=== PATIENT | male | born 1945 | race Caucasian/White ===

== ENCOUNTER 2017-07-02 01:33 | Inpatient (IN) | payer MEDICARE ==
--- OUTSIDE RECORDS SUMMARY | 2017-07-02 01:37 | XMS | Clinical Summary ---
:1945 Author Organization [facility] Address [address] [place] [address] Phone Care Team Providers Name Role Phone , Primary Care Provider Unavailable Allergies Active Allergy Reactions Severity Noted Date Comments Sulfamethoxazole-Trimethopr Other (See Comments) 10/11/2013 Loss of appetite im Current Medications Prescription Sig. Disp. Refills Start Date End Date Status rosuvastatin (CRESTOR) Take 20 mg by mouth Active 20 MG tablet daily. HYDROcodone-acetaminop Take 1 tablet by mouth Active hen (NORCO 5-325) every 6 (six) hours as 5-325 mg per tablet needed. aspirin 325 MG tablet Take 325 mg by mouth Active daily. carvedilol (COREG) 25 Take 25 mg by mouth 2 Active MG tablet (two) times daily with breakfast and dinner. hydrALAZINE Take 25 mg by mouth 3 Active (APRESOLINE) 25 MG (three) times daily. tablet insulin detemir 100 Inject subcutaneously Active unit/mL (3 mL) InPn nightly. nitroglycerin Place 0.3 mg under the Active (NITROSTAT) 0.3 MG SL tongue every 5 (five) tablet minutes as needed. nitroglycerin Place 0.5 inches onto Active (NITROSTAT) 2 % the skin 3 (three) ointment times daily. pantoprazole Take 40 mg by mouth Active (PROTONIX) 40 MG daily. tablet Active Problems Problem Noted Date DM (diabetes mellitus) (HCC) 09/17/2013 HTN (hypertension) 09/17/2013 3-vessel CAD 09/17/2013 Carotid stenosis 09/17/2013 Arthritis 09/17/2013 Renal cell carcinoma (HCC) 09/17/2013 Pre-transplant evaluation for ESRD (end stage renal disease) 09/17/2013 Social History Tobacco Use Types Packs/Day Years Used Date Never Smoker Sex Assigned at Date Recorded Not on file Last Filed Vital Signs Vital Sign Reading Time Taken Blood Pressure 230/97 10/11/2013 2:27 PM [employer] Pulse 74 10/11/2013 2:27 PM [employer] Temperature 36.1 C (97 F) 10/11/2013 2:27 PM [employer] Respiratory Rate 18 10/11/2013 2:27 PM [employer] Oxygen Saturation - - Inhaled Oxygen Concentration - - Weight 95.3 kg (210 lb) 10/11/2013 2:27 PM [employer] Height 181.6 cm (5' 11.5") 10/11/2013 2:27 PM [employer] Body Mass Index 28.88 10/11/2013 2:27 PM [employer] Plan of Treatment Health Maintenance Due Date Last Done Comments INFLUENZA VACCINE 05/22/2017 Results Not on filefrom Last 3 Months
[2017-07-02] MEDS ORDERED: Furosemide 40 MG/4 ML VIAL ONE (01:53)
[2017-07-02] MEDS ORDERED: Albuterol Sulfate 2.5 mg/3 ml Neb ONE (01:57)
[2017-07-02 02:19] LABS: #Basophils 0.1 thou/uL (0.0-0.2); #Eosinphils 0.3 thou/uL (0.0-0.7); #Lymphocytes 3.1 thou/uL (1.20-3.40); #Monocytes 0.9 thou/uL (0.11-0.59); #Neutrophils 8.3 thou/uL (1.40-6.50); %Basophils 0.6 % (0.0-1.0); %Eosinophils 2.5 % (0.0-10.0); %Lymphocytes 24.6 % (21.0-51.0); %Monocytes 6.9 % (0.0-10.0); Hematocrit 42.2 % (42.0-52.0); Red Blood Cell (RBC) Count 4.53 mill/uL (4.70-6.10); White Blood Cell (WBC) Count 12.7 thou/uL (4.8-10.8)
[2017-07-02 02:25] LABS: PTT 28.7 SEC (22.9-36.1); Prothrombin Time 13.5 SEC (12.0-14.7)
[2017-07-02 02:30] LABS: ALT (SGPT) 28 U/L (8-55); AST (SGOT) 42 U/L (5-34); Alkaline Phosphatase 75 U/L (40-150); Anion Gap 16 mmol/L (10-20); BUN (Urea Nitrogen) 45 mg/dL (8.4-25.7); Bilirubin, Total 0.4 mg/dL (0.2-1.2); CK (CPK) 153 U/L (30-200); Calc. Creatinine Clearance 0 mL/min (70-130); Carbon Dioxide 18 mmol/L (23-31); Chloride 109 mmol/L (98-107); Estimated GFR-MDRD 16; Globulin 3.9 g/dL (2.4-3.5)
[2017-07-02 02:33] LABS: Troponin I 0.046 ng/mL (< 0.028)
[2017-07-02 02:42] LABS: Oxyhemoglobin 93.8 % (94.0-97.0); Sodium 142 mmol/L (135-148)
[2017-07-02 02:47] LABS: Modified Allen's Test POSITIVE; Vent NO
[2017-07-02 02:48] LABS: Mode BIPAP; PIP 12 cmH2O; Pressure Support 10 cmH2O
[2017-07-02] MEDS ORDERED: Nitroglycerin 0.4 MG TAB (25 Tab Bottle) PO PRN (03:18)
[2017-07-02] MEDS ORDERED: Dextrose 5% in Water 1,000 ML IV PRN (03:23)
[2017-07-02] MEDS ORDERED: Insulin Regular 300 UNITS/3 ML VIAL SC PRN (03:23)
[2017-07-02] MEDS ORDERED: Dextrose 50% Abboject 50 ML SYRINGE SLOW IVP PRN (03:23)
[2017-07-02] MEDS ORDERED: Ondansetron HCl/PF 4 MG/2 ML Vial IVP PRN (03:25)
[2017-07-02] MEDS ORDERED: Lacri-Lube Opth Oint 3.5 GM TUBE EA EYE PRN (03:25)
[2017-07-02] MEDS ORDERED: cloNIDine 0.1 MG TAB PO PRN (03:27)
[2017-07-02] MEDS ORDERED: Bisacodyl 10 MG SUPP PR PRN (03:27)
[2017-07-02] MEDS ORDERED: hydrALAZINE 20 MG/ML VIAL SLOW IVP PRN (03:27)
[2017-07-02] MEDS ORDERED: Calcium Carbonate 500 MG ChewTAB PO PRN (03:27)
[2017-07-02] MEDS ORDERED: Senokot 8.6 MG TAB PO PRN (03:27)
[2017-07-02] MEDS ORDERED: Furosemide 100 MG in Sodium Chloride 0.9% 90 ML IVPB SCH (04:00)
[2017-07-02 04:09] VITALS: BMI 25.4
--- NOTE | 2017-07-02 04:14 | HP ---
DATE OF ADMISSION: 07/02/2017 PRIMARY CARE PHYSICIAN: Adore Cabrera. CHIEF COMPLAINT: Shortness of breath. CODE STATUS: FULL CODE. SURROGATE DECISION-MAKER: Patient makes his own decision with a help of his family. HISTORY OF PRESENT ILLNESS: Patient is a 71-year-old male with chronic systolic heart failure, ejec tion fraction 20%-25% range, coronary artery disease, status post CABG, hypertension, diabetes melli tus type 2, and chronic kidney disease stage 5, presented to the emergency room with above complaint s. Patient normally follows Dr. Wong. Patient currently follows Dr. Wong. He was on hemodialysis in the past. The patient had sudden onset of chest discomfort along with shortness of breath that woke him up fro m sleep. His chest was tight. He felt nauseous and had one episode of vomiting earlier. No palpit ations or loss of consciousness reported. He also had some wheezing and had difficulty catching his breath for which he called EMS. He was placed on noninvasive positive pressure ventilation and was brought to the emergency room. He received 6 mg morphine, and Nitropaste. He refused aspirin by E MS. His initial blood pressure by EMS was 211/134. Not much information is available from the karina ent due to current clinical status. PAST MEDICAL HISTORY: 1. Chronic systolic heart failure, ejection fraction 20%-25% range. 2. CKD stage 5, followed by Dr. Wong. 3. Diabetes mellitus type 2. 4. Hypertension. 5. Coronary artery disease, status post coronary artery bypass grafting. 6. Ischemic cardiomyopathy. 7. Status post AICD. 8. Dyslipidemia. 9. History of hemodialysis in the past, patient is currently not on dialysis. 10. Bilateral carotid artery disease and positive family history. PAST SURGICAL HISTORY: 1. Dialysis access. 2. AICD placement. 3. Coronary artery bypass grafting. 4. Tonsillectomy. 5. Spinal surgery. 6. Status post left nephrectomy. ALLERGIES: Patient is allergic to KEFLEX, PROPOXYPHENE, DARVOCET, and BACTRIM. FAMILY HISTORY: Positive for heart disease. SOCIAL HISTORY: He is , currently lives in [place]. He is a former smoker. No alcohol or drug use. CURRENT MEDICATIONS: Patient does not remember any of his home medications. We will try to confirm with the family when they arrive. REVIEW OF SYSTEMS: Cannot be obtained from the patient due to current clinical status. PHYSICAL EXAMINATION: VITAL SIGNS: A 71-year-old male, in moderate respiratory distress, currently on noninvasive positiv e pressure ventilation. HEENT: Head atraumatic, normocephalic. Sclerae are anicteric. Moist mucous membranes. No oral le kirsten. NECK: Supple. JVD elevated. No carotid bruit. No neck stiffness. LUNGS: Showed bilateral crackles in the lower half of the lung along with wheezing and rhonchi. Nelly ngs were symmetrical. Trachea was midline. HEART: S1, S2 present. Regular rate and rhythm. AICD noted. ABDOMEN: Soft, nontender, bowel sounds present. EXTREMITIES: No edema or calf tenderness. NEUROLOGIC: Grossly nonfocal, moves all four extremities. PSYCHIATRY: Alert, awake, oriented x3. SKIN: Warm and dry. LYMPH NODES: No palpable lymph nodes in the neck. PERIPHERAL VASCULAR: Radial pulses palpable bilaterally. MUSCULOSKELETAL: No joint swelling or tenderness. SKIN: Warm and dry. LYMPH NODES: No palpable lymph nodes in the neck. LABORATORY FINDINGS: 1. BNP 1245. Troponins in the indeterminate range at 0.046. 2. Blood gases showed pH 7.26 with pCO2 of 44.2, pO2 of 81.2 on 07/26 BiPAP. 3. CBC showed WBC 12.7 with hemoglobin 14.5, platelet of 209. 4. EKG by my review showed paced rhythm. 5. Chest x-ray by my review showed flash pulmonary edema. IMPRESSION: 1. Acute hypoxic respiratory failure secondary to acute on chronic systolic heart failure. 2. Elevated troponins, probably secondary to congestive heart failure. 3. Coronary artery disease, status post coronary artery bypass grafting. 4. Status post automatic implantable cardioverter defibrillator. 5. Hypertension. 6. Diabetes mellitus type 2. 7. Hyperlipidemia. 8. Chronic kidney disease stage 5 with hemodialysis in the past. 9. History of severe junctional bradycardia associated with hyperkalemia in the past. 10. Former smoker. 11. Positive family history of heart disease. 12. Bilateral carotid artery disease. PLAN: The patient will be monitored in the intermediate care unit. We will continue noninvasive po sitive pressure ventilation. We will continue diuretics with careful monitoring of the renal functi on. Dr. Wong will be consulted. The patient will be kept on fluid restriction. We will resume home medications based on last discharge. We will confirm his other home medications. Insulin sliding scale will be started. A low-dose aspirin will be added. The patient states that aspirin was disco ntinued in the past. Plan of care was discussed with the patient. He stated understanding. The patient will require 3 t o 4 days for stabilization.
[2017-07-02] MEDS: Nitroglycerin 2% Ointment 1 INCH/1 GM Packet TOP SCH ×4 (04:30→21:08)
[2017-07-02 05:18] LABS: Troponin I 0.054 ng/mL (< 0.028)
[2017-07-02] MEDS: Insulin Regular 300 UNITS/3 ML VIAL SC PRN (06:13)
--- NOTE | 2017-07-02 07:39 | CON ---
DATE OF CONSULTATION: 07/02/2017 HISTORY OF PRESENT ILLNESS: Mr. Leos is a 71-year-old white male with chronic renal failure and ad mitted for shortness of breath secondary to congestive heart failure. He was started on a Lasix dri p. His breathing is a little improved. He is oxygenating at 95%. Please note he is noted on BiPAP . Please note this patient has chronic renal failure secondary to presumed diabetic nephropathy. A t one time, he was on dialysis and the renal function improved to where he could be off dialysis. We are being consulted for further management of his chronic renal failure. REVIEW OF SYSTEMS: No chest pain. Positive for shortness of breath, positive for chest pressure. No nausea, no vomiting, no diarrhea, no syncopal episode, no productive cough, no fever or chills. No sore throat. No gross hematuria. No dysuria, no urinary frequency, no abdominal pain, occasiona l joint pains, no new skin rash, no diplopia. MEDICATIONS: 07/02/2017 - Aspirin 81 mg tab daily, Tums 1000 mg q.4h. p.r.n., Coreg 50 mg p.o. b. i.d., Catapres 0.01 mg q.4h. p.r.n., furosemide - as Lasix drip, heparin 5000 units subcutaneous b.i .d., Lantus 20 units subcu daily, insulin detemir 15 units q.a.m., the Lantus is at q.a.m., Humulin R sliding scale, Nitro-Bid 2% ointment q.6h, Zofran p.r.n., Protonix 40 mg daily. PAST MEDICAL HISTORY: 1. Congestive heart failure - decreased ejection fraction. 2. Chronic renal failure from diabetic nephropathy. 3. Type 2 diabetes mellitus. 4. History of cardiomyopathy. 5. Coronary artery disease. 6. Dyslipidemia. 7. Hypertension. 8. History of noncompliance. PAST SURGICAL HISTORY: 1. Status post AV fistula placement. 2. Status post tonsillectomy. 3. Status post left nephrectomy. 4. Status post CABG. 5. Status post cardiac catheterization. 6. Status post AICD placement. 7. Status post back surgery. ALLERGIES: KEFLEX, PROPOXYPHENE, DARVOCET, BACTRIM. TRAUMA: None. IMMUNIZATIONS: Up to date. HOSPITALIZATIONS: Please see past medical history. 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 The patient's education is 8th grade. He use to live in [place]. Smoked for 20 years 1 pack a day. No alcohol, no drug abuse. Status post blood transfusion. FAMILY HISTORY: No family history of ESRD. PHYSICAL EXAMINATION: VITAL SIGNS: Blood pressure is 170/70, heart rate 82, respiratory rate 20, pulse ox 100%, temperatu re 97.4. GENERAL: Awake, supine, comfortable on BiPAP. SKIN: Adequate turgor. HEENT: He has pinkish conjunctivae, anicteric sclerae. NECK: No neck mass, no carotid bruits, no JVD. CHEST: No deformities. LUNGS: Clear. Decreased breath sounds. HEART: Normal sinus rhythm. No murmur, no gallops or rubs. ABDOMEN: Globular, soft, nontender, no masses. EXTREMITIES: No edema. NEUROLOGIC: Awake, oriented to 3 spheres. Moving all extremities. No tremors, no asterixis, no at axia. LABORATORY: 07/02/2017 - White count 12.7, hemoglobin 14.5, sodium 138, potassium 5.1, chloride 10 9, carbon dioxide 18, BUN 45, creatinine 3.78, GFR 16 mL per minute, AST 42, ALT 28. Troponin I 0.0 54. Albumin is 4.1. Further review of his serum creatinine shows the following; 09/28/2016 BUN 37, creatinine 3.63, GFR 17 mL per minute. ASSESSMENT AND PLAN: 1. Chronic renal failure from diabetic nephropathy, relatively stable renal function. Creatinine i s near baseline. He continues to be at stage IV chronic renal failure. I do not feel there is any indication for any emergent hemodialysis. Please note his potassium is within normal. He seems to be diuresing. He is currently on a Lasix drip. Please note he has a right upper extremity AV fistu la and this is functional. 2. Congestive heart failure. Continue supportive care on Lasix drip. 3. Troponin I is noted to be borderline. Continue to diurese. No indication for any dialytic inte rvention, recheck base met in the a.m.
[2017-07-02 09:21] LABS: Anion Gap 15 mmol/L (10-20); BUN (Urea Nitrogen) 48 mg/dL (8.4-25.7); Calc. Creatinine Clearance 23 mL/min (70-130); Calcium 8.2 mg/dL (7.8-10.44); Carbon Dioxide 15 mmol/L (23-31); Chloride 111 mmol/L (98-107); Estimated GFR-MDRD 16; Magnesium 2.1 mg/dL (1.6-2.6)
[2017-07-02 09:27] LABS: Troponin I 0.073 ng/mL (< 0.028)
--- NOTE | 2017-07-02 09:36 | RAD ---
SINGLE VIEW OF THE CHEST: COMPARISON: 09/23/16. HISTORY: Respiratory failure. FINDINGS: A single view of the chest shows an enlarged but stable cardiomediastinal silhouette. The patient i s status post sternotomy. The pacemaker is unchanged in position. Increased interstitial lung delphine ings are present. There appear to be superimposed airspace opacities projecting over both lower lob es. IMPRESSION: Bilateral lower lobe infiltrates. POS: H
[2017-07-02] MEDS: Heparin 5,000 UNITS/ML VIAL SC SCH ×2 (09:42→21:08)
[2017-07-02] MEDS: Insulin Detemir 100 UNITS/ML 15 UNITS in Pre-Filled Syringe 1 EACH SC SCH (09:43)
[2017-07-02] MEDS: Docusate 100 MG CAP PO SCH ×2 (09:43→21:08)
[2017-07-02] MEDS: Carvedilol 25 MG TAB PO SCH ×2 (09:43→15:12)
[2017-07-02] MEDS ORDERED: Furosemide 40 MG/4 ML VIAL SLOW IVP SCH (15:15)
--- NOTE | 2017-07-02 15:37 | CON ---
DATE OF CONSULTATION: 07/02/2017 SERVICE: Pulmonary Medicine. REASON FOR CONSULTATION: Respiratory failure. HISTORY OF PRESENT ILLNESS: The patient is a 71-year-old white male with past medical history signi ficant for 18 admissions to the hospital for similar event. He would go to his bed in his usual sta te of health, then wake up in the middle of the night feeling like he was choking and gasping. He c annot catch his breath and he calls emergency services. By the time they get here, he decompensates and he was found to be acutely hypoxemic. He was brought to the emergency department and placed on noninvasive ventilation with resolution of some of the symptoms over the next couple of hours. Occ asionally, it is more mild. He wakes up most nights of the week, feeling like he is holding his seth ath or coughing and/or choking, but is able to go right back to bed. This has been going on for the better part of 3 or 4 years. These episodes seem to be getting increasingly worse. He denies any current fevers, nausea, vomiting, diarrhea, or chest discomfort. He had no palpitations around this time. He has had an AICD placement as well as other interventions directed at heart in order to pr event these things from occurring, but they are persisting. PAST MEDICAL HISTORY: 1. Chronic systolic heart failure with 20% ejection fraction. 2. Chronic kidney disease, stage 5. 3. Type 2 diabetes mellitus. 4. Hypertension. 5. Dyslipidemia. 6. Coronary artery disease. 7. Bilateral carotid artery disease. PAST SURGICAL HISTORY: 1. Dialysis access. 2. AICD placement. 3. Coronary artery bypass graft. 4. Tonsillectomy. 5. Spinal surgery. 6. Left nephrectomy. ALLERGIES: KEFLEX, PROPOXYPHENE, DARVOCET, BACTRIM. FAMILY HISTORY: Positive for heart disease. SOCIAL HISTORY: Negative for alcohol, tobacco, or illicit drug use. He is a former smoker, but kelli t remotely. He denies any alcohol or illicit drug use. He has no exposure to chemicals, dust, asbe stosis, or tuberculosis. MEDICATIONS: List of his inpatient medications were reviewed. No updates were made at this time. REVIEW OF SYSTEMS: General, head, ears, eyes, nose, throat, cardiovascular, respiratory, GI, , mu sculoskeletal, neurologic, and skin is negative except as mentioned in the HPI. PHYSICAL EXAMINATION: VITAL SIGNS: Afebrile, pulse 71, blood pressure 132/79, respirations 20, saturation 94% on 2 liters nasal cannula. GENERAL: Patient is awake, alert, in no apparent distress. LUNGS: Excellent air entry. There is slightly prolonged expiratory phase with a little bit of whee zing. Crackles predominate. No rhonchi. HEART: Normal rate, regular. ABDOMEN: Soft, nontender, nondistended. Bowel sounds positive. MUSCULOSKELETAL: No cyanosis or clubbing. It is not much in the way of pitting in the bilateral lo wer extremities. GENITOURINARY: No Pablo catheter. NEUROLOGIC: Grossly nonfocal. LABORATORY DATA: WBC 12.7, hemoglobin 14.5, platelets 209,000. INR 1.0. PH 7.29, pCO2 of 44, pO2 of 81. Creatinine 3.69 and roughly stable. Potassium 5.2 and also stable. Basic metabolic profil e is otherwise unremarkable. Magnesium 2.1. Cardiac enzymes were gently trending upward to 0.073. Liver function studies are normal. BNP is elevated 1245. IMAGING STUDIES: Chest x-ray demonstrates bibasilar infiltrates. Echocardiogram demonstrates an ej ection fraction of 45%-50% with mild concentric left ventricular hypertrophy and mild mitral regurgi tation. There is left atrial enlargement. Previous echocardiograms have demonstrated moderate and even severe mitral regurgitation. ASSESSMENT: 1. Acute hypoxic respiratory failure. 2. Flash pulmonary edema. 3. Obstructive sleep apnea, very strongly suspected. PLAN: At this point, we will continue the BiPAP to be used on a p.r.n. basis. In the outpatient se tting, it is mandatory of this patient undergo a sleep evaluation to determine whether or not he cou ld benefit from noninvasive therapy. All of these episodes are happening when the patient's blood p ressure is elevated. My suspicion is that, he has a functional mitral regurgitation that is worse w ith an increasing blood pressure. These episodes are likely happening in the middle of night becaus e of increasing stress associated with sleep apnea. He has multiple features consistent with sleep apnea and we could potentially minimize some of his admissions, if this were to be present. Pulmona ry Critical Care will continue to follow, particularly while the patient remains in this part of the hospital.
[2017-07-03] MEDS: Acetaminophen 325 MG TAB PO PRN (00:46)
[2017-07-03 04:52] LABS: #Eosinphils 0.3 thou/uL (0.0-0.7); #Lymphocytes 1.9 thou/uL (1.20-3.40); #Monocytes 0.6 thou/uL (0.11-0.59); #Neutrophils 3.5 thou/uL (1.40-6.50); %Basophils 0.5 % (0.0-1.0); %Eosinophils 4.2 % (0.0-10.0); %Lymphocytes 30.2 % (21.0-51.0); %Monocytes 9.1 % (0.0-10.0); Hematocrit 33.9 % (42.0-52.0); Mean Platelet Volume 7.8 fL (7.4-10.4); Red Blood Cell (RBC) Count 3.66 mill/uL (4.70-6.10); White Blood Cell (WBC) Count 6.2 thou/uL (4.8-10.8)
[2017-07-03 05:07] LABS: Anion Gap 16 mmol/L (10-20); BUN (Urea Nitrogen) 53 mg/dL (8.4-25.7); Calc. Creatinine Clearance 21 mL/min (70-130); Calcium 8.2 mg/dL (7.8-10.44); Carbon Dioxide 19 mmol/L (23-31); Chloride 107 mmol/L (98-107); Estimated GFR-MDRD 15; Magnesium 1.8 mg/dL (1.6-2.6)
[2017-07-03] MEDS ORDERED: Furosemide 40 MG/4 ML VIAL SLOW IVP SCH (06:00)
[2017-07-03] MEDS: Nitroglycerin 2% Ointment 1 INCH/1 GM Packet TOP SCH (06:02)
[2017-07-03] MEDS: Docusate 100 MG CAP PO SCH ×2 (08:57→20:56)
[2017-07-03] MEDS: Carvedilol 25 MG TAB PO SCH ×2 (08:57→17:24)
[2017-07-03] MEDS: Heparin 5,000 UNITS/ML VIAL SC SCH ×2 (08:58→20:42)
[2017-07-03] MEDS: Aspirin 81 mg Enteric Coated Tablet PO SCH (08:58)
[2017-07-03] MEDS ORDERED: INSULIN GLARGINE HUM REC ANLOG 25 UNIT SQ SCH (09:00)
[2017-07-03] MEDS ORDERED: Non-Formulary Item 1 EACH (Insulin Glargine,Hum.Rec.Anlog 50 UNIT) SQ SCH (09:00)
[2017-07-03] MEDS: Insulin Detemir 100 UNITS/ML 25 UNITS in Pre-Filled Syringe 1 EACH SC SCH (09:53)
[2017-07-03] MEDS: Insulin Detemir 100 UNITS/ML 15 UNITS in Pre-Filled Syringe 1 EACH SC SCH (09:54)
--- NOTE | 2017-07-03 10:40 | PRG ---
DATE OF SERVICE: 07/03/2017 SERVICE: Renal Medicine. SUBJECTIVE: Mr. Leos is a 71-year-old white male, who was initially admitted for shortness of chelsy th. He was being treated for CHF. Currently, Lasix will be on hold due to a slightly higher creati nine today. The possibility that he may have obstructive sleep apnea is a consideration. We will t herefore plan sleep study as an outpatient. His breathing is actually much improved. Earlier this morning, he developed signs and symptoms that were suggestive of hypoglycemia. However, blood sugar was checked and it was fine. The feeling of diaphoresis is now resolved. OBJECTIVE: VITAL SIGNS: Blood pressure is 161/68, heart rate 63, respiratory rate 16, temperature 97.7, pulse ox 94%. GENERAL EXAM: Noted to be awake, alert, supine, comfortable, not in distress. SKIN: Adequate turgor. HEENT: He has pinkish conjunctivae, anicteric sclerae. NECK: No neck mass, no carotid bruits, no JVD. CHEST: No deformities. LUNGS: Clear breath sounds. No wheezing, no crackles. HEART: Normal sinus rhythm. No murmur, no gallops, no rubs. ABDOMEN: Globular, soft, nontender, no masses. EXTREMITIES: Lower extremities, no edema. Right upper extremity, positive for edema. MEDICATIONS: Medications of 07/03/2017 were reviewed. LABORATORY DATA: Laboratories show, 07/03/2017, white count 6.2, hemoglobin 11.3, sodium 138, potas sium 4.4, chloride 107, carbon dioxide 19, BUN 53, creatinine 3.98, glucose 166, calcium 8.2, magnes ium 1.8. ASSESSMENT AND PLAN: 1. Acute kidney injury/chronic renal failure, slightly higher creatinine at 3.98. Yesterday, this was 3.69. We will hold the Lasix temporarily. His shortness of breath is much improved. 2. Shortness of breath, clinically improved. Discontinue IV Lasix for the moment. 3. Patient will have eventual sleep study done as an outpatient. There is no indication for any di alytic intervention with this patient. His chronic renal failure is noted with a GFR of 15 mL per m inute.
--- NOTE | 2017-07-03 13:02 | PRG ---
DATE OF SERVICE: 07/02/2017 SERVICE: Pulmonary Medicine. INTERVAL HISTORY: The patient is doing great from a respiratory standpoint. He is on room air. He is breathing comfortably and has no specific complaints this morning. He had a hard time sleeping once again last night, but this is status quo for him. Otherwise, there has been no interval change to his condition. PHYSICAL EXAMINATION: VITAL SIGNS: Afebrile, pulse 62, blood pressure 125/56, respirations 16 and saturation 94% on 2 lit ers nasal cannula. GENERAL: The patient is awake and alert, in no apparent distress. LUNGS: Decreased air entry. There is no prolonged expiratory phase. Dependent crackles are vastly improved. No wheezing or rhonchi are present. HEART: Normal rate, regular. ABDOMEN: Soft, nontender and nondistended. Bowel sounds positive. MUSCULOSKELETAL: No cyanosis or clubbing. No pitting in the bilateral lower extremities. NEUROLOGIC: Grossly nonfocal. LABORATORY DATA: WBC 6.2, hemoglobin 11.3 and platelets 127,000. INR 1.0. Creatinine 3.98 and gen tly up trending. BUN 53. Basic metabolic profile is otherwise unremarkable. Magnesium 1.8. ASSESSMENT: 1. Acute hypoxic respiratory failure. 2. Flash pulmonary edema secondary to likely function, mitral regurgitation in the setting of eleva renard blood pressures. 3. Hypertensive emergency. 4. Acute on chronic systolic heart failure with a 20% ejection fraction. 5. Chronic kidney disease, stage 4. 6. Obstructive sleep apnea, very strongly suspected. PLAN: The patient can be transitioned to the telemetry unit. Pulmonary Critical Care. We will con tinue to follow up for the time being. In the outpatient setting, I would like to set him up with a n outpatient polysomnogram. I will come back to visit me in clinic within a week or two to order th e study.
--- NOTE | 2017-07-03 14:22 | PRG ---
DATE OF SERVICE: 07/03/2017 SUBJECTIVE: The patient is seen and examined at the bedside. He complains of not feeling well and being upset, because he went to the bathroom this morning and found lots of black hair on the floor, which was suggesting that the bathroom was not cleaned properly, and he had some complaints about f ood he received. OBJECTIVE: VITAL SIGNS: Blood pressure is 161/68, pulse is 63, temperature is 97.7, O2 saturation , and p ulse oximetry is 94% on 2 liters by nasal cannula. HEENT: His head is atraumatic and normocephalic. Eyes are PERRLA. Conjunctivae pinkish. Oral muc adarsh is slightly dry. NECK: Supple, no lymphadenopathy, JVD, 1+ similar bilaterally. LUNGS: Breath sounds diminished at both bases. There are few crackles bilaterally at both bases. No wheezing, no rales. CARDIOVASCULAR: S1, S2, somewhat distant. No S3, no S4. ABDOMEN: Soft, nontender. Bowel sounds are present, no organomegaly. EXTREMITIES: No clubbing, cyanosis or edema. He has a big scar on his right arm where the fistula is and his hand is somewhat reddish and swollen. NEUROLOGIC: He is alert and oriented x4. There is not any motor deficits. Cranial nerves are inta ct. LABORATORY DATA: Showed a white count of 6.2, hemoglobin 11.3, hematocrit 33.9, platelet count is 1 27. Sodium of 138, potassium 4.4, chloride 107, CO2 of 19, BUN 53, creatinine 3.98, glucose 166 and glycemia is ranging from 158-227. He had two troponin levels yesterday. The first one was 0.054, the second one was 0.073. IMPRESSION: 1. Recurrent flash pulmonary edema and acute hypoxemic respiratory failure. The patient was diures ed. He is doing significantly better. He was seen by director loss prevention, Dr. Damian who suggests that this could be related to his sleep apnea. He had multiple admissions to both hospitals in [facility] for the same reason, but he never had sleep apnea studies done, so at this point, he does not need any BiPAP anymore. He is maintaining oxygenation good on 2 liters by nasal cannula . I am going to hold his Lasix until he is seen by Dr. Wong today, because his creatinine went up si gnificantly by 0.3 in less than 24 hours. 2. Cardiomyopathy with chronic systolic heart failure, ejection fraction of 20%-25%. Patient is on carvedilol. 3. Coronary artery disease, status post coronary artery bypass grafting. 4. Presence of AICD. 5. Hypertension. 6. Diabetes mellitus type 2. 7. Hyperlipidemia. 8. Chronic kidney disease stage 5, with worsening creatinine after diuresis. 9. Bilateral carotid artery disease. PLAN: Plan is to hold his Lasix now until he is going to be seen by Dr. Wong, his bladder cleaner. Als o, we will ask Dr. Dupont to come and see him. He will need probably some adjustment to his medic ations. He seems to be doing better and his appetite is better, so I am going to put him on 50 unit s of Lantus in every morning. First dose he will have this morning, but I am going to give him half a dose of 25 units just to see how he responds to that. Now, he will continue his aspirin 81 mg on ce a day and carvedilol 50 mg twice a day and he will continue his deep venous thrombosis prophylaxi s with heparin subcutaneously twice a day and PUD prophylaxis with 40 mg of Protonix p.o.
[2017-07-03] MEDS: Insulin Regular 300 UNITS/3 ML VIAL SC PRN ×2 (17:56→22:45)
--- NOTE | 2017-07-03 22:54 | CON ---
DATE OF ADMISSION: 07/02/2017 DATE OF CONSULTATION: 07/03/2017 INDICATION FOR PROCEDURE: A 71-year-old patient with a history of coronary artery disease, diastoli c systolic dysfunction, history of AICD implant with acute pulmonary edema. HISTORY OF PRESENT ILLNESS: This is a very pleasant 71-year-old gentleman who has been followed by Dr. Dupont in the past. He has a long history of cardiac problems. He has undergone bypass surge ry in 2014 with a VÁSQUEZ to the left anterior descending artery, saphenous vein graft to diagonal bran ch into the posterior descending artery. He at that time was found also to have severe decrease in left ventricular systolic function. This did improve somewhat, but then again decreased. He subseq uently underwent an AICD implant. He has had multiple hospital admissions for acute pulmonary edema . At this time, he was admitted after he became more short of breath. He had been working in his [place]. 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 He denied any chest pain or shortness breath. Prior to that, he went to bed and noticed he became more and more short of breath and coughing. He then sta rted having frothy reduction in the cough, but not blood tinged but frothy. [facility] and before he got there, he was unable to breathe and required a CPAP mask, I believe, o n the ambulance in order to help him breathe. At this time, he has been diuresed significantly and he has been seen by the city dispatcher and he is feeling much better. His troponin I increased from 0 .046, elevated to 0.073, most likely due to demand ischemia associated with acute pulmonary edema. His BNP was 1245. He denies any chest pain. He does have occasional chest tightness, but at this t anyi, he is feeling quite stable and has had no further complaints. He has been given some nitroglyc desmond at times since being in the hospital. His last ejection fraction that I can determine was abou t 20%. He has also had a stress test in 06/2015, which showed inferior posterior scar with ejection fraction around 30% at that time, but no evidence of ischemia. I believe this is his last stress t est that this gentleman has had. PAST MEDICAL HISTORY: Significant for coronary artery disease, bypass surgery as noted above. He h as history of diabetes, hypertension, dyslipidemia. He also had renal insufficiency. He has had re nal cell carcinoma. He has had a left nephrectomy. He has had knee arthritis. He has had history of hypertension and he has degenerative joint disease. He has had back surgeries. ALLERGIES: He is allergic to PRAVASTATIN which causes myalgias. MEDICATIONS: At home prior to admission included Phenergan as needed, Coreg 50 mg b.i.d. He also t akes insulin on a regular schedule, also as needed takes p.r.n. Humalog, Lasix is 40 mg b.i.d., alpr azolam 0.5 mg 1-2 tablets at bedtime p.r.n. as needed and other Mucinex and tramadol also p.r.n. as needed. At this time, he was given nitroglycerin, he is on insulin, aspirin 81 mg a day, p.r.n. med ications, Coreg XL 50 mg b.i.d., Colace is 100 mg b.i.d., he was given IV Lasix. He has been seen b y Dr. Wong, this has now been decreased. He has put out quite a bit of urine and despite having gin re decrease in his renal function. He also was given subcu heparin and also p.r.n. hydralazine for hypertension. REVIEW OF SYSTEMS: He denied any new HEENT complaints. He has undergone lens implants recently. Osito fuentes had no pulmonary complaints except what was noted in the history of present illness with the sudde n onset of shortness of breath and coughing. GI: No nausea, vomiting or diarrhea. He has had no G U complaints. He only has one kidney due to a previous left nephrectomy for renal cell carcinoma. He had been on dialysis in the past, but no longer is on dialysis. His renal function has remained relatively stable and his creatinine today was 3.98. He had no musculoskeletal complaints and some peripheral neuropathy and some mild swelling of the left lower extremity after sustained saphenous v ein graft retrieval. Neurologically, he denied any seizures or syncope. PHYSICAL EXAMINATION: GENERAL: Reveals an elderly gentleman, alert and oriented. VITAL SIGNS: Blood pressure is 125/56, heart rate 62 and regular, respiratory rate 16-20. He is af ebrile. HEENT: Shows head to be normocephalic and atraumatic. Carotid pulses are present with bilateral ca rotid bruits. CHEST: Clear to auscultation. I did not hear any rales, rhonchi or wheezing at this time. CARDIOVASCULAR: Exam reveals a regular rate and rhythm. He has a well-healed surgical incision on the left infraclavicular area after an AICD implant. He also has well-healed midline surgical incis ion after his bypass surgery. He has a regular rate and rhythm. I did not hear any heaves, thrills , bruits, rubs or murmurs. ABDOMEN: Soft and nontender with positive bowel sounds. EXTREMITIES: Showed no clubbing or cyanosis at this time. He had bilateral femoral bruits. I pedro ot palpate the left popliteal pulse. He has a mildly decreased right popliteal pulse. I cannot pal wyatt pedal pulses on either side. NEUROLOGIC: He appears to be intact. I cannot elicit any gross focal motor deficits. He is able t o ambulate. SKIN: Warm and dry. LABORATORY DATA: Shows a potassium of 4.4, creatinine is 3.98 with a BUN of 53, hemoglobin is 11.3, blood sugars anywhere between 158 to 288. His BNP was 1245 and troponin I is noted. He originally had a troponin I of 0.046, has increased up to 0.073, most likely associated with his demand ischem ia from the pulmonary edema. IMPRESSION: 1. Acute onset of pulmonary edema which may be due to underlying ischemia. He did not believe that he had increased his fluid or diet in any way and whether or not he developed acute hypertension, d eveloped acute pulmonary edema is unclear, I do not know if he has any renal artery stenosis. This may also be a possibility. He has been followed by the city dispatcher. 2. History of coronary artery disease, which actually appears to be stable unless he may have ische isidoro. His last stress test did not show ischemia, but this was approximately 2 years ago. He may ne ed to be considered for repeat stress testing. 3. History of cardiomyopathy with severe decrease in left ventricular systolic function. Last echo cardiogram showed an ejection fraction around 20% and he had an automated implantable cardioverter-d efibrillator implant. He may need to undergo repeat echocardiogram for evaluation of his ejection f raction. An automated implantable cardioverter-defibrillator implant is remaining stable at this ti sc. Last time he has had it interrogated, but apparently the function has been normal. 4. History of diabetes. This is under poor control, the patient's noncompliant with diet. 5. Hypertension. This is under good control. 6. Dyslipidemia. He will continue his present medications. At this time, he is much better after being given diuresis yesterday. He diuresed, as far as today is concerned, 2675 mL. He actually re quired some replacement of the fluid as it appears that he may becoming dehydrated and his creatinin e and the renal function has actually gone down originally from 3.78 to 3.69 and then today he had i ncreased back up to 3.98 indicative somewhat of over diuresis. He has been followed by a nephrologi st. At this time, we will continue to monitor him closely. His EKG showed a normal sinus rhythm wi th atrial sensing and ventricular pacing and no acute changes otherwise. Further care of the patien t will be by Dr. Dupont when he sees the patient tomorrow. ADDENDUM: Last echocardiogram that I could determine was that his ejection fraction is around 20%. He did hav e a more recent echocardiogram performed in September of this year, which showed an ejection fraction of approximately 48% by the public address technician study, but however by evaluation from the interpreting physi fernando, ejection fraction is estimated at 40% to 45% with mild concentric left ventricular hypertrophy as well as mild mitral valve regurgitation, left atrial enlargement, and grade I diastolic dysfunct ion as well as aortic valve sclerosis and mild tricuspid valve regurgitation.
[2017-07-04 04:35] LABS: #Eosinphils 0.2 thou/uL (0.0-0.7); #Lymphocytes 1.7 thou/uL (1.20-3.40); #Monocytes 0.5 thou/uL (0.11-0.59); #Neutrophils 3.6 thou/uL (1.40-6.50); %Basophils 0.5 % (0.0-1.0); %Eosinophils 3.3 % (0.0-10.0); %Lymphocytes 27.7 % (21.0-51.0); %Monocytes 8.5 % (0.0-10.0); Hematocrit 35.3 % (42.0-52.0); Mean Platelet Volume 8.5 fL (7.4-10.4); Red Blood Cell (RBC) Count 3.84 mill/uL (4.70-6.10)
[2017-07-04 05:01] LABS: Anion Gap 15 mmol/L (10-20); BUN (Urea Nitrogen) 56 mg/dL (8.4-25.7); Calc. Creatinine Clearance 20 mL/min (70-130); Calcium 8.5 mg/dL (7.8-10.44); Carbon Dioxide 22 mmol/L (23-31); Chloride 105 mmol/L (98-107); Estimated GFR-MDRD 14
[2017-07-04] MEDS: Aspirin 81 mg Enteric Coated Tablet PO SCH (08:40)
[2017-07-04] MEDS: Carvedilol 25 MG TAB PO SCH ×2 (08:41→17:33)
[2017-07-04] MEDS: Docusate 100 MG CAP PO SCH ×2 (08:42→21:37)
[2017-07-04] MEDS: Insulin Detemir 100 UNITS/ML 25 UNITS in Pre-Filled Syringe 1 EACH SC SCH (08:49)
[2017-07-04] MEDS: Heparin 5,000 UNITS/ML VIAL SC SCH ×2 (08:50→21:28)
--- NOTE | 2017-07-04 08:55 | PRG ---
DATE OF SERVICE: 07/04/2017 This morning he is awake, alert, responsive. No shortness of breath. He presented with acute respi ratory failure secondary to cardiomyopathy. In ICU they put him on noninvasive ventilation, he felt much improved. He sees Adore Cabrera. PHYSICAL EXAMINATION: VITAL SIGNS: Blood pressure is 170/73, sats 94% on room air, temperature 97, pulse 69. CHEST: No wheezing or crackles. CARDIAC: Normal S1-S2. ABDOMEN: Soft. No masses. LABORATORY: White count 6000, H\T\H 12 and 37. Platelet count normal. Creatinine was 4.4. IMPRESSION: 1. Congestive heart failure. 2. Renal failure. 3. Chronic obstructive pulmonary disease. PLAN: At this stage, await cardiac input, neb treatments and supportive care. I will follow.
--- NOTE | 2017-07-04 09:26 | PRG ---
DATE OF SERVICE: 07/04/2017 RENAL MEDICINE SUBJECTIVE: Mr. Leos is a 71-year-old white male with chronic renal failure, being followed up at the [facility] for his acute kidney injury on top of his chronic renal failure. His creatinine h as slowly been worsening in the last few days. This is a reflection of the previous diuretic regime n. He is off diuretics. This morning, he voices no new complaints except he wants his diet changed . He denies any chest pain or shortness of breath. PHYSICAL EXAMINATION: VITAL SIGNS: Blood pressure 170/73, heart rate 69, respiratory rate 20, temperature 97.1, and pulse ox 94%. GENERAL: Noted to be awake, alert, comfortable, not in distress. SKIN: Adequate turgor. HEENT: He has pinkish conjunctivae, anicteric sclerae. NECK: No neck mass, no carotid bruits, no JVD. CHEST: No deformities. LUNGS: Decreased breath sounds. HEART: Normal sinus rhythm. No murmur, no gallops, no rubs. ABDOMEN: Globular, soft, nontender, no masses. EXTREMITIES: No edema, no deformities. MEDICATIONS: Medications of 07/04/2017 was reviewed. LABORATORY DATA: Laboratories of 07/04/2017; white count 6, hemoglobin 12.2. Sodium 138, potassium 4.3, chloride 105, carbon dioxide 22, BUN 56, creatinine 4.14, glucose 166, calcium 8.5. ASSESSMENT AND PLAN: 1. Chronic renal failure/acute kidney injury - slightly higher creatinine at 4.1. This may be a re flection of the previous diuretic regimen. Continue to observe. No indication for any dialytic int ervention. Agreed to hold off diuretics. Hold off any ARLEN inhibitors or ARB with this patient. Fr om a renal point of view, this patient can be discharged. He will [facility]. 2. Shortness of breath, multifactorial, off diuretics, breathing is much improved. Patient will be started for possible obstructive sleep apnea as outpatient.
--- NOTE | 2017-07-04 15:45 | PDOC.PN ---
- Subjective Encounter Start Date: 07/04/17 Encounter Start Time: 15:00 Patient seen and examined. No new complaints. No overnight events. No CP/SOB. - Objective Resuscitation Status: Resuscitation Status FULL:Full Resuscitation MAR Reviewed: Yes Vital Signs & Weight: Vital Signs (12 hours) Temp Pulse Pulse Pulse Resp BP BP 07/04/17 11:25 97.9 F 67 20 07/04/17 09:29 66 69 171/67 H 173/66 H 07/04/17 08:00 97.1 F L 69 20 07/04/17 07:12 97.1 F L 69 20 07/04/17 05:12 BP BP Pulse Ox Pulse Ox Pulse Ox 07/04/17 11:25 138/66 95 07/04/17 09:29 92 L 95 07/04/17 08:00 95 07/04/17 07:12 170/73 H 94 L 07/04/17 05:12 94 L Weight Admit Weight 193 lb 1.6 oz Weight 187 lb 6.4 oz I&O: 07/03/17 07/04/17 07/05/17 06:59 06:59 06:59 Intake Total 300 1310 440 Output Total 2975 750 Balance -2675 560 440 Result Diagrams: 07/04/17 03:49 07/04/17 03:49 Additional Labs: Accuchecks 07/04/17 07/04/17 07/03/17 11:01 06:52 21:59 POC Glucose 213 H 146 H 174 H 07/03/17 16:15 POC Glucose 191 H EKG Reviewed by me: Yes (Tele paced) Phys Exam - Physical Examination Constitutional: NAD Respiratory: no wheezing, no rhonchi Cardiovascular: RRR, no rub Gastrointestinal: soft, non-tender, positive bowel sounds Musculoskeletal: no edema Neurological: non-focal, moves all 4 limbs Dx/Plan - Plan DVT proph w/heparin, DVT proph w/SCDs IMPRESSION: 1. Acute hypoxic respiratory failure secondary to acute on chronic systolic heart failure. 2. Elevated troponins, probably secondary to congestive heart failure vs ? demand ischemia. 3. Coronary artery disease, status post coronary artery bypass grafting. 4. Status post automatic implantable cardioverter defibrillator. 5. Hypertension. 6. Diabetes mellitus type 2. on sliding scale with levemir. 7. Hyperlipidemia. 8. Chronic kidney disease stage 5 with hemodialysis in the past. 9. History of severe junctional bradycardia associated with hyperkalemia in the past. 10. Former smoker. 11. Positive family history of heart disease. 12. Bilateral carotid artery disease. PLAN: * Diuretics on hold * Cardiology/Nephrology following * Echo/Stress test per Cardiology * Cont to monitor * AM labs * Cont current meds as below Review of Systems - Review of Systems Respiratory: negative: Cough, Dry, Shortness of Breath, Hemoptysis, SOB with Excertion, Pleuritic Pain, Sputum, Wheezing Cardiovascular: negative: Chest Pain, Palpitations, Orthopnea, Paroxysmal Noc. Dyspnea, Edema, Light Headedness, Other - Medications/Allergies Allergies/Adverse Reactions: Allergies Allergy/AdvReac Type Severity Reaction Status Date / Time cephalexin monohydrate Allergy Verified 11/16/15 05:02 [From Keflex] propoxyphene napsylate Allergy Verified 11/16/15 05:02 [From Darvocet-N 100] sulfamethoxazole Allergy Verified 11/16/15 05:02 [From Bactrim] trimethoprim [From Bactrim] Allergy Verified 11/16/15 05:02 Medications: Current Medications Acetaminophen (Tylenol) 650 mg PO Q4H PRN PRN Reason: Headache/Fever or Pain Last Admin: 07/03/17 00:46 Dose: 650 mg Albuterol/Ipratropium (Duoneb) 3 ml NEB [id number] [facility] Aspirin (Ecotrin) 81 mg PO DAILY [facility] Last Admin: 07/04/17 08:40 Dose: 81 mg Bisacodyl (Dulcolax) 10 mg [place] Q24H PRN PRN Reason: Constipation Calcium Carbonate (Tums) 1,000 mg PO Q4H PRN PRN Reason: Heartburn or Indigestion Carvedilol (Coreg) 50 mg PO BID-[facility] Last Admin: 07/04/17 08:41 Dose: 50 mg Clonidine (Catapres) 0.1 mg PO Q4H PRN PRN Reason: Systolic BP > 180 Dextrose/Water (Dextrose 50%) 25 gm SLOW IVP PRN PRN PRN Reason: Hypoglycemia Docusate Sodium (Colace) 100 mg PO BID [facility] Last Admin: 07/04/17 08:42 Dose: 100 mg Glucagon (Glucagon) 1 mg IM PRN PRN PRN Reason: Hypoglycemia Heparin Sodium (Porcine) (Heparin) 5,000 units SC BID [facility] Last Admin: 07/04/17 08:50 Dose: 5,000 units Hydralazine HCl (Apresoline) 10 mg SLOW IVP Q4H PRN PRN Reason: SBP Greater Than 180 Hydralazine HCl (Apresoline) 25 mg PO BID [facility] Dextrose/Water (D5w) 1,000 mls @ 0 mls/hr IV .Q0M PRN; As Directed PRN Reason: Hypoglycemia Insulin Detemir 25 units/ (Miscellaneous Medication) 0.25 mls @ 0 mls/hr SC QAM [facility] Last Admin: 07/04/17 08:49 Dose: 0.25 mls Insulin Human Regular (Humulin R) 0 units SC .MILD SLIDING SCALE PRN PRN Reason: Mild Correctional Scale Last Admin: 07/03/17 22:45 Dose: 2 unit Insulin Human Regular (Humulin R) 0 units SC .BEDTIME SLIDING SC PRN PRN Reason: Bedtime Correctional Scale Nitroglycerin (Nitrostat) 0.4 mg PO Q5MIN PRN PRN Reason: Chest Pain Ondansetron HCl (Zofran) 4 mg IVP Q6H PRN PRN Reason: Nausea/Vomiting Pantoprazole Sodium (Protonix) 40 mg PO DAILY [facility] Last Admin: 07/04/17 08:42 Dose: 40 mg Senna (Senokot) 2 tab PO HSPRN PRN PRN Reason: Constipation Sodium Chloride (Flush - Normal Saline) 10 ml IVF PRN PRN PRN Reason: Saline Flush
[2017-07-04] MEDS: Insulin Regular 300 UNITS/3 ML VIAL SC PRN (17:34)
[2017-07-04] MEDS ORDERED: Polyethylene Glycol 3350 17 GM Packet PO PRN (19:24)
[2017-07-04] MEDS: hydrALAZINE 25 MG TAB PO SCH (21:26)
[2017-07-05] MEDS: Docusate 100 MG CAP PO SCH (08:05)
[2017-07-05 08:31] LABS: #Eosinphils 0.2 thou/uL (0.0-0.7); #Lymphocytes 1.4 thou/uL (1.20-3.40); #Monocytes 0.5 thou/uL (0.11-0.59); %Basophils 0.3 % (0.0-1.0); %Eosinophils 3.6 % (0.0-10.0); %Lymphocytes 23.1 % (21.0-51.0); %Monocytes 8.5 % (0.0-10.0); Mean Platelet Volume 8.4 fL (7.4-10.4); Red Blood Cell (RBC) Count 3.92 mill/uL (4.70-6.10); White Blood Cell (WBC) Count 6.2 thou/uL (4.8-10.8)
[2017-07-05] MEDS ORDERED: Loperamide HCl 2 MG CAP PO PRN (08:31)
[2017-07-05 08:52] LABS: Anion Gap 16 mmol/L (10-20); BUN (Urea Nitrogen) 58 mg/dL (8.4-25.7); BUN/Creatinine Ratio 14.46; Calc. Creatinine Clearance 20 mL/min (70-130); Calcium 8.7 mg/dL (7.8-10.44); Carbon Dioxide 20 mmol/L (23-31); Chloride 106 mmol/L (98-107); Cholesterol 226 mg/dl (< 200 Desired); Estimated GFR-MDRD 15; LDL Cholesterol, Calculated 142 mg/dL; Phosphorus 3.8 mg/dL (2.3-4.7)
--- NOTE | 2017-07-05 09:53 | PRG ---
DATE OF SERVICE: 07/05/2017 SERVICE: Renal Medicine. SUBJECTIVE: Mr. Leos is a 71-year-old white man seen for his acute kidney injury on top of his chr onic renal failure. Diuretic has been placed on hold. Most recent creatinine was noted at 4.01. T his is slightly improved creatinine when compared to yesterday it was 4.14. His GFR is now at 15 mL per minute. He is to undergo a cardiac stress test?. He is declining at the present time. Patien t denies any chest pain or worsening shortness of breath. OBJECTIVE: VITAL SIGNS: Blood pressure is 172/81, heart rate 63, respiratory rate 18, temperature 97.9, pulse oximetry 95%. GENERAL: Noted to be awake, sitting comfortable, not in overt distress. SKIN: Adequate turgor. HEENT: Pinkish conjunctivae, anicteric sclerae. NECK: No neck mass, no carotid bruits, no JVD. CHEST: No deformities. Lungs, clear breath sounds. No wheezing, no crackles. HEART: Normal sinus rhythm. No murmur, no gallops, or rubs. ABDOMEN: Globular, soft, nontender. No masses. EXTREMITIES: No edema, no deformities. MEDICATIONS: On 07/05/2017 reviewed. LABORATORY DATA: On 07/05/2017, white count 6.2, hemoglobin 12.6. Sodium 137, potassium 5.4, chlor laura 106, carbon dioxide 20, BUN 58, creatinine 4.01, GFR of 15 mL per minute, phosphorus 3.8, calciu m is 8.7. Cholesterol 226. ASSESSMENT AND PLAN: 1. Acute kidney injury/chronic renal failure, stabilizing renal function, off diuretics. Agree wit h current management. There is no indication for any dialytic intervention. Please note, he has ri ght arteriovenous fistula - it is functional. 2. Shortness of breath. I think clinically much improved, off diuretics. The patient is being rul ed out for any underlying cardiac ischemia. Please note, he had cardiac echo done on 07/04/2017 and showed an EF of 25%-30%. 3. Mild hyperkalemia. Continue dietary advice. Patient is noncompliant with his diet. Patient wa s counseled. 4. Diarrhea p.r.n. Lomotil - supportive care. We will check base met, CBC in a.m.
--- NOTE | 2017-07-05 10:09 | PRG ---
DATE OF SERVICE: 07/05/2017 This morning he is better though he says he is weak. He has had profuse diarrhea last night and thi s morning. PHYSICAL EXAMINATION: VITAL SIGNS: Blood pressure 173/81, sats 98% on room air, temperature 97, respirations 18. CHEST: Chest reveals decreased breath sounds without any wheezing. CARDIAC: Normal S1, S2. ABDOMEN: Soft, no masses. Glucose 171. IMPRESSION: 1. Diarrhea, though the nurse this morning has not seen any. 2. Congestive heart failure. Ejection fraction is 25%. PLAN: I ordered a C. diff assay. I gave him Imodium. Supportive care. Pulmonary-lópez, continue diuretics. I will follow.
[2017-07-05] MEDS: Insulin Detemir 100 UNITS/ML 25 UNITS in Pre-Filled Syringe 1 EACH SC SCH (13:02)
[2017-07-05] MEDS: Heparin 5,000 UNITS/ML VIAL SC SCH (13:40)
[2017-07-05] MEDS: Carvedilol 25 MG TAB PO SCH ×2 (14:39→15:57)
[2017-07-05] MEDS: hydrALAZINE 25 MG TAB PO SCH ×2 (14:41→20:31)
[2017-07-05] MEDS: Aspirin 81 mg Enteric Coated Tablet PO SCH (14:41)
[2017-07-05] MEDS ORDERED: Melatonin 3 MG TAB PO PRN (15:21)
--- NOTE | 2017-07-05 15:26 | PDOC.PN ---
- Subjective Encounter Start Date: 07/05/17 Encounter Start Time: 15:21 Patient seen and examined. No new complaints. No overnight events. Diarrhea on and off - Objective Resuscitation Status: Resuscitation Status FULL:Full Resuscitation MAR Reviewed: Yes Vital Signs & Weight: Vital Signs (12 hours) Temp Pulse Resp BP BP Pulse Ox 07/05/17 14:50 97.6 F 76 18 189/68 H 98 07/05/17 14:41 63 07/05/17 08:00 97.9 F 63 18 172/81 H 95 07/05/17 04:02 97 Weight Admit Weight 193 lb 1.6 oz Weight 188 lb I&O: 07/04/17 07/05/17 07/06/17 06:59 06:59 06:59 Intake Total 1310 1080 Output Total 750 1140 Balance 560 -60 Result Diagrams: 07/05/17 08:12 07/05/17 08:12 Additional Labs: Accuchecks 07/05/17 07/05/17 07/04/17 14:36 05:30 20:42 POC Glucose 297 H 171 H 172 H 07/04/17 16:49 POC Glucose 211 H EKG Reviewed by me: Yes (Tele paced) Phys Exam - Physical Examination Constitutional: NAD Respiratory: no wheezing, no rhonchi Cardiovascular: RRR, no rub Gastrointestinal: soft, non-tender, positive bowel sounds Musculoskeletal: no edema Neurological: moves all 4 limbs Dx/Plan - Plan cont current plan of care, DVT proph w/SCDs IMPRESSION: 1. Acute hypoxic respiratory failure secondary to acute on chronic systolic heart failure. improving. Diuretics on hold. Cardiology following. 2. Elevated troponins, probably secondary to congestive heart failure vs ? demand ischemia. 3. Coronary artery disease, status post coronary artery bypass grafting. 4. Status post automatic implantable cardioverter defibrillator. 5. Hypertension. 6. Diabetes mellitus type 2. on sliding scale with levemir. 7. Hyperlipidemia. 8. Chronic kidney disease stage 5 with hemodialysis in the past. 9. History of severe junctional bradycardia associated with hyperkalemia in the past. 10. Former smoker. 11. Positive family history of heart disease. 12. Bilateral carotid artery disease. 13. Hyperkalemia - Nephrology following PLAN: * DC Heparin due to hyperkalemia * Low potassium diet * Cardiology/Nephrology following * Stress test result pending * Cont to monitor * AM labs * Stool for C diff * Cont current meds as below Review of Systems - Review of Systems Respiratory: negative: Cough, Dry, Shortness of Breath, Hemoptysis, SOB with Excertion, Pleuritic Pain, Sputum, Wheezing Cardiovascular: negative: Chest Pain, Palpitations, Orthopnea, Paroxysmal Noc. Dyspnea, Edema, Light Headedness, Other Gastrointestinal: Diarrhea. negative: Nausea, Vomiting, Abdominal Pain, Constipation, Melena, Hematochezia, Other - Medications/Allergies Allergies/Adverse Reactions: Allergies Allergy/AdvReac Type Severity Reaction Status Date / Time cephalexin monohydrate Allergy Verified 11/16/15 05:02 [From Keflex] propoxyphene napsylate Allergy Verified 11/16/15 05:02 [From Darvocet-N 100] sulfamethoxazole Allergy Verified 11/16/15 05:02 [From Bactrim] trimethoprim [From Bactrim] Allergy Verified 11/16/15 05:02 Medications: Current Medications Acetaminophen (Tylenol) 650 mg PO Q4H PRN PRN Reason: Headache/Fever or Pain Last Admin: 07/03/17 00:46 Dose: 650 mg Albuterol/Ipratropium (Duoneb) 3 ml NEB [id number] [facility] Last Admin: 07/05/17 14:44 Dose: Not Given Aspirin (Ecotrin) 81 mg PO DAILY [facility] Last Admin: 07/05/17 14:41 Dose: 81 mg Bisacodyl (Dulcolax) 10 mg [place] Q24H PRN PRN Reason: Constipation Calcium Carbonate (Tums) 1,000 mg PO Q4H PRN PRN Reason: Heartburn or Indigestion Carvedilol (Coreg) 50 mg PO BID-[facility] Last Admin: 07/05/17 14:39 Dose: Not Given Clonidine (Catapres) 0.1 mg PO Q4H PRN PRN Reason: Systolic BP > 180 Dextrose/Water (Dextrose 50%) 25 gm SLOW IVP PRN PRN PRN Reason: Hypoglycemia Glucagon (Glucagon) 1 mg IM PRN PRN PRN Reason: Hypoglycemia Hydralazine HCl (Apresoline) 10 mg SLOW IVP Q4H PRN PRN Reason: SBP Greater Than 180 Hydralazine HCl (Apresoline) 25 mg PO BID [facility] Last Admin: 07/05/17 14:41 Dose: 25 mg Dextrose/Water (D5w) 1,000 mls @ 0 mls/hr IV .Q0M PRN; As Directed PRN Reason: Hypoglycemia Insulin Detemir 25 units/ (Miscellaneous Medication) 0.25 mls @ 0 mls/hr SC QAM [facility] Last Admin: 07/05/17 13:02 Dose: Not Given Insulin Human Regular (Humulin R) 0 units SC .MILD SLIDING SCALE PRN PRN Reason: Mild Correctional Scale Last Admin: 07/04/17 17:34 Dose: 3 unit Insulin Human Regular (Humulin R) 0 units SC .BEDTIME SLIDING SC PRN PRN Reason: Bedtime Correctional Scale Loperamide HCl (Imodium) 2 mg PO PRN PRN PRN Reason: Diarrhea/Loose Stools Last Admin: 07/05/17 08:55 Dose: 2 mg Melatonin (Melatonin) 3 mg PO HS PRN PRN Reason: Insomnia Nitroglycerin (Nitrostat) 0.4 mg PO Q5MIN PRN PRN Reason: Chest Pain Ondansetron HCl (Zofran) 4 mg IVP Q6H PRN PRN Reason: Nausea/Vomiting Pantoprazole Sodium (Protonix) 40 mg PO DAILY [facility] Last Admin: 07/05/17 14:41 Dose: 40 mg Polyethylene Glycol (Miralax) 17 gm PO DAILYPRN PRN PRN Reason: Constipation Senna (Senokot) 2 tab PO HSPRN PRN PRN Reason: Constipation Sodium Chloride (Flush - Normal Saline) 10 ml IVF PRN PRN PRN Reason: Saline Flush
[2017-07-05] MEDS: Insulin Regular 300 UNITS/3 ML VIAL SC PRN (15:58)
[2017-07-05] MEDS ORDERED: Regadenoson 0.4 MG/5 ML SYRINGE ONE (15:59)
--- NOTE | 2017-07-05 16:32 | NM ---
CARDIAC SPECT: CLINICAL HISTORY: 71-year-old female with chest pain and coronary artery disease, status post CABG, CHF, end-stage julio césar al disease, hypertension, diabetes, and dyslipidemia. TECHNIQUE: A myocardial perfusion scan was performed using the single isotope one day protocol with technetium- 99m sestamibi. 9 mCi were injected intravenously for the rest exam followed by 27 mCi for the stress exam. Pharmacologic stress with Lexiscan was monitored and interpreted by Dr. Hastings. FINDINGS: No fixed or reversible defects are seen. Left ventricular cavity appears dilated. LVEF: 31%. WALL MOTION EXAM: Global hypokinesis. IMPRESSION: No evidence of reversible ischemia. POS: ALIYAH
[2017-07-05] MEDS ORDERED: Insulin Detemir 100 UNITS/ML 10 UNITS in Pre-Filled Syringe 1 EACH SC SCH (18:45)
[2017-07-05] MEDS: Acetaminophen 325 MG TAB PO PRN (21:04)
[2017-07-06 05:20] LABS: #Eosinphils 0.3 thou/uL (0.0-0.7); #Lymphocytes 1.4 thou/uL (1.20-3.40); #Monocytes 0.5 thou/uL (0.11-0.59); #Neutrophils 3.4 thou/uL (1.40-6.50); %Basophils 0.5 % (0.0-1.0); %Eosinophils 4.9 % (0.0-10.0); %Lymphocytes 24.8 % (21.0-51.0); %Monocytes 9.4 % (0.0-10.0); Hematocrit 34.9 % (42.0-52.0); Mean Platelet Volume 8.2 fL (7.4-10.4); Red Blood Cell (RBC) Count 3.79 mill/uL (4.70-6.10); White Blood Cell (WBC) Count 5.6 thou/uL (4.8-10.8)
[2017-07-06 05:23] LABS: Hemoglobin A1c 7.4 % (4.0-6.0)
[2017-07-06] MEDS: Insulin Regular 300 UNITS/3 ML VIAL SC PRN (05:30)
[2017-07-06 05:37] LABS: Anion Gap 12 mmol/L (10-20); BUN (Urea Nitrogen) 59 mg/dL (8.4-25.7); Calc. Creatinine Clearance 21 mL/min (70-130); Calcium 8.6 mg/dL (7.8-10.44); Carbon Dioxide 22 mmol/L (23-31); Chloride 107 mmol/L (98-107); Estimated GFR-MDRD 15
[2017-07-06 07:39] VITALS: BP 183/85; TEMP 98.3
[2017-07-06] MEDS: Carvedilol 25 MG TAB PO SCH (08:43)
[2017-07-06] MEDS: Insulin Detemir 100 UNITS/ML 25 UNITS in Pre-Filled Syringe 1 EACH SC SCH (08:43)
[2017-07-06] MEDS: Aspirin 81 mg Enteric Coated Tablet PO SCH (08:43)
[2017-07-06] MEDS: hydrALAZINE 25 MG TAB PO SCH (08:43)
--- NOTE | 2017-07-06 10:21 | PRG ---
DATE OF SERVICE: 07/06/2017 SERVICE: Renal medicine. SUBJECTIVE: Mr. Leos is a 71-year-old white male seen for his acute kidney injury on top of his chr onic renal failure. Diuretics have been discontinued due to the fact that the renal function was wor sening. Creatinine/renal function is now stabilizing. He denies any chest pain or shortness of chelsy th. OBJECTIVE: VITAL SIGNS: Blood pressure 183/85, heart rate 65, respiratory rate 18, temperature 98.3, pulse ox 9 6%. GENERAL: Noted to be awake, comfortable, not in distress. SKIN: Adequate turgor. HEENT: Pinkish conjunctivae, anicteric sclerae. NECK: No neck mass, no carotid bruits, no JVD. CHEST: No deformities. LUNGS: Clear breath sounds. No wheezing. HEART: Normal sinus rhythm. No murmur, no gallops, no rubs. ABDOMEN: Globular, soft, nontender, no masses. EXTREMITIES: No edema, no deformities. MEDICATIONS: Of 07/06/2017 reviewed. LABORATORY DATA: Of 07/06/2017 was reviewed. Please note, creatinine now is 3.99. ASSESSMENT AND PLAN: 1. Acute kidney injury/chronic renal failure, stabilizing renal function. I did discuss the case wi th the Hospitalist. We will continue the Lasix on a p.r.n. basis. There is no indication for any di alytic intervention. Agree with discharge. 2. Congestive heart failure, clinically much improved. The patient will call my office for a follow up visit.
--- NOTE | 2017-07-06 10:33 | PRG ---
DATE OF SERVICE: 07/06/2017 He is being discharged home today. He denies difficulty breathing. He is walking without being delphine edly short of breath. PHYSICAL EXAMINATION: VITAL SIGNS: Stable. His sats are adequate at 97%. CHEST: Chest revealed decreased breath sounds, no wheezing. CARDIAC: Normal S1-S2. No gallops. IMPRESSION: 1. Congestive heart failure. 2. Chronic obstructive pulmonary disease, stable. PLAN: Discharge home. He can be seen in the office in 2 weeks.
--- NOTE | 2017-07-06 15:44 | DIS ---
DATE OF DISCHARGE: 07/06/2017 DISCHARGE DISPOSITION: Home. FOLLOWUP: 1. Follow up with primary care physician Dr. Adore Cabrera in 1 week. 2. Follow up with outpatient cardiac rehab and [facility]. 3. Followup with Dr. Graeme Dupont next week. 4. Follow up with Dr. Wong in 1-2 weeks. 5. Follow up with Dr. Schneider in 2-3 weeks. ALLERGIES: Patient is allergic to KEFLEX, PROPOXYPHENE, and BACTRIM. INPATIENT CONSULTANTS: 1. Pulmonary, Dr. Schneider. 2. Nephrology, Dr. Wong. 3. Cardiology, Dr. Graeme Dupont. The patient was seen and examined on the day of discharge, denies any new complaint. Shortness of br eath has improved. BRIEF HOSPITAL COURSE: The patient is a 71-year-old male with chronic systolic heart failure, ejecti on fraction 20% to 25% range, coronary artery disease, status post CABG, hypertension, diabetes keagani presley type 2, and chronic kidney disease stage 5, who presented to the hospital with sudden onset of sh ortness of breath. Please refer to the history and physical dated 07/08/2017 for further details. The patient was admitted to the hospital with a right diagnosis of acute hypoxic respiratory failure secondary to acute on chronic systolic heart failure exacerbation/pulmonary edema. He showed good re sponse with Lasix drip that was later discontinued. He was seen by multiple consultants including Pu lmonary, Dr. Schneider; Nephrology, Dr. Wong; and Cardiology, Dr. Dupont. His medications have been opti mized per Cardiology. An echocardiogram was done this admission that showed ejection fraction 25% to 30% with diastolic dysfunction. It also showed moderate mitral regurgitation, mild tricuspid regurg itation. Cardiolite stress test was done yesterday that was negative for reversible ischemia. Eject ion fraction was 31%. He has been cleared by consultants for discharge. FINAL DIAGNOSES: 1. Acute hypoxic respiratory failure secondary to pulmonary edema/acute on chronic systolic heart fa ilure exacerbation. 2. Elevated troponins in the indeterminate range, probably secondary to congestive heart failure. 3. Coronary artery disease, status post coronary artery bypass graft. 4. Diabetes mellitus type 2. 5. History of automatic implantable cardioverter-defibrillator placement. 6. Hyperlipidemia. 7. History of chronic kidney disease stage 5. The patient was on hemodialysis in the past. 8. History of severe junctional bradycardia associated with hyperkalemia in the past. 9. Former smoker. 10. Positive family history of heart disease. 11. Bilateral carotid artery disease. 12. Hyperkalemia with maximum potassium of 5.4 this admission. His potassium on the day of discharg e was 5.0. The patient is not on ARLEN inhibitor or ARB secondary to renal dysfunction. He was extensively counse led to be compliant with all his medications. DISCHARGE MEDICATIONS: 1. Xanax as needed. 2. Aspirin 81 mg daily. 3. Benzocaine oral liquid as needed. 4. Coreg 50 mg b.i.d. 5. Lasix 40 mg twice daily as needed. 6. Humalog sliding scale as needed. 7. Hydralazine 50 mg b.i.d. 8. Lantus insulin as directed. 9. Sublingual nitroglycerin as needed. 10. Phenergan as needed. 11. Crestor 40 mg daily. Plan of care was discussed with the patient and he stated understanding.
--- NOTE | 2017-07-12 09:00 | STRESS ---
Acquisition Time: 2017-07-05 12:43:06 Total Exercise Time: 00:01:00 Test Indications: CHEST PAIN Medications: Protocol: LEXISCAN Max HR: 082 BPM 55% of Pred: 149 BPM Max BP: 178/088 mmHG Max Work Load: 1.0 METS RESTING ECG: V-PACED AT 61 BPM WITH INTRINSIC COMPLETE LEFT BUNDLE BRANCH BLOCK SYMPTOMS: NONE NORMAL BP RESPONSE ECTOPY: NONE ECG STRESS: NO SIGNIFICANT CHANGES INTERPRETATION: NEGATIVE ECG/AWAIT NUCLEAR IMAGES FOR DEFINITIVE DIAGNOSIS Confirmed by YURY MAKI ([id number]) on 07/12/2017 8:59:57 AM Referred By: MD Clint WELSH Confirmed By:YURY MAKI
== END 2017-07-06 11:15 | disposition home or self-care (01) | DRG 291 ==
LOC: ERS 01:33 → IMCU/EMU 02:45 → 2SE 07-05 16:55
PROVIDERS: ADMIT Internal Medicine; ATTEND Internal Medicine
DX: I13.2 Hypertensive heart and chronic kidney disease with heart failure and with stage 5 chronic kidney disease, or end stage renal disease (principal); I50.23 Acute on chronic systolic (congestive) heart failure; J96.01 Acute respiratory failure with hypoxia; N17.9 Acute kidney failure, unspecified; N18.5 Chronic kidney disease, stage 5; I08.1 Rheumatic disorders of both mitral and tricuspid valves; E11.21 Type 2 diabetes mellitus with diabetic nephropathy; I16.1 Hypertensive emergency; E11.22 Type 2 diabetes mellitus with diabetic chronic kidney disease; Z87.891 Personal history of nicotine dependence; I25.10 Atherosclerotic heart disease of native coronary artery without angina pectoris; Z95.1 Presence of aortocoronary bypass graft; Z95.810 Presence of automatic (implantable) cardiac defibrillator; Z90.5 Acquired absence of kidney; E78.5 Hyperlipidemia, unspecified; Z85.528 Personal history of other malignant neoplasm of kidney; I77.89 Other specified disorders of arteries and arterioles; J44.9 Chronic obstructive pulmonary disease, unspecified; R19.7 Diarrhea, unspecified; E87.5 Hyperkalemia; I25.5 Ischemic cardiomyopathy
CPT/HCPCS: 36415; 36416; 71010; 78452; 80048; 80053; 80061; 80069; 82553; 82805; 83036; 83735; 83880; 84484; 85025; 85610; 85730; 93005; 93017; 93306; 93798; 94640; 94660; 94760; 96374; A9500; J1815; J1940; J2785; J7050; J7611; J7620

== ENCOUNTER 2017-09-07 10:46 | Inpatient (IN) | payer MEDICARE ==
[2017-09-07 11:32] LABS: #Eosinphils 0.3 thou/uL (0.0-0.7); #Lymphocytes 0.9 thou/uL (1.20-3.40); #Monocytes 0.6 thou/uL (0.11-0.59); #Neutrophils 7.9 thou/uL (1.40-6.50); %Basophils 0.2 % (0.0-1.0); %Eosinophils 2.9 % (0.0-10.0); %Lymphocytes 9.1 % (21.0-51.0); %Monocytes 6.5 % (0.0-10.0); %Neutrophils 81.3 % (42.0-75.0); Hemoglobin 11.9 g/dL (14.0-18.0); Mean Corpuscular HGB CONC 33.1 g/dL (32.0-36.0); Mean Corpuscular Hemoglobin 30.8 pg (27.0-31.0); Mean Corpuscular Volume 93.1 fl (80.0-94.0); Mean Platelet Volume 8.1 fL (7.4-10.4); Platelet Count 141 thou/uL (130-400); RBC Distribution Width 11.8 % (11.5-14.5); Red Blood Cell (RBC) Count 3.86 mill/uL (4.70-6.10); White Blood Cell (WBC) Count 9.8 thou/uL (4.8-10.8)
[2017-09-07 11:55] LABS: ALT (SGPT) 33 U/L (8-55); AST (SGOT) 22 U/L (5-34); Alkaline Phosphatase 65 U/L (40-150); Anion Gap 14 mmol/L (10-20); BUN (Urea Nitrogen) 61 mg/dL (8.4-25.7); Bilirubin, Total 0.6 mg/dL (0.2-1.2); CKMB 3.2 ng/mL (0-6.6); Calc. Creatinine Clearance 0 mL/min (70-130); Calcium 8.6 mg/dL (7.8-10.44); Carbon Dioxide 19 mmol/L (23-31); Chloride 110 mmol/L (98-107); Estimated GFR-MDRD 17; Globulin 3.4 g/dL (2.4-3.5); Glucose 244 mg/dL (83-110); Protein, Total 7.4 g/dL (5.8-8.1); Sodium 137 mmol/L (136-145); Troponin I 0.054 ng/mL (< 0.028)
[2017-09-07] MEDS ORDERED: Insulin Regular 300 UNITS/3 ML VIAL ONE (12:11)
[2017-09-07] MEDS ORDERED: Calcium Chloride 1 GM/10 ML Abboject SYRINGE ONE (12:11)
[2017-09-07] MEDS ORDERED: Dextrose 50% Abboject 50 ML SYRINGE ONE (12:11)
[2017-09-07] MEDS ORDERED: Albuterol Sulfate 2.5 mg/3 ml Neb ONE (12:32)
[2017-09-07] MEDS ORDERED: Albuterol Sulfate 2.5 mg/0.5 ml Neb ONE (12:32)
--- NOTE | 2017-09-07 12:54 | RAD ---
SINGLE VIEW OF THE CHEST: Comparison: 07-02-17 History: Shortness of breath. FINDINGS: Single view of the chest shows an enlarged but stable cardiomediastinal silhouette. The patient is st atus post sternotomy. The pacemaker is unchanged in position. There are bilateral perihilar opacities which could represent pulmonary edema or perihilar infiltrates. IMPRESSION: Perihilar infiltrates versus pulmonary edema. POS: REYMUNDO
[2017-09-07 14:47] LABS: Troponin I 0.044 ng/mL (< 0.028)
[2017-09-07] MEDS ORDERED: Dextrose 50% Abboject 50 ML SYRINGE SLOW IVP PRN (15:05)
[2017-09-07] MEDS ORDERED: hydrALAZINE 20 MG/ML VIAL SLOW IVP PRN (15:05)
[2017-09-07] MEDS ORDERED: traMADol HCl 50 MG TAB PO PRN (15:05)
[2017-09-07] MEDS ORDERED: Loratadine 10 MG TAB PO PRN (15:05)
[2017-09-07] MEDS ORDERED: Furosemide 100 MG in Sodium Chloride 0.9% 100 ML IVPB SCH (15:05)
[2017-09-07] MEDS ORDERED: Nitroglycerin 0.4 MG TAB (25 Tab Bottle) SL PRN (15:05)
[2017-09-07] MEDS ORDERED: Acetaminophen 325 MG TAB PO PRN (15:05)
[2017-09-07] MEDS ORDERED: Senokot 8.6 MG TAB PO PRN (15:05)
[2017-09-07] MEDS ORDERED: Diabetic Tussin 200 MG/10 ML UDCUP PO PRN (15:05)
[2017-09-07] MEDS ORDERED: Mag-Al 1200 mg/1200 mg/30 ML UDCUP PO PRN (15:05)
[2017-09-07] MEDS ORDERED: Dextrose 5% in Water 1,000 ML IV PRN (15:05)
[2017-09-07] MEDS ORDERED: Bisacodyl 5 MG TAB PO PRN (15:05)
[2017-09-07] MEDS ORDERED: Ondansetron HCl/PF 4 MG/2 ML Vial IVP PRN (15:05)
[2017-09-07] MEDS ORDERED: Benzonatate 100 MG CAP PO PRN (15:05)
[2017-09-07] MEDS ORDERED: Oseltamivir 6 MG/ML ORAL SUSP PO SCH ×2 (15:45→16:30)
[2017-09-07 15:57] VITALS: BMI 28.2
--- NOTE | 2017-09-07 16:11 | HP ---
DATE OF ADMISSION: 09/07/2017 PRIMARY CARE PHYSICIAN: Adore Cabrera PA-C. CHIEF COMPLAINT: Flu-like symptoms, generalized malaise, shortness of breath, fever, chills, and cou gh. HISTORY OF PRESENT ILLNESS: Mr. Leos is a very pleasant 72-year-old male with known history of randolph nary artery disease, status post CABG; chronic systolic heart failure with EF in the 20%-25%; diabete s; hypertension; chronic kidney disease, stage 5; who presented to the emergency room with the above- mentioned complaints. History is mainly obtained by the patient himself. Electronic medical records have been reviewed and the case has been discussed in detail with the ER physician. The patient use d to be on hemodialysis in the past and follows up with document control coordinator, Dr. Wong. He was last admitted to our facility in 06/2017 for acute respiratory failure secondary to acute systolic congestive heart failure. Today, Mr. Leos presented to the emergency room, because he has not been feeling well. He reports t hat 2 weeks ago he has some flu-like symptoms with generalized achiness, chest pain, abdominal upset, and significant cough. He presented to his primary care physician and was prescribed a Z-Dipesh and fe lt marginally better, but then started to feel really bad again. Now, he is having fever and chills with persistent cough, chest pain, abdominal discomfort, and worsening shortness of breath. Upon presentation to the emergency room, he was hemodynamically stable with a blood pressure of 152/7 8, oxygen saturation 94% on room air. A chest x-ray was done, which was concerning for bilateral pne umonia along with some pulmonary edema. He has received 1 dose of IV Lasix and IV antibiotic in the emergency room and is now being admitted for community-acquired pneumonia. Mr. Leos reports compliance with his medication. He reports having adequate urination. He reports urinary frequency especially during the night. He does report poor appetite and poor liquid intake. He denies any diarrhea or vomiting. He denies any chest pain. He does have about 2 pounds of weigh t gain in the last 2 weeks. He denies any dysuria, frequency, or urgency. He denies any hematuria, hematochezia, or melena. PAST MEDICAL HISTORY: 1. Chronic kidney disease, stage 5. 2. Chronic congestive systolic heart failure with EF of 20%-25% range. 3. Diabetes mellitus, type 2. 4. Hypertension. 5. Coronary artery disease, status post coronary artery bypass graft. 6. Ischemic cardiomyopathy, status post AICD placement. 7. Dyslipidemia. 8. History of hemodialysis in the past, currently not on dialysis. 9. Bilateral carotid artery disease. PAST SURGICAL HISTORY: 1. Dialysis access. 2. AICD. 3. CABG. 4. Tonsillectomy 5. Spinal surgery. 6. Status post left nephrectomy. ALLERGIES: Include KEFLEX, PROPOXYPHENE, DARVOCET, BACTRIM. FAMILY HISTORY: Significant for heart disease. SOCIAL HISTORY: He is and lives with his family in [place]. He is a former smoker. No his tory of drug or alcohol abuse. CODE STATUS: FULL CODE, discussed with the patient. CURRENT MEDICATIONS: As listed in the ER records include Lasix 40 mg b.i.d., Humalog insulin sliding scale t.i.d., promethazine every 4 hours as needed, aspirin 81 mg daily, carvedilol dose unknown, al prazolam dose unknown, atorvastatin dose unknown. REVIEW OF SYSTEMS: The following complete review of systems was negative, unless otherwise mentioned in the HPI or below: Constitutional: Weight loss or gain, ability to conduct usual activities. Sk in: Rash, itching. Eyes: Double vision, pain. ENT/Mouth: Nose bleeding, neck stiffness, pain, te nderness. Cardiovascular: Palpitations, dyspnea on exertion, orthopnea. Respiratory: Shortness of breath, wheezing, cough, hemoptysis, fever or night sweats. Gastrointestinal: Poor appetite, abdom inal pain, heartburn, nausea, vomiting, constipation, or diarrhea. Genitourinary: Urgency, frequenc y, dysuria, nocturia. Musculoskeletal: Pain, swelling. Neurologic/Psychiatric: Anxiety, depressio n. Allergy/Immunologic: Skin rash, bleeding tendency. It is negative except for those mentioned in the history and physical. LABORATORY EXAMINATION: His CBC today shows WBCs at 9.8, 81% neutrophils, hemoglobin 11.9, platelet count 141. Serum chemistries show potassium of 6, chloride 110, bicarbonate 19, BUN 61, creatinine 3 .64 with estimated GFR of 17. Blood sugar 244. BNP is 1196. Troponin initially 0.054 with repeat t roponin of 0.044. Chest x-ray, by my review, shows perihilar infiltrates versus pulmonary edema. A 12-lead EKG, by my review, shows a paced rhythm at 69 beats per minute without any ectopies. No hussein ges to the ST segments or T waves. PHYSICAL EXAMINATION: VITAL SIGNS: Upon presentation, blood pressure 152/78, pulse of 71, respirations 22, temperature 97. 7, saturating 94% on room air. GENERAL EXAMINATION: The patient appears uncomfortable and ill, but in no acute distress. He is cherri ke, alert, oriented x3. HEENT EXAMINATION: Mucous membrane appear somewhat dry. No oropharyngeal exudate or erythema. Head is normocephalic, atraumatic. Pupils are equal and reactive to light and accommodation. Extraocula r movements intact. NECK: Supple without any lymphadenopathy, JVD, or bruit. CHEST: Evaluation shows some rhonchi and diffuse wheezes, but clear on both sides with equal air ent ry. Rate and rhythm is regular without any murmur, rubs, or gallops. ABDOMEN: Soft, nontender, nondistended with positive bowel sounds. EXTREMITIES: Free of any cyanosis, clubbing, or edema. NEUROLOGICAL EXAMINATION: Nonfocal. SKIN: Free of any rashes or bruises. Feels warm and dry to touch. PSYCHIATRIC: Normal affect. IMPRESSION AND PLAN: 1. Community-acquired pneumonia. He most likely had influenza 2 weeks ago, which was untreated and developed into bronchopneumonia. At this time, given the persistence of flu-like symptoms, we will t reat him with Tamiflu empirically along with IV antibiotic. He has received 1 dose in the emergency room. We will also obtain a blood culture given his prolonged symptoms. He will be admitted to tele metry unit to rule out sepsis. 2. Elevated BNP. The patient is likely in mild acute systolic congestive heart failure. Given the chronic kidney disease, he will be gently diuresed with Lasix drip with close monitoring of his renal functions. We will obtain a BMP every 12 hours. 3. Acute on chronic systolic congestive heart failure. As above, we will do a slow diuresis. He wo uld be on a fluid restricted diet. If his symptoms do not improve or if he seems to be in gross flui d overload, we will consult Cardiology. At this time, we will consult [facility] Failure Clinic and yon nue his home medications including aspirin and beta blockers once confirmed. 4. Acute on chronic kidney disease with hyperkalemia. We will consult Nephrology to follow along. The patient has received hyperkalemia treatment in the emergency room. We will repeat the blood work in few hours to monitor the symptoms. He does have history of severe junctional bradycardia due to hyperkalemia in the past. 5. Elevated troponin. This seems to be chronically elevated. We will continue to monitor his sympt oms and resume his cardio-prudent medications. 6. Diabetes mellitus, type 2. We will start his home medications and put him on insulin sliding sca le with frequent Accu-Cheks while he is here. 7. Hyperkalemia, see above. 8. History of ischemic cardiomyopathy, status post automatic implantable cardioverter defibrillator placement. 9. Hypertension. Resume home medications and monitor closely. 10. History of bilateral carotid artery disease. 11. Deep venous thrombosis and gastrointestinal prophylaxis. 12. Code status: FULL CODE. DISPOSITION: Mr. Leos is currently being admitted to hospital for pneumonia and rule out sepsis wit h mild acute CHF exacerbation and acute on chronic kidney insufficiency with hyperkalemia. ESTIMATED LENGTH OF STAY: At least 2-3 midnights. Further management will depend upon his clinical course.
[2017-09-07 17:46] LABS: Troponin I 0.046 ng/mL (< 0.028)
--- NOTE | 2017-09-07 20:13 | CON ---
DATE OF CONSULTATION: 09/07/2017 HISTORY OF PRESENT ILLNESS: Mr. Leos is a 72-year-old white male who presented with flu-like sympto ms. He also complained of some shortness of breath. Initial x-ray showed increased lung markings an d for that reason, the patient has been started on furosemide - as a drip. We are being consulted fo r his chronic renal failure and mild hyperkalemia. REVIEW OF SYSTEMS: Positive for body aches. Positive for mild shortness of breath. Positive for pr oductive cough. No nausea. No vomiting. No syncopal episode. Denies any fever. Appetite decrease d. Energy level is decreased. No hematochezia. No melena. No hematemesis. No dysuria. No urinar y frequency. Occasional abdominal pain. No headache. No diplopia. No sore throat. MEDICATIONS: The patient is currently on Tylenol 650 q.4 p.r.n., Ecotrin 81 mg tab daily, Tessalon 1 00 mg p.o. q.4, Dulcolax 10 mg p.o. p.r.n., Catapres 0.1 mg q.4 p.r.n., Pepcid 20 mg b.i.d., furosemi de drip 5 mg per hour, Glucagon 1 mg p.r.n., heparin 5000 units subcutaneous b.i.d., Levaquin 500 mg IV q.2 days, Tamiflu 30 mg p.o. daily. PAST MEDICAL HISTORY: Chronic renal failure secondary to diabetic nephropathy, type 2 diabetes gus sherwood, status post CHF, decreased EF, history of cardiomyopathy, coronary artery disease, dyslipidemia, history of noncompliance, history of hypertension. PAST SURGICAL HISTORY: 1. Status post back surgery. 2. Status post cardiac catheterization. 3. Status post CABG. 4. Status post left nephrectomy. 5. Status post AICD placement. 6. Status post AV fistula placement. 7. Status post tonsillectomy. 8. Status post cuffed hemodialysis catheter placement. ALLERGIES: KEFLEX, PROPOXYPHENE, DARVOCET, BACTRIM. TRAUMA: None. IMMUNIZATIONS: Up to date. HOSPITALIZATIONS: Please see past medical history. SOCIAL HISTORY: The patient is and lives in [place], has one child. 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 Education: Eighth grade. No alcohol use, no IV drug ab use. Status post blood transfusion. FAMILY HISTORY: No family history of ESRD. PHYSICAL EXAMINATION: VITAL SIGNS: Blood pressure is 171/78, heart rate 72, respiratory rate 18, temperature 98, pulse ox 94%. GENERAL: Noted to be of awake, supine, comfortable, not in distress. SKIN: Adequate turgor. HEENT: Pinkish conjunctivae, anicteric sclerae. NECK: No neck mass, no carotid bruits, no JVD. CHEST: No deformities. LUNGS: Decreased breath sounds. HEART: Normal sinus rhythm. No murmur, no gallops, no rubs. ABDOMEN: Globular, soft, nontender, no masses. EXTREMITIES: No edema, no deformities. NEUROLOGIC: Awake, oriented to 3 spheres. Moving all extremities. No tremors, no asterixis, no kiran wendie. LABORATORY DATA: Of 09/07/2017, sodium 137, chloride 110, carbon dioxide 19, potassium 6, BUN 61, cr eatinine 3.64, GFR 17 mL per minute, calcium 8.6, AST 22, ALT 33. Further review of his serum creati nine shows the following on 07/06/2017, creatinine 3.99. Chest x-ray, increased lung markings. Hemoglobin is 11.9. ASSESSMENT AND PLAN: 1. Shortness of breath/possible congestive heart failure. Currently on a Lasix drip. Continue curr ent management. Adjust Lasix drip as needed depending what the renal function will be within the nex t 24-48 hours. 2. Chronic renal failure secondary to diabetic nephropathy, near baseline GFR. Continue supportive care. There is no indication for any dialytic intervention with this patient. 3. Type 2 diabetes mellitus. Continue current insulin regimen as needed. I agree with current management. We will continue to follow.
[2017-09-07] MEDS: cloNIDine 0.1 MG TAB PO PRN (20:48)
[2017-09-07] MEDS: Heparin 5,000 UNITS/ML VIAL SC SCH (20:48)
[2017-09-07] MEDS: Famotidine 20 MG TAB PO SCH (20:48)
[2017-09-07] MEDS: Rosuvastatin 20 MG TAB PO SCH (20:48)
[2017-09-07 22:15] LABS: Anion Gap 13 mmol/L (10-20); BUN (Urea Nitrogen) 55 mg/dL (8.4-25.7); Calc. Creatinine Clearance 25 mL/min (70-130); Calcium 9.7 mg/dL (7.8-10.44); Carbon Dioxide 21 mmol/L (23-31); Chloride 110 mmol/L (98-107); Estimated GFR-MDRD 16; Glucose 166 mg/dL (83-110); Sodium 139 mmol/L (136-145)
[2017-09-08] MEDS: Furosemide 100 MG in Sodium Chloride 0.9% 100 ML IVPB SCH ×2 (03:11→23:53)
[2017-09-08] MEDS: cloNIDine 0.1 MG TAB PO PRN (03:35)
[2017-09-08 05:10] LABS: #Eosinphils 0.1 thou/uL (0.0-0.7); #Monocytes 0.9 thou/uL (0.11-0.59); #Neutrophils 5.6 thou/uL (1.40-6.50); %Basophils 0.1 % (0.0-1.0); %Eosinophils 1.8 % (0.0-10.0); %Monocytes 11.7 % (0.0-10.0); %Neutrophils 73.5 % (42.0-75.0); Hemoglobin 9.8 g/dL (14.0-18.0); Mean Corpuscular HGB CONC 33.2 g/dL (32.0-36.0); Mean Corpuscular Hemoglobin 30.9 pg (27.0-31.0); Mean Corpuscular Volume 93.2 fl (80.0-94.0); Mean Platelet Volume 8.2 fL (7.4-10.4); Platelet Count 128 thou/uL (130-400); RBC Distribution Width 11.8 % (11.5-14.5); Red Blood Cell (RBC) Count 3.16 mill/uL (4.70-6.10); White Blood Cell (WBC) Count 7.7 thou/uL (4.8-10.8)
[2017-09-08 05:26] LABS: Anion Gap 15 mmol/L (10-20); BUN (Urea Nitrogen) 53 mg/dL (8.4-25.7); Calc. Creatinine Clearance 26 mL/min (70-130); Calcium 8.4 mg/dL (7.8-10.44); Carbon Dioxide 17 mmol/L (23-31); Chloride 110 mmol/L (98-107); Estimated GFR-MDRD 17; Glucose 217 mg/dL (83-110); Potassium 4.5 mmol/L (3.5-5.1); Sodium 137 mmol/L (136-145)
[2017-09-08] MEDS ORDERED: Sodium Chloride 0.9% 10 ML ONE (08:12)
[2017-09-08] MEDS: Aspirin 81 mg Enteric Coated Tablet PO SCH (08:31)
[2017-09-08] MEDS: Famotidine 20 MG TAB PO SCH ×2 (08:31→20:55)
[2017-09-08] MEDS: Heparin 5,000 UNITS/ML VIAL SC SCH ×2 (08:31→20:56)
[2017-09-08] MEDS: hydrALAZINE 25 MG TAB PO SCH ×3 (08:37→20:56)
--- NOTE | 2017-09-08 08:52 | PRG ---
DATE OF SERVICE: 09/08/2017 SUBJECTIVE: A 72-year-old white male with chronic renal failure, admitted for upper respiratory trac t symptoms as well as mild CHF. He has been started on Lasix drip. He is tolerating the diuretics. Renal function remains stable. No other complaints except for some congestion. He is also requesti ng for some DuoNeb treatment. OBJECTIVE: VITAL SIGNS: Blood pressure is 188/85, heart rate 80, respiratory rate 18, temperature 99.8, pulse o x 93%. GENERAL: Awake, alert, supine, comfortable, not in overt distress. SKIN: Adequate turgor. HEENT: He has pinkish conjunctivae, anicteric sclerae. NECK: No neck mass, no carotid bruits. No JVD. CHEST: No deformities. LUNGS: Decreased breath sounds. HEART: Normal sinus rhythm. No murmur, no gallops or rubs. ABDOMEN: Globular, soft, nontender. EXTREMITIES: Trace edema. LABORATORIES: Labs of 09/08/2017, white count 7.7, hemoglobin 9.8, hematocrit 29.5, platelet count 1 28,000. Sodium 137, potassium 4.5, chloride 110, carbon dioxide 17, BUN 53, creatinine 3.58, glucose 217, calcium 8.4. ASSESSMENT AND PLAN: 1. Congestive heart failure, currently on Lasix DRIP. Continue current management. Tolerating said treatment. 2. Chronic renal failure from diabetic nephropathy, stable renal function. GFR 17 mL per minute. T here is no indication for any dialytic intervention. 3. Chronic obstructive pulmonary disease. DuoNeb q.6 hours and p.r.n. Overall, I agree with current management. We will recheck basic metabolic panel and CBC in a.m.
[2017-09-08] MEDS ORDERED: Insulin Regular 300 UNITS/3 ML VIAL SC PRN (11:11)
[2017-09-08] MEDS ORDERED: Carvedilol 25 MG TAB PO SCH (11:15)
[2017-09-08] MEDS: Insulin Regular 300 UNITS/3 ML VIAL SC PRN ×2 (11:58→17:08)
[2017-09-08] MEDS: Carvedilol 25 MG TAB PO SCH (16:03)
--- NOTE | 2017-09-08 19:11 | PDOC.PN ---
- Subjective Encounter Start Date: 09/08/17 Encounter Start Time: 18:00 Patient seen and examined. URI symptoms. SOB on exertion. Dry cough +. No overnight events - Objective MAR Reviewed: Yes Vital Signs & Weight: Vital Signs (12 hours) Temp Pulse Pulse Pulse Resp BP BP 09/08/17 17:15 09/08/17 16:03 69 195/86 H 09/08/17 15:59 97.9 F 69 20 09/08/17 15:01 09/08/17 14:57 71 20 09/08/17 11:54 98.5 F 72 19 09/08/17 09:15 79 93 192/75 H 09/08/17 08:37 77 09/08/17 08:22 99.7 F H 69 21 H BP BP BP Pulse Ox Pulse Ox 09/08/17 17:15 157/65 H 09/08/17 16:03 09/08/17 15:59 195/86 H 95 09/08/17 15:01 97 09/08/17 14:57 97 09/08/17 11:54 167/72 H 94 L 09/08/17 09:15 195/86 H 96 09/08/17 08:37 92 L 09/08/17 08:22 174/81 H 92 L Weight Weight 214 lb 0.996 oz I&O: 09/07/17 09/08/17 09/09/17 06:59 06:59 06:59 Intake Total 480 Output Total 600 Balance -120 Result Diagrams: 09/09/17 04:48 09/09/17 04:48 Additional Labs: Accuchecks 09/08/17 09/08/17 09/08/17 16:09 11:08 07:10 POC Glucose 194 H 204 H 194 H 09/07/17 09/07/17 21:00 17:14 POC Glucose 169 H 127 H EKG Reviewed by me: Yes (Tele paced) Phys Exam - Physical Examination Constitutional: NAD (feels gen weak) Respiratory: no wheezing Scat rales/rhonchi at bases Cardiovascular: RRR, no rub no heaves/pulsations Gastrointestinal: soft, non-tender, no distention, positive bowel sounds Musculoskeletal: edema present Neurological: non-focal, moves all 4 limbs Psychiatric: normal affect, A&O x 3 Dx/Plan - Plan DVT proph w/SCDs IMPRESSION: 1. Acute on chronic systolic heart failure prob caused by Viral syndrome 2. Elevated troponins, probably secondary to congestive heart failure vs ? demand ischemia. 3. Coronary artery disease, status post coronary artery bypass grafting. 4. Status post automatic implantable cardioverter defibrillator. 5. Hypertension. 6. Diabetes mellitus type 2. on sliding scale 7. Hyperlipidemia. 8. Chronic kidney disease stage 5 with hemodialysis in the past. 9. History of severe junctional bradycardia associated with hyperkalemia in the past. 10. Former smoker. 11. Positive family history of heart disease. 12. Bilateral carotid artery disease. PLAN: * Cont Lasix drip * AM labs * Nephrology following * Resp viral panel * Cont Tamiflu for ?influenza * Cont to monitor * AM labs * Cont current meds as below Microbiology 09/07/17 11:55 Nasal swab Influenza Types A,B Direct EIA - Negative 09/07/17 15:58 Venous blood - Left Arm Blood Culture - Preliminary Specimen has been received and culture in progress. No Growth to date. 09/07/17 15:57 Venous blood - Left Hand Blood Culture - Preliminary Specimen has been received and culture in progress. No Growth to date. Laboratory Tests 09/07/17 17:13 Troponin I 0.046 H Review of Systems - Review of Systems Cardiovascular: edema. negative: chest pain, palpitations, orthopnea, paroxysmal nocturnal dyspnea, light headedness, other Gastrointestinal: negative: Nausea, Vomiting, Abdominal Pain, Diarrhea, Constipation, Melena, Hematochezia - Medications/Allergies Allergies/Adverse Reactions: Allergies Allergy/AdvReac Type Severity Reaction Status Date / Time cephalexin monohydrate Allergy Verified 09/07/17 16:11 [From Keflex] propoxyphene napsylate Allergy Verified 09/07/17 16:11 [From Darvocet-N 100] sulfamethoxazole Allergy Verified 09/07/17 16:11 [From Bactrim] trimethoprim [From Bactrim] Allergy Verified 09/07/17 16:11 Medications: Current Medications Acetaminophen (Tylenol) 650 mg PO Q4H PRN PRN Reason: Headache/Fever or Pain Al Hydroxide/Mg Hydroxide (Maalox) 30 ml PO Q6H PRN PRN Reason: Heartburn or Indigestion Albuterol/Ipratropium (Duoneb) 3 ml NEB [id number] [facility] Last Admin: 09/08/17 14:57 Dose: 3 ml Aspirin (Ecotrin) 81 mg PO DAILY [facility] Last Admin: 09/08/17 08:31 Dose: 81 mg Benzonatate (Tessalon) 100 mg PO Q4H PRN PRN Reason: Cough Bisacodyl (Dulcolax) 10 mg PO DAILYPRN PRN PRN Reason: Constipation Carvedilol (Coreg) 50 mg PO BID-WM [facility] Last Admin: 09/08/17 16:03 Dose: 50 mg Clonidine (Catapres) 0.1 mg PO Q4H PRN PRN Reason: Systolic BP > 160 Last Admin: 09/08/17 03:35 Dose: 0.1 mg Dextrose/Water (Dextrose 50%) 25 gm SLOW IVP PRN PRN PRN Reason: Hypoglycemia Famotidine (Pepcid) 20 mg PO BID [facility] Last Admin: 09/08/17 08:31 Dose: 20 mg Glucagon (Glucagon) 1 mg IM PRN PRN PRN Reason: Hypoglycemia Guaifenesin (Robitussin Sf) 200 mg PO Q4H PRN PRN Reason: Cough Heparin Sodium (Porcine) (Heparin) 5,000 units SC BID [facility] Last Admin: 09/08/17 08:31 Dose: 5,000 units Hydralazine HCl (Apresoline) 10 mg SLOW IVP Q4H PRN PRN Reason: Systolic BP > 180 Hydralazine HCl (Apresoline) 50 mg PO TID [facility] Last Admin: 09/08/17 16:03 Dose: 50 mg Dextrose/Water (D5w) 1,000 mls @ 0 mls/hr IV .Q0M PRN; As Directed PRN Reason: Hypoglycemia Furosemide 100 mg/ Sodium (Chloride) 110 mls @ 5.5 mls/hr IVPB INF [facility] PRN Reason: 5 MG/HR Last Admin: 09/08/17 03:11 Dose: 110 mls Levofloxacin 500 mg/ Device 100 mls @ 100 mls/hr IVPB Q2D@1300 [facility] Insulin Human Regular (Humulin R) 0 units SC .MILD SLIDING SCALE PRN PRN Reason: Mild Correctional Scale Last Admin: 09/08/17 17:08 Dose: 2 unit Insulin Human Regular (Humulin R) 0 units SC .BEDTIME SLIDING SC PRN PRN Reason: Bedtime Correctional Scale Loratadine (Claritin) 10 mg PO DAILYPRN PRN PRN Reason: Sinus Symptoms Nitroglycerin (Nitrostat) 0.4 mg SL Q5MIN PRN PRN Reason: Chest Pain Ondansetron HCl (Zofran) 4 mg IVP Q6H PRN PRN Reason: Nausea/Vomiting Last Admin: 09/07/17 20:52 Dose: 4 mg Oseltamivir Phosphate (Tamiflu) 30 mg PO HS [facility] Rosuvastatin Calcium (Crestor) 40 mg PO HS [facility] Last Admin: 09/07/17 20:48 Dose: 40 mg Senna (Senokot) 2 tab PO HSPRN PRN PRN Reason: Constipation Tramadol HCl (Ultram) 50 mg PO Q4H PRN PRN Reason: Moderate Pain (4-6)
[2017-09-08] MEDS: Rosuvastatin 20 MG TAB PO SCH (20:56)
[2017-09-08] MEDS ORDERED: Oseltamivir 6 MG/ML ORAL SUSP PO SCH (21:00)
[2017-09-09] MEDS: cloNIDine 0.1 MG TAB PO PRN ×3 (05:24→16:47)
[2017-09-09 05:49] LABS: Anion Gap 15 mmol/L (10-20); BUN (Urea Nitrogen) 64 mg/dL (8.4-25.7); Calc. Creatinine Clearance 20 mL/min (70-130); Calcium 8.8 mg/dL (7.8-10.44); Carbon Dioxide 19 mmol/L (23-31); Chloride 107 mmol/L (98-107); Estimated GFR-MDRD 14; Glucose 228 mg/dL (83-110); Magnesium 1.7 mg/dL (1.6-2.6); Potassium 4.3 mmol/L (3.5-5.1); Sodium 137 mmol/L (136-145)
[2017-09-09 06:06] LABS: Band 1 % (5-11); Eosinophils 4 % (0-10); Hemoglobin 10.2 g/dL (14.0-18.0); Lymphocytes 21 % (21-51); MDiff Complete? YES; Mean Corpuscular HGB CONC 33.6 g/dL (32.0-36.0); Mean Corpuscular Hemoglobin 30.9 pg (27.0-31.0); Mean Corpuscular Volume 91.9 fl (80.0-94.0); Mean Platelet Volume 8.4 fL (7.4-10.4); Monocytes 15 % (0-10); Neutrophil 59 % (42-75); Platelet Count 122 thou/uL (130-400); RBC Distribution Width 11.7 % (11.5-14.5); White Blood Cell (WBC) Count 5.1 thou/uL (4.8-10.8)
[2017-09-09] MEDS ORDERED: Albumin 25% 25 GM/100 ML BOT IVPB ONE (06:58)
[2017-09-09] MEDS ORDERED: Albumin 25% 25 GM/100 ML BOT IVPB SCH (07:00)
--- NOTE | 2017-09-09 07:50 | PRG ---
DATE OF SERVICE: 09/09/2017 SUBJECTIVE: Mr. Leos is a 72-year-old white male admitted for shortness of breath. He was also sta rted on diuretics. Creatinine was noted to be higher this morning and for that reason his furosemide drip has been discontinued. I have will also start him on DuoNeb. He tells me his breathing is muc h better. He has no other complaints. PHYSICAL EXAMINATION: VITAL SIGNS: Blood pressure 166/72 to as high as 175/74, heart rate 72, respiratory rate 18, tempera ture 97.8, pulse ox 96%. GENERAL: Noted to be awake, alert, comfortable, not in distress. SKIN: Adequate turgor. HEENT: He has pinkish conjunctivae, anicteric sclerae. NECK: No neck mass, no carotid bruits, no JVD. CHEST: No deformities. LUNGS: Decreased breath sounds. Occasional wheezing. HEART: Normal sinus rhythm. No murmur, no gallops, no rubs. ABDOMEN: Globular, soft, nontender, no masses. EXTREMITIES: No edema. MEDICATIONS: 09/09/2017 - Reviewed. LABORATORY: 09/09/2017 - White count 5.1, hemoglobin 10.2. Sodium 137, potassium 4.3, chloride 107, carbon dioxide 19, BUN 64, creatinine 4.17, GFR 14 mL per minute. Calcium 8.8, magnesium 1.7. ASSESSMENT AND PLAN: 1. Shortness of breath, multifactorial. Currently on DuoNeb and IV Lasix. However, due to the wors ening renal dysfunction will discontinue his Lasix. 2. Acute kidney injury on top of his chronic renal failure - superimposed prerenal azotemia with the higher creatinine this morning. We will discontinue Lasix, salt poor albumin 25 grams IV q.8h. will be started. There is no indication for any dialytic intervention with this patient. Please note this patient has been started on DuoNeb for possible COPD. We will recheck basic metabolic panel and CBC in a.m.
--- NOTE | 2017-09-09 09:01 | RAD ---
RADIOGRAPH OF CHEST 2 VIEWS: Date: 09/09/17 COMPARISON: 09/17/15. INDICATION: Shortness of breath. Clinical concern for pneumonia. FINDINGS: There is no lobar consolidation or effusion. No pneumothorax. Left side AICD and post sternotomy hussein ge again seen. There are extrinsic artifacts limiting detail. IMPRESSION: No focal consolidation. POS: [facility]
[2017-09-09] MEDS: hydrALAZINE 25 MG TAB PO SCH ×3 (09:09→20:57)
[2017-09-09] MEDS: Famotidine 20 MG TAB PO SCH ×2 (09:09→20:55)
[2017-09-09] MEDS: Heparin 5,000 UNITS/ML VIAL SC SCH ×2 (09:09→20:57)
[2017-09-09] MEDS: Aspirin 81 mg Enteric Coated Tablet PO SCH (09:09)
[2017-09-09] MEDS: Carvedilol 25 MG TAB PO SCH ×2 (09:09→16:41)
[2017-09-09] MEDS: Insulin Regular 300 UNITS/3 ML VIAL SC PRN ×2 (11:30→18:15)
[2017-09-09] MEDS: Albumin 25% 25 GM/100 ML BOT IVPB SCH ×2 (14:58→21:01)
[2017-09-09] MEDS: Fluticasone Propionate Nasal Spray 16 gm Bottle NASAL SCH (20:55)
[2017-09-09] MEDS: guaiFENesin ER 600 MG TAB PO SCH (20:56)
[2017-09-09] MEDS: Rosuvastatin 20 MG TAB PO SCH (20:57)
--- NOTE | 2017-09-09 21:27 | PDOC.PN ---
- Subjective Encounter Start Date: 09/09/17 Encounter Start Time: 12:00 Patient seen and examined. Overall feels better. SOB on exertion. Cough - dry + . No overnight events - Objective MAR Reviewed: Yes Vital Signs & Weight: Vital Signs (12 hours) Temp Pulse Pulse Pulse Resp BP BP 09/09/17 19:30 97.9 F 63 18 09/09/17 19:08 62 20 09/09/17 16:40 97.5 F L 66 18 09/09/17 13:55 76 24 H 09/09/17 11:34 97.5 F L 64 18 09/09/17 09:35 67 70 176/72 H 191/75 H BP Pulse Ox Pulse Ox Pulse Ox 09/09/17 19:30 152/67 H 94 L 09/09/17 19:08 94 L 09/09/17 16:40 178/77 H 94 L 09/09/17 13:55 09/09/17 11:34 173/73 H 95 09/09/17 09:35 93 L 95 Weight Weight 193 lb 11.2 oz I&O: 09/08/17 09/09/17 09/10/17 06:59 06:59 06:59 Intake Total 480 1086 840 Output Total 600 3400 901 Balance -120 -2314 -61 Result Diagrams: 09/09/17 04:48 09/09/17 04:48 Additional Labs: Accuchecks 09/09/17 09/09/17 09/09/17 20:43 17:02 11:18 POC Glucose 224 H 197 H 320 H 09/09/17 06:13 POC Glucose 195 H Radiology Reviewed by me: Yes (CXR - no infiltrate) EKG Reviewed by me: Yes (Tele paced) Phys Exam - Physical Examination Constitutional: NAD Respiratory: no wheezing Scat rhonchi Cardiovascular: RRR, no rub Gastrointestinal: soft, non-tender, positive bowel sounds Musculoskeletal: no edema Neurological: moves all 4 limbs Dx/Plan - Plan out of bed/ambulate, DVT proph w/heparin, DVT proph w/SCDs IMPRESSION: 1. Acute on chronic systolic heart failure prob caused by Viral syndrome ( Rhinovirus) 2. Elevated troponins, probably secondary to congestive heart failure vs ? demand ischemia. 3. Coronary artery disease, status post coronary artery bypass grafting. 4. Status post automatic implantable cardioverter defibrillator. 5. Hypertension. 6. Diabetes mellitus type 2. on sliding scale 7. Hyperlipidemia. 8. EFRAÍN on Chronic kidney disease stage 5 (with hemodialysis in the past) 9. History of severe junctional bradycardia associated with hyperkalemia in the past. 10. Former smoker. 11. Positive family history of heart disease. 12. Bilateral carotid artery disease. PLAN: * Lasix drip dced due to EFRAÍN * AM labs * Nephrology following * DC Tamiflu * Cont to monitor * AM labs * Cont current meds as below including Coreg. No ACEI/ARB/Aldactone due to renal failure * Add Levemir 10 units BID * DC Levaquin - No Pneumonia on CXR Microbiology 09/07/17 15:58 Venous blood - Left Arm Blood Culture - Preliminary NO GROWTH AT 48 HOURS 09/07/17 15:57 Venous blood - Left Hand Blood Culture - Preliminary NO GROWTH AT 48 HOURS Review of Systems - Review of Systems Cardiovascular: negative: chest pain, palpitations, orthopnea, paroxysmal nocturnal dyspnea, edema, light headedness Gastrointestinal: negative: Nausea, Vomiting, Abdominal Pain, Diarrhea, Constipation, Melena, Hematochezia - Medications/Allergies Allergies/Adverse Reactions: Allergies Allergy/AdvReac Type Severity Reaction Status Date / Time cephalexin monohydrate Allergy Verified 09/07/17 16:11 [From Keflex] levofloxacin [From Levaquin] Allergy Verified 09/09/17 13:56 propoxyphene napsylate Allergy Verified 09/07/17 16:11 [From Darvocet-N 100] sulfamethoxazole Allergy Verified 09/07/17 16:11 [From Bactrim] trimethoprim [From Bactrim] Allergy Verified 09/07/17 16:11 Medications: Current Medications Acetaminophen (Tylenol) 650 mg PO Q4H PRN PRN Reason: Headache/Fever or Pain Al Hydroxide/Mg Hydroxide (Maalox) 30 ml PO Q6H PRN PRN Reason: Heartburn or Indigestion Albumin Human (Albumin 25%) 25 gm IVPB Q8HR [facility] Stop: 09/11/17 22:01 Last Admin: 09/09/17 21:01 Dose: 25 gm Albuterol/Ipratropium (Duoneb) 3 ml NEB [id number] [facility] Last Admin: 09/09/17 19:08 Dose: 3 ml Aspirin (Ecotrin) 81 mg PO DAILY [facility] Last Admin: 09/09/17 09:09 Dose: 81 mg Benzonatate (Tessalon) 100 mg PO Q4H PRN PRN Reason: Cough Bisacodyl (Dulcolax) 10 mg PO DAILYPRN PRN PRN Reason: Constipation Carvedilol (Coreg) 50 mg PO BID-[facility] Last Admin: 09/09/17 16:41 Dose: 50 mg Clonidine (Catapres) 0.1 mg PO Q4H PRN PRN Reason: Systolic BP > 160 Last Admin: 09/09/17 16:47 Dose: 0.1 mg Dextrose/Water (Dextrose 50%) 25 gm SLOW IVP PRN PRN PRN Reason: Hypoglycemia Famotidine (Pepcid) 20 mg PO BID [facility] Last Admin: 09/09/17 20:55 Dose: 20 mg Fluticasone Propionate (Flonase Nasal [place]) 0 gm NASAL HS [facility] Last Admin: 09/09/17 20:55 Dose: 2 sprays Glucagon (Glucagon) 1 mg IM PRN PRN PRN Reason: Hypoglycemia Guaifenesin (Robitussin Sf) 200 mg PO Q4H PRN PRN Reason: Cough Guaifenesin (Mucinex) 600 mg PO Q12HR [facility] Last Admin: 09/09/17 20:56 Dose: 600 mg Heparin Sodium (Porcine) (Heparin) 5,000 units SC BID [facility] Last Admin: 09/09/17 20:57 Dose: 5,000 units Hydralazine HCl (Apresoline) 10 mg SLOW IVP Q4H PRN PRN Reason: Systolic BP > 180 Hydralazine HCl (Apresoline) 50 mg PO TID [facility] Last Admin: 09/09/17 20:57 Dose: 50 mg Dextrose/Water (D5w) 1,000 mls @ 0 mls/hr IV .Q0M PRN; As Directed PRN Reason: Hypoglycemia Insulin Detemir 10 units/ (Miscellaneous Medication) 0.1 mls @ 0 mls/hr SC ONE [facility] Insulin Human Regular (Humulin R) 0 units SC .MILD SLIDING SCALE PRN PRN Reason: Mild Correctional Scale Last Admin: 09/09/17 18:15 Dose: 2 unit Insulin Human Regular (Humulin R) 0 units SC .BEDTIME SLIDING SC PRN PRN Reason: Bedtime Correctional Scale Loratadine (Claritin) 10 mg PO DAILYPRN PRN PRN Reason: Sinus Symptoms Nitroglycerin (Nitrostat) 0.4 mg SL Q5MIN PRN PRN Reason: Chest Pain Ondansetron HCl (Zofran) 4 mg IVP Q6H PRN PRN Reason: Nausea/Vomiting Last Admin: 09/07/17 20:52 Dose: 4 mg Rosuvastatin Calcium (Crestor) 40 mg PO HS [facility] Last Admin: 09/09/17 20:57 Dose: 40 mg Senna (Senokot) 2 tab PO HSPRN PRN PRN Reason: Constipation Tramadol HCl (Ultram) 50 mg PO Q4H PRN PRN Reason: Moderate Pain (4-6)
[2017-09-09] MEDS ORDERED: Insulin Detemir 100 UNITS/ML 10 UNITS in Pre-Filled Syringe 1 EACH SC SCH (21:30)
[2017-09-10] MEDS: Albumin 25% 25 GM/100 ML BOT IVPB SCH ×3 (05:05→22:08)
[2017-09-10 05:59] LABS: #Eosinphils 0.3 thou/uL (0.0-0.7); #Lymphocytes 1.3 thou/uL (1.20-3.40); #Monocytes 0.6 thou/uL (0.11-0.59); #Neutrophils 3.3 thou/uL (1.40-6.50); %Basophils 0.3 % (0.0-1.0); %Eosinophils 5.8 % (0.0-10.0); %Lymphocytes 24.1 % (21.0-51.0); %Monocytes 10.1 % (0.0-10.0); %Neutrophils 59.6 % (42.0-75.0); Hemoglobin 9.7 g/dL (14.0-18.0); Mean Corpuscular HGB CONC 33.7 g/dL (32.0-36.0); Mean Corpuscular Hemoglobin 30.8 pg (27.0-31.0); Mean Corpuscular Volume 91.4 fl (80.0-94.0); Mean Platelet Volume 8.2 fL (7.4-10.4); Platelet Count 115 thou/uL (130-400); RBC Distribution Width 11.6 % (11.5-14.5); Red Blood Cell (RBC) Count 3.15 mill/uL (4.70-6.10); White Blood Cell (WBC) Count 5.6 thou/uL (4.8-10.8)
[2017-09-10 06:14] LABS: Anion Gap 15 mmol/L (10-20); BUN (Urea Nitrogen) 65 mg/dL (8.4-25.7); Calc. Creatinine Clearance 21 mL/min (70-130); Calcium 8.9 mg/dL (7.8-10.44); Carbon Dioxide 19 mmol/L (23-31); Chloride 107 mmol/L (98-107); Estimated GFR-MDRD 14; Glucose 139 mg/dL (83-110); Potassium 4.3 mmol/L (3.5-5.1); Sodium 137 mmol/L (136-145)
--- NOTE | 2017-09-10 08:20 | PRG ---
DATE OF SERVICE: 09/10/2017 RENAL MEDICINE SUBJECTIVE: Mr. Leos is a 72-year-old white male who was initially admitted for upper respiratory t ract signs and symptoms. We were consulted for his chronic renal failure. Initially, he was diurese d due to possible CHF. Due to the higher creatinine, his diuretics have been discontinued. I have s tarted on salt poor albumin. No new complaints today. He denies any chest pain or any worsening wicho rtness of breath. PHYSICAL EXAMINATION: VITAL SIGNS: Blood pressure is 148/67, heart rate 76, respiratory rate 18, temperature 97.7, pulse o x 95%. GENERAL: Noted to be awake, alert, supine, comfortable, not in distress. SKIN: Adequate turgor. HEENT: He has slightly pale conjunctivae, anicteric sclerae. NECK: No neck mass, no carotid bruits, no JVD. CHEST: No deformities. LUNGS: Decreased breath sounds. Occasional wheezing. HEART: Normal sinus rhythm. No murmur, no gallops, no rubs. ABDOMEN: Globular, soft, nontender, no masses. EXTREMITIES: Trace edema, no deformities. MEDICATIONS: Medications of 09/10/2017 was reviewed. LABORATORY DATA: Laboratories of 09/10/2017; white count 5.6, hemoglobin 9.7, sodium 137, potassium 4.3, chloride 107, carbon dioxide 19, BUN 65, creatinine 4.1, GFR 14 mL per minute, glucose 139, and calcium 8.9. ASSESSMENT AND PLAN: 1. Acute kidney injury/chronic renal failure, stabilizing renal function. Creatinine 4.1 is relativ zahra unchanged. Stage 5 chronic renal failure. No indication for any dialytic intervention. Continu e salt poor albumin. Continue to hold diuretics. 2. Shortness of breath, clinically improving. Combination of chronic obstructive pulmonary disease/ congestive heart failure. 3. Anemia. We will start Epogen 7500 units subcu once a week. Start ferrous sulfate 325 mg tab onc e a day.
[2017-09-10] MEDS ORDERED: Epoetin (ESRD) 20,000 UNITS/ML SC SCH (09:00)
[2017-09-10] MEDS: Aspirin 81 mg Enteric Coated Tablet PO SCH (09:05)
[2017-09-10] MEDS: Carvedilol 25 MG TAB PO SCH ×2 (09:05→16:27)
[2017-09-10] MEDS: Ferrous Sulfate 325 MG TAB PO SCH (09:05)
[2017-09-10] MEDS: Heparin 5,000 UNITS/ML VIAL SC SCH ×2 (09:06→22:08)
[2017-09-10] MEDS: guaiFENesin ER 600 MG TAB PO SCH ×2 (09:06→20:22)
[2017-09-10] MEDS: hydrALAZINE 25 MG TAB PO SCH ×3 (09:06→20:21)
[2017-09-10] MEDS: Famotidine 20 MG TAB PO SCH ×2 (09:06→20:22)
[2017-09-10] MEDS: Insulin Detemir 100 UNITS/ML 10 UNITS in Pre-Filled Syringe 1 EACH SC SCH ×2 (09:07→20:24)
--- NOTE | 2017-09-10 11:26 | PDOC.PN ---
- Subjective Encounter Start Date: 09/10/17 Encounter Start Time: 10:00 Subjective: still has some dry coughing spells, no chest pain or palp - Objective MAR Reviewed: Yes Vital Signs & Weight: Vital Signs (12 hours) Temp Pulse Resp BP Pulse Ox 09/10/17 09:05 97.7 F 71 18 98 09/10/17 09:03 97.7 F 71 18 184/74 H 98 09/10/17 07:05 63 20 97 09/10/17 03:33 97.7 F 76 18 148/67 H 95 09/10/17 00:59 16 Weight Weight 196 lb 3.2 oz I&O: 09/09/17 09/10/17 09/11/17 06:59 06:59 06:59 Intake Total 1086 1320 Output Total 3400 1751 Balance -9682 -711 Result Diagrams: 09/10/17 05:35 09/10/17 05:35 Additional Labs: Accuchecks 09/10/17 09/09/17 09/09/17 05:51 20:43 17:02 POC Glucose 150 H 224 H 197 H 09/09/17 11:18 POC Glucose 320 H Phys Exam - Physical Examination HEENT: PERRLA, sclera anicteric Neck: no JVD, supple Respiratory: no wheezing rhonchi+ Cardiovascular: RRR, no significant murmur Gastrointestinal: soft, non-tender, positive bowel sounds Musculoskeletal: no edema, pulses present Neurological: non-focal, moves all 4 limbs Psychiatric: A&O x 3 Dx/Plan (1) EFRAÍN (acute kidney injury) Code(s): N17.9 - ACUTE KIDNEY FAILURE, UNSPECIFIED Status: Acute (2) CKD (chronic kidney disease) stage 5, GFR less than 15 ml/min Code(s): N18.5 - CHRONIC KIDNEY DISEASE, STAGE 5 Status: Chronic (3) Metabolic acidosis Code(s): E87.2 - ACIDOSIS Status: Acute Comment: sec to ckd (4) Dyslipidemia Code(s): E78.5 - HYPERLIPIDEMIA, UNSPECIFIED Status: Chronic (5) Acute on chronic systolic congestive heart failure Code(s): I50.23 - ACUTE ON CHRONIC SYSTOLIC (CONGESTIVE) HEART FAILURE Status : Chronic (6) CAD (coronary artery disease) Code(s): I25.10 - ATHSCL HEART DISEASE OF [place] CORONARY ARTERY W/O ANG PCTRS Status: Chronic Qualifiers: Coronary Disease-Associated Artery/Lesion type: bypass graft Elim [place] vs. transplanted heart: [place] heart Associated angina: without angina Qualified Code(s): I25.810 - Atherosclerosis of coronary artery bypass graft(s) without angina pectoris (7) DM2 (diabetes mellitus, type 2) Status: Chronic Qualifiers: Diabetes mellitus complication status: with kidney complications Diabetes mellitus complication detail: with chronic kidney disease Diabetes mellitus detention insulin use: with emt intermediate use Chronic kidney disease stage: stage 5, not on chronic dialysis Qualified Code(s): E11.22 - Type 2 diabetes mellitus with diabetic chronic kidney disease; N18.5 - Chronic kidney disease, stage 5; N18.5 - Chronic kidney disease, stage 5; N18.5 - Chronic kidney disease , stage 5; N18.5 - Chronic kidney disease, stage 5; Z79.4 - [facility]CI (current) use of insulin; Z79.4 - [facility]CI (current) use of insulin; Z79.4 - [facility]CI ( current) use of insulin; Z79.4 - emt intermediate (current) use of insulin (8) Hypertension Code(s): I10 - ESSENTIAL (PRIMARY) HYPERTENSION Status: Chronic Qualifiers: Hypertension type: essential hypertension Qualified Code(s): I10 - Essential (primary) hypertension - Plan has recieved alb infusions for efraín/ckd -: he might not tolerated oral iron, got nauseated this am with epigastric scooter -: to ambulate as tolerated -: tx to medical floor -: is off lasix, on high dose coreg and hydralazine * . Review of Systems - Medications/Allergies Allergies/Adverse Reactions: Allergies Allergy/AdvReac Type Severity Reaction Status Date / Time cephalexin monohydrate Allergy Verified 09/07/17 16:11 [From Keflex] levofloxacin [From Levaquin] Allergy Verified 09/09/17 13:56 propoxyphene napsylate Allergy Verified 09/07/17 16:11 [From Darvocet-N 100] sulfamethoxazole Allergy Verified 09/07/17 16:11 [From Bactrim] trimethoprim [From Bactrim] Allergy Verified 09/07/17 16:11 Medications: Current Medications Acetaminophen (Tylenol) 650 mg PO Q4H PRN PRN Reason: Headache/Fever or Pain Al Hydroxide/Mg Hydroxide (Maalox) 30 ml PO Q6H PRN PRN Reason: Heartburn or Indigestion Albumin Human (Albumin 25%) 25 gm IVPB Q8HR [facility] Stop: 09/11/17 22:01 Last Admin: 09/10/17 05:05 Dose: 25 gm Albuterol/Ipratropium (Duoneb) 3 ml NEB [id number] [facility] Last Admin: 09/10/17 07:05 Dose: 3 ml Aspirin (Ecotrin) 81 mg PO DAILY [facility] Last Admin: 09/10/17 09:05 Dose: 81 mg Benzonatate (Tessalon) 100 mg PO Q4H PRN PRN Reason: Cough Bisacodyl (Dulcolax) 10 mg PO DAILYPRN PRN PRN Reason: Constipation [facility] Admin: 09/10/17 09:05 Dose: 50 mg Clonidine (Catapres) 0.1 mg PO Q4H PRN PRN Reason: Systolic BP > 160 Last Admin: 09/09/17 16:47 Dose: 0.1 mg Dextrose/Water (Dextrose 50%) 25 gm SLOW IVP PRN PRN PRN Reason: Hypoglycemia Epoetin Guilherme (Procrit) 7,500 units SC Q7D@0900 [facility] Last Admin: 09/10/17 09:06 Dose: 7,500 units Famotidine (Pepcid) 20 mg PO BID [facility] Last Admin: 09/10/17 09:06 Dose: 20 mg Ferrous Sulfate (Feosol) 325 mg PO QAM-[facility] Last Admin: 09/10/17 09:05 Dose: 325 mg Fluticasone Propionate (Flonase Nasal [place]) 0 gm NASAL HS [facility] Last Admin: 09/09/17 20:55 Dose: 2 sprays Glucagon (Glucagon) 1 mg IM PRN PRN PRN Reason: Hypoglycemia Guaifenesin (Robitussin Sf) 200 mg PO Q4H PRN PRN Reason: Cough Guaifenesin (Mucinex) 600 mg PO Q12HR [facility] Last Admin: 09/10/17 09:06 Dose: 600 mg Heparin Sodium (Porcine) (Heparin) 5,000 units SC BID [facility] Last Admin: 09/10/17 09:06 Dose: 5,000 units Hydralazine HCl (Apresoline) 10 mg SLOW IVP Q4H PRN PRN Reason: Systolic BP > 180 Hydralazine HCl (Apresoline) 50 mg PO TID [facility] Last Admin: 09/10/17 09:06 Dose: 50 mg Dextrose/Water (D5w) 1,000 mls @ 0 mls/hr IV .Q0M PRN; As Directed PRN Reason: Hypoglycemia Insulin Detemir 10 units/ (Miscellaneous Medication) 0.1 mls @ 0 mls/hr SC BID [facility] Last Admin: 09/10/17 09:07 Dose: 0.1 mls Insulin Human Regular (Humulin R) 0 units SC .MILD SLIDING SCALE PRN PRN Reason: Mild Correctional Scale Last Admin: 09/09/17 18:15 Dose: 2 unit Insulin Human Regular (Humulin R) 0 units SC .BEDTIME SLIDING SC PRN PRN Reason: Bedtime Correctional Scale Last Admin: 09/09/17 22:12 Dose: 2 unit/kg Loratadine (Claritin) 10 mg PO DAILYPRN PRN PRN Reason: Sinus Symptoms Nitroglycerin (Nitrostat) 0.4 mg SL Q5MIN PRN PRN Reason: Chest Pain Ondansetron HCl (Zofran) 4 mg IVP Q6H PRN PRN Reason: Nausea/Vomiting Last Admin: 09/07/17 20:52 Dose: 4 mg Rosuvastatin Calcium (Crestor) 40 mg PO HS [facility] Last Admin: 09/09/17 20:57 Dose: 40 mg Senna (Senokot) 2 tab PO HSPRN PRN PRN Reason: Constipation Tramadol HCl (Ultram) 50 mg PO Q4H PRN PRN Reason: Moderate Pain (4-6)
[2017-09-10] MEDS: Insulin Regular 300 UNITS/3 ML VIAL SC PRN ×2 (12:16→18:08)
[2017-09-10] MEDS: cloNIDine 0.1 MG TAB PO PRN (12:16)
[2017-09-10] MEDS: Fluticasone Propionate Nasal Spray 16 gm Bottle NASAL SCH (20:23)
[2017-09-10] MEDS: Rosuvastatin 20 MG TAB PO SCH (22:08)
[2017-09-11 04:29] LABS: #Eosinphils 0.3 thou/uL (0.0-0.7); #Lymphocytes 1.1 thou/uL (1.20-3.40); #Monocytes 0.5 thou/uL (0.11-0.59); #Neutrophils 3.5 thou/uL (1.40-6.50); %Basophils 0.3 % (0.0-1.0); %Eosinophils 5.9 % (0.0-10.0); %Lymphocytes 21.1 % (21.0-51.0); %Neutrophils 63.6 % (42.0-75.0); Hemoglobin 9.5 g/dL (14.0-18.0); Mean Corpuscular HGB CONC 34.3 g/dL (32.0-36.0); Mean Corpuscular Hemoglobin 31.3 pg (27.0-31.0); Mean Corpuscular Volume 91.5 fl (80.0-94.0); Mean Platelet Volume 8.3 fL (7.4-10.4); Platelet Count 116 thou/uL (130-400); RBC Distribution Width 11.6 % (11.5-14.5); Red Blood Cell (RBC) Count 3.01 mill/uL (4.70-6.10); White Blood Cell (WBC) Count 5.4 thou/uL (4.8-10.8)
[2017-09-11 04:37] LABS: Anion Gap 14 mmol/L (10-20); BUN (Urea Nitrogen) 68 mg/dL (8.4-25.7); Calc. Creatinine Clearance 20 mL/min (70-130); Calcium 9.1 mg/dL (7.8-10.44); Carbon Dioxide 22 mmol/L (23-31); Chloride 107 mmol/L (98-107); Estimated GFR-MDRD 14; Glucose 183 mg/dL (83-110); Sodium 138 mmol/L (136-145)
[2017-09-11] MEDS: Albumin 25% 25 GM/100 ML BOT IVPB SCH ×2 (05:32→14:18)
[2017-09-11] MEDS: Carvedilol 25 MG TAB PO SCH ×2 (08:04→17:08)
[2017-09-11] MEDS: hydrALAZINE 25 MG TAB PO SCH ×3 (08:05→19:53)
[2017-09-11] MEDS: Famotidine 20 MG TAB PO SCH ×2 (08:05→19:53)
[2017-09-11] MEDS: Ferrous Sulfate 325 MG TAB PO SCH (08:05)
[2017-09-11] MEDS: guaiFENesin ER 600 MG TAB PO SCH ×2 (08:06→19:53)
[2017-09-11] MEDS: Aspirin 81 mg Enteric Coated Tablet PO SCH (08:06)
[2017-09-11] MEDS: Heparin 5,000 UNITS/ML VIAL SC SCH ×2 (08:07→19:54)
[2017-09-11] MEDS: Insulin Detemir 100 UNITS/ML 10 UNITS in Pre-Filled Syringe 1 EACH SC SCH ×2 (08:08→19:55)
--- NOTE | 2017-09-11 12:21 | PDOC.PN ---
- Subjective Encounter Start Date: 09/11/17 Encounter Start Time: 11:00 Subjective: no sob, feels better -: cough is better, is amb in room - Objective MAR Reviewed: Yes Vital Signs & Weight: Vital Signs (12 hours) Temp Pulse Resp BP BP Pulse Ox 09/11/17 11:10 97.6 F 68 22 H 168/73 H 97 09/11/17 08:05 71 181/77 H 09/11/17 08:00 97.8 F 71 20 96 09/11/17 07:56 98.5 F 71 22 H 181/77 H 96 09/11/17 06:34 68 16 98 09/11/17 04:00 98.1 F 67 18 170/71 H 98 09/11/17 01:35 65 19 95 09/11/17 00:30 97.9 F 69 18 167/77 H 96 Weight Weight 196 lb 3.2 oz I&O: 09/10/17 09/11/17 09/12/17 06:59 06:59 06:59 Intake Total 1320 1940 Output Total 1751 Balance -431 1940 Result Diagrams: 09/11/17 03:44 09/11/17 03:44 Additional Labs: Accuchecks 09/11/17 09/11/17 09/10/17 11:13 04:10 20:15 POC Glucose 172 H 190 H 208 H 09/10/17 16:18 POC Glucose 164 H Phys Exam - Physical Examination HEENT: PERRLA, moist MMs Neck: no JVD, supple Respiratory: no wheezing, no rales Cardiovascular: RRR, no significant murmur Gastrointestinal: soft, non-tender, positive bowel sounds Musculoskeletal: no edema, pulses present Neurological: non-focal, moves all 4 limbs Psychiatric: A&O x 3 Dx/Plan (1) EFRAÍN (acute kidney injury) Code(s): N17.9 - ACUTE KIDNEY FAILURE, UNSPECIFIED Status: Acute (2) CKD (chronic kidney disease) stage 5, GFR less than 15 ml/min Code(s): N18.5 - CHRONIC KIDNEY DISEASE, STAGE 5 Status: Chronic (3) Metabolic acidosis Code(s): E87.2 - ACIDOSIS Status: Acute Comment: sec to ckd (4) Dyslipidemia Code(s): E78.5 - HYPERLIPIDEMIA, UNSPECIFIED Status: Chronic (5) Acute on chronic systolic congestive heart failure Code(s): I50.23 - ACUTE ON CHRONIC SYSTOLIC (CONGESTIVE) HEART FAILURE Status : Chronic (6) CAD (coronary artery disease) Code(s): I25.10 - ATHSCL HEART DISEASE OF [place] CORONARY ARTERY W/O ANG PCTRS Status: Chronic Qualifiers: Coronary Disease-Associated Artery/Lesion type: bypass graft [place] vs. 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: with assisted use Chronic kidney disease stage: stage 5, not on chronic dialysis Qualified Code(s): E11.22 - Type 2 diabetes mellitus with diabetic chronic kidney disease; N18.5 - Chronic kidney disease, stage 5; N18.5 - Chronic kidney disease, stage 5; N18.5 - Chronic kidney disease , stage 5; N18.5 - Chronic kidney disease, stage 5; Z79.4 - ad terminal makeup operator (current) use of insulin; Z79.4 - senior living (current) use of insulin; Z79.4 - senior living ( current) use of insulin; Z79.4 - senior living (current) use of insulin (8) Hypertension Code(s): I10 - ESSENTIAL (PRIMARY) HYPERTENSION Status: Chronic Qualifiers: Hypertension type: essential hypertension Qualified Code(s): I10 - Essential (primary) hypertension - Plan renal function holding up, creatinine around 4.1 -: off diuretics and say/arbs -: recieved alb infusions till yesterday -: dc plan in am with -: will need labs drawn weekly to see for renal function * . Review of Systems - Medications/Allergies Allergies/Adverse Reactions: Allergies Allergy/AdvReac Type Severity Reaction Status Date / Time cephalexin monohydrate Allergy Verified 09/07/17 16:11 [From Keflex] levofloxacin [From Levaquin] Allergy Verified 09/09/17 13:56 propoxyphene napsylate Allergy Verified 09/07/17 16:11 [From Darvocet-N 100] sulfamethoxazole Allergy Verified 09/07/17 16:11 [From Bactrim] trimethoprim [From Bactrim] Allergy Verified 09/07/17 16:11 Medications: Current Medications Acetaminophen (Tylenol) 650 mg PO Q4H PRN PRN Reason: Headache/Fever or Pain Al Hydroxide/Mg Hydroxide (Maalox) 30 ml PO Q6H PRN PRN Reason: Heartburn or Indigestion Albumin Human (Albumin 25%) 25 gm IVPB Q8HR [facility] Stop: 09/11/17 22:01 Last Admin: 09/11/17 05:32 Dose: 25 gm Albuterol/Ipratropium (Duoneb) 3 ml NEB [id number] [facility] Last Admin: 09/11/17 06:34 Dose: 3 ml Aspirin (Ecotrin) 81 mg PO DAILY [facility] Last Admin: 09/11/17 08:06 Dose: 81 mg Benzonatate (Tessalon) 100 mg PO Q4H PRN PRN Reason: Cough Bisacodyl (Dulcolax) 10 mg PO DAILYPRN PRN PRN Reason: Constipation Carvedilol (Coreg) 50 mg PO BID-[facility] Last Admin: 09/11/17 08:04 Dose: 50 mg Clonidine (Catapres) 0.1 mg PO Q4H PRN PRN Reason: Systolic BP > 160 Last Admin: 09/10/17 12:16 Dose: 0.1 mg Dextrose/Water (Dextrose 50%) 25 gm SLOW IVP PRN PRN PRN Reason: Hypoglycemia Epoetin Guilherme (Procrit) 7,500 units SC Q7D@0900 [facility] Last Admin: 09/10/17 09:06 Dose: 7,500 units Famotidine (Pepcid) 20 mg PO BID [facility] Last Admin: 09/11/17 08:05 Dose: 20 mg Ferrous Sulfate (Feosol) 325 mg PO QAM-[facility] Last Admin: 09/11/17 08:05 Dose: 325 mg Fluticasone Propionate (Flonase Nasal [place]) 0 gm NASAL HS [facility] Last Admin: 09/10/17 20:23 Dose: 1 sprays Glucagon (Glucagon) 1 mg IM PRN PRN PRN Reason: Hypoglycemia Guaifenesin (Robitussin Sf) 200 mg PO Q4H PRN PRN Reason: Cough Guaifenesin (Mucinex) 600 mg PO Q12HR [facility] Last Admin: 09/11/17 08:06 Dose: 600 mg Heparin Sodium (Porcine) (Heparin) 5,000 units SC BID [facility] Last Admin: 09/11/17 08:07 Dose: Not Given Hydralazine HCl (Apresoline) 10 mg SLOW IVP Q4H PRN PRN Reason: Systolic BP > 180 Hydralazine HCl (Apresoline) 50 mg PO TID [facility] Last Admin: 09/11/17 08:05 Dose: 50 mg Dextrose/Water (D5w) 1,000 mls @ 0 mls/hr IV .Q0M PRN; As Directed PRN Reason: Hypoglycemia Insulin Detemir 10 units/ (Miscellaneous Medication) 0.1 mls @ 0 mls/hr SC BID [facility] Last Admin: 09/11/17 08:08 Dose: 0.1 mls Insulin Human Regular (Humulin R) 0 units SC .MILD SLIDING SCALE PRN PRN Reason: Mild Correctional Scale Last Admin: 09/10/17 18:08 Dose: 2 unit Insulin Human Regular (Humulin R) 0 units SC .BEDTIME SLIDING SC PRN PRN Reason: Bedtime Correctional Scale Last Admin: 09/09/17 22:12 Dose: 2 unit/kg Loratadine (Claritin) 10 mg PO DAILYPRN PRN PRN Reason: Sinus Symptoms Nitroglycerin (Nitrostat) 0.4 mg SL Q5MIN PRN PRN Reason: Chest Pain Ondansetron HCl (Zofran) 4 mg IVP Q6H PRN PRN Reason: Nausea/Vomiting Last Admin: 09/07/17 20:52 Dose: 4 mg Rosuvastatin Calcium (Crestor) [address] [facility] Last Admin: 09/10/17 22:08 Dose: Not Given Senna (Senokot) 2 tab PO HSPRN PRN PRN Reason: Constipation Tramadol HCl (Ultram) 50 mg PO Q4H PRN PRN Reason: Moderate Pain (4-6)
[2017-09-11] MEDS: Insulin Regular 300 UNITS/3 ML VIAL SC PRN (17:10)
[2017-09-11] MEDS: Rosuvastatin 20 MG TAB PO SCH (19:52)
[2017-09-11] MEDS: Fluticasone Propionate Nasal Spray 16 gm Bottle NASAL SCH (19:53)
--- NOTE | 2017-09-11 19:55 | PRG ---
DATE OF SERVICE: 09/11/2017 SERVICE: Renal Medicine. HISTORY OF PRESENT ILLNESS: Mr. 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 He current ly was admitted for shortness of breath and there is improvement with his breathing. He is on DuoNeb and he is status post diuretic therapy. Creatinine has been holding steady at 4.1 for the last gin ral days. This may be his new baseline. He has no other complaints today. He is feeling better. OBJECTIVE: VITAL SIGNS: Blood pressure 168/73 to as high as 185/75, heart rate 71, respiratory rate 22, tempera ture 97.5. GENERAL: Awake, alert, comfortable, not in distress. SKIN: Adequate turgor. HEENT: He has pinkish conjunctivae, anicteric sclerae. NECK: No neck mass, no carotid bruits, no JVD. CHEST: No deformities. LUNGS: Decreased breath sounds. HEART: Normal sinus rhythm. No murmur, no gallops, no rubs. ABDOMEN: Globular, soft, nontender, no masses. EXTREMITIES: No edema, no deformities. MEDICATIONS: Medications of 09/11/2017, reviewed. LABORATORY DATA: Laboratories of 09/11/2017, white count 5.4, hemoglobin 9.5. Sodium 138, potassium 5, chloride 107, carbon dioxide 22, BUN 68, creatinine 4.1, GFR 14 mL per minute, glucose 183, calci um 9.1. ASSESSMENT AND PLAN: 1. Hypertension. Adjust blood pressure medications. Hydralazine has been increased to 50 mg tab t. i.d. 2. Chronic renal failure/acute kidney injury. Creatinine noted at 4.1, which has been stable for th e last several days. He is off diuretics and ARLEN inhibitors. This may be his new baseline and/or th e possibility of he simply still has superimposed prerenal azotemia. Please note he is status post a lbumin infusion. No indication for any dialytic intervention. I would continue current management. Overall, I agree with current management. Possibility of discharge tomorrow. If the patient dischar ged, we will follow him up at the [facility]. He was given instructions for a followup.
[2017-09-12] MEDS ORDERED: Insulin Regular 300 UNITS/3 ML VIAL ONE (04:50)
[2017-09-12] MEDS: Insulin Regular 300 UNITS/3 ML VIAL SC PRN ×2 (04:52→12:51)
[2017-09-12 07:24] VITALS: BP 175/77; TEMP 98.2
[2017-09-12] MEDS: Ferrous Sulfate 325 MG TAB PO SCH (09:05)
[2017-09-12] MEDS: Aspirin 81 mg Enteric Coated Tablet PO SCH (09:06)
[2017-09-12] MEDS: Insulin Detemir 100 UNITS/ML 10 UNITS in Pre-Filled Syringe 1 EACH SC SCH (09:06)
[2017-09-12] MEDS: hydrALAZINE 25 MG TAB PO SCH (09:06)
[2017-09-12] MEDS: Carvedilol 25 MG TAB PO SCH (09:06)
[2017-09-12] MEDS: guaiFENesin ER 600 MG TAB PO SCH (09:06)
[2017-09-12] MEDS: Famotidine 20 MG TAB PO SCH (09:06)
[2017-09-12] MEDS: Heparin 5,000 UNITS/ML VIAL SC SCH (09:07)
--- NOTE | 2017-09-12 12:00 | PDOC.PN ---
- Subjective Encounter Start Date: 09/12/17 Encounter Start Time: 07:30 Subjective: feels better, no sob - Objective MAR Reviewed: Yes Vital Signs & Weight: Vital Signs (12 hours) Temp Pulse Resp BP BP Pulse Ox 09/12/17 09:06 64 175/77 H 09/12/17 08:00 98.2 F 64 16 09/12/17 07:20 98.2 F 64 16 175/77 H 98 09/12/17 06:13 75 16 97 09/12/17 04:00 98.1 F 68 16 178/86 H 09/12/17 01:50 68 16 98 Weight Weight 196 lb 3.2 oz I&O: 09/11/17 09/12/17 09/13/17 06:59 06:59 06:59 Intake Total 1940 1640 Balance 1940 1640 Result Diagrams: 09/11/17 03:44 09/11/17 03:44 Additional Labs: Accuchecks 09/12/17 09/11/17 09/11/17 04:47 19:37 16:05 POC Glucose 180 H 214 H 216 H Phys Exam - Physical Examination HEENT: PERRLA, moist MMs Neck: no JVD, supple Respiratory: no wheezing, no rales Cardiovascular: RRR, no significant murmur Gastrointestinal: soft, non-tender, positive bowel sounds Musculoskeletal: no edema, pulses present Neurological: non-focal, moves all 4 limbs Psychiatric: A&O x 3 Dx/Plan (1) EFRAÍN (acute kidney injury) Code(s): N17.9 - ACUTE KIDNEY FAILURE, UNSPECIFIED Status: Acute Comment: stable (2) CKD (chronic kidney disease) stage 5, GFR less than 15 ml/min Code(s): N18.5 - CHRONIC KIDNEY DISEASE, STAGE 5 Status: Chronic (3) Metabolic acidosis Code(s): E87.2 - ACIDOSIS Status: Resolved Comment: sec to ckd (4) Dyslipidemia Code(s): E78.5 - HYPERLIPIDEMIA, UNSPECIFIED Status: Chronic (5) Acute on chronic systolic congestive heart failure Code(s): I50.23 - ACUTE ON CHRONIC SYSTOLIC (CONGESTIVE) HEART FAILURE Status : Chronic (6) CAD (coronary artery disease) Code(s): I25.10 - ATHSCL HEART DISEASE OF [place] CORONARY ARTERY W/O ANG PCTRS Status: Chronic Qualifiers: Coronary Disease-Associated Artery/Lesion type: bypass graft [place] vs. 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: with long-term use Chronic kidney disease stage: stage 5, not on chronic dialysis Qualified Code(s): E11.22 - Type 2 diabetes mellitus with diabetic chronic kidney disease; N18.5 - Chronic kidney disease, stage 5; N18.5 - Chronic kidney disease, stage 5; N18.5 - Chronic kidney disease , stage 5; N18.5 - Chronic kidney disease, stage 5; Z79.4 - terminal operator (current) use of insulin; Z79.4 - terminal operator (current) use of insulin; Z79.4 - terminal operator ( current) use of insulin; Z79.4 - terminal operator (current) use of insulin (8) Hypertension Code(s): I10 - ESSENTIAL (PRIMARY) HYPERTENSION Status: Chronic Qualifiers: Hypertension type: essential hypertension Qualified Code(s): I10 - Essential (primary) hypertension - Plan hemostable -: dc pt home -: weekly labs with on discharge -: creatinine has remained stable * .
--- NOTE | 2017-09-12 20:15 | DIS ---
DATE OF ADMISSION: 09/07/2017 DATE OF DISCHARGE: 09/12/2017 DISCHARGE DISPOSITION: To home. PRIMARY DISCHARGE DIAGNOSES: 1. Acute congestive heart failure exacerbation with systolic dysfunction, resolved. 2. Acute kidney injury due to diuresis, stable. 3. History of chronic kidney disease stage 5. 4. Metabolic acidosis secondary to chronic kidney disease. 5. Dyslipidemia. 6. Coronary artery disease. 7. Diabetes mellitus type 2. 8. Hypertension. PROCEDURES DONE DURING HOSPITALIZATION: Initial chest x-ray done on the day of admission showed pulmonary vascular congestion. Blood cultures x2 no growth. Respiratory virus panel was positive for rhinovirus. Discharge H&H 9 and 27, platelet count 116. Discharge BUN and creatinine is 68 and 4.1. Discharge serum bicarbonate is 22. Had a BNP of 1196 on the day of admission. DISCHARGE MEDICATIONS: Aspirin 81 mg p.o. daily, Coreg 50 mg p.o. twice daily, hydralazine 50 mg p.o. 3 times daily, ferrous sulfate 325 mg p.o. daily, Lantus 20 units subcu q.a.m., Crestor 40 mg p.o. at bedtime, Xanax p.r.n. for anxiety. ALLERGIES: KEFLEX, LEVAQUIN, SULFA. There is also allergic to PROPOXYPHENE. INPATIENT CONSULTS: Dr. Wong for Nephrology. BRIEF COURSE DURING HOSPITALIZATION: The patient initially got admitted on the with complaints of flu-like symptoms including generalized body aches, shortness of breath, fever, chills, and cough. The patient also has ejection fraction of 20% to 25% based on prior echo. His initial clinical findings were suggestive of congestive heart failure exacerbation with systolic dysfunction and his virus PCR panel came back positive for rhinovirus. The patient was gently diuresed during his stay, which led to acute kidney injury with his history of chronic kidney disease stage 5. All his diuretics were withheld along with ARLEN inhibitors and ARB due to chronic kidney disease stage 5. He was closely monitored for the last 3 days with stable creatinine. DISCHARGE PLAN: The patient to follow up with Dr. Wong as advised and weekly metabolic panels to be done for the next 2-3 weeks. He also need to follow up with his primary care physician in one week. Prior to discharge, the patient is ambulating well and eating well. He has a nebulizer at home. He is also planning to go to [place] next month and has been advised to keep in close touch with his primary care physician if he were to decompensate to get records for the physicians at [place] to manage him. He is otherwise hemodynamically stable and has been cleared by Dr. Wong for discharge today. Please see a face to face documentation on [facility] for the day of discharge. DIANA
== END 2017-09-12 15:20 | disposition home health service (06) | DRG 291 ==
LOC: ERS 10:46 → 2NO 12:58 → T4-A 09-10 15:39
PROVIDERS: ADMIT Family Medicine; ATTEND Family Medicine
DX: I13.2 Hypertensive heart and chronic kidney disease with heart failure and with stage 5 chronic kidney disease, or end stage renal disease (principal); I50.23 Acute on chronic systolic (congestive) heart failure; N17.9 Acute kidney failure, unspecified; J18.9 Pneumonia, unspecified organism; E87.2 Acidosis; E11.21 Type 2 diabetes mellitus with diabetic nephropathy; N18.5 Chronic kidney disease, stage 5; E87.5 Hyperkalemia; E11.22 Type 2 diabetes mellitus with diabetic chronic kidney disease; I25.10 Atherosclerotic heart disease of native coronary artery without angina pectoris; Z95.1 Presence of aortocoronary bypass graft; I25.5 Ischemic cardiomyopathy; Z95.810 Presence of automatic (implantable) cardiac defibrillator; E78.5 Hyperlipidemia, unspecified; Z88.1 Allergy status to other antibiotic agents; Z88.5 Allergy status to narcotic agent; Z79.82 Long term (current) use of aspirin; Z79.4 Long term (current) use of insulin; D63.1 Anemia in chronic kidney disease; J44.9 Chronic obstructive pulmonary disease, unspecified; B97.89 Other viral agents as the cause of diseases classified elsewhere; Z87.891 Personal history of nicotine dependence
CPT/HCPCS: 36415; 36416; 71045; 71046; 80048; 80053; 82553; 83735; 83880; 84484; 85025; 87040; 87633; 87798; 93005; 93798; 94640; 96365; 96366; 96375; A4216; G8978-GP-CJ; G8979-GP-CJ; G8980-GP-CJ; G8987-GO-CJ; G8988-GO-CH; J1644; J1815; J1940; J1956; J2405; J7050; J7611; J7620; P9047; Q4081

== ENCOUNTER 2017-09-18 10:25 | Inpatient (IN) | payer MEDICARE ==
[2017-09-18] MEDS ORDERED: Ondansetron ODT 4 MG TAB ONE (11:04)
[2017-09-18 11:16] LABS: #Basophils 0.1 thou/uL (0.0-0.2); #Eosinphils 0.6 thou/uL (0.0-0.7); #Lymphocytes 1.4 thou/uL (1.20-3.40); #Monocytes 0.8 thou/uL (0.11-0.59); #Neutrophils 8.3 thou/uL (1.40-6.50); %Basophils 0.5 % (0.0-1.0); %Eosinophils 5.4 % (0.0-10.0); %Lymphocytes 12.6 % (21.0-51.0); %Monocytes 6.9 % (0.0-10.0); %Neutrophils 74.6 % (42.0-75.0); Mean Corpuscular HGB CONC 33.1 g/dL (32.0-36.0); Mean Corpuscular Hemoglobin 30.8 pg (27.0-31.0); Mean Platelet Volume 8.1 fL (7.4-10.4); Platelet Count 175 thou/uL (130-400); RBC Distribution Width 12.3 % (11.5-14.5); Red Blood Cell (RBC) Count 3.91 mill/uL (4.70-6.10); White Blood Cell (WBC) Count 11.1 thou/uL (4.8-10.8)
[2017-09-18] MEDS ORDERED: Ondansetron HCl/PF 4 MG/2 ML Vial ONE (11:39)
[2017-09-18 11:44] LABS: ALT (SGPT) 20 U/L (8-55); AST (SGOT) 20 U/L (5-34); Albumin 4.8 g/dL (3.4-4.8); Alkaline Phosphatase 65 U/L (40-150); Anion Gap 15 mmol/L (10-20); BUN (Urea Nitrogen) 55 mg/dL (8.4-25.7); Bilirubin, Total 0.6 mg/dL (0.2-1.2); CK (CPK) 80 U/L (30-200); Calc. Creatinine Clearance 0 mL/min (70-130); Calcium 9.3 mg/dL (7.8-10.44); Carbon Dioxide 17 mmol/L (23-31); Chloride 111 mmol/L (98-107); Estimated GFR-MDRD 16; Globulin 3.1 g/dL (2.4-3.5); Glucose 266 mg/dL (83-110); Lipase 96 U/L (8-78); Potassium 6.5 mmol/L (3.5-5.1); Protein, Total 7.9 g/dL (5.8-8.1); Sodium 136 mmol/L (136-145)
[2017-09-18 11:47] LABS: CKMB 2.5 ng/mL (0-6.6); Troponin I 0.046 ng/mL (< 0.028)
--- NOTE | 2017-09-18 12:12 | RAD ---
CHEST 1 VIEW: Date: 09/18/17 HISTORY: Chest pain. COMPARISON: Chest 2 views dated 09/09/17. FINDINGS: Moderate interstitial and alveolar edema. Cardiomegaly. No pneumothorax. IMPRESSION: Cardiomegaly and worsening edema. POS: [facility]
[2017-09-18] MEDS ORDERED: Nitroglycerin 0.4 MG TAB (25 Tab Bottle) ONE (12:52)
[2017-09-18] MEDS ORDERED: Furosemide 40 MG/4 ML VIAL ONE (12:52)
[2017-09-18] MEDS ORDERED: Dextrose 50% Abboject 50 ML SYRINGE ONE (12:52)
[2017-09-18] MEDS ORDERED: Insulin Regular 300 UNITS/3 ML VIAL ONE (12:52)
[2017-09-18] MEDS ORDERED: Calcium Gluconate 4.6 MEQ in Sodium Chloride 0.9% 100 ML IVPB SCH (13:15)
[2017-09-18 14:53] LABS: Troponin I 0.045 ng/mL (< 0.028)
[2017-09-18] MEDS ORDERED: Acetaminophen 325 MG TAB PO PRN ×2 (18:22→18:32)
[2017-09-18] MEDS ORDERED: Guaifenesin DM 100-10/5 ML UDCUP PO PRN (18:22)
[2017-09-18 18:31] LABS: Troponin I 0.046 ng/mL (< 0.028)
[2017-09-18] MEDS ORDERED: Ondansetron HCl/PF 4 MG/2 ML Vial IVP PRN (18:32)
[2017-09-18] MEDS ORDERED: Ondansetron ODT 4 MG TAB SL PRN (18:32)
[2017-09-18] MEDS ORDERED: Dextrose 5% in Water 1,000 ML IV PRN (18:35)
[2017-09-18] MEDS ORDERED: Dextrose 50% Abboject 50 ML SYRINGE SLOW IVP PRN (18:35)
[2017-09-18 19:36] LABS: Anion Gap 19 mmol/L (10-20); BUN (Urea Nitrogen) 56 mg/dL (8.4-25.7); Calc. Creatinine Clearance 0 mL/min (70-130); Calcium 9.3 mg/dL (7.8-10.44); Carbon Dioxide 15 mmol/L (23-31); Chloride 111 mmol/L (98-107); Estimated GFR-MDRD 15; Glucose 165 mg/dL (83-110); Potassium 5.6 mmol/L (3.5-5.1); Sodium 139 mmol/L (136-145)
--- NOTE | 2017-09-18 20:32 | HP ---
DATE OF ADMISSION: 09/18/2017 CHIEF COMPLAINT: Increased dyspnea on exertion and dry cough. HISTORY OF PRESENT ILLNESS: Patient is a 72-year-old gentleman who was recently discharged from our facility 5 days ago. He was admitted with upper respiratory tract infection. He presents complainin g of increased shortness of breath over the last 5 days, increased lethargy, decreased appetite and p .o. intake. He reports that he has been suffering with a dry cough over the last 5 days and that he feels that he is unable to catch his breath. He denies chest pain or diaphoresis, nausea, vomiting, diarrhea, or constipation. He does report that he has had some subjective fevers and chills at home and that he never quite got over his respiratory tract infection from last week. REVIEW OF SYSTEMS: The following complete review of systems was negative, unless otherwise mentioned in the HPI or below: Constitutional: Weight loss or gain, sense of well-being, ability to conduct usual activities, exercise tolerance. Skin/Breast: Rash, itching, changes in hair growth or loss, n ail changes, breast lumps, tenderness, swelling, nipple discharge. Eyes: Vision, double vision, tea ring, blind spots, pain. ENT/Mouth: Headaches (location, time of onset, duration, precipitating fac tors), vertigo, lightheadedness, injury. Vision, double vision, tearing, blind spots, pain, nose ble eding, colds, obstruction, discharge, dental difficulties, gingival bleeding, dentures, neck stiffnes s, pain, tenderness, masses in thyroid or other areas. Cardiovascular: Precordial pain, substernal distress, palpitations, syncope, dyspnea on exertion, orthopnea, nocturnal paroxysmal dyspnea, edema, cyanosis, hypertension, heart murmurs, varicosities, phlebitis, claudication. Respiratory: Pain, s hortness of breath, wheezing, stridor, cough, hemoptysis, fever or night sweats. Gastrointestinal: Poor appetite, dysphagia, indigestion, abdominal pain, heartburn, eructation, nausea, vomiting, hemat emesis, jaundice, constipation, or diarrhea, abnormal stools (jaylen-colored, tarry, bloody, greasy, fo ul smelling), flatulence, hemorrhoids, recent changes in bowel habits. Genitourinary: Urgency, freq uency, dysuria, nocturia, hematuria, polyuria, oliguria, unusual (or change in) color of urine, stone s, hesitancy, change in size of stream, dribbling, acute retention or incontinence, libido, potency. Musculoskeletal: Pain, swelling, redness or heat of muscles or joints, limitation, of motion, muscu lar weakness, atrophy, cramps. Neurologic/Psychiatric: Convulsions, paralyses, tremor, incoordinati on, paresthesias, difficulties with memory of speech, sensory or motor disturbances, or muscular coor dination (ataxia, tremor), emotional problems, anxiety, depression, previous psychiatric care, unusua l perceptions, hallucinations. Allergy/Immunologic: Skin rash, anemia, bleeding tendency, polydipsi a, polyuria, intolerance to heat or cold. PAST MEDICAL HISTORY: Coronary artery disease, chronic kidney disease stage 5, dyslipidemia, hyperte nsion, diabetes type 2, renal cell cancer. PAST SURGICAL HISTORY: Positive for a left-sided nephrectomy, CABG, pacemaker, defibrillator placeme nt and dialysis shunt in the right arm. PSYCHIATRIC HISTORY: Negative. SOCIAL HISTORY: He is a former tobacco user. He quit smoking 10 years ago. Denies alcohol, denies illicit drugs. FAMILY HISTORY: Reviewed and noncontributory. HOME MEDICATIONS: Include carvedilol 25 mg 2 tablets b.i.d., Crestor 40 mg 1 every day, iron sulfate 325 mg once a day, hydralazine 50 mg t.i.d., alprazolam 0.5 mg at bedtime, aspirin 81 mg every day, Promethazine 25 mg q.4 h., DuoNebs nebulized every 4 hours as needed. DRUG ALLERGIES: Patient claims to have drug allergies to BACTRIM-DS, CEPHALEXIN, DARVOCET, LEVOFLOXA JESSICA and BACTRIM. PHYSICAL EXAMINATION: VITAL SIGNS: Blood pressure of 167/81, pulse 68, respirations 20, temperature is 97.9, pain 4 out of 10, saturating 99% on 2 liters. GENERAL: He is in no acute distress. HEAD: Normocephalic, atraumatic. EYES: PERRL. Extraocular muscles intact. EYES, NOSE, THROAT: Pharynx appears normal. Mouth is pink, moist. NECK: Trachea midline. No meningeal signs. Supple, full range of motion. RESPIRATORY: No rhonchi, no rales, no wheezes. CARDIOVASCULAR: Regular rate and rhythm, no murmurs, regurg or gallops. ABDOMEN: Obese but nontender, nondistended, positive bowel sounds. EXTREMITIES: No clubbing, cyanosis. There is trace edema bilaterally. SKIN: Normal turgor. Skin is warm and dry, normal in color. PSYCHIATRIC: Normal affect. NEUROLOGIC: Cranial nerves II-XII grossly intact, full range of motion of all extremities. LABORATORY DATA AND IMAGES: CK-MB of 2.5, troponin 0.046, BNP of 1022.3, lipase 96. CK of 80. Com plete comprehensive metabolic panel shows sodium of 136, potassium 6.5, chloride 111, CO2 of 17, BUN 55, creatinine 3.72, glucose 266, calcium 9.3, AST 20, ALT 20, alkaline phosphatase 65, albumin 4.8. CBC shows a white count of 11.1, hemoglobin 12.0, hematocrit 36.4, neutrophils of 8.3. Chest x-ray shows cardiomegaly as well as worsening pulmonary edema. EKG shows a paced rhythm with 66 beats per minute. ASSESSMENT AND PLAN: 1. Acute on chronic congestive heart failure exacerbation. 2. Acute on chronic kidney injury. 3. Hyperkalemia. 4. Hypertension. 5. Upper respiratory tract infection. 6. Diabetes type 2. PLAN: The patient will be admitted to telemetry unit on inpatient basis. The patient will be seen a nd assessed by the Nephrology Service. The patient will be diuresed per recommendations from the [facility] hrology Service. The patient will be treated with calcium as well as Kayexalate and insulin to lower his potassium level. The patient will be placed on sliding scale insulin regimen. We will also mon itor and treat his hypertension accordingly in conjunction with the assistance from the Nephrology Se makenzie. Due to the patient's underlying renal insufficiency, we will provide DVT prophylaxis with SCD devices.
[2017-09-18] MEDS ORDERED: hydrALAZINE 20 MG/ML VIAL SLOW IVP PRN (20:46)
[2017-09-18] MEDS ORDERED: Furosemide 100 MG/10 ML VIAL SLOW IVP SCH (21:00)
[2017-09-18] MEDS: Carvedilol 25 MG TAB PO SCH (22:06)
[2017-09-18] MEDS: hydrALAZINE 25 MG TAB PO SCH (22:07)
[2017-09-19 00:39] VITALS: BMI 24.3
[2017-09-19 04:52] LABS: #Basophils 0.1 thou/uL (0.0-0.2); #Eosinphils 0.1 thou/uL (0.0-0.7); #Lymphocytes 1.6 thou/uL (1.20-3.40); #Monocytes 0.4 thou/uL (0.11-0.59); #Neutrophils 2.6 thou/uL (1.40-6.50); %Basophils 1.4 % (0.0-1.0); %Eosinophils 2.2 % (0.0-10.0); %Lymphocytes 32.8 % (21.0-51.0); %Monocytes 8.7 % (0.0-10.0); %Neutrophils 54.9 % (42.0-75.0); Hemoglobin 12.4 g/dL (14.0-18.0); Mean Corpuscular HGB CONC 32.1 g/dL (32.0-36.0); Mean Corpuscular Hemoglobin 29.4 pg (27.0-31.0); Mean Corpuscular Volume 91.4 fl (80.0-94.0); Platelet Count 181 thou/uL (130-400); RBC Distribution Width 11.4 % (11.5-14.5); Red Blood Cell (RBC) Count 4.23 mill/uL (4.70-6.10); White Blood Cell (WBC) Count 4.8 thou/uL (4.8-10.8)
[2017-09-19 05:13] LABS: Anion Gap 11 mmol/L (10-20); BUN (Urea Nitrogen) 4 mg/dL (8.4-25.7); Calc. Creatinine Clearance 118 mL/min (70-130); Calcium 9.5 mg/dL (7.8-10.44); Carbon Dioxide 25 mmol/L (23-31); Chloride 109 mmol/L (98-107); Estimated GFR-MDRD Greater than 90; Glucose 141 mg/dL (83-110); Potassium 3.5 mmol/L (3.5-5.1); Sodium 141 mmol/L (136-145)
[2017-09-19] MEDS: Furosemide 40 MG/4 ML VIAL SLOW IVP SCH ×2 (06:26→14:09)
[2017-09-19] MEDS: hydrALAZINE 25 MG TAB PO SCH ×3 (08:39→21:00)
[2017-09-19] MEDS: Carvedilol 25 MG TAB PO SCH ×2 (08:40→21:01)
[2017-09-19] MEDS ORDERED: cloNIDine 0.1 MG TAB PO PRN (08:52)
[2017-09-19] MEDS ORDERED: Non-Formulary Item 1 EACH (Insulin Glargine,Hum.Rec.Anlog 20 UNIT) SQ SCH (09:00)
--- NOTE | 2017-09-19 09:10 | CON ---
DATE OF CONSULTATION: 09/19/2017 SERVICE: Renal Medicine. HISTORY OF PRESENT ILLNESS: Mr. Leos is a 72-year-old white male who was admitted for shortness of breath. 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 He sudd enly became short of breath. When he was in the ER, he was found to be in CHF. He was initially giv en IV Lasix at 80 mg IV. We are now being consulted for his chronic renal failure. Of interest, thi s patient was recently admitted for congestive heart failure. However, he was not placed on diuretic s due to the worsening kidney function. His creatinine on admission was noted to be at baseline at a bout 3.9. We are being consulted for further management of his renal dysfunction. REVIEW OF SYSTEMS: Positive for shortness of breath - this morning, much better. Positive for dry c ough. No nausea, no vomiting, no diarrhea, no constipation. Appetite and energy level is fair. No headache, no productive cough, no fever or chills. No gross hematuria, no dysuria, no urinary freque ncy, no hematochezia, no melena, no hematemesis, no sore throat, no diplopia. No abdominal pain. No new skin rash. Occasional joint pains. MEDICATIONS: Currently on Coreg 50 mg p.o. b.i.d., furosemide 40 mg IV q.12 hours, hydralazine 20 m g IV q.6 hours p.r.n., Humulin R sliding scale, hydralazine 50 mg p.o. t.i.d. PAST MEDICAL HISTORY: 1. Congestive heart failure. 2. Chronic renal failure secondary to a presumed diabetic nephropathy. 3. Type 2 diabetes mellitus. 4. Cardiomyopathy. 5. Coronary artery disease. 6. History of noncompliance. 7. History of hypertension. PAST SURGICAL HISTORY: Includes the followin. Status post cuffed hemodialysis catheter placement. 2. Status post AV fistula placement. 3. Status post tonsillectomy. 4. Status post back surgery. 5. Status post cardiac catheterization. 6. Status post CABG. 7. Status post left nephrectomy. 8. Status post AICD placement. ALLERGIES: KEFLEX, PROPOXYPHENE, DARVOCET, BACTRIM. TRAUMA: None. IMMUNIZATIONS: Up to date. HOSPITALIZATIONS: Please see past medical history. SOCIAL HISTORY: The patient lives in [place]. One child. 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 Education, 8th grade. No alcohol use, no smoking, no IV drug abuse. S tatus post blood transfusion. FAMILY HISTORY: No family history of ESRD. PHYSICAL EXAMINATION: VITAL SIGNS: Blood pressure is ranging from 148/62-190/90 with a heart rate of 74, temperature 96.6, pulse ox is 97%. GENERAL: Awake, alert, comfortable, not in overt distress. SKIN: Adequate turgor. HEENT: He has pinkish conjunctivae, anicteric sclerae. NECK: No neck mass, no carotid bruits, no JVD. CHEST: No deformities. LUNGS: Decreased breath sounds, no wheezing, no crackles. HEART: Normal sinus rhythm. No murmur, no gallops, no rubs. ABDOMEN: Globular, soft, nontender. No masses. EXTREMITIES: No edema, no deformities. LABORATORY DATA: Of 09/19/2017, white count 4.8, hemoglobin 12.4, sodium 141, chloride 109, carbon d ioxide 25, potassium is 3.5, BUN 4, creatinine 0.69, calcium 9.5. Blood sugar 220. X-RAY FINDINGS: Chest x-ray shows congestive heart failure. ASSESSMENT: 1. Shortness of breath secondary to congestive heart failure. I agree with current diuretic regimen . We may need to adjust that in the next few days. Please note, his breathing is much improved. 2. Chronic renal failure - secondary to presumed diabetic nephropathy. No indication for any dialyt ic intervention. I suspect that the current creatinine is erroneous, changes measured at 0.69. We w ill do another base met and CBC in a.m. No indication for any dialytic intervention.
[2017-09-19] MEDS: Insulin Detemir 100 UNITS/ML 20 UNITS in Pre-Filled Syringe 1 EACH SC SCH (10:46)
--- NOTE | 2017-09-19 11:19 | PQF ---
CLINICAL DOCUMENTATION IMPROVEMENT CLARIFICATION FORM: ICD-10 Updated PLEASE DO AN ADDENDUM TO THE PROGRESS NOTE WITH ANY DOCUMENTATION UPDATES OR ADDITIONS AND CARRY THROUGH TO DC SUMMARY. THANK YOU. DATE: 09/19/17 ATTN: DR. ARRIOLA Please exercise your independent, professional judgment in responding to the clarification form. Clinical indicators are provided on the bottom of this form for your review Please check appropriate box(s): HEART FAILURE: A.TYPE: [X ] Systolic / HFrEF [ ] Diastolic / HFpEF [ ] Combined Systolic / Diastolic B.ACUITY [ ] Acute[ X ] Acute on Chronic [ ] Chronic C.WITH (if appropriate) [ X ] Hypertensive Heart Disease[ ] Hypertensive Heart and Kidney Disease [ ] Other diagnosis [ ] Unable to determine In addition, please specify: Present on Admission (POA): [ X ] Yes [ ] No [ ] Unable to determine For continuity of documentation, please document condition throughout progress notes and discharge summary. Thank You. CLINICAL INDICATORS - SIGNS / SYMPTOMS / LABS H&P 09/18: "ACUTE ON CHRONIC CONGESTIVE HEART FAILURE EXACERBATION" RISKS: H/O HTN H/O CHF H/O CKD TREATMENT: TELEMETRY MONITORING COREG (1/-PRESENT) IV LASIX (ER-PRESENT) (This form is maintained as a part of the permanent medical record) 2014 [employer]. All Rights Reserved SUSAN [email or web address] Office: [phone] DIANA
--- NOTE | 2017-09-19 14:30 | PDOC.PN ---
- Subjective Encounter Start Date: 09/19/17 Encounter Start Time: 14:28 Subjective: feels well. no new complaints.breathing easier - Objective MAR Reviewed: Yes Vital Signs & Weight: Vital Signs (12 hours) Temp Pulse Resp BP BP 09/19/17 11:10 97.9 F 67 18 172/75 H 09/19/17 08:39 74 190/90 H 09/19/17 07:32 96.6 F L 74 16 190/90 H Weight Weight 189 lb Result Diagrams: 09/19/17 04:01 09/19/17 04:01 Additional Labs: Accuchecks 09/19/17 09/19/17 09/18/17 11:39 06:28 20:49 POC Glucose 248 H 220 H 238 H 09/18/17 09/18/17 15:49 14:31 POC Glucose 116 H 142 H Radiology Reviewed by me: Yes Phys Exam - Physical Examination Constitutional: NAD HEENT: PERRLA, moist MMs, sclera anicteric, oral pharynx no lesions Neck: no nodes, no JVD, supple, full ROM Respiratory: no wheezing, no rales, no rhonchi, clear to auscultation bilateral Cardiovascular: RRR, no significant murmur, no rub, gallop Gastrointestinal: soft, non-tender, no distention, positive bowel sounds Musculoskeletal: no edema, pulses present Neurological: non-focal, normal sensation, moves all 4 limbs Psychiatric: normal affect, A&O x 3 Skin: no rash Dx/Plan (1) Acute on chronic systolic congestive heart failure Code(s): I50.23 - ACUTE ON CHRONIC SYSTOLIC (CONGESTIVE) HEART FAILURE Status : Chronic (2) EFRAÍN (acute kidney injury) Code(s): N17.9 - ACUTE KIDNEY FAILURE, UNSPECIFIED Status: Acute Comment: improved (3) Hyperglycemia due to type 2 diabetes mellitus Code(s): E11.65 - TYPE 2 DIABETES MELLITUS WITH HYPERGLYCEMIA Status: Acute Qualifiers: (4) Hyperkalemia Code(s): E87.5 - HYPERKALEMIA Status: Resolved (5) CAD (coronary artery disease) Code(s): I25.10 - ATHSCL HEART DISEASE OF [place] CORONARY ARTERY W/O ANG PCTRS Status: Chronic Qualifiers: (6) CKD (chronic kidney disease) stage 4, GFR 15-29 ml/min Code(s): N18.4 - CHRONIC KIDNEY DISEASE, STAGE 4 (SEVERE) Status: Chronic (7) DM2 (diabetes mellitus, type 2) Status: Chronic Qualifiers: (8) Dyslipidemia Code(s): E78.5 - HYPERLIPIDEMIA, UNSPECIFIED Status: Chronic (9) Hypertension Code(s): I10 - ESSENTIAL (PRIMARY) HYPERTENSION Status: Chronic Qualifiers: (10) S/P CABG x 3 Code(s): Z95.1 - PRESENCE OF AORTOCORONARY BYPASS GRAFT Status: Chronic - Plan PT/OT, incentive spirometry, out of bed/ambulate, DVT proph w/SCDs cont gentle diuresis. renal Fx & hyperkalemia improved. -: nephrology following. hemodynamically stable. -: cont home meds. -: Bp high.monitor. if not controlled,will add nitrates. -: prn benadryl as pt c/o rash on arms * . Review of Systems - Review of Systems Constitutional: negative: fever, chills, sweats, weakness, malaise, other ENT: negative: Ear Pain, Ear Discharge, Nose Pain, Nose Discharge, Nose Congestion, Mouth Pain, Mouth Swelling, Throat Pain, Throat Swelling, Other Respiratory: SOB with Excertion. negative: Cough, Dry, Shortness of Breath, Hemoptysis, Pleuritic Pain, Sputum, Wheezing Cardiovascular: negative: chest pain, palpitations, orthopnea, paroxysmal nocturnal dyspnea, edema, light headedness, other Gastrointestinal: negative: Nausea, Vomiting, Abdominal Pain, Diarrhea, Constipation, Melena, Hematochezia, Other Genitourinary: negative: Dysuria, Frequency, Incontinence, Hematuria, Retention , Other Musculoskeletal: negative: Neck Pain, Shoulder Pain, Arm Pain, Back Pain, Hand Pain, Leg Pain, Foot Pain, Other Neurological: negative: Weakness, Numbness, Incoordination, Change in Speech, Confusion, Seizures, Other - Medications/Allergies Allergies/Adverse Reactions: Allergies Allergy/AdvReac Type Severity Reaction Status Date / Time cephalexin monohydrate Allergy Verified 09/07/17 16:11 [From Keflex] levofloxacin [From Levaquin] Allergy Verified 09/09/17 13:56 propoxyphene napsylate Allergy Verified 09/07/17 16:11 [From Darvocet-N 100] Sulfa (Sulfonamide Allergy Verified 09/19/17 07:01 Antibiotics) sulfamethoxazole Allergy Verified 09/07/17 16:11 [From Bactrim] trimethoprim [From Bactrim] Allergy Verified 09/07/17 16:11 Medications: Current Medications Acetaminophen (Tylenol) 650 mg PO Q4H PRN PRN Reason: Headache/Fever or Pain Carvedilol (Coreg) 50 mg PO BID [facility] Last Admin: 09/19/17 08:40 Dose: 50 mg Clonidine (Catapres) 0.1 mg PO Q4H PRN PRN Reason: SBP>160 Dextrose/Water (Dextrose 50%) 25 gm SLOW IVP PRN PRN PRN Reason: Hypoglycemia Ferrous Sulfate (Feosol) 325 mg PO QA-[facility] Furosemide (Lasix) 40 mg SLOW IVP 0600,1400 [facility] Last Admin: 09/19/17 14:09 Dose: 40 mg Glucagon (Glucagon) 1 mg IM PRN PRN PRN Reason: Hypoglycemia Guaifenesin/Dextromethorphan (Robitussin Dm) 15 ml PO Q4H PRN PRN Reason: Cough Hydralazine HCl (Apresoline) 50 mg PO TID [facility] Last Admin: 09/19/17 08:39 Dose: 50 mg Hydralazine HCl (Apresoline) 20 mg SLOW IVP Q6H PRN PRN Reason: SBP GREATER THAN 160 Dextrose/Water (D5w) 1,000 mls @ 0 mls/hr IV .Q0M PRN; As Directed PRN Reason: Hypoglycemia Insulin Detemir 20 units/ (Miscellaneous Medication) 0.2 mls @ 0 mls/hr [facility] Last Admin: 09/19/17 10:46 Dose: 0.2 mls Insulin Human Regular (Humulin R) 0 units SC .MILD SLIDING SCALE PRN PRN Reason: Mild Correctional Scale Rosuvastatin Calcium (Crestor) 40 mg PO HS [facility] Sodium Chloride (Flush - Normal Saline) 10 ml IVF Q12HR [facility] Last Admin: 09/19/17 08:39 Dose: 10 ml Sodium Chloride (Flush - Normal Saline) 10 ml IVF PRN PRN PRN Reason: Saline Flush
[2017-09-19] MEDS: Insulin Regular 300 UNITS/3 ML VIAL SC PRN (18:09)
[2017-09-19] MEDS ORDERED: Non-Formulary Item 1 EACH (Rosuvastatin Calcium [Crestor] 40 MG) PO SCH (21:00)
[2017-09-19] MEDS: Rosuvastatin 20 MG TAB PO SCH (21:01)
[2017-09-20 05:33] LABS: #Eosinphils 0.4 thou/uL (0.0-0.7); #Lymphocytes 1.3 thou/uL (1.20-3.40); #Monocytes 0.8 thou/uL (0.11-0.59); #Neutrophils 4.3 thou/uL (1.40-6.50); %Basophils 0.5 % (0.0-1.0); %Eosinophils 5.7 % (0.0-10.0); %Lymphocytes 19.7 % (21.0-51.0); %Monocytes 11.8 % (0.0-10.0); %Neutrophils 62.4 % (42.0-75.0); Hemoglobin 11.1 g/dL (14.0-18.0); Mean Corpuscular HGB CONC 34.6 g/dL (32.0-36.0); Mean Corpuscular Hemoglobin 31.9 pg (27.0-31.0); Mean Corpuscular Volume 92.2 fl (80.0-94.0); Mean Platelet Volume 8.3 fL (7.4-10.4); Platelet Count 138 thou/uL (130-400); RBC Distribution Width 12.1 % (11.5-14.5); White Blood Cell (WBC) Count 6.8 thou/uL (4.8-10.8)
[2017-09-20] MEDS: Furosemide 40 MG/4 ML VIAL SLOW IVP SCH (06:20)
[2017-09-20 06:21] LABS: Anion Gap 17 mmol/L (10-20); BUN (Urea Nitrogen) 70 mg/dL (8.4-25.7); Calc. Creatinine Clearance 19 mL/min (70-130); Calcium 8.9 mg/dL (7.8-10.44); Carbon Dioxide 20 mmol/L (23-31); Chloride 105 mmol/L (98-107); Estimated GFR-MDRD 14; Glucose 202 mg/dL (83-110); Potassium 4.7 mmol/L (3.5-5.1); Sodium 137 mmol/L (136-145)
[2017-09-20] MEDS: hydrALAZINE 25 MG TAB PO SCH ×3 (08:49→17:04)
[2017-09-20] MEDS: Ferrous Sulfate 325 MG TAB PO SCH (08:49)
--- NOTE | 2017-09-20 08:49 | PRG ---
DATE OF SERVICE: 09/20/2017 SERVICE: Renal Medicine. SUBJECTIVE: Mr. Leos is a 72-year-old white male with chronic renal failure, admitted for CHF. He has been diuresed. We are currently monitoring his renal function. His most recent creatinine was n oted at 4.31, which is slightly higher from his baseline of 3.75. We decided to adjust his Lasix luz nwards. His shortness of breath is much improved. He does feel tired occasionally. OBJECTIVE: VITAL SIGNS: Blood pressure is 146/74, heart rate 76, respiratory rate is 15, temperature 99.4, puls e ox 95%. GENERAL: He is noted to be awake, alert, comfortable, not in distress. SKIN: Adequate turgor. HEENT: Pinkish conjunctivae, anicteric sclerae. NECK: No neck mass, no carotid bruits, no JVD. CHEST: No deformities. LUNGS: Clear breath sounds. No wheezing, no crackles. HEART: Normal sinus rhythm. No murmur, no gallops or rubs. ABDOMEN: Globular, soft, nontender. No masses. EXTREMITIES: Trace edema, no deformities. MEDICATIONS: Of 09/20/2107 was reviewed. LABORATORY DATA: Of 09/20/2017, white count 6.8, hemoglobin 11.1. Sodium 137, potassium 4.7, chlori de 105, carbon dioxide 20, BUN 70, creatinine 4.31, glucose 202, calcium 8.9. ASSESSMENT AND PLAN: 1. Congestive heart failure, clinically much improved. We will change IV Lasix to Lasix 40 mg tab o nce a day. Slightly higher creatinine with the previous diuretic regimen. 2. Acute kidney injury/chronic renal failure with creatinine noted at 4.3. This is slightly higher. This is a reflection of the current diuretic regimen. My plan is to decrease Lasix to once a day a t 40 mg tab daily. There is no indication for any dialytic intervention with this patient. Continue supportive care. We will recheck basic metabolic panel and CBC in a.m.
[2017-09-20] MEDS: Carvedilol 25 MG TAB PO SCH ×2 (08:50→17:04)
[2017-09-20] MEDS: Insulin Detemir 100 UNITS/ML 20 UNITS in Pre-Filled Syringe 1 EACH SC SCH (09:59)
[2017-09-20] MEDS ORDERED: Carvedilol 25 MG TAB PO SCH (10:34)
[2017-09-20] MEDS ORDERED: Ondansetron HCl/PF 4 MG/2 ML Vial IVP PRN (10:34)
--- NOTE | 2017-09-20 16:51 | PDOC.PN ---
- Subjective Encounter Start Date: 09/20/17 Encounter Start Time: 16:49 Subjective: c/o nausea,abdominal muscle soreness,malaise -: no diarrhea or vomiting - Objective MAR Reviewed: Yes Vital Signs & Weight: Vital Signs (12 hours) Temp Pulse Resp BP BP Pulse Ox 09/20/17 13:08 77 150/70 H 09/20/17 12:58 98.0 F 70 19 150/70 H 96 09/20/17 09:55 148/60 H 09/20/17 08:49 77 200/104 H 09/20/17 08:45 98.2 F 69 17 200/104 H 97 Weight Weight 186 lb 6.4 oz I&O: 09/19/17 09/20/17 09/21/17 06:59 06:59 06:59 Intake Total 922 Output Total 3150 Balance -2228 Result Diagrams: 09/20/17 04:13 09/20/17 04:13 Additional Labs: Accuchecks 09/20/17 09/20/17 09/19/17 11:12 06:18 19:59 POC Glucose 262 H 169 H 221 H 09/19/17 17:04 POC Glucose 205 H Laboratory Tests 09/18/17 09/18/17 09/19/17 11:06 17:57 04:01 Potassium 6.5 H 5.6 H 3.5 BUN 55 H 56 H 4 L Creatinine 3.72 H 3.90 H 0.69 09/20/17 04:13 Potassium BUN 70 H Creatinine 4.31 H Phys Exam - Physical Examination uncomfortable HEENT: PERRLA, moist MMs, sclera anicteric, oral pharynx no lesions Neck: no nodes, no JVD, supple, full ROM Respiratory: no wheezing, no rales, no rhonchi, clear to auscultation bilateral Cardiovascular: RRR, no significant murmur Gastrointestinal: soft, non-tender, no distention, positive bowel sounds Musculoskeletal: no edema, pulses present Neurological: non-focal, normal sensation, moves all 4 limbs Psychiatric: normal affect, A&O x 3 Skin: no rash Dx/Plan (1) Acute on chronic systolic congestive heart failure Code(s): I50.23 - ACUTE ON CHRONIC SYSTOLIC (CONGESTIVE) HEART FAILURE Status : Chronic (2) EFRAÍN (acute kidney injury) Code(s): N17.9 - ACUTE KIDNEY FAILURE, UNSPECIFIED Status: Acute Comment: improved (3) Hyperglycemia due to type 2 diabetes mellitus Code(s): E11.65 - TYPE 2 DIABETES MELLITUS WITH HYPERGLYCEMIA Status: Acute Qualifiers: (4) Hyperkalemia Code(s): E87.5 - HYPERKALEMIA Status: Resolved (5) CAD (coronary artery disease) Code(s): I25.10 - ATHSCL HEART DISEASE OF [place] CORONARY ARTERY W/O ANG PCTRS Status: Chronic Qualifiers: (6) CKD (chronic kidney disease) stage 4, GFR 15-29 ml/min Code(s): N18.4 - CHRONIC KIDNEY DISEASE, STAGE 4 (SEVERE) Status: Chronic (7) DM2 (diabetes mellitus, type 2) Status: Chronic Qualifiers: (8) Dyslipidemia Code(s): E78.5 - HYPERLIPIDEMIA, UNSPECIFIED Status: Chronic (9) Hypertension Code(s): I10 - ESSENTIAL (PRIMARY) HYPERTENSION Status: Chronic Qualifiers: (10) S/P CABG x 3 Code(s): Z95.1 - PRESENCE OF AORTOCORONARY BYPASS GRAFT Status: Chronic - Plan out of bed/ambulate, DVT proph w/SCDs BP very high.pt requessting med at 6 am instead of 9.will change & monitor -: burt x stable but slightly worse.lasix held. -: CHF seems to be improving. -: AM labs. Pt not feeling well enough to be DCed -: HF clinic on DC. Nephrology following as well * . Review of Systems - Review of Systems Constitutional: weakness, malaise ENT: negative: Ear Pain, Ear Discharge, Nose Pain, Nose Discharge, Nose Congestion, Mouth Pain, Mouth Swelling, Throat Pain, Throat Swelling, Other Respiratory: SOB with Excertion. negative: Cough, Dry, Shortness of Breath, Hemoptysis, Pleuritic Pain, Sputum, Wheezing Cardiovascular: negative: chest pain, palpitations, orthopnea, paroxysmal nocturnal dyspnea, edema, light headedness, other Gastrointestinal: Nausea. negative: Vomiting, Abdominal Pain, Diarrhea, Constipation, Melena, Hematochezia, Other Genitourinary: negative: Dysuria, Frequency, Incontinence, Hematuria, Retention , Other Musculoskeletal: negative: Neck Pain, Shoulder Pain, Arm Pain, Back Pain, Hand Pain, Leg Pain, Foot Pain, Other Neurological: negative: Weakness, Numbness, Incoordination, Change in Speech, Confusion, Seizures, Other - Medications/Allergies Allergies/Adverse Reactions: Allergies Allergy/AdvReac Type Severity Reaction Status Date / Time cephalexin monohydrate Allergy Verified 09/07/17 16:11 [From Keflex] levofloxacin [From Levaquin] Allergy Verified 09/09/17 13:56 propoxyphene napsylate Allergy Verified 09/07/17 16:11 [From Darvocet-N 100] Sulfa (Sulfonamide Allergy Verified 09/19/17 07:01 Antibiotics) sulfamethoxazole Allergy Verified 09/07/17 16:11 [From Bactrim] trimethoprim [From Bactrim] Allergy Verified 09/07/17 16:11 Medications: Current Medications Acetaminophen (Tylenol) 650 mg PO Q4H PRN PRN Reason: Headache/Fever or Pain Carvedilol (Coreg) 50 mg PO 0600,1700 [facility] Clonidine (Catapres) 0.1 mg PO Q4H PRN PRN Reason: SBP>160 Dextrose/Water (Dextrose 50%) 25 gm SLOW IVP PRN PRN PRN Reason: Hypoglycemia Ferrous Sulfate (Feosol) 325 mg PO QAM-[facility] Last Admin: 09/20/17 08:49 Dose: 325 mg Furosemide (Lasix) 40 mg PO DAILY-[facility] Glucagon (Glucagon) 1 mg IM PRN PRN PRN Reason: Hypoglycemia Guaifenesin/Dextromethorphan (Robitussin Dm) 15 ml PO Q4H PRN PRN Reason: Cough Hydralazine HCl (Apresoline) 20 mg SLOW IVP Q6H PRN PRN Reason: SBP GREATER THAN 160 Hydralazine HCl (Apresoline) 50 mg PO 0600,1200,1800 [facility] Last Admin: 09/20/17 13:08 Dose: 50 mg Dextrose/Water (D5w) 1,000 mls @ 0 mls/hr IV .Q0M PRN; As Directed PRN Reason: Hypoglycemia Insulin Detemir 20 units/ (Miscellaneous Medication) 0.2 mls @ 0 mls/hr [facility] Last Admin: 09/20/17 09:59 Dose: 0.2 mls Insulin Human Regular (Humulin R) 0 units SC .MILD SLIDING SCALE PRN PRN Reason: Mild Correctional Scale Last Admin: 09/19/17 18:09 Dose: 3 unit Isosorbide Mononitrate (Imdur Er) 30 mg PO DAILY [facility] Last Admin: 09/20/17 08:52 Dose: Not Given Ondansetron HCl (Zofran) 4 mg IVP Q6H PRN PRN Reason: Nausea/Vomiting Rosuvastatin Calcium (Crestor) 40 mg PO HS [facility] Last Admin: 09/19/17 21:01 Dose: 40 mg Sodium Chloride (Flush - Normal Saline) 10 ml IVF Q12HR [facility] Last Admin: 09/20/17 10:02 Dose: 10 ml Sodium Chloride (Flush - Normal Saline) 10 ml IVF PRN PRN PRN Reason: Saline Flush Last Admin: 09/20/17 06:21 Dose: 10 ml
[2017-09-20] MEDS: Insulin Regular 300 UNITS/3 ML VIAL SC PRN (17:05)
[2017-09-20] MEDS: Rosuvastatin 20 MG TAB PO SCH (21:26)
[2017-09-21 05:11] LABS: Anion Gap 17 mmol/L (10-20); BUN (Urea Nitrogen) 77 mg/dL (8.4-25.7); Calc. Creatinine Clearance 17 mL/min (70-130); Calcium 9.3 mg/dL (7.8-10.44); Carbon Dioxide 19 mmol/L (23-31); Chloride 105 mmol/L (98-107); Estimated GFR-MDRD 13; Glucose 150 mg/dL (83-110); Potassium 4.6 mmol/L (3.5-5.1); Sodium 136 mmol/L (136-145)
[2017-09-21 05:23] LABS: Band 5 % (5-11); Hemoglobin 11.2 g/dL (14.0-18.0); Lymphocytes 10 % (21-51); MDiff Complete? YES; Mean Corpuscular HGB CONC 34.4 g/dL (32.0-36.0); Mean Corpuscular Hemoglobin 31.5 pg (27.0-31.0); Mean Corpuscular Volume 91.6 fl (80.0-94.0); Mean Platelet Volume 8.1 fL (7.4-10.4); Monocytes 9 % (0-10); Neutrophil 74 % (42-75); PLT Morphology Comment Appears Adequate; Platelet Count 147 thou/uL (130-400); RBC Distribution Width 11.9 % (11.5-14.5); RBC Morphology Normal; Red Blood Cell (RBC) Count 3.55 mill/uL (4.70-6.10); White Blood Cell (WBC) Count 7.1 thou/uL (4.8-10.8)
[2017-09-21] MEDS: hydrALAZINE 25 MG TAB PO SCH ×3 (05:31→17:43)
[2017-09-21] MEDS: Carvedilol 25 MG TAB PO SCH ×2 (05:32→16:23)
--- NOTE | 2017-09-21 08:49 | PRG ---
DATE OF SERVICE: 09/21/2017 SUBJECTIVE: Mr. Leos is a 72-year-old white male with known history of chronic renal failure and ad mitted for shortness of breath. He was found to be in pulmonary edema. He has been started on IV La six. He has been diuresed and his shortness of breath is much improved. However, the renal function slowly been noted to worsen over the last several days. His most recent creatinine is now 4.57. Hi s diuretics has already been adjusted. He voices no new complaints today. He does state shortness o f breath is improved. PHYSICAL EXAMINATION: VITAL SIGNS: Blood pressure 138/68, heart rate 66, respiratory rate 18, temperature 98, and pulse ox 94%. GENERAL: Noted to be awake, alert, comfortable, not in overt distress. SKIN: Adequate turgor. HEENT: He has pinkish conjunctivae, anicteric sclerae. NECK: No neck mass, no carotid bruits, no JVD. CHEST: No deformities. LUNGS: Clear breath sounds. No wheezing. HEART: Normal sinus rhythm. No murmur, no gallops, no rubs. ABDOMEN: Globular, soft, nontender, no masses. EXTREMITIES: Trace edema. MEDICATIONS: 09/21/2017 - reviewed. LABORATORY DATA: 09/21/2017 - Sodium 136, potassium 4.6, chloride 105, carbon dioxide 19, BUN 77, cr eatinine 4.57, glucose 150, calcium 9.3, white count 7.1, hemoglobin 11.2. ASSESSMENT AND PLAN: 1. Acute kidney injury on top of his chronic renal failure, creatinine is slightly higher 4.57. It is possible he may be plateauing with renal dysfunction. He is currently on a decreased dose of Lasi x at 40 mg tab once a day. No changes to be made, no indication for any dialytic intervention. I ag ree with current management. 2. Shortness of breath - Currently on p.o. Lasix 40 mg tab once a day. I will currently leave the s naga dose of his diuretics. Please note the shortness of breath is much improved after aggressive diu resis this patient in the last few days. We will be rechecking a basic met in a.m.
[2017-09-21] MEDS: Furosemide 40 MG TAB PO SCH (09:03)
[2017-09-21] MEDS: Insulin Detemir 100 UNITS/ML 20 UNITS in Pre-Filled Syringe 1 EACH SC SCH (09:04)
[2017-09-21] MEDS: Ferrous Sulfate 325 MG TAB PO SCH (09:04)
--- NOTE | 2017-09-21 11:16 | PDOC.PN ---
- Subjective Encounter Start Date: 09/21/17 Encounter Start Time: 10:00 Subjective: sob is getting better, no chest pain or palp - Objective MAR Reviewed: Yes Vital Signs & Weight: Vital Signs (12 hours) Temp Pulse Resp BP Pulse Ox 09/21/17 08:30 98.0 F 70 16 158/73 H 96 09/21/17 03:37 98.0 F 66 18 138/68 94 L Weight Weight 182 lb 11.2 oz I&O: 09/20/17 09/21/17 09/22/17 06:59 06:59 06:59 Intake Total 922 240 Output Total 3150 450 Balance -2228 -210 Result Diagrams: 09/21/17 04:13 09/21/17 04:13 Additional Labs: Accuchecks 09/21/17 09/20/17 09/20/17 05:57 20:21 17:00 POC Glucose 144 H 187 H 231 H 09/20/17 09/20/17 11:12 10:00 POC Glucose 262 H 262 H Phys Exam - Physical Examination HEENT: PERRLA, moist MMs Neck: no JVD, supple Respiratory: no wheezing, no rales Cardiovascular: RRR, no significant murmur Gastrointestinal: soft, non-tender, positive bowel sounds Musculoskeletal: no edema, pulses present Neurological: non-focal, moves all 4 limbs Psychiatric: A&O x 3 Dx/Plan (1) EFRAÍN (acute kidney injury) Code(s): N17.9 - ACUTE KIDNEY FAILURE, UNSPECIFIED Status: Acute Comment: improved (2) Acute on chronic systolic congestive heart failure Code(s): I50.23 - ACUTE ON CHRONIC SYSTOLIC (CONGESTIVE) HEART FAILURE Status : Chronic Comment: ef of 25% (3) CAD (coronary artery disease) Code(s): I25.10 - ATHSCL HEART DISEASE OF [place] CORONARY ARTERY W/O ANG PCTRS Status: Chronic Qualifiers: Coronary Disease-Associated Artery/Lesion type: bypass graft [place] vs. transplanted heart: [place] heart Associated angina: without angina Qualified Code(s): I25.810 - Atherosclerosis of coronary artery bypass graft(s) without angina pectoris (4) CKD (chronic kidney disease) stage 5, GFR less than 15 ml/min Code(s): N18.5 - CHRONIC KIDNEY DISEASE, STAGE 5 Status: Chronic (5) DM2 (diabetes mellitus, type 2) Status: Chronic Qualifiers: Diabetes mellitus complication status: with kidney complications Diabetes mellitus complication detail: with chronic kidney disease Diabetes mellitus intermodal customer service insulin use: with intermodal customer service use Chronic kidney disease stage: stage 5, not on chronic dialysis Qualified Code(s): E11.22 - Type 2 diabetes mellitus with diabetic chronic kidney disease; N18.5 - Chronic kidney disease, stage 5; N18.5 - Chronic kidney disease, stage 5; N18.5 - Chronic kidney disease , stage 5; N18.5 - Chronic kidney disease, stage 5; Z79.4 - [facility] (current) use of insulin; Z79.4 - intermodal customer service (current) use of insulin; Z79.4 - intermodal customer service ( current) use of insulin; Z79.4 - [facility] (current) use of insulin (6) Dyslipidemia Code(s): E78.5 - HYPERLIPIDEMIA, UNSPECIFIED Status: Chronic (7) Hypertension Code(s): I10 - ESSENTIAL (PRIMARY) HYPERTENSION Status: Chronic Qualifiers: Hypertension type: essential hypertension - Plan is off iv diuretics and is on oral lasix -: on coreg 50mg bid, hydralazine 50mg tid -: bun/cr is 77/4.5 -: is very close to esrd, will need dialysis prep per 's advice -: to amb in hallway as tolerated * . Review of Systems - Medications/Allergies Allergies/Adverse Reactions: Allergies Allergy/AdvReac Type Severity Reaction Status Date / Time cephalexin monohydrate Allergy Verified 09/07/17 16:11 [From Keflex] levofloxacin [From Levaquin] Allergy Verified 09/09/17 13:56 propoxyphene napsylate Allergy Verified 09/07/17 16:11 [From Darvocet-N 100] Sulfa (Sulfonamide Allergy Verified 09/19/17 07:01 Antibiotics) sulfamethoxazole Allergy Verified 09/07/17 16:11 [From Bactrim] trimethoprim [From Bactrim] Allergy Verified 09/07/17 16:11 Medications: Current Medications Acetaminophen (Tylenol) 650 mg PO Q4H PRN PRN Reason: Headache/Fever or Pain Carvedilol (Coreg) 50 mg PO 0600,1700 [facility] Last Admin: 09/21/17 05:32 Dose: 50 mg Clonidine (Catapres) 0.1 mg PO Q4H PRN PRN Reason: SBP>160 Dextrose/Water (Dextrose 50%) 25 gm SLOW IVP PRN PRN PRN Reason: Hypoglycemia Ferrous Sulfate (Feosol) 325 mg PO QAM-WM REPLACED BY [facility] Last Admin: 09/21/17 09:04 Dose: 325 mg Furosemide (Lasix) 40 mg PO DAILY-AC REPLACED BY [facility] Last Admin: 09/21/17 09:03 Dose: 40 mg Glucagon (Glucagon) 1 mg IM PRN PRN PRN Reason: Hypoglycemia Guaifenesin/Dextromethorphan (Robitussin Dm) 15 ml PO Q4H PRN PRN Reason: Cough Hydralazine HCl (Apresoline) 20 mg SLOW IVP Q6H PRN PRN Reason: SBP GREATER THAN 160 Hydralazine HCl (Apresoline) 50 mg PO 0600,1200,1800 REPLACED BY [facility] Last Admin: 09/21/17 05:31 Dose: 50 mg Dextrose/Water (D5w) 1,000 mls @ 0 mls/hr IV .Q0M PRN; As Directed PRN Reason: Hypoglycemia Insulin Detemir 20 units/ (Miscellaneous Medication) 0.2 mls @ 0 mls/hr SC [facility] Last Admin: 09/21/17 09:04 Dose: 0.2 mls Insulin Human Regular (Humulin R) 0 units SC .MILD SLIDING SCALE PRN PRN Reason: Mild Correctional Scale Last Admin: 09/20/17 17:05 Dose: 3 unit Isosorbide Mononitrate (Imdur Er) 30 mg PO DAILY REPLACED BY [facility] Last Admin: 09/21/17 09:03 Dose: Not Given Ondansetron HCl (Zofran) 4 mg IVP Q6H PRN PRN Reason: Nausea/Vomiting Rosuvastatin Calcium (Crestor) 40 mg PO HS REPLACED BY [facility] Last Admin: 09/20/17 21:26 Dose: 40 mg Sodium Chloride (Flush - Normal Saline) 10 ml IVF Q12HR REPLACED BY [facility] Last Admin: 09/21/17 09:05 Dose: 10 ml Sodium Chloride (Flush - Normal Saline) 10 ml IVF PRN PRN PRN Reason: Saline Flush Last Admin: 09/20/17 06:21 Dose: 10 ml
[2017-09-21] MEDS: Insulin Regular 300 UNITS/3 ML VIAL SC PRN ×2 (11:48→16:23)
[2017-09-21] MEDS: Rosuvastatin 20 MG TAB PO SCH (20:25)
[2017-09-22 05:36] LABS: Anion Gap 18 mmol/L (10-20); BUN (Urea Nitrogen) 91 mg/dL (8.4-25.7); Calc. Creatinine Clearance 16 mL/min (70-130); Carbon Dioxide 19 mmol/L (23-31); Chloride 104 mmol/L (98-107); Estimated GFR-MDRD 12; Glucose 133 mg/dL (83-110); Potassium 4.7 mmol/L (3.5-5.1); Sodium 136 mmol/L (136-145)
[2017-09-22] MEDS: Carvedilol 25 MG TAB PO SCH ×2 (05:53→17:12)
[2017-09-22] MEDS: hydrALAZINE 25 MG TAB PO SCH ×3 (05:53→17:12)
--- NOTE | 2017-09-22 08:43 | PRG ---
DATE OF SERVICE: 09/22/2017 SERVICE: Renal Medicine. SUBJECTIVE: Mr. Leos is a 72-year-old white male with a history of chronic renal failure and admitt ed for congestive heart failure. He was diuresed. Over the last few days, creatinine was noted to b e slightly worsening. Adjustment of the diuretics has been made. He is now currently on 40 mg tab o nce a day. His shortness of breath is much improved. He denies any chest pain or shortness of breat h. PHYSICAL EXAMINATION: VITAL SIGNS: Blood pressure is 167/74, heart rate 60, respiratory rate is 14, pulse ox 94%, temperat ure 97.1. GENERAL: Awake, supine, comfortable, not in distress. SKIN: Adequate turgor. HEENT: He has pinkish conjunctivae, anicteric sclerae. NECK: No neck mass, no carotid bruits, no JVD. CHEST: No deformities. LUNGS: Decreased breath sounds. HEART: Normal sinus rhythm. No murmur, no gallops, no rubs. ABDOMEN: Globular, soft, nontender, no masses. EXTREMITIES: No edema, no deformities. MEDICATIONS: Of 09/22/2017 was reviewed. LABORATORY DATA: Of 09/22/2017 showed sodium of 136, potassium 4.7, chloride 104, carbon dioxide 19, BUN 91, creatinine 4.78, glucose 133. ASSESSMENT AND PLAN: 1. Acute kidney injury on top of his chronic renal failure - creatinine still continues to worsen. He is now at a creatinine of 4.78 and yesterday this was 4.57. Please note, his Lasix was decreased to 40 mg tab once a day yesterday. He is currently with a GFR 12 mL per minute. I do not see any in dication for any emergent dialytic intervention with this patient. I do still anticipate some stabil ization of the renal function. For the moment, continue with the current diuretic regimen. 2. Shortness of breath secondary to congestive heart failure - continue low dose of Lasix. No ramirez es will be made with the diuretic regimen for the moment. I will be rechecking a basic met again nadia sarwat.
--- NOTE | 2017-09-22 08:52 | PDOC.PN ---
- Subjective Encounter Start Date: 09/22/17 Encounter Start Time: 08:50 Subjective: nsg notes rev, zackary ovn, feels breathing is overall improved -: states with imdur he gets visual floaters and light sensitivity so he has -: not been taking it - Objective Vital Signs & Weight: Vital Signs (12 hours) Temp Pulse Resp BP Pulse Ox 09/22/17 05:50 167/74 H 09/22/17 04:00 97.1 F L 60 14 125/61 94 L Weight Weight 183 lb 8 oz I&O: 09/21/17 09/22/17 09/23/17 06:59 06:59 06:59 Intake Total 240 1080 Output Total 450 1250 Balance -210 -170 Result Diagrams: 09/23/17 03:59 09/23/17 03:59 Additional Labs: Accuchecks 09/22/17 09/21/17 09/21/17 05:00 20:36 16:14 POC Glucose 201 H 263 H 197 H 09/21/17 10:52 POC Glucose 248 H Phys Exam - Physical Examination Constitutional: NAD lying in hopsital bed, conversant HEENT: PERRLA, moist MMs Respiratory: no wheezing, no rales, no rhonchi, clear to auscultation bilateral limited anterior examination Cardiovascular: RRR, no significant murmur, no rub, gallop Gastrointestinal: soft, non-tender, no distention, positive bowel sounds Musculoskeletal: no edema, pulses present Neurological: moves all 4 limbs Psychiatric: normal affect, A&O x 3 Dx/Plan (1) Chest pain Code(s): R07.9 - CHEST PAIN, UNSPECIFIED Status: Acute (2) Acute on chronic kidney disease, stage 4 Code(s): N28.9 - DISORDER OF KIDNEY AND URETER, UNSPECIFIED; N18.4 - CHRONIC KIDNEY DISEASE, STAGE 4 (SEVERE) Status: Chronic (3) Acute on chronic systolic congestive heart failure Code(s): I50.23 - ACUTE ON CHRONIC SYSTOLIC (CONGESTIVE) HEART FAILURE Status : Chronic Comment: ef of 25% (4) DM2 (diabetes mellitus, type 2) Status: Chronic Qualifiers: Diabetes mellitus complication status: with kidney complications Diabetes mellitus complication detail: with chronic kidney disease Diabetes mellitus intermediate designer insulin use: with intermediate designer use Chronic kidney disease stage: stage 5, not on chronic dialysis Qualified Code(s): E11.22 - Type 2 diabetes mellitus with diabetic chronic kidney disease; N18.5 - Chronic kidney disease, stage 5; N18.5 - Chronic kidney disease, stage 5; N18.5 - Chronic kidney disease , stage 5; N18.5 - Chronic kidney disease, stage 5; 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; Z79.4 - jail (current) use of insulin; Z79.4 - laborer marine terminal ( current) use of insulin; Z79.4 - jail (current) use of insulin (5) Dyslipidemia Code(s): E78.5 - HYPERLIPIDEMIA, UNSPECIFIED Status: Chronic (6) Hypertension Code(s): I10 - ESSENTIAL (PRIMARY) HYPERTENSION Status: Chronic Qualifiers: Hypertension type: essential hypertension Qualified Code(s): I10 - Essential (primary) hypertension - Plan * Pulmonary edema 2/2 acute on chronic CHF * symptomatically improved * continue with cautious diuresis, check BMP in AM * pt currently 5.5lbs down from adm * ambulate * pt intolerant of isosorbide mononitrate, will d/c and monitor EFRAÍN on CKD likely diabetic nephropathy * apprec nephrology c/s * cont to monitor, concerning for elev of BUN and Cr since adm but lasix was also recently de-escalated * currently on an all oral regimen of lasix * close I/O HTN stable, monitor HLD stable hx CABG stable diet: cardiac, diabetic, renal activity: oob as mikey dvt ppx: heparin Review of Systems - Medications/Allergies Allergies/Adverse Reactions: Allergies Allergy/AdvReac Type Severity Reaction Status Date / Time cephalexin monohydrate Allergy Verified 09/07/17 16:11 [From Keflex] levofloxacin [From Levaquin] Allergy Verified 09/09/17 13:56 propoxyphene napsylate Allergy Verified 09/07/17 16:11 [From Darvocet-N 100] Sulfa (Sulfonamide Allergy Verified 09/19/17 07:01 Antibiotics) sulfamethoxazole Allergy Verified 09/07/17 16:11 [From Bactrim] trimethoprim [From Bactrim] Allergy Verified 09/07/17 16:11 Medications: Current Medications Acetaminophen (Tylenol) 650 mg PO Q4H PRN PRN Reason: Headache/Fever or Pain Last Admin: 09/21/17 17:49 Dose: 650 mg Carvedilol (Coreg) 50 mg PO 0600,1700 [facility] Last Admin: 09/22/17 05:53 Dose: 50 mg Clonidine (Catapres) 0.1 mg PO Q4H PRN PRN Reason: SBP>160 Dextrose/Water (Dextrose 50%) 25 gm SLOW IVP PRN PRN PRN Reason: Hypoglycemia Ferrous Sulfate (Feosol) 325 mg PO QA-WM [facility] Last Admin: 09/21/17 09:04 Dose: 325 mg Furosemide (Lasix) 40 mg PO DAILY-AC [facility] Last Admin: 09/21/17 09:03 Dose: 40 mg Glucagon (Glucagon) 1 mg IM PRN PRN PRN Reason: Hypoglycemia Guaifenesin/Dextromethorphan (Robitussin Dm) 15 ml PO Q4H PRN PRN Reason: Cough Hydralazine HCl (Apresoline) 20 mg SLOW IVP Q6H PRN PRN Reason: SBP GREATER THAN 160 Hydralazine HCl (Apresoline) 50 mg PO 0600,1200,1800 [facility] Last Admin: 09/22/17 05:53 Dose: 50 mg Dextrose/Water (D5w) 1,000 mls @ 0 mls/hr IV .Q0M PRN; As Directed PRN Reason: Hypoglycemia Insulin Detemir 20 units/ (Miscellaneous Medication) 0.2 mls @ 0 mls/hr [facility] Last Admin: 09/21/17 09:04 Dose: 0.2 mls Insulin Human Regular (Humulin R) 0 units SC .MILD SLIDING SCALE PRN PRN Reason: Mild Correctional Scale Last Admin: 09/21/17 16:23 Dose: 2 unit Isosorbide Mononitrate (Imdur Er) 30 mg PO DAILY [facility] Last Admin: 09/22/17 08:48 Dose: Not Given Ondansetron HCl (Zofran) 4 mg IVP Q6H PRN PRN Reason: Nausea/Vomiting Rosuvastatin Calcium (Crestor) 40 mg PO HS [facility] Last Admin: 09/21/17 20:25 Dose: 40 mg Sodium Chloride (Flush - Normal Saline) 10 ml IVF Q12HR [facility] Last Admin: 09/21/17 20:25 Dose: 10 ml Sodium Chloride (Flush - Normal Saline) 10 ml IVF PRN PRN PRN Reason: Saline Flush Last Admin: 09/20/17 06:21 Dose: 10 ml
[2017-09-22] MEDS: Insulin Detemir 100 UNITS/ML 20 UNITS in Pre-Filled Syringe 1 EACH SC SCH (08:55)
[2017-09-22] MEDS: Furosemide 40 MG TAB PO SCH (08:55)
[2017-09-22] MEDS: Ferrous Sulfate 325 MG TAB PO SCH (08:55)
[2017-09-22] MEDS: Heparin 5,000 UNITS/ML VIAL SC SCH ×2 (09:42→20:32)
[2017-09-22] MEDS: Insulin Regular 300 UNITS/3 ML VIAL SC PRN ×2 (12:06→17:12)
[2017-09-22] MEDS: Rosuvastatin 20 MG TAB PO SCH (20:32)
[2017-09-23 05:13] LABS: #Eosinphils 0.7 thou/uL (0.0-0.7); #Lymphocytes 1.8 thou/uL (1.20-3.40); #Monocytes 0.8 thou/uL (0.11-0.59); #Neutrophils 4.8 thou/uL (1.40-6.50); %Basophils 0.3 % (0.0-1.0); %Eosinophils 8.1 % (0.0-10.0); %Lymphocytes 21.7 % (21.0-51.0); %Monocytes 9.7 % (0.0-10.0); %Neutrophils 60.2 % (42.0-75.0); Hemoglobin 11.1 g/dL (14.0-18.0); Mean Corpuscular HGB CONC 33.8 g/dL (32.0-36.0); Mean Corpuscular Hemoglobin 30.9 pg (27.0-31.0); Mean Corpuscular Volume 91.5 fl (80.0-94.0); Mean Platelet Volume 8.5 fL (7.4-10.4); Platelet Count 145 thou/uL (130-400); Red Blood Cell (RBC) Count 3.58 mill/uL (4.70-6.10); White Blood Cell (WBC) Count 8.1 thou/uL (4.8-10.8)
[2017-09-23 05:32] LABS: Anion Gap 19 mmol/L (10-20); BUN (Urea Nitrogen) 96 mg/dL (8.4-25.7); Calc. Creatinine Clearance 17 mL/min (70-130); Calcium 9.1 mg/dL (7.8-10.44); Carbon Dioxide 16 mmol/L (23-31); Chloride 104 mmol/L (98-107); Estimated GFR-MDRD 13; Glucose 153 mg/dL (83-110); Potassium 4.9 mmol/L (3.5-5.1); Sodium 134 mmol/L (136-145)
[2017-09-23] MEDS: Carvedilol 25 MG TAB PO SCH ×2 (05:32→18:30)
[2017-09-23] MEDS: hydrALAZINE 25 MG TAB PO SCH ×3 (05:32→18:30)
[2017-09-23] MEDS: Furosemide 40 MG TAB PO SCH (08:50)
[2017-09-23] MEDS: Ferrous Sulfate 325 MG TAB PO SCH (08:50)
[2017-09-23] MEDS: Heparin 5,000 UNITS/ML VIAL SC SCH ×2 (08:50→22:09)
[2017-09-23] MEDS: Insulin Detemir 100 UNITS/ML 20 UNITS in Pre-Filled Syringe 1 EACH SC SCH (08:58)
--- NOTE | 2017-09-23 10:11 | PRG ---
DATE OF SERVICE: 09/23/2017 SUBJECTIVE: Mr. Leos is a 72-year-old white male seen by the Renal Service for his acute kidney inj ury on top of his chronic renal failure. Please note this patient came in with CHF. The high creati nine previously was due to the diuretic regimen. Diuretics have been adjusted. The patient is compl aining of some nausea and vomiting last night. He is complaining of some mild epigastric pain. Jolly amirah, he voices no complaints of chest pain or shortness of breath. PHYSICAL EXAMINATION: VITAL SIGNS: Blood pressure 145/62, heart rate 67, respiratory rate 16, temperature 97.3. GENERAL: Awake, alert, comfortable, not in distress. SKIN: Adequate turgor. HEENT: Slightly pale conjunctivae, anicteric sclerae. NECK: No neck mass or carotid bruits. No JVD. CHEST: No deformities. LUNGS: Clear breath sounds. No wheezing, no crackles. HEART: Normal sinus rhythm. No murmur, no gallops or rubs. ABDOMEN: Globular, soft, nontender, no masses. EXTREMITIES: No edema or deformities. MEDICATIONS: 09/23/2017 - Reviewed. LABORATORY: 09/23/2017 - White count 8.1, hemoglobin 11.1. Sodium 134, potassium 4.9, chloride 104, carbon dioxide 16, BUN 96, creatinine 4.56, glucose 150, calcium 9.1. ASSESSMENT AND PLAN: 1. Acute kidney injury/chronic renal failure - superimposed prerenal azotemia. There is some stabil ization of the renal function. Creatinine is now 4.56. He is now on a decreased dose of Lasix. We will continue current management. No indication for any dialytic intervention. 2. Congestive heart failure - clinically much improved. Continue current supportive care. No hussein ges with his medications. Tolerating Lasix. We will recheck basic metabolic panel in a.m. if still here, if not consider discharge. I will follo w up this patient at the [facility].
[2017-09-23] MEDS: Insulin Regular 300 UNITS/3 ML VIAL SC PRN ×2 (13:19→18:30)
--- NOTE | 2017-09-23 15:07 | PDOC.PN ---
- Subjective Encounter Start Date: 09/23/17 Encounter Start Time: 15:05 Subjective: nsg notes rev, zackary ovn, no new c/o other than wanting to have more food -: feels that he is weak from lack of oral intake and he doesn't like crackers - Objective Vital Signs & Weight: Vital Signs (12 hours) Temp Pulse Resp BP BP Pulse Ox 09/23/17 13:20 71 150/61 H 09/23/17 07:28 97.3 F L 71 16 145/62 H 09/23/17 04:00 97.5 F L 68 16 165/80 H 99 Weight Weight 179 lb I&O: 09/22/17 09/23/17 09/24/17 06:59 06:59 06:59 Intake Total 1080 960 Output Total 1250 1450 Balance -170 -490 Result Diagrams: 09/23/17 03:59 09/23/17 03:59 Additional Labs: Accuchecks 09/23/17 09/23/17 09/22/17 11:01 06:36 20:27 POC Glucose 226 H 317 H 239 H 09/22/17 09/22/17 16:52 11:01 POC Glucose 231 H 305 H Phys Exam - Physical Examination Constitutional: NAD HEENT: PERRLA, moist MMs Respiratory: no wheezing, no rales, no rhonchi, clear to auscultation bilateral limited anterior exam Cardiovascular: RRR, no significant murmur, no rub Gastrointestinal: soft, non-tender, no distention, positive bowel sounds obese Musculoskeletal: no edema, pulses present Psychiatric: normal affect, A&O x 3 Dx/Plan (1) Chest pain Code(s): R07.9 - CHEST PAIN, UNSPECIFIED Status: Acute (2) Acute on chronic kidney disease, stage 4 Code(s): N28.9 - DISORDER OF KIDNEY AND URETER, UNSPECIFIED; N18.4 - CHRONIC KIDNEY DISEASE, STAGE 4 (SEVERE) Status: Chronic (3) Acute on chronic systolic congestive heart failure Code(s): I50.23 - ACUTE ON CHRONIC SYSTOLIC (CONGESTIVE) HEART FAILURE Status : Chronic Comment: ef of 25% (4) DM2 (diabetes mellitus, type 2) Status: Chronic Qualifiers: Diabetes mellitus complication status: with kidney complications Diabetes mellitus complication detail: with chronic kidney disease Diabetes mellitus custodial insulin use: with custodial use Chronic kidney disease stage: stage 5, not on chronic dialysis Qualified Code(s): E11.22 - Type 2 diabetes mellitus with diabetic chronic kidney disease; N18.5 - Chronic kidney disease, stage 5; N18.5 - Chronic kidney disease, stage 5; N18.5 - Chronic kidney disease , stage 5; N18.5 - Chronic kidney disease, stage 5; 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; Z79.4 - [facility] (current) use of insulin; Z79.4 - [facility] ( current) use of insulin; Z79.4 - [facility] (current) use of insulin (5) Dyslipidemia Code(s): E78.5 - HYPERLIPIDEMIA, UNSPECIFIED Status: Chronic (6) Hypertension Code(s): I10 - ESSENTIAL (PRIMARY) HYPERTENSION Status: Chronic Qualifiers: Hypertension type: essential hypertension Qualified Code(s): I10 - Essential (primary) hypertension - Plan cont current plan of care, out of bed/ambulate * Pulmonary edema 2/2 acute on chronic CHF * symptomatically improved, on RA * continue with cautious diuresis, check BMP in AM, lasix has been de-escalated * pt currently 5.5lbs down from adm * ambulate EFRAÍN on CKD likely diabetic nephropathy * apprec nephrology c/s * cont to monitor, concerning for elev of BUN and Cr since adm but lasix was also recently de-escalated * currently on an all oral regimen of lasix * close I/O HTN stable, monitor HLD stable hx CABG stable diet: cardiac, diabetic, renal activity: oob as mikey dvt ppx: heparin Review of Systems - Review of Systems Eyes: Vision Change - Medications/Allergies Allergies/Adverse Reactions: Allergies Allergy/AdvReac Type Severity Reaction Status Date / Time cephalexin monohydrate Allergy Verified 09/07/17 16:11 [From Keflex] levofloxacin [From Levaquin] Allergy Verified 09/09/17 13:56 propoxyphene napsylate Allergy Verified 09/07/17 16:11 [From Darvocet-N 100] Sulfa (Sulfonamide Allergy Verified 09/19/17 07:01 Antibiotics) sulfamethoxazole Allergy Verified 09/07/17 16:11 [From Bactrim] trimethoprim [From Bactrim] Allergy Verified 09/07/17 16:11 Medications: Current Medications Acetaminophen (Tylenol) 650 mg PO Q4H PRN PRN Reason: Headache/Fever or Pain Last Admin: 09/21/17 17:49 Dose: 650 mg Carvedilol (Coreg) 50 mg PO 0600,1700 [facility] Last Admin: 09/23/17 05:32 Dose: 50 mg Clonidine (Catapres) 0.1 mg PO Q4H PRN PRN Reason: SBP>160 Dextrose/Water (Dextrose 50%) 25 gm SLOW IVP PRN PRN PRN Reason: Hypoglycemia Ferrous Sulfate (Feosol) 325 mg PO QAM-WM [facility] Last Admin: 09/23/17 08:50 Dose: 325 mg Furosemide (Lasix) 40 mg PO DAILY-AC [facility] Last Admin: 09/23/17 08:50 Dose: 40 mg Glucagon (Glucagon) 1 mg IM PRN PRN PRN Reason: Hypoglycemia Guaifenesin/Dextromethorphan (Robitussin Dm) 15 ml PO Q4H PRN PRN Reason: Cough Heparin Sodium (Porcine) (Heparin) 5,000 units SC BID [facility] Last Admin: 09/23/17 08:50 Dose: Not Given Hydralazine HCl (Apresoline) 20 mg SLOW IVP Q6H PRN PRN Reason: SBP GREATER THAN 160 Hydralazine HCl (Apresoline) 50 mg PO 0600,1200,1800 [facility] Last Admin: 09/23/17 13:20 Dose: 50 mg Dextrose/Water (D5w) 1,000 mls @ 0 mls/hr IV .Q0M PRN; As Directed PRN Reason: Hypoglycemia Insulin Detemir 20 units/ (Miscellaneous Medication) 0.2 mls @ 0 mls/hr [facility] Last Admin: 09/23/17 08:58 Dose: Not Given Insulin Human Regular (Humulin R) 0 units SC .MILD SLIDING SCALE PRN PRN Reason: Mild Correctional Scale Last Admin: 09/23/17 13:19 Dose: 3 unit Ondansetron HCl (Zofran) 4 mg IVP Q6H PRN PRN Reason: Nausea/Vomiting Rosuvastatin Calcium (Crestor) 40 mg PO HS [facility] Last Admin: 09/22/17 20:32 Dose: 40 mg Sodium Chloride (Flush - Normal Saline) 10 ml IVF Q12HR [facility] Last Admin: 09/23/17 08:50 Dose: 10 ml Sodium Chloride (Flush - Normal Saline) 10 ml IVF PRN PRN PRN Reason: Saline Flush Last Admin: 09/20/17 06:21 Dose: 10 ml
[2017-09-23] MEDS: Rosuvastatin 20 MG TAB PO SCH (22:09)
[2017-09-24] MEDS: Carvedilol 25 MG TAB PO SCH ×2 (05:58→17:56)
[2017-09-24] MEDS: hydrALAZINE 25 MG TAB PO SCH ×3 (05:58→17:57)
[2017-09-24 06:01] LABS: Anion Gap 19 mmol/L (10-20); BUN (Urea Nitrogen) 102 mg/dL (8.4-25.7); Calc. Creatinine Clearance 17 mL/min (70-130); Calcium 8.7 mg/dL (7.8-10.44); Carbon Dioxide 19 mmol/L (23-31); Chloride 102 mmol/L (98-107); Estimated GFR-MDRD 13; Glucose 261 mg/dL (83-110); Potassium 4.5 mmol/L (3.5-5.1); Sodium 135 mmol/L (136-145)
[2017-09-24] MEDS: Heparin 5,000 UNITS/ML VIAL SC SCH ×2 (09:37→20:03)
[2017-09-24] MEDS: Insulin Detemir 100 UNITS/ML 20 UNITS in Pre-Filled Syringe 1 EACH SC SCH (09:42)
[2017-09-24] MEDS: Insulin Regular 300 UNITS/3 ML VIAL SC PRN ×2 (09:42→12:21)
[2017-09-24] MEDS: Furosemide 40 MG TAB PO SCH (09:44)
[2017-09-24] MEDS: Ferrous Sulfate 325 MG TAB PO SCH (09:44)
--- NOTE | 2017-09-24 11:51 | PRG ---
DATE OF SERVICE: 09/24/2017 RENAL MEDICINE SUBJECTIVE: Mr. Leos is a 72-year-old white male who was admitted for CHF. He has been diuresed in the past. We have adjusted his diuretics due to the worsening renal dysfunction. Creatinine is rel atively stable. No new complaints today except for nausea and vomiting. Please note his shortness o f breath is much improved. PHYSICAL EXAMINATION: VITAL SIGNS: Blood pressure is 150/60, heart rate 76, respiratory rate 16, temperature 97.9. GENERAL: Noted to be awake, supine, comfortable, not in distress. SKIN: Adequate turgor. HEENT: He has pinkish conjunctivae, anicteric sclerae. NECK: No neck mass, no carotid bruits, no JVD. CHEST: No deformities. LUNGS: Decreased breath sounds. HEART: Normal sinus rhythm. No murmurs, no gallops, no rubs. ABDOMEN: Globular, soft, nontender. EXTREMITIES: No edema, no deformities. MEDICATIONS: Medications of 09/24/2017 was reviewed. LABORATORY DATA: Laboratories of 09/24/2017; sodium 135, potassium 4.5, chloride 102, carbon dioxide 19, BUN 102, creatinine 4.63, glucose 261, and calcium is 8.7. ASSESSMENT AND PLAN: 1. Congestive heart failure - clinically much improved. Due to the much improved congestive heart f ailure, I will probably skip the dose of the Lasix for one day to see if I could sum equilibration of the renal dysfunction. 2. Chronic renal failure/acute kidney injury. BUN noted at 102 with creatinine 4.63. We will hold off Lasix temporarily. 3. Nausea and vomiting - this could be from underlying diabetic gastroparesis. Supportive care. Re check basic met and CBC in a.m.
--- NOTE | 2017-09-24 12:21 | EKG ---
Test Reason : SOB/CP Blood Pressure : / mmHG Vent. Rate : 066 BPM Atrial Rate : 066 BPM P-R Int : 188 ms QRS Dur : 150 ms QT Int : 490 ms P-R-T Axes : 071 015 099 degrees QTc Int : 513 ms Atrial-sensed ventricular-paced rhythm Abnormal ECG Confirmed by EVERETT Posey, THIERRY ([id number]), film editor MARIAH EL ([id number]) on 09/24/2017 12:21:10 PM Referred By: EVERETT Confirmed By:THIERRY FLOYD M.D.
[2017-09-24] MEDS: Rosuvastatin 20 MG TAB PO SCH (21:43)
--- NOTE | 2017-09-24 22:59 | PDOC.PN ---
- Subjective Encounter Start Date: 09/24/17 Encounter Start Time: 17:00 Subjective: nsg notes rev, zackary ovn no new c/o other than food -: wants to know if he can take toujeo again - Objective Vital Signs & Weight: Vital Signs (12 hours) Temp Pulse Resp BP BP BP Pulse Ox 09/24/17 21:35 98.3 F 67 18 162/78 H 96 09/24/17 17:57 69 162/80 H 09/24/17 15:55 96 09/24/17 15:52 98.4 F 69 18 162/80 H 09/24/17 12:13 76 170/70 H 09/24/17 12:12 99.0 F 71 18 170/70 H Weight Weight 179 lb 9.6 oz I&O: 09/23/17 09/24/17 09/25/17 06:59 06:59 06:59 Intake Total 960 700 698 Output Total 1450 1900 850 Balance -426 -1200 -152 Result Diagrams: 09/23/17 03:59 09/24/17 03:57 Additional Labs: Accuchecks 09/24/17 09/24/17 09/24/17 20:29 16:44 11:26 POC Glucose 228 H 136 H 329 H 09/24/17 05:36 POC Glucose 255 H Phys Exam - Physical Examination Constitutional: NAD HEENT: PERRLA, moist MMs Neck: no JVD Respiratory: no wheezing, no rales, no rhonchi, clear to auscultation bilateral Cardiovascular: RRR, no significant murmur, no rub Gastrointestinal: soft, non-tender, no distention, positive bowel sounds Musculoskeletal: pulses present Dx/Plan (1) Chest pain Code(s): R07.9 - CHEST PAIN, UNSPECIFIED Status: Acute (2) Acute on chronic kidney disease, stage 4 Code(s): N28.9 - DISORDER OF KIDNEY AND URETER, UNSPECIFIED; N18.4 - CHRONIC KIDNEY DISEASE, STAGE 4 (SEVERE) Status: Chronic (3) Acute on chronic systolic congestive heart failure Code(s): I50.23 - ACUTE ON CHRONIC SYSTOLIC (CONGESTIVE) HEART FAILURE Status : Chronic Comment: ef of 25% (4) DM2 (diabetes mellitus, type 2) Status: Chronic Qualifiers: Diabetes mellitus complication status: with kidney complications Diabetes mellitus complication detail: with chronic kidney disease Diabetes mellitus intermodal dispatcher insulin use: with intermodal dispatcher use Chronic kidney disease stage: stage 5, not on chronic dialysis Qualified Code(s): E11.22 - Type 2 diabetes mellitus with diabetic chronic kidney disease; N18.5 - Chronic kidney disease, stage 5; N18.5 - Chronic kidney disease, stage 5; N18.5 - Chronic kidney disease , stage 5; N18.5 - Chronic kidney disease, stage 5; Z79.4 - rn long term care (current) use of insulin; Z79.4 - rn long term care (current) use of insulin; Z79.4 - rn long term care ( current) use of insulin; Z79.4 - rn long term care (current) use of insulin (5) Dyslipidemia Code(s): E78.5 - HYPERLIPIDEMIA, UNSPECIFIED Status: Chronic (6) Hypertension Code(s): I10 - ESSENTIAL (PRIMARY) HYPERTENSION Status: Chronic Qualifiers: Hypertension type: essential hypertension Qualified Code(s): I10 - Essential (primary) hypertension - Plan * cont current plan of care, out of bed/ambulate * Pulmonary edema 2/2 acute on chronic CHF * symptomatically improved, on RA * continue with cautious diuresis, check BMP in AM, lasix has been discont * pt currently 5.5lbs down from adm * ambulate EFRAÍN on CKD likely diabetic nephropathy * apprec nephrology c/s * d/c lasix today and monitor * close I/O IDDM * has been refusing our inpatient insulin ssi * will resume home toujeo at 50% of home dose (25U insulin glargine QAM) and monitor HTN stable, monitor HLD stable hx CABG stable diet: cardiac, diabetic, renal activity: oob as mikey dvt ppx: heparin Review of Systems - Medications/Allergies Allergies/Adverse Reactions: Allergies Allergy/AdvReac Type Severity Reaction Status Date / Time cephalexin monohydrate Allergy Verified 09/07/17 16:11 [From Keflex] levofloxacin [From Levaquin] Allergy Verified 09/09/17 13:56 propoxyphene napsylate Allergy Verified 09/07/17 16:11 [From Darvocet-N 100] Sulfa (Sulfonamide Allergy Verified 09/19/17 07:01 Antibiotics) sulfamethoxazole Allergy Verified 09/07/17 16:11 [From Bactrim] trimethoprim [From Bactrim] Allergy Verified 09/07/17 16:11 Medications: Current Medications Acetaminophen (Tylenol) 650 mg PO Q4H PRN PRN Reason: Headache/Fever or Pain Last Admin: 09/21/17 17:49 Dose: 650 mg Carvedilol (Coreg) 50 mg PO 0600,1700 [facility] Last Admin: 09/24/17 17:56 Dose: 50 mg Clonidine (Catapres) 0.1 mg PO Q4H PRN PRN Reason: SBP>160 Dextrose/Water (Dextrose 50%) 25 gm SLOW IVP PRN PRN PRN Reason: Hypoglycemia Ferrous Sulfate (Feosol) 325 mg PO QAM-[facility] Last Admin: 09/24/17 09:44 Dose: 325 mg Glucagon (Glucagon) 1 mg IM PRN PRN PRN Reason: Hypoglycemia Guaifenesin/Dextromethorphan (Robitussin Dm) 15 ml PO Q4H PRN PRN Reason: Cough Heparin Sodium (Porcine) (Heparin) 5,000 units SC BID [facility] Last Admin: 09/24/17 20:03 Dose: Not Given Hydralazine HCl (Apresoline) 20 mg SLOW IVP Q6H PRN PRN Reason: SBP GREATER THAN 160 Hydralazine HCl (Apresoline) 50 mg PO 0600,1200,1800 [facility] Last Admin: 09/24/17 17:57 Dose: 50 mg Dextrose/Water (D5w) 1,000 mls @ 0 mls/hr IV .Q0M PRN; As Directed PRN Reason: Hypoglycemia Insulin Human Regular (Humulin R) 0 units SC .MILD SLIDING SCALE PRN PRN Reason: Mild Correctional Scale Last Admin: 09/24/17 12:21 Dose: 5 unit Ondansetron HCl (Zofran) 4 mg IVP Q6H PRN PRN Reason: Nausea/Vomiting Toujeo Insulin Patient's Home Medication 0 each SC QAM [facility] Rosuvastatin Calcium (Crestor) 40 mg PO HS [facility] Last Admin: 09/24/17 21:43 Dose: 40 mg Sodium Chloride (Flush - Normal Saline) 10 ml IVF Q12HR [facility] Last Admin: 09/24/17 20:04 Dose: Not Given Sodium Chloride (Flush - Normal Saline) 10 ml IVF PRN PRN PRN Reason: Saline Flush Last Admin: 09/20/17 06:21 Dose: 10 ml
[2017-09-25 05:33] LABS: Anion Gap 16 mmol/L (10-20); BUN (Urea Nitrogen) 105 mg/dL (8.4-25.7); Calc. Creatinine Clearance 17 mL/min (70-130); Calcium 8.9 mg/dL (7.8-10.44); Carbon Dioxide 19 mmol/L (23-31); Chloride 104 mmol/L (98-107); Estimated GFR-MDRD 13; Glucose 206 mg/dL (83-110); Potassium 4.4 mmol/L (3.5-5.1); Sodium 135 mmol/L (136-145)
[2017-09-25] MEDS: Carvedilol 25 MG TAB PO SCH ×2 (05:35→17:35)
[2017-09-25] MEDS: hydrALAZINE 25 MG TAB PO SCH ×3 (05:36→17:35)
[2017-09-25] MEDS: Heparin 5,000 UNITS/ML VIAL SC SCH ×2 (08:51→22:01)
[2017-09-25] MEDS: Ferrous Sulfate 325 MG TAB PO SCH (08:51)
[2017-09-25] MEDS: TOUJEO INSULIN SC SCH (08:52)
[2017-09-25] MEDS: Insulin Regular 300 UNITS/3 ML VIAL SC PRN ×3 (12:06→22:26)
--- NOTE | 2017-09-25 12:13 | PRG ---
DATE OF SERVICE: 09/25/2017 RENAL MEDICINE SUBJECTIVE: Mr. Leos is a 72-year-old white male who was seen by renal Service for his acute kidney injury on top of his chronic renal failure. He was initially admitted for CHF. He was diuresed and improved his CHF. Renal function has been fluctuating up and down. Yesterday, I decided to put a h old on his furosemide due to an improvement in worsening renal dysfunction. His creatinine this morn ing is slightly improved. No other complaints. No chest pain or shortness of breath. VITAL SIGNS: Blood pressure is 168/72, heart rate 68, respiratory rate 19, temperature 97.8, and pul se ox 98%. GENERAL: Awake, alert, comfortable, not in overt distress. SKIN: Adequate turgor. HEENT: He has pinkish conjunctivae, anicteric sclerae. NECK: No neck mass, no carotid bruits, no JVD. CHEST: No deformities. LUNGS: Clear breath sounds. No wheezing, no crackles. HEART: Normal sinus rhythm. No murmur, no gallops or rubs. ABDOMEN: Globular, soft, nontender, no masses. EXTREMITIES: Trace edema. MEDICATIONS: Of 09/25/2017 reviewed. LABORATORY DATA: Of 09/23/2017, white count 8.1, hemoglobin 11.1. On 09/25/2017, sodium 135, potass ium 4.4, chloride 104, carbon dioxide 19, BUN 105, creatinine 4.48, GFR 13 mL per minute, calcium 8.9 . ASSESSMENT AND PLAN: 1. Acute kidney injury on top of chronic renal failure - improved creatinine. Continue to hold off any diuretics for the moment until there is further equilibration with the patient's renal dysfunctio n. He can be resumed on his furosemide at 40 mg tab once a day upon discharge. We will then follow up this patient at the [facility]. Again, there is no indication for any dialytic intervention. 2. Congestive heart failure, clinically much improved, furosemide on hold temporarily. Overall, agree with current management.
--- NOTE | 2017-09-25 16:34 | PDOC.PN ---
- Subjective Encounter Start Date: 09/25/17 Encounter Start Time: 16:33 Subjective: nsg notes rev, zackary ovn, no new c/o - Objective Vital Signs & Weight: Vital Signs (12 hours) Temp Pulse Resp BP BP Pulse Ox 09/25/17 12:03 68 173/79 H 09/25/17 12:00 98.1 F 66 18 173/79 H 97 09/25/17 08:00 97.8 F 68 19 168/72 H 98 09/25/17 05:36 65 142/70 H Weight Weight 180 lb 1.6 oz I&O: 09/24/17 09/25/17 09/26/17 06:59 06:59 06:59 Intake Total 700 698 144 Output Total 1900 850 Balance -1200 -152 144 Result Diagrams: 09/26/17 03:58 09/26/17 03:58 Additional Labs: Accuchecks 09/25/17 09/25/17 09/24/17 10:50 05:36 20:29 POC Glucose 314 H 219 H 228 H 09/24/17 16:44 POC Glucose 136 H Phys Exam - Physical Examination Constitutional: NAD HEENT: PERRLA, moist MMs, sclera anicteric Neck: no nodes Respiratory: no wheezing, no rales, no rhonchi, clear to auscultation bilateral Cardiovascular: RRR, no significant murmur, no rub Gastrointestinal: soft, positive bowel sounds Musculoskeletal: no edema, pulses present Neurological: moves all 4 limbs Psychiatric: normal affect, A&O x 3 Dx/Plan (1) Chest pain Code(s): R07.9 - CHEST PAIN, UNSPECIFIED Status: Acute (2) Acute on chronic kidney disease, stage 4 Code(s): N28.9 - DISORDER OF KIDNEY AND URETER, UNSPECIFIED; N18.4 - CHRONIC KIDNEY DISEASE, STAGE 4 (SEVERE) Status: Chronic (3) Acute on chronic systolic congestive heart failure Code(s): I50.23 - ACUTE ON CHRONIC SYSTOLIC (CONGESTIVE) HEART FAILURE Status : Chronic Comment: ef of 25% (4) DM2 (diabetes mellitus, type 2) Status: Chronic Qualifiers: Diabetes mellitus complication status: with kidney complications Diabetes mellitus complication detail: with chronic kidney disease Diabetes mellitus care home insulin use: with care home use Chronic kidney disease stage: stage 5, not on chronic dialysis Qualified Code(s): E11.22 - Type 2 diabetes mellitus with diabetic chronic kidney disease; N18.5 - Chronic kidney disease, stage 5; N18.5 - Chronic kidney disease, stage 5; N18.5 - Chronic kidney disease , stage 5; N18.5 - Chronic kidney disease, stage 5; 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; 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; Z79.4 - moth exterminator ( current) use of insulin; Z79.4 - senior care (current) use of insulin (5) Dyslipidemia Code(s): E78.5 - HYPERLIPIDEMIA, UNSPECIFIED Status: Chronic (6) Hypertension Code(s): I10 - ESSENTIAL (PRIMARY) HYPERTENSION Status: Chronic Qualifiers: Hypertension type: essential hypertension Qualified Code(s): I10 - Essential (primary) hypertension - Plan * Pulmonary edema 2/2 acute on chronic CHF, improved * symptomatically improved, on RA * lasix has been discont * pt currently 5.5lbs down from adm * ambulate EFRAÍN on CKD likely diabetic nephropathy * apprec nephrology c/s * monitoring for EFRAÍN recovery while off lasix * close I/O IDDM * will resume home toujeo at 50% of home dose (25U insulin glargine QAM) and monitor HTN stable, monitor HLD stable hx CABG stable diet: cardiac, diabetic, renal activity: oob as mikey dvt ppx: heparin Review of Systems - Medications/Allergies Allergies/Adverse Reactions: Allergies Allergy/AdvReac Type Severity Reaction Status Date / Time cephalexin monohydrate Allergy Verified 09/07/17 16:11 [From Keflex] levofloxacin [From Levaquin] Allergy Verified 09/09/17 13:56 propoxyphene napsylate Allergy Verified 09/07/17 16:11 [From Darvocet-N 100] Sulfa (Sulfonamide Allergy Verified 09/19/17 07:01 Antibiotics) sulfamethoxazole Allergy Verified 09/07/17 16:11 [From Bactrim] trimethoprim [From Bactrim] Allergy Verified 09/07/17 16:11 Medications: Current Medications Acetaminophen (Tylenol) 650 mg PO Q4H PRN PRN Reason: Headache/Fever or Pain Last Admin: 09/21/17 17:49 Dose: 650 mg Carvedilol (Coreg) 50 mg PO 0600,1700 [facility] Last Admin: 09/25/17 05:35 Dose: 50 mg Clonidine (Catapres) 0.1 mg PO Q4H PRN PRN Reason: SBP>160 Dextrose/Water (Dextrose 50%) 25 gm SLOW IVP PRN PRN PRN Reason: Hypoglycemia Ferrous Sulfate (Feosol) 325 mg PO QAM-[facility] Last Admin: 09/25/17 08:51 Dose: 325 mg Glucagon (Glucagon) 1 mg IM PRN PRN PRN Reason: Hypoglycemia Guaifenesin/Dextromethorphan (Robitussin Dm) 15 ml PO Q4H PRN PRN Reason: Cough Heparin Sodium (Porcine) (Heparin) 5,[address] [facility] Last Admin: 09/25/17 08:51 Dose: Not Given Hydralazine HCl (Apresoline) 20 mg SLOW IVP Q6H PRN PRN Reason: SBP GREATER THAN 160 Hydralazine HCl (Apresoline) 50 mg PO 0600,1200,1800 [facility] Last Admin: 09/25/17 12:03 Dose: 50 mg Dextrose/Water (D5w) 1,000 mls @ 0 mls/hr IV .Q0M PRN; As Directed PRN Reason: Hypoglycemia Insulin Human Regular (Humulin R) 0 units SC .MILD SLIDING SCALE PRN PRN Reason: Mild Correctional Scale Last Admin: 09/25/17 12:06 Dose: 5 unit Ondansetron HCl (Zofran) 4 mg IVP Q6H PRN PRN Reason: Nausea/Vomiting Toujeo Insulin Patient's Home Medication [address] [facility] Last Admin: 09/25/17 08:52 Dose: 1 each Rosuvastatin Calcium (Crestor) [address] [facility] Last Admin: 09/24/17 21:43 Dose: 40 mg Sodium Chloride (Flush - Normal Saline) [address] [facility] Last Admin: 09/25/17 08:51 Dose: Not Given Sodium Chloride (Flush - Normal Saline) 10 ml IVF PRN PRN PRN Reason: Saline Flush Last Admin: 09/20/17 06:21 Dose: 10 ml
[2017-09-25] MEDS: Rosuvastatin 20 MG TAB PO SCH (22:12)
[2017-09-26 05:13] LABS: #Eosinphils 0.4 thou/uL (0.0-0.7); #Lymphocytes 1.9 thou/uL (1.20-3.40); #Monocytes 0.6 thou/uL (0.11-0.59); #Neutrophils 3.8 thou/uL (1.40-6.50); %Basophils 0.5 % (0.0-1.0); %Eosinophils 6.5 % (0.0-10.0); %Monocytes 9.2 % (0.0-10.0); %Neutrophils 55.8 % (42.0-75.0); Mean Corpuscular HGB CONC 34.6 g/dL (32.0-36.0); Mean Corpuscular Hemoglobin 31.4 pg (27.0-31.0); Mean Corpuscular Volume 90.7 fl (80.0-94.0); Mean Platelet Volume 8.9 fL (7.4-10.4); Platelet Count 127 thou/uL (130-400); RBC Distribution Width 11.8 % (11.5-14.5); White Blood Cell (WBC) Count 6.8 thou/uL (4.8-10.8)
[2017-09-26 05:39] LABS: Anion Gap 16 mmol/L (10-20); BUN (Urea Nitrogen) 97 mg/dL (8.4-25.7); Calc. Creatinine Clearance 17 mL/min (70-130); Calcium 8.8 mg/dL (7.8-10.44); Carbon Dioxide 20 mmol/L (23-31); Chloride 103 mmol/L (98-107); Estimated GFR-MDRD 13; Glucose 199 mg/dL (83-110); Potassium 4.4 mmol/L (3.5-5.1); Sodium 135 mmol/L (136-145)
[2017-09-26] MEDS: Carvedilol 25 MG TAB PO SCH ×2 (06:25→18:35)
[2017-09-26] MEDS: hydrALAZINE 25 MG TAB PO SCH ×3 (06:25→18:35)
[2017-09-26] MEDS: Ferrous Sulfate 325 MG TAB PO SCH (09:04)
[2017-09-26] MEDS: Heparin 5,000 UNITS/ML VIAL SC SCH ×2 (09:05→22:26)
[2017-09-26] MEDS: TOUJEO INSULIN SC SCH (09:06)
--- NOTE | 2017-09-26 09:30 | PRG ---
DATE OF SERVICE: 09/26/2017 SUBJECTIVE: Mr. Leos is a 72-year-old white male, who was admitted for CHF. He was diuresed. His creatinine worsened during the initial period. Diuretics has been adjusted. Currently it is on hold . Creatinine has been holding steady at value of 4.4. Patient voices no new complaints. He denies any chest pain or any worsening shortness of breath. OBJECTIVE: VITAL SIGNS: Blood pressure is 144/72, heart rate 72, respiratory rate 17, temperature 97.8, and pul se ox 95%. GENERAL: Noted to be awake, supine, comfortable, not in distress. SKIN: Adequate turgor. HEENT: He has pinkish conjunctivae, anicteric sclerae. NECK: No neck mass, no carotid bruits, no JVD. CHEST: No deformities. LUNGS: Clear breath sounds. No wheezing, no crackles. HEART: Normal sinus rhythm. No murmurs, no gallops, no rubs. ABDOMEN: Globular, soft, nontender, no masses. EXTREMITIES: No edema, no deformities. MEDICATIONS: 09/26/2017 was reviewed. LABORATORY DATA: 09/26/2017 - White count 6.8, hemoglobin 10. Sodium 135, potassium 4.4, chloride 1 03, carbon dioxide 20, BUN 97, creatinine 4.44, glucose 199, calcium 8.8. ASSESSMENT AND PLAN: 1. Chronic renal failure/acute kidney injury, stabilizing creatinine. Creatinine is now 4.44, yeste rday this was 4.48. He is currently on hold from his diuretics. No indication for any dialytic inte rvention. I agree with current management. 2. Congestive heart failure, clinically asymptomatic. Diuretics on hold due to worsening renal dysf unction. Overall, agree with current management. From a renal point of view, he could be discharged. We will recheck basic metabolic panel and CBC in a.m.
[2017-09-26] MEDS: Insulin Regular 300 UNITS/3 ML VIAL SC PRN ×2 (13:26→18:35)
[2017-09-26] MEDS: Rosuvastatin 20 MG TAB PO SCH (22:36)
--- NOTE | 2017-09-26 23:17 | PDOC.PN ---
- Subjective Encounter Start Date: 09/26/17 Encounter Start Time: 15:00 Subjective: nsg notes rev, zackary ovn, no new c/o, wants a doctors note for dates of -: hospitalization that he can mail out because he missed a flight while -: inpt - Objective Vital Signs & Weight: Vital Signs (12 hours) Temp Pulse Resp BP BP Pulse Ox 09/26/17 18:35 68 09/26/17 16:00 97.7 F 68 17 168/70 H 97 09/26/17 13:23 63 164/78 H 09/26/17 12:00 97.2 F L 62 18 162/76 H 96 Weight Weight 181 lb I&O: 09/25/17 09/26/17 09/27/17 06:59 06:59 06:59 Intake Total 698 1584 1080 Output Total 850 1200 1400 Balance -152 384 -320 Result Diagrams: 09/26/17 03:58 09/26/17 03:58 Additional Labs: Accuchecks 09/26/17 09/26/17 09/26/17 16:32 12:13 05:43 POC Glucose 334 H 333 H 238 H Phys Exam - Physical Examination Constitutional: NAD HEENT: PERRLA, moist MMs Neck: no JVD Respiratory: no wheezing, no rales, no rhonchi, clear to auscultation bilateral Cardiovascular: RRR, no significant murmur, no rub Gastrointestinal: soft, no distention, positive bowel sounds Neurological: moves all 4 limbs Psychiatric: normal affect, A&O x 3 Dx/Plan (1) Chest pain Code(s): R07.9 - CHEST PAIN, UNSPECIFIED Status: Acute (2) Acute on chronic kidney disease, stage 4 Code(s): N28.9 - DISORDER OF KIDNEY AND URETER, UNSPECIFIED; N18.4 - CHRONIC KIDNEY DISEASE, STAGE 4 (SEVERE) Status: Chronic (3) Acute on chronic systolic congestive heart failure Code(s): I50.23 - ACUTE ON CHRONIC SYSTOLIC (CONGESTIVE) HEART FAILURE Status : Chronic Comment: ef of 25% (4) DM2 (diabetes mellitus, type 2) Status: Chronic Qualifiers: Diabetes mellitus complication status: with kidney complications Diabetes mellitus complication detail: with chronic kidney disease Diabetes mellitus residential insulin use: with residential use Chronic kidney disease stage: stage 5, not on chronic dialysis Qualified Code(s): E11.22 - Type 2 diabetes mellitus with diabetic chronic kidney disease; N18.5 - Chronic kidney disease, stage 5; N18.5 - Chronic kidney disease, stage 5; N18.5 - Chronic kidney disease , stage 5; N18.5 - Chronic kidney disease, stage 5; Z79.4 - custodial (current) use of insulin; Z79.4 - ad terminal makeup operator (current) use of insulin; Z79.4 - ad terminal makeup operator ( current) use of insulin; Z79.4 - custodial (current) use of insulin (5) Dyslipidemia Code(s): E78.5 - HYPERLIPIDEMIA, UNSPECIFIED Status: Chronic (6) Hypertension Code(s): I10 - ESSENTIAL (PRIMARY) HYPERTENSION Status: Chronic Qualifiers: Hypertension type: essential hypertension Qualified Code(s): I10 - Essential (primary) hypertension - Plan * Pulmonary edema 2/2 acute on chronic CHF, improved * symptomatically improved, on RA * lasix has been discont * pt currently 5.5lbs down from adm * ambulate EFRAÍN on CKD likely diabetic nephropathy * apprec nephrology c/s * monitoring for EFRAÍN recovery while off lasix * close I/O IDDM * will resume home toujeo at 50% of home dose (25U insulin glargine QAM) and monitor HTN stable, monitor HLD stable hx CABG stable diet: cardiac, diabetic, renal 1500cc fluid restriction activity: oob as mikey dvt ppx: heparin Disposition planning: Suspect plateauing of renal function serologies. If continued stability, t/c d/c to home. Review of Systems - Medications/Allergies Allergies/Adverse Reactions: Allergies Allergy/AdvReac Type Severity Reaction Status Date / Time cephalexin monohydrate Allergy Verified 09/07/17 16:11 [From Keflex] levofloxacin [From Levaquin] Allergy Verified 09/09/17 13:56 propoxyphene napsylate Allergy Verified 09/07/17 16:11 [From Darvocet-N 100] Sulfa (Sulfonamide Allergy Verified 09/19/17 07:01 Antibiotics) sulfamethoxazole Allergy Verified 09/07/17 16:11 [From Bactrim] trimethoprim [From Bactrim] Allergy Verified 09/07/17 16:11 Medications: Current Medications Acetaminophen (Tylenol) 650 mg PO Q4H PRN PRN Reason: Headache/Fever or Pain Last Admin: 09/21/17 17:49 Dose: 650 mg Carvedilol (Coreg) 50 mg PO 0600,1700 [facility] Last Admin: 09/26/17 18:35 Dose: 50 mg Clonidine (Catapres) 0.1 mg PO Q4H PRN PRN Reason: SBP>160 Dextrose/Water (Dextrose 50%) 25 gm SLOW IVP PRN PRN PRN Reason: Hypoglycemia Ferrous Sulfate (Feosol) 325 mg PO QAM-WM [facility] Last Admin: 09/26/17 09:04 Dose: 325 mg Glucagon (Glucagon) 1 mg IM PRN PRN PRN Reason: Hypoglycemia Guaifenesin/Dextromethorphan (Robitussin Dm) 15 ml PO Q4H PRN PRN Reason: Cough Heparin Sodium (Porcine) (Heparin) 5,000 units SC BID [facility] Last Admin: 09/26/17 22:26 Dose: Not Given Hydralazine HCl (Apresoline) 20 mg SLOW IVP Q6H PRN PRN Reason: SBP GREATER THAN 160 Hydralazine HCl (Apresoline) 50 mg PO 0600,1200,1800 [facility] Last Admin: 09/26/17 18:35 Dose: 50 mg Dextrose/Water (D5w) 1,000 mls @ 0 mls/hr IV .Q0M PRN; As Directed PRN Reason: Hypoglycemia Insulin Human Regular (Humulin R) 0 units SC .MILD SLIDING SCALE PRN PRN Reason: Mild Correctional Scale Last Admin: 09/26/17 18:35 Dose: 5 unit Ondansetron HCl (Zofran) 4 mg IVP Q6H PRN PRN Reason: Nausea/Vomiting Toujeo Insulin Patient's Home Medication 0 each SC QAM [facility] Last Admin: 09/26/17 09:06 Dose: 1 each Rosuvastatin Calcium (Crestor) 40 mg PO HS [facility] Last Admin: 09/26/17 22:36 Dose: 40 mg Sodium Chloride (Flush - Normal Saline) 10 ml IVF Q12HR [facility] Last Admin: 09/26/17 22:26 Dose: Not Given Sodium Chloride (Flush - Normal Saline) 10 ml IVF PRN PRN PRN Reason: Saline Flush Last Admin: 09/20/17 06:21 Dose: 10 ml
[2017-09-27 05:27] LABS: #Eosinphils 0.5 thou/uL (0.0-0.7); #Lymphocytes 2.1 thou/uL (1.20-3.40); #Monocytes 0.7 thou/uL (0.11-0.59); #Neutrophils 3.8 thou/uL (1.40-6.50); %Basophils 0.5 % (0.0-1.0); %Eosinophils 6.7 % (0.0-10.0); %Lymphocytes 29.1 % (21.0-51.0); %Monocytes 9.9 % (0.0-10.0); %Neutrophils 53.8 % (42.0-75.0); Mean Corpuscular HGB CONC 33.8 g/dL (32.0-36.0); Mean Corpuscular Hemoglobin 30.7 pg (27.0-31.0); Mean Platelet Volume 8.8 fL (7.4-10.4); Platelet Count 132 thou/uL (130-400); RBC Distribution Width 11.6 % (11.5-14.5); Red Blood Cell (RBC) Count 3.25 mill/uL (4.70-6.10); White Blood Cell (WBC) Count 7.1 thou/uL (4.8-10.8)
[2017-09-27 05:48] LABS: Anion Gap 15 mmol/L (10-20); BUN (Urea Nitrogen) 96 mg/dL (8.4-25.7); Calc. Creatinine Clearance 18 mL/min (70-130); Calcium 8.9 mg/dL (7.8-10.44); Carbon Dioxide 21 mmol/L (23-31); Chloride 105 mmol/L (98-107); Estimated GFR-MDRD 14; Glucose 169 mg/dL (83-110); Potassium 4.6 mmol/L (3.5-5.1); Sodium 136 mmol/L (136-145)
[2017-09-27] MEDS: hydrALAZINE 25 MG TAB PO SCH ×2 (05:48→12:30)
[2017-09-27] MEDS: Carvedilol 25 MG TAB PO SCH (05:49)
--- NOTE | 2017-09-27 08:31 | PRG ---
DATE OF SERVICE: 09/27/2017 SERVICE: Renal Medicine. SUBJECTIVE: Mr. eLos is a 72-year-old white male who was admitted for congestive heart failure. He was diuresed. However, during the hospitalization, renal function worsened. Adjustments in diureti cs have been made. His diuretics currently on hold. He has no new complaints today. He is breathin g better. His appetite is excellent. PHYSICAL EXAMINATION: VITAL SIGNS: Blood pressure 164/72, heart rate 66, respiratory rate 18, temperature 96.2, pulse ox 9 7%. GENERAL: Awake, alert, comfortable, not in distress. SKIN: Adequate turgor. HEENT: He has pinkish conjunctivae, anicteric sclerae. NECK: No neck mass, no carotid bruits, no JVD. CHEST: No deformities. LUNGS: Clear breath sounds. No wheezing or crackles. HEART: Normal sinus rhythm. No murmur, no gallops or rubs. ABDOMEN: Globular, soft, nontender, no masses. EXTREMITIES: No edema, no deformities. MEDICATIONS: Of 09/27/2017 was reviewed. LABORATORY DATA: Of 09/27/2017, white count 7.1, hemoglobin 10, hematocrit 29.6. Sodium 136, potass ium 4.6, chloride 105, carbon dioxide 21, BUN 96, creatinine 4.22, glucose 169, calcium 8.9, hemoglob in 10, hematocrit 29.6. ASSESSMENT AND PLAN: 1. Acute kidney injury on top of his chronic renal failure, stabilizing renal function. Slightly im proved creatinine at 4.22. Please note, yesterday this was 4.44. Continue to hold off diuretics. T here is no indication for any dialytic intervention. His GFR is noted at 14 mL per minute. Consider dialysis once the GFR is less than 10 mL per minute. 2. Congestive heart failure, clinically much improved, off diuretics. We will resume diuretics. on ce he goes home. For the moment, agree with current management. We will recheck basic metabolic panel and CBC in a.m.
[2017-09-27] MEDS: Ferrous Sulfate 325 MG TAB PO SCH (09:31)
[2017-09-27] MEDS: TOUJEO INSULIN SC SCH (09:32)
[2017-09-27] MEDS: Heparin 5,000 UNITS/ML VIAL SC SCH (09:32)
--- NOTE | 2017-09-27 11:46 | PDOC.EVN ---
Event Note - Event Note Event Note: [id number] dc summary dictated
[2017-09-27 12:18] VITALS: BP 170/80; TEMP 97.8
--- NOTE | 2017-09-27 12:24 | DIS ---
DATE OF ADMISSION: 09/18/2017 DATE OF DISCHARGE: 09/27/2017 DISCHARGE DIAGNOSES: 1. Acute kidney injury with chronic kidney disease stage 4. 2. Congestive heart failure. 3. Acute on chronic systolic congestive heart failure. 4. Pulmonary edema. 5. Hypertension. 6. Anemia of chronic disease. 7. Diabetes mellitus type 2. 8. Hyperlipidemia. CONDITION: Stable. DISPOSITION: Home. DISCHARGE INSTRUCTIONS: 1. Follow with PCP in 2-3 days. 2. Follow up with Dr. Wong in 2-3 days. DISCHARGE MEDICATIONS: See med rec form. CONSULTANTS DURING HOSPITAL STAY: Nephrology, Dr. Wong. HOSPITAL COURSE: The patient is a 72-year-old male admitted secondary to fluid overload. 1. Acute on chronic systolic congestive heart failure. The patient was treated with IV diuretics. Patient's heart rate status improved. Patient is on room air at the time of discharge. 3. Acute kidney injury/chronic kidney disease stage 4. The patient's creatinine was monitored, init ially elevated due to diuretics. Creatinine improved during the hospital stay. Diuretics were held. Patient's creatinine started improving. The patient was seen by Nephrology also during his hospita l stay. At the time of discharge I discussed the case with Dr. Wong. He recommended to check a repe at CBC and BMP. Recommended to follow with him as an outpatient. The patient was recommended to dis charge on Lasix 20 mg daily. So at the time of discharge, the patient is on p.o. Lasix, and advised to follow up with Dr. Wong. 3. Hypertension. Blood pressure was monitored closely and was stable and advised to continue home m [facility]. 4. Diabetes mellitus type 2. Blood sugars monitored and was stable and advised to continue home. 5. Hyperlipidemia. Patient was advised to continue statin. PHYSICAL EXAMINATION: On the day of discharge: VITAL SIGNS: Blood pressure is 146/65, temperature 96.2, pulse ox 97% on room air, respiratory rate 18. GENERAL: The patient appears comfortable. HEENT: Pupils equal, round, and reactive. ENT patent. Nose normal. CARDIOVASCULAR: S1, S2 present, regular rhythm. No murmurs, rubs or gallops. RESPIRATORY: No wheezing, no rhonchi. GASTROINTESTINAL: Abdomen is soft, nontender, no guarding, no organomegaly. MUSCULOSKELETAL: No edema. NEURO: Cranial nerves system; awake. PSYCHIATRIC: Mood appropriate at this time. The patient is stable at the time of discharge. Discharge time 40 minutes. Discussed with the patient, RN and heel caser prior to discharge.
[2017-09-27] MEDS: Insulin Regular 300 UNITS/3 ML VIAL SC PRN (12:31)
== END 2017-09-27 14:41 | disposition home or self-care (01) | DRG 291 ==
LOC: ERS 10:25 → ERHOLD 12:54 → 2NO 18:28
PROVIDERS: ADMIT Internal Medicine Addiction Medicine; ATTEND Internal Medicine Addiction Medicine
DX: I13.0 Hypertensive heart and chronic kidney disease with heart failure and stage 1 through stage 4 chronic kidney disease, or unspecified chronic kidney disease (principal); I50.23 Acute on chronic systolic (congestive) heart failure; E87.5 Hyperkalemia; E11.21 Type 2 diabetes mellitus with diabetic nephropathy; N18.4 Chronic kidney disease, stage 4 (severe); N17.9 Acute kidney failure, unspecified; E11.22 Type 2 diabetes mellitus with diabetic chronic kidney disease; Z99.2 Dependence on renal dialysis; Z87.891 Personal history of nicotine dependence; E78.5 Hyperlipidemia, unspecified; Z85.528 Personal history of other malignant neoplasm of kidney; J06.9 Acute upper respiratory infection, unspecified; R11.2 Nausea with vomiting, unspecified; D63.1 Anemia in chronic kidney disease; Z95.810 Presence of automatic (implantable) cardiac defibrillator; Z79.4 Long term (current) use of insulin; Z95.1 Presence of aortocoronary bypass graft
CPT/HCPCS: 36415; 36416; 71045; 80048; 80053; 82550; 82553; 83690; 83880; 84484; 85025; 93005; 93798; 96365; 96375; A4216; J1644; J1815; J1940; J2405; J7050; Q0162

== ENCOUNTER 2018-06-16 10:51 | Observation (INO) | payer MEDICARE ==
[2018-06-15 10:59] VITALS: BMI 25.6
[2018-06-16] MEDS ORDERED: CEFAZOLIN/Water 2 GM/20 ML SYRINGE ONE (11:41)
[2018-06-16] MEDS ORDERED: Lidocaine 1% (PF) 30 ML VIAL ONE (11:41)
[2018-06-16 11:45] LABS: #Eosinphils 0.2 thou/uL (0.0-0.7); #Lymphocytes 1.4 thou/uL (1.20-3.40); #Monocytes 0.5 thou/uL (0.11-0.59); #Neutrophils 5.1 thou/uL (1.40-6.50); %Basophils 0.2 % (0.0-1.0); %Eosinophils 2.7 % (0.0-10.0); %Lymphocytes 18.7 % (21.0-51.0); %Neutrophils 71.4 % (42.0-75.0); Hemoglobin 11.5 g/dL (14.0-18.0); Mean Corpuscular Volume 91.2 fL (78.0-98.0); Mean Platelet Volume 8.4 fL (7.4-10.4); Platelet Count 153 thou/uL (130-400); RBC Distribution Width 11.7 % (11.5-14.5); Red Blood Cell (RBC) Count 3.71 mill/uL (4.70-6.10); White Blood Cell (WBC) Count 7.2 thou/uL (4.8-10.8)
[2018-06-16 11:51] LABS: INR-International Normal Ratio 1.1; PTT 23.2 SEC (22.9-36.1)
[2018-06-16 11:58] LABS: Anion Gap 15 mmol/L (10-20); BUN (Urea Nitrogen) 53 mg/dL (8.4-25.7); Calc. Creatinine Clearance 21 mL/min (70-130); Calcium 8.7 mg/dL (7.8-10.44); Carbon Dioxide 18 mmol/L (23-31); Chloride 109 mmol/L (98-107); Estimated GFR-MDRD 15; Glucose 232 mg/dL (83-110); Potassium 6.2 mmol/L (3.5-5.1); Sodium 136 mmol/L (136-145)
[2018-06-16] MEDS ORDERED: hydrALAZINE 20 MG/ML VIAL SLOW IVP SCH (13:00)
[2018-06-16 13:07] LABS: Potassium 6.6 mmol/L (3.5-5.1)
[2018-06-16] MEDS ORDERED: cloNIDine 0.1 MG TAB ONE (13:23)
[2018-06-16] MEDS ORDERED: Insulin Regular 300 UNITS/3 ML VIAL SC SCH (13:30)
[2018-06-16] MEDS ORDERED: cloNIDine 0.1 MG TAB PO SCH (13:30)
[2018-06-16] MEDS ORDERED: Labetalol HCl 100 MG/20 ML VIAL SLOW IVP PRN (13:35)
[2018-06-16] MEDS ORDERED: Dextrose 50% Abboject 50 ML SYRINGE SLOW IVP SCH (13:45)
[2018-06-16] MEDS ORDERED: Labetalol HCl 100 MG/20 ML VIAL ONE (14:36)
[2018-06-16] MEDS ORDERED: Dextrose 50% Abboject 50 ML SYRINGE SLOW IVP PRN (15:13)
[2018-06-16] MEDS ORDERED: Insulin Regular 300 UNITS/3 ML VIAL SC PRN (15:13)
[2018-06-16] MEDS ORDERED: Dextrose 5% in Water 1,000 ML IV PRN (15:13)
[2018-06-16] MEDS ORDERED: Ondansetron ODT 4 MG TAB PO PRN (15:14)
[2018-06-16] MEDS ORDERED: Senokot S 8.6-50 MG TAB PO PRN (15:14)
[2018-06-16] MEDS ORDERED: Calcium Carbonate 500 MG ChewTAB PO PRN (15:14)
[2018-06-16] MEDS ORDERED: Ondansetron PF 4 MG/2 ML Vial IVP PRN (15:14)
[2018-06-16] MEDS ORDERED: ALPRAZolam 0.5 MG TAB PO PRN (15:17)
[2018-06-16] MEDS ORDERED: Nitroglycerin 0.4 MG TAB (25 Tab Bottle) PO PRN (15:18)
[2018-06-16] MEDS ORDERED: HYDROcodone/Acetaminophen 5/325 mg Tablet PO PRN (17:00)
--- NOTE | 2018-06-16 17:15 | HP ---
DATE OF ADMISSION: 06/16/2018 PRIMARY CARE PHYSICIAN: Dr. Adore Cabrera. CHIEF COMPLAINT: Abnormal labs. HISTORY OF PRESENT ILLNESS: The patient is a 72-year-old male with congestive heart failure, status post AICD, was scheduled to undergo AICD upgrade today. His routine labs in the preoperative was consistent with potassium of 6.6. For this reason, the procedure was canceled. He denies any chest pain, shortness of breath, palpitations, lightheadedness, dizziness, or syncope. He is currently not on ARLEN inhibitor or potassium supplementation. He states that over the last 2 days, he has been not watching his diet closely. He, however, is compliant with fluid restriction. PAST MEDICAL HISTORY: 1. Chronic systolic heart failure, ejection fraction 20% -25% range. 2. Chronic kidney disease stage 5, followed by Dr. Wong. 3. Diabetes mellitus type 2. 4. Hypertension. 5. Coronary artery disease, status post coronary artery bypass grafting. 6. Ischemic cardiomyopathy. 7. Dyslipidemia. 8. History of hemodialysis in the past. 9. Bilateral carotid artery disease. 10. Family history of heart disease. PAST SURGICAL HISTORY: 1. AICD placement. 2. Dialysis access. 3. CABG. 4. Tonsillectomy. 5. Spinal surgery. 6. Left nephrectomy. ALLERGIES: Patient is allergic to multiple medications including KEFLEX, LEVAQUIN, SULFA AND BACTRIM. FAMILY HISTORY: Positive for heart disease. SOCIAL HISTORY: The patient is a former smoker. Denies current use of alcohol or drug use. He currently lives at home in [place]. He makes his own decisions with the help of his family. He is FULL CODE. CURRENT HOME MEDICATIONS: Xanax as needed, calcitriol 0.25 daily, hydralazine 50 mg 3 times a day, Lantus 25 units daily, aspirin 81 mg daily, Coreg 50 mg b.i.d., Lasix 20 mg daily, Humalog sliding scale, Crestor 40 mg at bedtime. REVIEW OF SYSTEMS: The following complete review of systems was negative, unless otherwise mentioned in the HPI or below: Constitutional: Weight loss or gain, ability to conduct usual activities. Skin: Rash, itching. Eyes: Double vision, pain. ENT/Mouth: Nose bleeding, neck stiffness, pain, tenderness. Cardiovascular: Palpitations, dyspnea on exertion, orthopnea. Respiratory: Shortness of breath, wheezing, cough, hemoptysis, fever or night sweats. Gastrointestinal: Poor appetite, abdominal pain, heartburn, nausea, vomiting, constipation, or diarrhea. Genitourinary: Urgency, frequency, dysuria, nocturia. Musculoskeletal: Pain, swelling. Neurologic/Psychiatric: Anxiety, depression. Allergy/Immunologic: Skin rash, bleeding tendency. PHYSICAL EXAMINATION: VITAL SIGNS: Temperature 97.9, pulse rate of 70, blood pressure of 131/81, respirations 16, O2 saturation 95% on room air. GENERAL: A 72-year-old male, in no apparent distress. HEENT: Head atraumatic, normocephalic. Sclerae are anicteric. Moist mucous membrane. No oral lesion. NECK: Supple, no JVD, no carotid bruit. LUNGS: Clear to auscultation bilaterally, no wheezing, rales or rhonchi. HEART: S1, S2 present. Regular rate and rhythm. AICD noted. Healed midline scar from previous CABG. ABDOMEN: Soft, nontender, bowel sounds present. EXTREMITIES: No edema or calf tenderness. NEUROLOGIC: Grossly nonfocal, moves all four extremities. PSYCHIATRIC: Alert, awake, oriented x3. SKIN: Warm and dry. LYMPH NODES: No palpable lymph nodes in the neck. LABORATORY AND X-RAY FINDINGS: As discussed above. Creatinine was 3.89 with BUN 53. Bicarbonate was 18. CBC showed WBC 7.2 with hemoglobin 11.5. Telemetry monitoring by my review showed sinus rhythm. IMPRESSION: 1. Hyperkalemia secondary to chronic kidney disease stage 5, noncompliance with low potassium diet. 2. Coronary artery disease, status post coronary artery bypass grafting. 3. Chronic systolic heart failure, status post AICD. ACC stage C. The patient is not on ARLEN inhibitor, ARB or Aldactone secondary to renal insufficiency. 4. Diabetes mellitus type 2. 5. Hypertension. 6. Hyperlipidemia. 7. Chronic insomnia. 8. Former smoker. 9. Family history of heart disease. 10. Bilateral carotid artery disease. PLAN: The patient will be monitored on the telemetry unit. He received lactulose with insulin and Kayexalate per Nephrology. We will recheck base met later today. We will resume selected home medications. We will start him on insulin sliding scale. Recheck labs tomorrow morning. Nephrology has already been consulted. We will consult dietitian for low potassium diet education. We will continue low dose aspirin. Plan of care was discussed with the patient in detail. He stated understanding. MTDD
[2018-06-16] MEDS: Acetaminophen 325 MG TAB PO PRN (17:33)
[2018-06-16] MEDS: Carvedilol 25 MG TAB PO SCH (20:15)
[2018-06-16 20:18] LABS: Anion Gap 13 mmol/L (10-20); BUN (Urea Nitrogen) 53 mg/dL (8.4-25.7); Calc. Creatinine Clearance 22 mL/min (70-130); Calcium 8.7 mg/dL (7.8-10.44); Carbon Dioxide 22 mmol/L (23-31); Chloride 110 mmol/L (98-107); Estimated GFR-MDRD 16; Glucose 109 mg/dL (83-110); Potassium 4.9 mmol/L (3.5-5.1); Sodium 140 mmol/L (136-145)
[2018-06-16] MEDS ORDERED: hydrALAZINE 25 MG TAB PO SCH (21:00)
[2018-06-16] MEDS ORDERED: Rosuvastatin 20 MG TAB PO SCH (21:00)
[2018-06-16] MEDS: cloNIDine 0.1 MG TAB PO PRN (21:10)
[2018-06-16] MEDS: Insulin Regular 300 UNITS/3 ML VIAL SC PRN (21:53)
--- NOTE | 2018-06-16 22:31 | CON ---
DATE OF CONSULTATION: 06/16/2018 RENAL MEDICINE HISTORY OF PRESENT ILLNESS: Mr. Leos is a 72-year-old white male with history of chronic renal fail ure, CHF, and was supposed to undergo an AICD upgrade today, but was found to be hyperkalemic. Potas sium was noted 6.6. Insulin and Kayexalate was given. He did develop a good bowel movement. Rechec k of the potassium is currently pending. We are now being consulted for his hyperkalemia and chronic renal failure. REVIEW OF SYSTEMS: No chest pain. No shortness of breath. No nausea, no vomiting, no diarrhea, no constipation, no productive cough, no fever or chills, no dysuria, no urine frequency, no abdominal p ain, no syncopal episode, more productive cough. Energy level and appetite is fair. HOME MEDICATIONS: Includes the following, hydralazine 50 mg p.o. t.i.d., Crestor 40 mg at bedtime, H umalog sliding scale, furosemide 20 mg tab once a day, Xanax 1-2 tabs at bedtime, aspirin 81 mg table t once a day, calcitriol 0.25 mcg every day, Coreg 50 mg p.o. b.i.d. HOSPITAL MEDICATIONS: Include Humulin R sliding scale, clonidine 0.1 mg q.4 p.r.n. and alprazolam 0. 5 mg at bedtime p.r.n. PAST MEDICAL HISTORY: 1. Chronic renal failure secondary to presumed diabetic nephropathy. 2. Type 2 diabetes mellitus. 3. Congestive heart failure - EF of 20%-25%. 4. History of cardiomyopathy, coronary artery disease, dyslipidemia, history of noncompliance, hyper tension. PAST SURGICAL HISTORY: 1. Status post AICD placement. 2. Status post AV fistula placement. 3. Status post tonsillectomy. 4. Status post cuffed hemodialysis catheter placement. 5. Status post left nephrectomy. 6. Status post cardiac catheterization. 7. Status post CABG. 8. Status post back surgery. ALLERGIES: KEFLEX, PROPOXYPHENE, BACTRIM. TRAUMA: None. IMMUNIZATIONS: Up to date. HOSPITALIZATIONS: Please see past medical history. FAMILY HISTORY: No family history of ESRD. SOCIAL HISTORY: The patient is and lives in [place]. Has one child. 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 Originally from [place]. Education 8th grade. No alcohol use, no drug abuse. S tatus post multiple transfusion. PHYSICAL EXAMINATION: VITAL SIGNS: Blood pressure is noted at 131/81, heart rate 70, respiratory rate 16, temperature 97.9 , pulse oximetry 95%. GENERAL: Awake, supine, comfortable, not in overt distress. SKIN: Adequate turgor. HEENT: He has pinkish conjunctivae, anicteric sclerae. NECK: No neck mass, no carotid bruits, no JVD. CHEST: No deformities. LUNGS: Clear breath sounds, no wheezing, no crackles. HEART: Normal sinus rhythm. No murmurs, no gallops, no rubs. ABDOMEN: Globular, soft, nontender. No masses. EXTREMITIES: No edema, no deformities. LABORATORY DATA: Laboratories of 06/16/2018; white count 7.2, hemoglobin 11.5. Sodium is 136, potas sium 6.6, chloride 109, carbon dioxide 18, BUN 53, creatinine 3.89, glucose 232 and calcium 8.7. ASSESSMENT AND PLAN: 1. Chronic renal failure - stable renal function. Currently, creatinine is 3.89 with a GFR of 15 mL per minute. He is currently at stage IV chronic renal failure. No indication for any dialytic inte rvention. Continue current supportive care. Continue judicious use of diuretics. 2. Hyperkalemia - insulin with Kayexalate has been given. We will be rechecking repeat potassium in the next few hours. I do anticipate with potassium going down. If needed, we can repeat the Kayexa late again. For the moment, agree with current management. There is no indication for emergent dial ysis with this patient. We will recheck base met and CBC in a.m.
[2018-06-17] MEDS: Acetaminophen 325 MG TAB PO PRN (04:19)
[2018-06-17] MEDS: cloNIDine 0.1 MG TAB PO PRN (04:19)
[2018-06-17 05:15] LABS: Anion Gap 14 mmol/L (10-20); BUN (Urea Nitrogen) 53 mg/dL (8.4-25.7); Calc. Creatinine Clearance 23 mL/min (70-130); Calcium 8.2 mg/dL (7.8-10.44); Carbon Dioxide 17 mmol/L (23-31); Chloride 111 mmol/L (98-107); Estimated GFR-MDRD 16; Glucose 185 mg/dL (83-110); Potassium 4.7 mmol/L (3.5-5.1); Sodium 137 mmol/L (136-145)
[2018-06-17] MEDS: Insulin Regular 300 UNITS/3 ML VIAL SC PRN (05:37)
[2018-06-17 07:48] VITALS: TEMP 97.5
--- NOTE | 2018-06-17 08:22 | PRG ---
DATE OF SERVICE: 06/17/2018 SERVICE: Renal Medicine. SUBJECTIVE: Mr. Leos is a 72-year-old white male, who was admitted due to hyperkalemia. During the planned AICD upgrade/replacement, patient was noted to be hyperkalemic. He was given insulin and Ka yexalate. This improved his potassium to a most recent value of 4.7. Please note, the potassium tim t to as high as 6.6. I have given counseling with this patient regarding low potassium diet. He did admit he was quite liberal with his food intake. In addition, blood pressure has been labile. He w as started on hydralazine 50 mg p.o. t.i.d., but I have decided to increase it to 100 mg p.o. t.i.d. No other complaints today except for episodes of hunger pains. I did advise him to eat more frequen tly smaller amounts. OBJECTIVE: VITAL SIGNS: Blood pressure 162/68 with a high pressure of 222/95, heart rate 61, respiratory rate 2 0, temperature 97.9, pulse oximetry 95%. GENERAL EXAM: Awake, alert, comfortable, not in distress SKIN: Adequate turgor. HEENT: He has pinkish conjunctivae, anicteric sclerae. NECK: No neck mass, no carotid bruits, no JVD. CHEST: No deformities. LUNGS: Clear breath sounds. No wheezing, no crackles. HEART: Normal sinus rhythm. No murmur, no gallops, no rubs. ABDOMEN: Globular, soft, nontender, no masses. EXTREMITIES: No edema, no deformities. Medications of 06/17/2018 reviewed. LABORATORY DATA: Laboratories of 06/17/2018, sodium 137, potassium 4.7, chloride 111, carbon dioxide 17, BUN 53, creatinine 3.67, glucose 185, calcium 8.2. ASSESSMENT AND PLAN: 1. Chronic renal failure from diabetic nephropathy, stable renal function. No indication for any em ergent dialytic intervention. 2. Metabolic acidosis. Start sodium bicarbonate 650 mg p.o. b.i.d. 3. Anemia. No indication for any Epogen. 4. Hyperkalemia - resolved. 5. Hypertension. Optimize blood pressure control. We will increase hydralazine to 100 mg p.o. t.i. d. Recheck base met and CBC in a.m., if the patient is still here.
[2018-06-17] MEDS: Carvedilol 25 MG TAB PO SCH (08:42)
[2018-06-17] MEDS ORDERED: Insulin Glargine 15 UNITS in Pre-Filled Syringe 1 EACH SC SCH (09:00)
[2018-06-17] MEDS ORDERED: hydrALAZINE 25 MG TAB PO SCH (09:00)
[2018-06-17] MEDS ORDERED: Non-Formulary Item 1 EACH (Insulin Glargine,Hum.Rec.Anlog [Lantus Solostar] 15 UNIT) SQ SCH (09:00)
[2018-06-17] MEDS ORDERED: Aspirin 81 mg Enteric Coated Tablet PO SCH (09:00)
[2018-06-17] MEDS ORDERED: Calcitriol 0.25 MCG CAP PO SCH (09:00)
[2018-06-17] MEDS ORDERED: Sodium Bicarbonate Tab 325 MG TAB PO SCH (09:00)
[2018-06-17] MEDS ORDERED: Furosemide 20 MG TAB PO SCH (09:00)
[2018-06-17 12:48] VITALS: BP 129/65
--- NOTE | 2018-06-18 07:15 | DIS ---
DATE OF DISCHARGE: 06/17/2018 DISCHARGE MEDICATION: Sodium bicarbonate 650 mg twice a day. The patient was advised to take an ext ra dose of hydralazine if his blood pressure remains elevated. All other home medications were left, unchanged. The patient was advised to follow up with primary care physician, Adore Cabrera, next week. He was also advised to repeat base met next week. The patient was seen and examined on the day of discharge. Denies any new complaints, no chest pain, shortness of breath, or palpitation. BRIEF HOSPITAL COURSE: The patient is a 72-year-old male with chronic kidney disease stage 5; chroni c systolic heart failure, ejection fraction 20-25%; diabetes mellitus type 2; hypertension who presen renard to the hospital with abnormal labs. He was scheduled for AICD upgrade. However, he was found to have potassium of 6.6. For this reason, the procedure was canceled. The Nephrology recommended ove rnight observation. His potassium improved with Kayexalate. His potassium on the day of discharge i s 4.7. He has been started on sodium bicarbonate per Nephrology. He was extensively counseled on lo w potassium diet. He has been cleared by Nephrology for discharge. He was advised to contact Dr. Jason espinoza's office for rescheduling the AICD upgrade. FINAL DIAGNOSES: 1. Hyperkalemia, probably secondary to noncompliance with low-potassium diet in the setting of chron ic kidney disease, stage 5. 2. Coronary artery disease, status post coronary artery bypass grafting. 3. Chronic systolic heart failure, status post automated implantable cardioverter-defibrillator. 4. Diabetes mellitus type 2. 5. Hypertension. 6. Hyperlipidemia. 7. Chronic insomnia. 8. Former smoker. 9. Family history of heart disease. 10. Bilateral carotid artery disease. Plan of care was discussed with the patient in detail, he stated understanding.
== END 2018-06-17 15:01 | disposition home or self-care (01) ==
LOC: CCL 10:51 → 2SW 13:41
PROVIDERS: ADMIT Internal Medicine; ATTEND Internal Medicine
DX: Z45.02 Encounter for adjustment and management of automatic implantable cardiac defibrillator (principal); Z53.09 Procedure and treatment not carried out because of other contraindication; I13.2 Hypertensive heart and chronic kidney disease with heart failure and with stage 5 chronic kidney disease, or end stage renal disease; N18.5 Chronic kidney disease, stage 5; E87.5 Hyperkalemia; I50.22 Chronic systolic (congestive) heart failure; E11.22 Type 2 diabetes mellitus with diabetic chronic kidney disease; I25.10 Atherosclerotic heart disease of native coronary artery without angina pectoris; I25.5 Ischemic cardiomyopathy; E78.5 Hyperlipidemia, unspecified; I65.23 Occlusion and stenosis of bilateral carotid arteries; Z95.1 Presence of aortocoronary bypass graft; Z87.891 Personal history of nicotine dependence; Z79.82 Long term (current) use of aspirin; Z79.899 Other long term (current) drug therapy
CPT/HCPCS: 80048 ×3; 82962 ×2; 84132; 85025; 85610; 85730; 93005; G0378; 36415; 36416; 93010; J1815; J2001; J3490

== ENCOUNTER 2018-07-06 12:46 | Emergency (ER) | payer MEDICARE ==
[2018-07-06 13:29] LABS: #Eosinphils 0.2 thou/uL (0.0-0.7); #Lymphocytes 1.1 thou/uL (1.20-3.40); #Monocytes 0.4 thou/uL (0.11-0.59); #Neutrophils 4.1 thou/uL (1.40-6.50); %Basophils 0.6 % (0.0-1.0); %Lymphocytes 19.5 % (21.0-51.0); %Monocytes 7.4 % (0.0-10.0); %Neutrophils 69.4 % (42.0-75.0); Hemoglobin 12.2 g/dL (14.0-18.0); Mean Corpuscular HGB CONC 33.1 g/dL (32.0-36.0); Mean Corpuscular Hemoglobin 30.7 pg (27.0-31.0); Mean Corpuscular Volume 92.7 fL (78.0-98.0); Platelet Count 169 thou/uL (130-400); RBC Distribution Width 11.9 % (11.5-14.5); Red Blood Cell (RBC) Count 3.97 mill/uL (4.70-6.10); White Blood Cell (WBC) Count 5.9 thou/uL (4.8-10.8)
[2018-07-06 13:51] LABS: ALT (SGPT) 9 U/L (8-55); AST (SGOT) 10 U/L (5-34); Albumin 4.3 g/dL (3.4-4.8); Alkaline Phosphatase 55 U/L (40-150); Anion Gap 16 mmol/L (10-20); BUN (Urea Nitrogen) 69 mg/dL (8.4-25.7); Bilirubin, Total 0.5 mg/dL (0.2-1.2); Calc. Creatinine Clearance 0 mL/min (70-130); Calcium 9.2 mg/dL (7.8-10.44); Carbon Dioxide 19 mmol/L (23-31); Chloride 107 mmol/L (98-107); Estimated GFR-MDRD 13; Globulin 3.5 g/dL (2.4-3.5); Glucose 244 mg/dL (83-110); Potassium 5.7 mmol/L (3.5-5.1); Protein, Total 7.8 g/dL (5.8-8.1); Sodium 136 mmol/L (136-145)
[2018-07-06] MEDS ORDERED: Morphine 2 MG/ML SYRINGE ONE (16:11)
[2018-07-06] MEDS ORDERED: Ondansetron ODT 4 MG TAB ONE (16:12)
--- NOTE | 2018-07-06 16:29 | RAD ---
PORTABLE CHEST: Date: 07/06/18 INDICATION: Right flank pain and chest pain. COMPARISON: 09/18/17. FINDINGS: Mild cardiomegaly with postop sternotomy change and AICD leads. Mild vascular engorgement without inf iltrate or significant edema. No significant effusion. IMPRESSION: Cardiomegaly and mild vascular engorgement. No evidence of overt edema or infiltrate. POS: [facility]
[2018-07-06 17:46] LABS: Bilirubin Negative (Negative); Blood, Urine Negative (Negative); Clarity CLEAR (Clear); Glucose, Urine (Dipstick) 100 mg/dL (Negative); Leukocyte Negative (Negative); Nitrite Negative (Negative); Protein, Urine (Dipstick) 100 mg/dL (Neg-Trace); Urobilinogen 0.2 mg/dL (0.2-1.0)
[2018-07-06 17:49] LABS: Bacteria/HPF None Seen HPF (None Seen); Hyaline Casts/LPF 0-3 HYALINE CAST LPF (0-3 Hyaline); RBC/HPF None Seen HPF (0-3); Squamous Epithelial None Seen HPF (0-3); WBC/HPF None Seen HPF (0-3)
--- NOTE | 2018-07-06 18:24 | ULT ---
RENAL ULTRASOUND: 07/06/18 INDICATION: History of renal failure. COMPARISON: Prior exam dated 08/16/13. FINDINGS: The right kidney measures 9.3 x 5.0 x 4.9 cm. There is a tiny 1 cm cyst involving the lateral aspect of the inferior pole of the right kidney. No hydronephrosis is evident. Renal cortical thickness is 1 .4 cm. There is diffuse increased echogenicity of the kidney when compared to the prior exam. The left kidney is surgically absent. The prevoid bladder volume is 501 mL. IMPRESSION: 1. Slight increased echogenicity of the right kidney can be seen with acute medical renal diseas e. 2. Left nephrectomy. 3. Prevoid bladder volume at 501 mL. 4. Small right renal cyst. POS: [facility]
== END 2018-07-06 19:12 | disposition home or self-care (01) ==
LOC: ERS 12:46
DX: M54.6 Pain in thoracic spine (principal); I25.10 Atherosclerotic heart disease of native coronary artery without angina pectoris; I25.2 Old myocardial infarction; E78.5 Hyperlipidemia, unspecified; I10 Essential (primary) hypertension; E11.9 Type 2 diabetes mellitus without complications; Z79.4 Long term (current) use of insulin; Z87.891 Personal history of nicotine dependence; Z79.899 Other long term (current) drug therapy
CPT/HCPCS: 36415; 71045; 76775; 80053; 81003; 81015; 83880; 85025; 96372; J2270; Q0162

== ENCOUNTER 2018-07-11 10:57 | Day surgery (SDC) | payer MEDICARE ==
[2018-06-23 13:26] VITALS: BMI 25.6
[2018-07-11] MEDS ORDERED: Lidocaine 1% (PF) 30 ML VIAL ONE (11:56)
[2018-07-11 12:40] LABS: INR-International Normal Ratio 1.1; PTT 24.7 SEC (22.9-36.1)
[2018-07-11 12:41] LABS: Anion Gap 16 mmol/L (10-20); BUN (Urea Nitrogen) 88 mg/dL (8.4-25.7); Calc. Creatinine Clearance 19 mL/min (70-130); Calcium 9.1 mg/dL (7.8-10.44); Carbon Dioxide 17 mmol/L (23-31); Chloride 107 mmol/L (98-107); Estimated GFR-MDRD 13; Glucose 271 mg/dL (83-110); Potassium 5.5 mmol/L (3.5-5.1); Sodium 134 mmol/L (136-145)
[2018-07-11] MEDS ORDERED: Phenylephrine HCL 10 MG/ML VIAL ONE (13:34)
[2018-07-11] MEDS ORDERED: Dexmedetomidine 200 MCG/2 ML VIAL ONE (13:37)
[2018-07-11] MEDS ORDERED: Ketamine 50 MG/ML (10ML VIAL) ONE (13:40)
[2018-07-11] MEDS ORDERED: Midazolam HCl 2 mg/2 ml Vial ONE (13:49)
[2018-07-11] MEDS ORDERED: Fentanyl 100 MCG/2 ML VIAL ONE (13:50)
[2018-07-11] MEDS ORDERED: CEFAZOLIN 2 GM/50 ML BAG ONE (14:17)
== END 2018-07-11 17:35 | disposition home or self-care (01) ==
LOC: CCL 10:57
PROVIDERS: ATTEND Internal Medicine Cardiovascular Disease
PROC: 0JPT0PZ Removal of Cardiac Rhythm Related Device from Trunk Subcutaneous Tissue and Fascia, Open Approach (ICD-10-PCS; principal; 2018-07-11)
PROC: 0JH607Z Insertion of Cardiac Resynchronization Pacemaker Pulse Generator into Chest Subcutaneous Tissue and Fascia, Open Approach (ICD-10-PCS; 2018-07-11)
DX: Z45.02 Encounter for adjustment and management of automatic implantable cardiac defibrillator (principal); I25.5 Ischemic cardiomyopathy; Z88.8 Allergy status to other drugs, medicaments and biological substances; Z88.2 Allergy status to sulfonamides
CPT/HCPCS: 33264; 36415; 80048; 85610; 85730; 93005; 93010; C1882; J2001; J2250; J2370; J3010; J3490

== ENCOUNTER 2018-07-22 04:46 | Inpatient (IN) | payer MEDICARE ==
[2018-07-22] MEDS ORDERED: Nitroglycerin 2% Ointment 1 INCH/1 GM Packet ONE (04:58)
[2018-07-22] MEDS ORDERED: Nitroglycerin 50 MG/250 ML BOT 250 ML ONE ×2 (05:13→09:03)
[2018-07-22] MEDS ORDERED: Furosemide 100 MG/10 ML VIAL ONE (05:13)
[2018-07-22 05:20] LABS: #Basophils 0.3 thou/uL (0.0-0.2); #Lymphocytes 1.1 thou/uL (1.20-3.40); #Monocytes 1.1 thou/uL (0.11-0.59); #Neutrophils 11.3 thou/uL (1.40-6.50); %Basophils 1.9 % (0.0-1.0); %Eosinophils 0.3 % (0.0-10.0); %Lymphocytes 7.7 % (21.0-51.0); %Monocytes 8.2 % (0.0-10.0); Hemoglobin 11.5 g/dL (14.0-18.0); Mean Corpuscular HGB CONC 34.2 g/dL (32.0-36.0); Mean Corpuscular Volume 90.8 fL (78.0-98.0); Mean Platelet Volume 8.4 fL (7.4-10.4); Platelet Count 194 thou/uL (130-400); RBC Distribution Width 12.2 % (11.5-14.5); White Blood Cell (WBC) Count 13.8 thou/uL (4.8-10.8)
[2018-07-22 05:38] LABS: ALT (SGPT) 38 U/L (8-55); AST (SGOT) 51 U/L (5-34); Albumin 4.1 g/dL (3.4-4.8); Alkaline Phosphatase 55 U/L (40-150); Anion Gap 15 mmol/L (10-20); BUN (Urea Nitrogen) 99 mg/dL (8.4-25.7); Bilirubin, Total 0.4 mg/dL (0.2-1.2); CK (CPK) 302 U/L (30-200); Calc. Creatinine Clearance 0 mL/min (70-130); Carbon Dioxide 14 mmol/L (23-31); Chloride 107 mmol/L (98-107); Estimated GFR-MDRD 12; Globulin 3.3 g/dL (2.4-3.5); Glucose 376 mg/dL (83-110); Potassium 5.2 mmol/L (3.5-5.1); Protein, Total 7.4 g/dL (5.8-8.1); Sodium 131 mmol/L (136-145)
[2018-07-22 05:39] LABS: Actual Bicarbonate (HCO3a) 14.5 mEq/L (22-28); Analyzer IN Cardio ER; Base Excess (BEa) -12.5 mEq/L (-2.0 to +3.0); CO2 Tension 36.8 mmHg (35.0-45.0); Calcium, Ionized 1.22 mmol/L (1.12-1.30); Carboxyhemoglobin (COHb) 0.3 gm% (0.0-3.0); Hemoglobin (Hb) 12.1 g/dL (14.0-18.0); O2 Tension (PaO2) 64.4 mmHg (> 70.0); Potassium - ABG Lab 5.41 mmol/L (3.70-5.30)
[2018-07-22 05:40] LABS: pH, Arterial 7.21 (7.35-7.45)
[2018-07-22 05:41] LABS: Puncture Site LRA
[2018-07-22 05:47] LABS: CKMB 11.9 ng/mL (0-6.6); Troponin I 6.092 ng/mL (< 0.028)
[2018-07-22] MEDS ORDERED: Heparin 1,000 UNITS/ML VIAL ONE ×2 (06:07→07:35)
[2018-07-22] MEDS ORDERED: Heparin 25,000 units/D5W 500 ML ONE (06:07)
[2018-07-22 06:52] LABS: Bilirubin Negative (Negative); Blood, Urine Negative (Negative); Clarity CLEAR (Clear); Glucose, Urine (Dipstick) 500 mg/dL (Negative); Leukocyte Negative (Negative); Nitrite Negative (Negative); Protein, Urine (Dipstick) 100 mg/dL (Neg-Trace); Specific Gravity, Urine 1.013 (1.002-1.036); Urobilinogen 0.2 mg/dL (0.2-1.0)
[2018-07-22 06:54] LABS: Bacteria/HPF None Seen HPF (None Seen); Hyaline Casts/LPF 0-3 HYALINE CAST LPF (0-3 Hyaline); Pathc Cast-AUWi Flag 0.29 (0-2.49); RBC/HPF None Seen HPF (0-3); Squamous Epithelial None Seen HPF (0-3); WBC/HPF None Seen HPF (0-3)
--- NOTE | 2018-07-22 08:09 | RAD ---
CHEST 1 VIEW: Date: 07/22/18 INDICATION: History of CHF, chest pressure, and shortness of breath. COMPARISON: Prior exam dated 07/06/18. IMPRESSION: There is cardiomegaly with pulmonary vascular congestion. Perihilar air space opacities suspicious fo r CHF or pneumonia. No pleural effusion or pneumothorax is evident. AICD is unchanged. POS: [facility]
[2018-07-22] MEDS ORDERED: Morphine 4 MG/ML VIAL ONE (08:30)
[2018-07-22 08:32] VITALS: BMI 26.3
[2018-07-22 08:38] LABS: PTT 27.1 SEC (22.9-36.1); Prothrombin Time 13.6 SEC (12.0-14.7)
[2018-07-22 09:56] LABS: Troponin I 11.888 ng/mL (< 0.028)
[2018-07-22] MEDS ORDERED: Ondansetron PF 4 MG/2 ML Vial IVP PRN (10:18)
[2018-07-22] MEDS ORDERED: Acetaminophen 325 MG TAB PO PRN (10:18)
[2018-07-22] MEDS ORDERED: Ondansetron ODT 4 MG TAB PO PRN (10:18)
[2018-07-22] MEDS: Aspirin 81 mg Enteric Coated Tablet PO SCH (12:02)
[2018-07-22 12:09] LABS: Hemoglobin 9.7 g/dL (14.0-18.0); Platelet Count 145 thou/uL (130-400)
[2018-07-22] MEDS ORDERED: Dextrose 50% Abboject 50 ML SYRINGE IVP PRN (12:12)
[2018-07-22] MEDS ORDERED: Dextrose 5% in Water 1,000 ML IV PRN (12:12)
[2018-07-22 12:23] LABS: Anion Gap 12 mmol/L (10-20); BUN (Urea Nitrogen) 100 mg/dL (8.4-25.7); Calc. Creatinine Clearance 17 mL/min (70-130); Calcium 8.5 mg/dL (7.8-10.44); Carbon Dioxide 14 mmol/L (23-31); Chloride 110 mmol/L (98-107); Estimated GFR-MDRD 12; Glucose 287 mg/dL (83-110); Potassium 5.3 mmol/L (3.5-5.1); Sodium 131 mmol/L (136-145)
[2018-07-22 12:30] LABS: Critical Call Chem Troponin I RESULT DECREASING; Troponin I 11.432 ng/mL (< 0.028)
[2018-07-22] MEDS: Heparin 10,000 UNITS/ 10 ML VIAL SLOW IVP SCH (12:38)
[2018-07-22] MEDS: Insulin Regular 300 UNITS/3 ML VIAL SC PRN ×2 (12:42→20:46)
[2018-07-22 13:00] LABS: Hep B Core Total Ab Non-Reactive (NonReactive); Hep B Core Total Index 0.13 S/CO (0-0.79)
[2018-07-22 13:13] LABS: HBSAg Index 0.26 S/CO (0-0.99); Hep B Surf Ag Non-Reactive S/CO (NonReactive)
[2018-07-22 13:14] LABS: HBSAB Concentration 0.18 mIU/mL; Hep B Surf AB Non-Reactive (NonReactive); Hep C IgG Ab Non-Reactive (NonReactive)
[2018-07-22] MEDS ORDERED: Furosemide 40 MG/4 ML VIAL SLOW IVP SCH (14:00)
--- NOTE | 2018-07-22 16:53 | CON ---
DATE OF CONSULTATION: 07/22/2018 CONSULTING PHYSICIAN: Hospitalist group. REASON FOR CONSULTATION: Acute respiratory failure. HISTORY OF PRESENT ILLNESS: The patient is a 72-year-old male, who presented to the emergency room last night with chest tightness and shortness of breath. He was found to be in congestive heart failure. He also significantly bumped up his cardiac enzymes. He has been placed on nitroglycerin drip and heparin drip. He was able to be weaned off BiPAP shortly after arrival to the CCU and has been on 2 L nasal cannula, breathing comfortably. PAST MEDICAL HISTORY: 1. Chronic renal failure-at one time, he was on dialysis, but has been off dialysis for quite some time. 2. Chronic systolic heart failure with an EF of 20%. 3. Diabetes mellitus type 2. 4. Hypertension. 5. Hyperlipidemia. 6. Coronary artery disease with bilateral carotid artery disease. PAST SURGICAL HISTORY: 1. He has had AV fistula placement in his arm. 2. AICD placement. 3. Coronary artery bypass grafting surgery. 4. Tonsillectomy. 5. Spinal surgery. 6. Left nephrectomy. ALLERGIES: 1. KEFLEX. 2. PROPOXYPHENE. 3. DARVOCET. 4. BACTRIM. 5. LEVAQUIN. 6. SULFA DRUGS. FAMILY MEDICAL HISTORY: Remarkable for heart disease. SOCIAL HISTORY: Does not smoke. Does not consume alcohol. Does not use illicit drugs. MEDICATIONS: Prior to admission, 1. Tramadol. 2. Prednisone. 3. Hydralazine. 4. Bicarbonate. 5. Crestor. 6. Nitrostat. 7. Lantus insulin. 8. Humalog insulin. 9. Lasix. 10. Carvedilol. 11. Calcitriol. 12. Aspirin. 13. Xanax. REVIEW OF SYSTEMS: 12-point review of systems is otherwise negative. PHYSICAL EXAMINATION: VITAL SIGNS: Temperature 97, pulse 68, blood pressure 126/89, O2 saturation currently 97%. GENERAL: He is in no acute distress. HEENT: Pupils are reactive. Sclerae are anicteric. Oropharynx is clear. NECK: No adenopathy. No JVD. CARDIAC: S1 and S2, regular with 2/6 systolic murmur at the left sternal border. LUNGS: Few crackles in both bases. ABDOMEN: Soft, nontender, nondistended. EXTREMITIES: No clubbing, cyanosis, or edema. NEUROLOGIC: Grossly intact throughout. LABORATORY DATA: Sodium 131, potassium 5.2, chloride 107, CO2 of 14, BUN 99, creatinine 4.9, glucose 376. Troponin 6.09. BNP 1591. ABG; pH 7.21, pCO2 of 36, pO2 of 64. White blood cell count 13.8, hematocrit 33.6, and platelet count 194. INR 1.0. Chest x-ray shows cardiomegaly and pulmonary vascular congestion. ASSESSMENT: 1. Acute respiratory failure related to pulmonary edema. 2. Metabolic acidosis, which is likely related to the pulmonary edema and chronic kidney disease. 3. Chronic kidney disease, stage 5. 4. Myocardial infarction. PLAN: 1. This patient needs to be evaluated by Cardiology and Nephrology regarding his chronic issues. I am not sure the situation is going to get better without dialysis as I feel that diuretic therapy will probably be of limited efficacy. 2. There is no indication that he has an infection at this time. 3. BiPAP can be used as needed, but for the time being, it does not look like he will need it. greater than 50% time was spent with the patient the hospital. Job ID: [id number]
--- NOTE | 2018-07-22 17:34 | HP ---
CHIEF COMPLAINT: The patient presented to the ER with complaints of shortness of breath. HISTORY OF PRESENTING ILLNESS: This is a 72-year-old gentleman with a history of coronary artery disease, CABG x4, congestive heart failure with ejection fraction of 25% to 30%, recently placed pacemaker with Bi-V ICD, history of end-stage renal disease, on dialysis for a year and a half, and he quit dialysis around 3 years ago. The patient now presented to the ER with increasing shortness of breath. The labs here revealed a troponin of 6, elevated CK-MB, abnormal ABG showing metabolic acidosis with a creatinine of 4.95. Initial troponin was 6.092, then the following troponin was 11.888. His potassium was elevated at 5.2, and sodium 131. ABG showing a pH of 7.21, pCO2 of 36.8, and pO2 of 64.4. The patient was started on heparin drip and nitroglycerin drip in the ER and was sent to the ICU for further evaluation and treatment. PAST MEDICAL HISTORY: Significant for left nephrectomy; pacemaker; CABG; dialysis shunt in the right forearm, which is no longer in use; and left rib removed for cancer. Past medical history also includes cardiac history, coronary artery disease and myocardial infarction; end-stage renal disease, on dialysis for a year and a half, which he quit 3 years ago; hyperlipidemia; hypertension; diabetes; and kidney cancer. PAST SURGICAL HISTORY: Significant for CABG x4, pacemaker with defibrillator, dialysis shunt in the right arm, left nephrectomy, and left last rib removed for cancer. PSYCHIATRIC HISTORY: No previous psychiatric history. SOCIAL HISTORY: The patient is a former tobacco user, quit smoking 10 years ago. Denies any alcohol or drug abuse. ALLERGIES: KNOWN DRUG ALLERGIES: 1. BACTRIM DS HAS A REACTION WITH HIVES. 2. CEPHALEXIN, REACTION WITH HIVES. 3. DARVOCET; REACTION, NAUSEA. 4. LEVOFLOXACIN. 5. SULFA. 6. SULFAMETHOXAZOLE WITH TRIMETHOPRIM. PHYSICAL EXAMINATION: VITAL SIGNS: Blood pressure during my time of evaluation was 110/88, pulse 84, respiratory rate 24, temperature 97.5, pain around 6, with O2 saturations of 90%. CONSTITUTIONAL: The patient appears in no distress. He is afebrile. Appears nontoxic. HEENT: Atraumatic and normocephalic head. Eyelids and conjunctivae are within normal limits with round and reactive pupils bilaterally. Extraocular muscles are intact. Examination of nose is within normal limits with no deformity or discharge. External ears and tympanic membranes are within normal limits. NECK: Range of motion of neck is within normal limits. Trachea is in midline. No swelling noted. RESPIRATORY/CHEST: Respiratory examination is within normal limits with good airway entry into the both lungs. No rales. No wheezes. The chest examination reveals a recent scar status post pacemaker placement. CARDIOVASCULAR: Regular heart rate and rhythm. No gallops. No murmurs. MUSCULOSKELETAL: Right forearm with AV fistula and mild swelling of the right upper extremity. Pedal edema bilaterally of the lower extremities. ABDOMEN: Soft, nontender, and nondistended. No masses. No guarding. NEUROLOGIC: Neurological examination is within normal limits. Cranial nerves are intact. No motor or sensory deficits noted. PSYCHIATRIC: Psychiatric examination; the patient is oriented to person, place, and time. Normal affect. Normal reaction. ASSESSMENT AND PLAN: 1. Mch-FE-rlcdcpgsd myocardial infarction. The patient was started on heparin gtt., nitroglycerin gtt. Cardiology consult was done. Follow up on the serial troponin. Lengthy discussion with the patient regarding Cardiology intervention, for which the patient is not really enthusiastic. He wants to wait for some more time and see if he really requires it or not. 2. Zafnr-hz-rekogbb congestive heart failure, systolic. The patient was started on IV Lasix, for which he is responding well with good diuresis. We will continue the IV Lasix and follow up on the potassium and replace as required. 3. End-stage renal disease, the patient quit dialysis 3 years ago and was stable for all these years, but now, he looks like he is in metabolic acidosis, might be requiring at least a temporary dialysis. The patient is very reluctant about dialysis, but agreed to try temporary dialysis if Dr. Wong thinks so. 4. Uncontrolled hypertension. The patient has been started on nitroglycerin gtt., which will be titrated. 5. Hypertension. Start the patient on his home medication as required. 6. Diabetes. The patient is on renal and diabetic diet. We will start the Accu-Cheks with meals with the sliding scale and add the patient's home insulin as required. 7. Hyperlipidemia. Restart the patient's home medication. 8. Discussed with Dr. Sarmiento, and consulted Dr. Graeme Dupont and Dr. Peter Wong. Job ID: [id number]
[2018-07-22] MEDS ORDERED: Pantoprazole 40 MG VIAL IVP SCH (18:00)
--- NOTE | 2018-07-22 18:46 | CON ---
DATE OF CONSULTATION: HISTORY OF PRESENT ILLNESS: Mr. Leos is a 72-year-old white male, who follows since November 2009. He first presented three weeks after he moved to the [facility] from [place]. He previously had seen the [facility] consultant and underwent stress testing and carotid Doppler examination with no significant abnormalities. He had problems with left knee pain and went to the emergency room and received Darvocet for that. He took 2 Darvocet's and felt nauseated 1 to 2 hours later. He went outside and started to see flashing light, felt very dizzy. He apparently had a syncopal episode. Family states that he was unresponsive for a couple of minutes. His granddaughter tried to do CPR. Apparently he was not breathing during that time, but then regained consciousness. When paramedics arrived, he was minimally responsive and was transferred. He was given atropine and IV fluids in the emergency room for blood pressure 100/60 and pulse of 68. He also received Narcan. His heart rate improved and began to feel normal. He was found to have a potassium of 6.4. Initially, he was given IV hydration, and he was on an ARLEN inhibitor as well as triamterene and both of those were discontinued. He had junctional bradycardia in one of his admission EKGs. He also was reported to have type 2 second-degree AV block; however, that was not present on the EKGs or rhythm strips that I had to review. I certainly may have had that finding on a monitor in the emergency room, but there was no hard copy of it. He had no further arrhythmias on telemetry after correction of his hyperkalemia. Echo at that time was technically difficult with ejection fraction of 50% to 55% and moderate mitral regurgitation. He underwent adenosine Cardiolite testing which revealed inferolateral ischemia. Carotid Doppler revealed 50% to 70% left internal carotid artery stenosis. He underwent cardiac catheterization which revealed normal left ventricular function with ejection fraction of 50% to 55%. There was a 50% proximal and 50% mid LAD, the circumflex has a 70% proximal and an 80% mid stenosis. There was 99% distal stenosis and a 99% stenosis of the second obtuse margin. The 3rd obtuse margin was occluded and filled retrograde. It was felt that was a part of the site of the inferolateral ischemia on Cardiolite. The right coronary artery had 50%-60% diffuse disease. Since there was good retrograde filling of the distal circumflex, it was felt that he was not a good candidate for PTCA or stenting and then he only had 50% to 60% disease elsewhere. It was felt best to treat him medically. It was questionable if the circumflex was even large enough to bypass. He underwent electrophysiology study which revealed no inducible arrhythmias, and it was felt that his arrhythmia and syncope were probably due to the hyperkalemia. He was admitted again in October 2011 with chest discomfort which he described as a crampiness in his chest. EKG showed left bundle branch block. He was given heparin and nitrates with improvement in his pain. MB was abnormal at 8.0 and 5.9. Troponin I at 0.166. He was hydrated and continued on intravenous heparin. It was recommended that he undergo cardiac catheterization. However, due to his renal insufficiency, ultimately declined and was discharged home. He was re-admitted one week later with an episode of lightheadedness, diaphoresis, and feeling as if he would pass out. He had several such episodes that day and they were relieved with nitroglycerin. He apparently did not have any chest discomfort associated with those episodes. Cardiac enzymes were negative. After that, he was only seen in the hospital until his bypass surgery. He never comes to the office for followup. Multiple appointments were made, however, he never would keep those. In November 2011, he was admitted with chest discomfort and negative cardiac enzymes. In March 2012, he had chest pain and abnormal cardiac enzymes. He underwent nuclear medicine study which reportedly showed no evidence of ischemia. In June 2012, he was admitted with viral gastritis several days later after discharged. He was again admitted with difficulty breathing. He was in pulmonary edema and required CPAP for a time. Echo revealed ejection fraction of 30% to 35% which was a significant drop from previous echo. Blood pressure was 204/113 on admission. Again, in July 2012, he was admitted with chest discomfort, uncontrolled hypertension and indeterminate troponin I's. He again did not wish cardiac evaluation due to his renal insufficiency. He was to return to the office for repeat echocardiogram and consideration of biventricular ICD with his left bundle branch block. However, he continued to not come to the office for followup. In January 2013, he presented with acute respiratory failure and was in pulmonary edema. He was intubated in the emergency room. PH was 7.2, PCO2 57, PO2 55. He was severely hyperkalemic and underwent dialysis with ultrafiltration. Echo during that admission revealed a small pericardial effusion, left ventricular enlargement, severe left ventricular dysfunction with ejection fraction of 25% to 30%, moderate mitral regurgitation, mild tricuspid regurgitation. He underwent placement of a a biventricular ICD for his left ventricular dysfunction and left bundle branch block. In February 2013, he was again admitted with atypical chest pain secondary to volume overload which resolved with removal of 3.5 liters of fluid. Two weeks later, he was again admitted with shortness of breath secondary to pulmonary edema. Systolic pressure was 220 during that admission. He was on dialysis at that time and apparently he had missed a day and ate a lot of salty food. He was then talking on his phone to his son and became acutely short of breath. He used his inhaler as well as sublingual nitroglycerin and called paramedics. During that admission, carvedilol was increased to 50 b.i.d. Again in August 2014, he was admitted with respiratory failure requiring intubation. It was recommended once he was weaned from the ventilator to undergo cardiac catheterization which he ultimately decided to do. This revealed 60%-70% mid LAD stenosis, 50% distal LAD stenosis, 70% proximal circumflex stenosis and 99% distal circumflex stenosis. The right coronary artery had 90% mid and 50% distal stenosis. He then underwent CABG x3 off pump by Dr. Castelan with VÁSQUEZ to LAD and saphenous vein graft to second diagonal and right PDA. After surgery, he went to rehab for a long period of time and ultimately home. He came to the office once for followup on October 24, 2014. He stated his breathing was much improved after bypass surgery. He was to return six weeks later, however, again he did not come back for followup. He was admitted in January 2015 with 2 hours of chest pain. He witnessed his grandson on his head, and he had severe head laceration. No one was around to help him. Mr. Leos states he became extremely upset with that and then he began to have chest discomfort. He had mildly elevated troponin secondary to his renal insufficiency. Carvedilol was increased to t.i.d. and ultimately was discharged. He was again admitted in June 2015 with chest discomfort. Cardiac enzymes were unremarkable. In August 2015, he was admitted with shortness of breath, chest discomfort, which was felt to be noncardiac. Again the troponin I's were minimally elevated due to his renal insufficieny. He again was admitted later in August 2015 with shortness of breath, cough, fever, chills, and mental status changes. Cultures were negative. He was treated with Levaquin and gradually improved. He denied any chest pain at home. Ejection fraction during that admission was 20% to 25% on echo. He had pneumonia and sepsis. He was re-admitted in October 2015 after drinking lot of ice tea as well as eating salty barbecue. He was given intravenous diuretics with improvement. He was discharged after 2 days of diuresis. In June 2017, he was admitted with acute pulmonary edema. Echo revealed an ejection fraction of 25% to 30%. Cardiolite test revealed no evidence of ischemia. He had previously been on hemodialysis, but approximately 1 to 1-1/2 years ago he decided and does not wish to continue with that. His last admission was in May 2018 for hyperkalemia. Over the last few days, he has been doing a significant amount of work outside in his yard. He had intermittent episodes of chest discomfort at home as well as increased shortness of breath. Also this morning he again had chest pressure and shortness of breath, came to the emergency room and was found to be in pulmonary edema and had elevated troponin I. PAST MEDICAL HISTORY: Hypertension, diabetes, hypercholesterolemia, renal failure on dialysis for a period of time, but he self stopped this 1 to 1-1/2 years ago. He has had severe junctional bradycardia in the past associated with hyperkalemia. PAST SURGICAL HISTORY: Two back surgeries, left nephrectomy, renal cell cancer, spinal surgery, tonsillectomy, biventricular ICD placement and replacement two weeks ago, and CABG. MEDICATIONS: At home, 1. Alprazolam 1 to 2 tablets q.h.s. p.r.n. 2. Xanax 0.25 p.r.n. 3. Aspirin 81 daily. 4. Carvedilol 50 mg b.i.d. 5. Furosemide 20 daily. 6. Humalog p.r.n. 7. Hydralazine 50 q.i.d. 8. Insulin 25 q.a.m. 9. Atorvastatin p.r.n. 10. Prednisone one tablet t.i.d. unknown dose. 11. Rosuvastatin 40 q.h.s. 12. Tramadol p.r.n. ALLERGIES: CEPHALEXIN, LEVAQUIN, DARVOCET, SULFA, PRAVASTATIN CAUSE MUSCLE ACHES. SOCIAL HISTORY: He smoked one pack a day, but stopped 35 years ago. He rarely drinks alcohol. FAMILY HISTORY: Brother had stomach pain, went to the hospital and of massive myocardial infarction at age 64. He was a diabetic. REVIEW OF SYSTEMS: A 10-point review of systems was otherwise unremarkable. PHYSICAL EXAMINATION: VITAL SIGNS: 130/72, pulse 65. HEENT: PERRLA. NECK: Supple. CHEST: Clear. CARDIAC: S1 and S2 normal without any S3, S4, or murmurs. ABDOMEN: Normal bowel sounds without tenderness. Abdomen is obese. EXTREMITIES: Revealed no clubbing, cyanosis, or edema. NEUROLOGIC: Grossly intact. SKIN: Warm and dry. LABORATORY DATA: Chest x-ray reveals a biventricular ICD, cardiomegaly with increased pulmonary vascularity. EKG reveals atrial sensing and ventricular pacing. Hemoglobin 11.5, hematocrit 33.6, white count 13,800, platelets 194,000. INR 1.0. pH 7.21, pCO2 36.8, pO2 64.4. Sodium 133, potassium 5.2, chloride 107, carbon dioxide 14, BUN 99, creatinine 4.95. CK-MB 11.9. Troponin I 11.888. BNP 1591.1. IMPRESSION: 1. Lza-CT-ohhpqlfev myocardial infarction with continued ongoing pain, despite IV nitroglycerin and anticoagulated with heparin. 2. Multiple episodes of respiratory arrest prior to CABG. 3. Status post CABG x3 off pump. 4. Ischemic cardiomyopathy with left bundle branch block and placement of biventricular ICD. This was replaced 2 weeks ago. 5. Syncope in the past due to hyperkalemia and junctional bradycardia with negative EP study. 6. Hyperlipidemia. 7. Diabetes. 8. Former smoker. 9. Carotid artery disease bilaterally. 10. History of renal cell carcinoma, status post nephrectomy. 11. Severe renal insufficiency, on dialysis in the past. 12. Noncompliance with office followups, despite having multiple appointments made for him. PLAN: Situation discussed with Mr. Leos at length. Overall, continued chest discomfort, elevated troponin I. It was recommended that he undergo cardiac catheterization; however, he would require significant amount of contrast to evaluate his three bypass grafts. This undoubtedly would return him to dialysis. He is very hesitant to pursue that. We discussed the possibility of treating his non-STEMI medically, and he appears to opt for that decision rather than go to the [facility] laboratory manager. He understands that he may suffer significant myocardial damage even to the point of worsening of his heart failure or not even surviving. However, at this time, he does not wish to return to the cytogenetics laboratory manager for fear of having to resume dialysis. Job ID: [id number]
[2018-07-22] MEDS: Nitroglycerin 50 MG/250 ML BOT 250 ML IVPB SCH (19:50)
[2018-07-22] MEDS: Atorvastatin Calcium 40 MG TAB PO SCH (19:53)
[2018-07-22 20:04] LABS: Anion Gap 15 mmol/L (10-20); BUN (Urea Nitrogen) 89 mg/dL (8.4-25.7); Calc. Creatinine Clearance 20 mL/min (70-130); Calcium 8.5 mg/dL (7.8-10.44); Carbon Dioxide 15 mmol/L (23-31); Chloride 108 mmol/L (98-107); Estimated GFR-MDRD 14; Glucose 209 mg/dL (83-110); Potassium 4.6 mmol/L (3.5-5.1); Sodium 133 mmol/L (136-145)
[2018-07-23] MEDS: Heparin 25,000 units/D5W 500 ML IVPB SCH ×2 (00:19→22:47)
[2018-07-23 02:07] LABS: #Eosinphils 0.2 thou/uL (0.0-0.7); #Lymphocytes 1.5 thou/uL (1.20-3.40); #Neutrophils 7.2 thou/uL (1.40-6.50); %Basophils 0.1 % (0.0-1.0); %Eosinophils 2.2 % (0.0-10.0); %Lymphocytes 15.3 % (21.0-51.0); %Monocytes 9.7 % (0.0-10.0); %Neutrophils 72.7 % (42.0-75.0); Hemoglobin 9.2 g/dL (14.0-18.0); Mean Corpuscular HGB CONC 34.6 g/dL (32.0-36.0); Mean Corpuscular Hemoglobin 31.5 pg (27.0-31.0); Mean Corpuscular Volume 91.2 fL (78.0-98.0); Mean Platelet Volume 8.3 fL (7.4-10.4); Platelet Count 136 thou/uL (130-400); RBC Distribution Width 11.9 % (11.5-14.5); White Blood Cell (WBC) Count 9.9 thou/uL (4.8-10.8)
[2018-07-23 02:41] LABS: ALT (SGPT) 27 U/L (8-55); AST (SGOT) 21 U/L (5-34); Albumin 3.2 g/dL (3.4-4.8); Alkaline Phosphatase 39 U/L (40-150); Anion Gap 15 mmol/L (10-20); BUN (Urea Nitrogen) 90 mg/dL (8.4-25.7); Bilirubin, Total 0.4 mg/dL (0.2-1.2); Calc. Creatinine Clearance 18 mL/min (70-130); Carbon Dioxide 15 mmol/L (23-31); Chloride 109 mmol/L (98-107); Estimated GFR-MDRD 13; Globulin 2.5 g/dL (2.4-3.5); Glucose 245 mg/dL (83-110); Potassium 4.7 mmol/L (3.5-5.1); Protein, Total 5.7 g/dL (5.8-8.1); Sodium 134 mmol/L (136-145)
[2018-07-23] MEDS: Insulin Regular 300 UNITS/3 ML VIAL SC PRN ×3 (05:45→16:18)
[2018-07-23] MEDS ORDERED: Nitroglycerin 0.4 MG TAB (25 Tab Bottle) SL PRN (08:46)
[2018-07-23] MEDS ORDERED: Non-Formulary Item 1 EACH (Insulin Glargine,Hum.Rec.Anlog [Lantus Solostar] 25 UNIT) SQ SCH (09:00)
[2018-07-23 09:14] LABS: PTT 129.7 SEC (22.9-36.1)
[2018-07-23] MEDS: Aspirin 81 mg Enteric Coated Tablet PO SCH (09:43)
[2018-07-23] MEDS: Pantoprazole 40 MG VIAL IVP SCH (09:44)
[2018-07-23] MEDS: Nitroglycerin 50 MG/250 ML BOT 250 ML IVPB SCH (09:56)
[2018-07-23] MEDS ORDERED: Insulin Glargine 25 UNITS in Pre-Filled Syringe 1 EACH SC SCH (10:00)
[2018-07-23] MEDS: hydrALAZINE 25 MG TAB PO SCH ×4 (10:16→21:31)
[2018-07-23] MEDS: Carvedilol 25 MG TAB PO SCH ×2 (10:17→21:31)
--- NOTE | 2018-07-23 12:56 | PDOC.PN ---
- Subjective Encounter Start Date: 07/23/18 Encounter Start Time: 12:51 Subjective: feeling better, no more SOB, uncontrolled BP, LO with Nitro - Objective Resuscitation Status - Order Detail: 07/22/18 10:18 Resuscitation Status Routine Resuscitation Status: FULL: Full Resuscitation Discussed with: mitul CRUZ Reviewed: Yes Vital Signs & Weight: Vital Signs (12 hours) Temp Pulse BP Pulse Ox 07/23/18 10:16 72 205/91 H 07/23/18 08:00 98 07/23/18 05:00 98.4 F Weight Weight 194 lb 7.163 oz Most Recent Monitor Data Heart Rate from ECG 59 NIBP 159/66 NIBP BP-Mean 97 Respiration from ECG 10 SpO2 95 I&O: 07/22/18 07/23/18 07/24/18 06:59 06:59 06:59 Intake Total 2111 480 Output Total 3450 550 Balance -1339 -70 Result Diagrams: 07/23/18 01:43 07/23/18 01:43 Additional Labs: Accuchecks 07/23/18 07/23/18 07/22/18 10:56 05:39 20:45 POC Glucose 272 H 282 H 259 H 07/22/18 16:07 POC Glucose 269 H Phys Exam - Physical Examination HEENT: PERRLA, moist MMs, sclera anicteric, TM's clear, oral pharynx no lesions , 2+ tonsils Neck: no nodes, no JVD, supple, full ROM Respiratory: no wheezing, no rales, no rhonchi Cardiovascular: RRR, no significant murmur, no rub Gastrointestinal: soft, non-tender, no distention, positive bowel sounds Musculoskeletal: edema present right AVF Neurological: non-focal, normal sensation, moves all 4 limbs Skin: no rash, normal turgor, cap refill <2 seconds Dx/Plan (1) NSTEMI (non-ST elevated myocardial infarction) Code(s): I21.4 - NON-ST ELEVATION (NSTEMI) MYOCARDIAL INFARCTION Status: Acute (2) Uncontrolled hypertension Code(s): I10 - ESSENTIAL (PRIMARY) HYPERTENSION Status: Acute (3) Diabetes Code(s): E11.9 - TYPE 2 DIABETES MELLITUS WITHOUT COMPLICATIONS Status: Acute Qualifiers: Diabetes mellitus type: type 2 Chronic kidney disease stage: stage 5, not on chronic dialysis (4) Acute on chronic kidney disease, stage 4 Code(s): N28.9 - DISORDER OF KIDNEY AND URETER, UNSPECIFIED; N18.4 - CHRONIC KIDNEY DISEASE, STAGE 4 (SEVERE) Status: Chronic Comment: Patient has agreed for temporary dialysis 9he had quit dialysis few years ago and has been doing well, uptil this admission). Using his right forearm AVF without any difficulties. (5) CKD (chronic kidney disease) stage 5, GFR less than 15 ml/min Code(s): N18.5 - CHRONIC KIDNEY DISEASE, STAGE 5 Status: Chronic (6) Chronic systolic (congestive) heart failure Code(s): I50.22 - CHRONIC SYSTOLIC (CONGESTIVE) HEART FAILURE Status: Chronic (7) DM2 (diabetes mellitus, type 2) Status: Chronic Qualifiers: Diabetes mellitus alf insulin use: with terminal make up operator use Diabetes mellitus complication status: with kidney complications Diabetes mellitus complication detail: with chronic kidney disease Chronic kidney disease stage : stage 5, not on chronic dialysis Qualified Code(s): E11.22 - Type 2 diabetes mellitus with diabetic chronic kidney disease; N18.5 - Chronic kidney disease, stage 5; N18.5 - Chronic kidney disease, stage 5; N18.5 - Chronic kidney disease, stage 5; N18.5 - Chronic kidney disease, stage 5; Z79.4 - correction (current) use of insulin; Z79.4 - correction (current) use of insulin; Z79.4 - correction (current) use of insulin; Z79.4 - terminal make up operator (current) use of insulin (8) Dyslipidemia Code(s): E78.5 - HYPERLIPIDEMIA, UNSPECIFIED Status: Chronic Comment: continue home meds (9) Hypertension Code(s): I10 - ESSENTIAL (PRIMARY) HYPERTENSION Status: Chronic Qualifiers: Hypertension type: essential hypertension Qualified Code(s): I10 - Essential (primary) hypertension (10) S/P CABG x 3 Code(s): Z95.1 - PRESENCE OF AORTOCORONARY BYPASS GRAFT Status: Chronic Comment: aspirin and statin. (11) Hypertensive urgency Code(s): I16.0 - HYPERTENSIVE URGENCY Status: Resolved Comment: Continue Nitro GTT., BP has been difficult to control. Restart all home BP meds (12) Metabolic acidosis Code(s): E87.2 - ACIDOSIS Status: Resolved Comment: sec to ckd, started on temporary dialysis via right AVF - Plan cont current plan of care, plan discussed w/ family, respiratory therapy, DVT proph w/heparin, DVT proph w/SCDs * .
[2018-07-23] MEDS: Mag-Al 1200 mg/1200 mg/30 ML UDCUP PO PRN (15:56)
[2018-07-23] MEDS: Epoetin (ESRD) 20,000 UNITS/ML SC SCH (16:09)
[2018-07-23] MEDS: Atorvastatin Calcium 40 MG TAB PO SCH (21:31)
[2018-07-23] MEDS: Heparin 10,000 UNITS/ 10 ML VIAL SLOW IVP SCH (22:46)
[2018-07-24] MEDS: HYDROcodone/Acetaminophen 5/325 mg Tablet PO PRN ×3 (02:49→22:57)
[2018-07-24 04:05] LABS: #Eosinphils 0.2 thou/uL (0.0-0.7); #Lymphocytes 1.1 thou/uL (1.20-3.40); #Monocytes 0.9 thou/uL (0.11-0.59); #Neutrophils 5.9 thou/uL (1.40-6.50); %Basophils 0.2 % (0.0-1.0); %Eosinophils 2.6 % (0.0-10.0); %Lymphocytes 13.5 % (21.0-51.0); %Monocytes 11.5 % (0.0-10.0); %Neutrophils 72.2 % (42.0-75.0); Hemoglobin 8.8 g/dL (14.0-18.0); Mean Corpuscular HGB CONC 34.8 g/dL (32.0-36.0); Mean Corpuscular Hemoglobin 31.5 pg (27.0-31.0); Mean Corpuscular Volume 90.6 fL (78.0-98.0); Mean Platelet Volume 8.4 fL (7.4-10.4); Platelet Count 122 thou/uL (130-400); RBC Distribution Width 11.8 % (11.5-14.5); White Blood Cell (WBC) Count 8.2 thou/uL (4.8-10.8)
[2018-07-24 04:20] LABS: PTT 115.7 SEC (22.9-36.1)
[2018-07-24 04:24] LABS: Anion Gap 13 mmol/L (10-20); BUN (Urea Nitrogen) 83 mg/dL (8.4-25.7); Calc. Creatinine Clearance 17 mL/min (70-130); Calcium 7.8 mg/dL (7.8-10.44); Carbon Dioxide 17 mmol/L (23-31); Chloride 107 mmol/L (98-107); Estimated GFR-MDRD 12; Glucose 264 mg/dL (83-110); Potassium 4.5 mmol/L (3.5-5.1); Sodium 132 mmol/L (136-145)
[2018-07-24] MEDS: Insulin Regular 300 UNITS/3 ML VIAL SC PRN ×4 (05:27→22:11)
--- NOTE | 2018-07-24 07:48 | CON ---
DATE OF CONSULTATION: 07/22/2018 SUBJECTIVE: Mr. Leos is a 72-year-old white male with known history of chronic heart failure admitted for shortness of breath. He was found to have congestive heart failure and persistent elevated troponin I. He is being followed by Cardiology remains with this patient. We are now being consulted for chronic heart failure. REVIEW OF SYSTEMS: Positive for shortness of breath. Denies any chest pain. No syncopal episode. No productive cough. No fever or chills. No dysuria. No urinary frequency. No abdominal pain. Occasional joint pains. No skin rash. No headache. No diplopia. No nausea. No vomiting. No hematochezia. No melena. No hematemesis. Positive for cough. PAST MEDICAL HISTORY: Includes the following; 1. Chronic renal failure secondary to diabetic nephropathy. 2. Type 2 diabetes mellitus. 3. Congestive heart failure/cardiomyopathy - EF was 20%. 4. Hypertension. 5. Dyslipidemia. 6. History of noncompliance. PAST SURGICAL HISTORY: Status post cardiac cath, status post AICD placement, status post left nephrectomy, status post AV fistula placement, status post tonsillectomy, status post cuffed hemodialysis catheter placement, status post CABG, status post back surgery. ALLERGIES: KEFLEX, PROPOXYPHENE, BACTRIM. TRAUMA: None. IMMUNIZATION: Up to date. HOSPITALIZATIONS: Please see past medical history. FAMILY HISTORY: No family history of ESRD. SOCIAL HISTORY: The patient originally from [place], but lives in [place]. 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 Has 1 child. Education, 8th grade. No alcohol. No drug abuse, status post multiple blood transfusions . FAMILY HISTORY: No ESRD. PHYSICAL EXAMINATION: VITAL SIGNS: Blood pressure is currently noted at 122/70, heart rate 64, respiratory rate 13, pulse ox 97%. GENERAL: Awake, alert, comfortable, not in overt distress. SKIN: Adequate turgor. HEENT: He has pinkish conjunctivae. Anicteric sclerae. NECK: No neck mass. No carotid bruits. No JVD. CHEST: No deformities. LUNGS: Decreased breath sounds. HEART: Normal sinus rhythm. No murmur. No gallops or rubs. ABDOMEN: Globular, soft, nontender. No masses. EXTREMITIES: Positive for edema. No deformities. NEUROLOGIC: Awake, oriented to 3 spheres. Moving all extremities. No tremor or asterixis. No ataxia. MEDICATIONS: Medications of July 22, 2018; 1. [place] 5/325 q.4. 2. Lipitor 40 mg at bedtime. 3. Furosemide 40 mg IV q.12. 4. Heparin drip. 5. Lantus 20 units in the morning and 50 units at night. 6. Nitroglycerin drip. 7. Zofran p.r.n. LABORATORY DATA: Laboratories of July 22, 2018; white count 13.8, hemoglobin 11.5. Sodium 131, potassium 5.3, chloride is 107, BUN 99, creatinine 4.95, glucose 376. GFR 12 mL/minute. AST 51. Troponin I is 11.9. BNP 417. Chest x-ray shows CHF. ASSESSMENT AND PLAN: 1. Chronic renal failure - worsening renal dysfunction. Glomerular filtration rate has dropped down to 12 ml/min. Due to his volume overload, we will initiate hemodialysis with this patient. We will do 1-hour hemodialysis and attempt 1 L fluid removal. After dialysis today, consider discontinuing IV Lasix. 2. Congestive heart failure - the patient is being ruled out for myocardial infarction. Cardiology has been consulted. He is on IV nitroglycerin. Please note, his troponin I is elevated at 11.9. 3. Overall agree with current management. Job ID: [id number]
--- NOTE | 2018-07-24 07:49 | PRG ---
DATE OF SERVICE: 07/23/2018 SUBJECTIVE: The patient is in better spirits today. He is on a nitroglycerin drip. He is not having anymore chest pain. He had a round of dialysis yesterday. OBJECTIVE: VITAL SIGNS: His temperature is 98.4, pulse 76, blood pressure 160/72, O2 saturation 97%. HEENT: Unremarkable. NECK: Without adenopathy or JVD. He does have bilateral carotid bruits. CARDIAC: S1 and S2, regular. LUNGS: Clear. ABDOMEN: Soft, nontender. EXTREMITIES: Trace edema. LABORATORY DATA: White count 9.9, hematocrit 26.5, platelet count 136. PTT is 105.6. Sodium 134, potassium 4.7, chloride 109, CO2 15, BUN 90, creatinine 4.6, glucose 245. ASSESSMENT: 1. Acute respiratory failure related to pulmonary edema - this is now resolved. 2. Metabolic acidosis related to pulmonary edema and chronic kidney disease. 3. Chronic kidney disease stage 5. 4. Myocardial infarction. PLAN: The patient is currently being evaluated by Cardiology. I will go ahead and restart his Coreg and his hydralazine in hopes of getting him off the nitroglycerin drip. We also need to restart his diabetic medications as soon as possible. Job ID: [id number]
--- NOTE | 2018-07-24 07:50 | PRG ---
DATE OF SERVICE: 07/23/2018 SUBJECTIVE: Mr. Leos is a 72-year-old white male, who was seen for his acute kidney injury on top of his chronic renal failure. He was also admitted due to CHF and significant coronary artery disease. Cardiology is following. Repeat echocardiogram yesterday was done, and it showed an EF of 35% to 40%. We are seeing this patient for his acute kidney injury/chronic renal failure. I initiated dialysis with him due to progressive azotemia and volume overload. He underwent one hemodialysis. He tolerated this. In addition, we were able to use his old AV fistula, which was still functional. No other complaints today. He is feeling better. I did explain to him that if he needs a cardiac cath, he should consider that. He actually is nearing ESRD, and for that reason, I do not think it will benefit him from further holding off his dialysis. OBJECTIVE: VITAL SIGNS: Blood pressure is noted at 159/66 with a heart rate of 59, respiratory rate is 10, pulse ox 95%. GENERAL: Awake, alert, comfortable, not in overt distress. SKIN: Adequate turgor. HEENT: He has pinkish conjunctivae. Anicteric sclerae. NECK: No neck mass. No carotid bruits. No JVD. CHEST: No deformities. LUNGS: Decreased breath sounds. HEART: Normal sinus rhythm. No murmurs. No gallops. No rubs. ABDOMEN: Globular, soft, nontender. No masses. EXTREMITIES: No edema. No deformities. Positive for AV fistula, right upper extremity. MEDICATIONS: Medications of July 23, 2018, were reviewed. LABORATORY DATA: Laboratories of July 23, 2018; white count 9.9, hemoglobin 9.2. Sodium 134, potassium 4.7, chloride 109, carbon dioxide 15, BUN 90, creatinine 4.62, AST 21, ALT 27, albumin is 3.2. ASSESSMENT AND PLAN: 1. Chronic renal failure/end-stage renal disease-I think the patient may have reached end-stage renal disease stage. We will continue our current daily dialysis. Today, we will do a 2-hour hemodialysis with fluid removal as tolerated. 2. Congestive heart failure, clinically improving with fluid removal. Agree to hold off IV diuretics. Please note, his hemoglobin is noted at 9.2. We will consider starting him on Epogen at 7500 units subcu every week. Overall prognosis remains guarded. Agree with current management. Job ID: [id number]
[2018-07-24] MEDS ORDERED: cloNIDine 0.2 MG TAB PO PRN (08:00)
[2018-07-24] MEDS: hydrALAZINE 25 MG TAB PO SCH ×4 (08:05→22:10)
[2018-07-24] MEDS: Carvedilol 25 MG TAB PO SCH ×2 (08:05→22:10)
[2018-07-24] MEDS: Aspirin 81 mg Enteric Coated Tablet PO SCH (08:20)
[2018-07-24] MEDS: Pantoprazole 40 MG VIAL IVP SCH (08:20)
--- NOTE | 2018-07-24 08:58 | PRG ---
DATE OF SERVICE: 07/24/2018 SUBJECTIVE: The patient complaining of cramp in his right thigh. OBJECTIVE: VITAL SIGNS: On exam, his temperature is 97.9, pulse 60, respirations in the mid-teens, blood pressure 176/71, and O2 saturation 94%. He is currently on a nitroglycerin drip at 5 mcg/minute. HEENT: Unremarkable. NECK: No JVD. CHEST: Clear. CARDIAC: S1 and S2, regular. ABDOMEN: Soft. EXTREMITIES: No edema. LABORATORY DATA: White blood cell count 8.2, hematocrit 25.4, platelet count 122. PTT 115. Sodium 132, potassium 4.5, chloride 107, CO2 of 17, BUN 83, creatinine 4.8, and glucose 264. ASSESSMENT: 1. Myocardial infarction. 2. Decompensated chronic renal failure. 3. Metabolic acidosis from the renal failure, which has improved with hemodialysis. PLAN: 1. I will stop the nitroglycerin drip. 2. I think we can go ahead and stop the heparin drip and just put him on subcutaneous heparin three times daily. At some point, he may need cardiac catheterization. Job ID: [id number]
--- NOTE | 2018-07-24 10:33 | PRG ---
DATE OF SERVICE: 07/24/2018 SUBJECTIVE: Mr. Leos is a 72-year-old white male with chronic renal failure, admitted for shortness of breath/elevated troponin-I. He has been initiated on dialysis due to CHF and worsening renal dysfunction. He is currently undergoing dialysis. My plan is to do a 2-hour hemodialysis. We failed to do dialysis yesterday due to a problem with the AV fistula/graft. This morning, it was noted to be functional. OBJECTIVE: VITAL SIGNS: Blood pressure is 178/85, heart rate 67, respiratory rate 13, and pulse ox 95%. GENERAL: Awake, alert, comfortable, not in distress. SKIN: Adequate turgor. HEENT: Slightly pale conjunctivae. Anicteric sclerae. NECK: No neck mass. No carotid bruits. No JVD. CHEST: No deformities. LUNGS: Decreased breath sounds. HEART: Normal sinus rhythm. No murmurs. No gallops. No rubs. ABDOMEN: Globular, soft, nontender. No masses. EXTREMITIES: Trace edema. MEDICATIONS: Medications of July 24, 2018, reviewed. LABORATORY DATA: Laboratories of July 24, 2018; white count 8.2, hemoglobin 8.8. Sodium 132, potassium 4.5, chloride 107, carbon dioxide 17, BUN 83, creatinine 4.84, glucose 264, calcium 7.8. ASSESSMENT AND PLAN: 1. Chronic renal failure/end-stage renal disease. Hemodialysis has been initiated. We will plan to do a 2-hour hemodialysis today with fluid removal of about 2 to 3 L as tolerated. 2. Anemia, on weekly Epogen. 3. Congestive heart failure, clinically much improved, off IV Lasix. Cardiology is following. Job ID: [id number]
[2018-07-24] MEDS: Heparin 5,000 UNITS/ML VIAL SC SCH ×3 (11:00→22:11)
[2018-07-24 11:59] LABS: Hemoglobin 10.9 g/dL (14.0-18.0)
[2018-07-24 12:04] LABS: Platelet Count 99 thou/uL (130-400)
[2018-07-24] MEDS: Insulin Glargine 25 UNITS in Pre-Filled Syringe 1 EACH SC SCH (12:04)
[2018-07-24] MEDS ORDERED: Morphine 2 MG/ML SYRINGE SLOW IVP SCH (15:15)
--- NOTE | 2018-07-24 18:01 | PDOC.PN ---
- Subjective Encounter Start Date: 07/24/18 Encounter Start Time: 18:00 Subjective: f/u for NSTEMI and EFRAÍN/CKD with HD sessions x 2. Medically managed -: for NSTEMI. States overall feeling ok. Some episodic dizziness. - Objective Resuscitation Status - Order Detail: 07/22/18 10:18 Resuscitation Status Routine Resuscitation Status: FULL: Full Resuscitation Discussed with: patient MAR Reviewed: Yes Vital Signs & Weight: Vital Signs (12 hours) Temp Pulse BP Pulse Ox 07/24/18 16:44 68 187/79 H 07/24/18 16:00 97.8 F 07/24/18 14:47 68 149/66 H 07/24/18 12:00 97.8 F 07/24/18 08:05 68 178/85 H 07/24/18 07:44 97 07/24/18 07:42 97.9 F Weight Weight 184 lb 4.8 oz Most Recent Monitor Data Heart Rate from ECG 70 NIBP 187/79 NIBP BP-Mean 115 Respiration from ECG 21 SpO2 97 I&O: 07/23/18 07/24/18 07/25/18 06:59 06:59 06:59 Intake Total 2111 1710.4 1255.3 Output Total 3450 1965 350 Balance -1339 -254.6 905.3 Result Diagrams: 07/24/18 11:48 07/24/18 03:49 Additional Labs: Accuchecks 07/24/18 07/24/18 07/24/18 16:48 10:53 05:26 POC Glucose 287 H 195 H 261 H 07/23/18 21:34 POC Glucose 170 H Radiology Reviewed by me: Yes (2D echo -EF 35-40%, mod TR, mild MR) EKG Reviewed by me: Yes (Tele - V-pacing) Phys Exam - Physical Examination Constitutional: NAD HEENT: PERRLA, sclera anicteric, oral pharynx no lesions + carotid bruit Neck: no nodes, no JVD, supple, full ROM few basilar crackles Respiratory: no wheezing, no rales S1, S2 Cardiovascular: RRR, no significant murmur, no rub Gastrointestinal: soft, non-tender, no distention, positive bowel sounds minimal edema Musculoskeletal: pulses present Neurological: normal sensation, moves all 4 limbs Psychiatric: A&O x 3 Skin: normal turgor, cap refill <2 seconds Dx/Plan (1) NSTEMI (non-ST elevated myocardial infarction) Code(s): I21.4 - NON-ST ELEVATION (NSTEMI) MYOCARDIAL INFARCTION Status: Acute Comment: Significantly elevated Troponin. Patient does not want any invasive cardiac intervention as he is worried that it might hurt his kidneys and might have to go baclk to dialysis again. He has been doing ok past few years after he quit dialysis. Right now he has agreed to temporary dialysis due to metabolic acidosis. Dr. Dias had lengthy DW patient. Continue med mgmt, may consider heart cath at future date if renal function stabilizes. (2) Acute on chronic kidney disease, stage 4 Code(s): N28.9 - DISORDER OF KIDNEY AND URETER, UNSPECIFIED; N18.4 - CHRONIC KIDNEY DISEASE, STAGE 4 (SEVERE) Status: Chronic Comment: HD per Renal and tolerating currently. (3) CAD (coronary artery disease) Code(s): I25.10 - ATHSCL HEART DISEASE OF [place] CORONARY ARTERY W/O ANG PCTRS Status: Chronic Qualifiers: Coronary Disease-Associated Artery/Lesion type: bypass graft [place] vs. 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 insulin use: with fpc use Diabetes mellitus complication status: with kidney complications Diabetes mellitus complication detail: with chronic kidney disease Chronic kidney disease stage : stage 5, not on chronic dialysis Qualified Code(s): E11.22 - Type 2 diabetes mellitus with diabetic chronic kidney disease; N18.5 - Chronic kidney disease, stage 5; 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
[2018-07-24] MEDS: Atorvastatin Calcium 40 MG TAB PO SCH (22:10)
[2018-07-25 06:29] LABS: #Eosinphils 0.2 thou/uL (0.0-0.7); #Lymphocytes 1.1 thou/uL (1.20-3.40); #Monocytes 0.8 thou/uL (0.11-0.59); #Neutrophils 5.8 thou/uL (1.40-6.50); %Basophils 0.2 % (0.0-1.0); %Eosinophils 2.5 % (0.0-10.0); %Lymphocytes 13.9 % (21.0-51.0); %Monocytes 9.8 % (0.0-10.0); %Neutrophils 73.6 % (42.0-75.0); Hemoglobin 9.8 g/dL (14.0-18.0); Mean Corpuscular HGB CONC 34.3 g/dL (32.0-36.0); Mean Corpuscular Hemoglobin 31.2 pg (27.0-31.0); Mean Corpuscular Volume 90.9 fL (78.0-98.0); Mean Platelet Volume 8.6 fL (7.4-10.4); Platelet Count 141 thou/uL (130-400); RBC Distribution Width 11.8 % (11.5-14.5); Red Blood Cell (RBC) Count 3.13 mill/uL (4.70-6.10); White Blood Cell (WBC) Count 7.8 thou/uL (4.8-10.8)
[2018-07-25 06:44] LABS: Anion Gap 12 mmol/L (10-20); BUN (Urea Nitrogen) 69 mg/dL (8.4-25.7); Calc. Creatinine Clearance 18 mL/min (70-130); Calcium 8.2 mg/dL (7.8-10.44); Carbon Dioxide 21 mmol/L (23-31); Chloride 104 mmol/L (98-107); Estimated GFR-MDRD 13; Glucose 271 mg/dL (83-110); Potassium 4.2 mmol/L (3.5-5.1); Sodium 133 mmol/L (136-145)
[2018-07-25] MEDS ORDERED: Tuberculin PPD 0.1 ML VIAL I-DERMAL SCH ×2 (09:00)
[2018-07-25] MEDS: Insulin Glargine 25 UNITS in Pre-Filled Syringe 1 EACH SC SCH (09:10)
[2018-07-25] MEDS: Heparin 5,000 UNITS/ML VIAL SC SCH ×3 (09:10→21:48)
[2018-07-25] MEDS: hydrALAZINE 25 MG TAB PO SCH ×4 (09:15→21:47)
[2018-07-25] MEDS: Aspirin 81 mg Enteric Coated Tablet PO SCH (09:15)
[2018-07-25] MEDS: Carvedilol 25 MG TAB PO SCH ×2 (09:15→21:46)
--- NOTE | 2018-07-25 09:49 | PRG ---
DATE OF SERVICE: 07/25/2018 SUBJECTIVE: The patient feels better. He had no acute complaints. He is off the nitroglycerin drip and heparin drips. OBJECTIVE: VITAL SIGNS: On exam, his temperature is 98.4, pulse 69, blood pressure 171/71, and O2 saturation 97% on room air. HEENT: Unremarkable. NECK: No JVD. CHEST: Clear to auscultation bilaterally. CARDIAC: S1 and S2, regular. ABDOMEN: Soft. EXTREMITIES: Decreased edema. LABORATORY DATA: White blood cell count 7.8, hematocrit 28.4, and platelet count 141. Sodium 133, potassium 4.2, chloride 104, CO2 of 21, BUN 69, creatinine 4.3, and glucose 271. ASSESSMENT: 1. Status post myocardial infarction. 2. Acute respiratory failure, secondary to pulmonary edema that has now resolved. 3. Metabolic acidosis that has improved with dialysis. 4. Chronic kidney disease stage 5, requiring hemodialysis. PLAN: He is being transferred out to the telemetry floor. He will continue his antihypertensives. His pulmonary status remains extremely stable. He is being followed by multiple specialists. He may ultimately need a cardiac catheterization. Job ID: [id number]
[2018-07-25] MEDS ORDERED: READ PPD TEST SITE PO SCH (10:00)
--- NOTE | 2018-07-25 10:35 | PRG ---
DATE OF SERVICE: 07/25/2018 SUBJECTIVE: Mr. Leos is a 72-year-old white male with chronic renal failure, who was admitted for CHF. Due to the volume overload and worsening renal dysfunction, he has been initiated on dialysis. He underwent a 2-hour dialysis yesterday. My plan is to do another 3-hour hemodialysis for this patient. He may have reached ESRD stage. He is feeling better. He denies any chest pain or shortness of breath. OBJECTIVE: VITAL SIGNS: Blood pressure is 183/67, heart rate 69, respiratory rate 18, and pulse ox 97%. GENERAL: Noted to be awake, alert, and comfortable, not in distress. SKIN: Adequate turgor. HEENT: He has slightly pale conjunctivae, anicteric sclerae. NECK: No neck mass. No carotid bruits. No JVD. CHEST: No deformities. LUNGS: Decreased breath sounds. HEART: Normal sinus rhythm. No murmurs. No gallops. No rubs. ABDOMEN: Globular, soft, nontender. No masses. EXTREMITIES: No edema. No deformities. MEDICATIONS: Medications of July 25, 2018 was reviewed. LABORATORY DATA: Laboratories of July 25, 2018, white count 7.8, hemoglobin 9.8, hematocrit 28.4. Sodium 133, potassium 4.2, chloride 104, carbon dioxide 21, BUN 69, creatinine 4.37, glucose 271, and calcium 8.2. Hemoglobin 9.8. ASSESSMENT AND PLAN: 1. Chronic renal failure/end-stage renal disease - daily hemodialysis with fluid removal. So far, he is tolerating said treatment. AV fistula/graft was functional yesterday. Continue current management. 2. Anemia. The patient initiated on weekly Epogen. 3. Congestive heart failure. Clinically, much improved with fluid removal. We will make arrangements for outpatient hemodialysis with this patient. Job ID: [id number] MTDD
[2018-07-25] MEDS: Insulin Regular 300 UNITS/3 ML VIAL SC PRN ×2 (11:25→21:49)
[2018-07-25] MEDS: HYDROcodone/Acetaminophen 5/325 mg Tablet PO PRN (11:30)
--- NOTE | 2018-07-25 18:31 | PDOC.PN ---
- Subjective Encounter Start Date: 07/25/18 Encounter Start Time: 18:30 Subjective: f/u s/p NSTEMI medically managed with volume overload in context -: of ESRD on current HD and ischemic cardiomyopathy with EF 35-40%. -: Feels better overall. Weight down 16lbs since admit. - Objective Resuscitation Status - Order Detail: 07/22/18 10:18 Resuscitation Status Routine Resuscitation Status: FULL: Full Resuscitation Discussed with: patient MAR Reviewed: Yes Vital Signs & Weight: Vital Signs (12 hours) Temp Pulse Resp BP BP Pulse Ox 07/25/18 18:23 70 193/84 H 07/25/18 17:45 98.1 F 70 22 H 194/71 H 98 07/25/18 13:14 145/89 H 07/25/18 12:46 70 07/25/18 12:00 97.7 F 70 18 193/80 H 98 07/25/18 08:00 98.2 F 71 17 183/67 H 98 Weight Weight 182 lb 15.739 oz Most Recent Monitor Data Heart Rate from ECG 69 NIBP 183/67 NIBP BP-Mean 105 Respiration from ECG 18 SpO2 97 I&O: 07/24/18 07/25/18 07/26/18 06:59 06:59 06:59 Intake Total 1710.4 1995.3 Output Total 1965 1100 200 Balance -254.6 895.3 -200 Result Diagrams: 07/25/18 05:33 07/25/18 05:33 Additional Labs: Accuchecks 07/25/18 07/24/18 11:15 22:09 POC Glucose 327 H 194 H EKG Reviewed by me: Yes (Tele - V-pacing) Phys Exam - Physical Examination Constitutional: NAD HEENT: PERRLA, sclera anicteric, oral pharynx no lesions Neck: no nodes, no JVD, supple, full ROM Respiratory: no wheezing, no rales, no rhonchi, clear to auscultation bilateral S1, S2 Cardiovascular: RRR, no significant murmur, no rub, gallop Gastrointestinal: soft, non-tender, no distention, positive bowel sounds Musculoskeletal: no edema, pulses present Neurological: normal sensation, moves all 4 limbs Psychiatric: A&O x 3 Skin: normal turgor, cap refill <2 seconds Dx/Plan (1) NSTEMI (non-ST elevated myocardial infarction) Code(s): I21.4 - NON-ST ELEVATION (NSTEMI) MYOCARDIAL INFARCTION Status: Acute Comment: Significantly elevated Troponin. Patient does not want any invasive cardiac intervention as he is worried that it might hurt his kidneys and might have to go baclk to dialysis again. He has been doing ok past few years after he quit dialysis. Right now he has agreed to temporary dialysis due to metabolic acidosis. Dr. Dias had lengthy DW patient. Continue med mgmt, may consider heart cath at future date if renal function stabilizes. (2) CAD (coronary artery disease) Code(s): I25.10 - ATHSCL HEART DISEASE OF [place] CORONARY ARTERY W/O ANG PCTRS Status: Chronic Qualifiers: Coronary Disease-Associated Artery/Lesion type: bypass graft [place] vs. transplanted heart: [place] heart Associated angina: without angina Qualified Code(s): I25.810 - Atherosclerosis of coronary artery bypass graft(s) without angina pectoris Comment: Continue ASA, Lipitor and Coreg (3) Chronic systolic (congestive) heart failure Code(s): I50.22 - CHRONIC SYSTOLIC (CONGESTIVE) HEART FAILURE Status: Chronic Comment: EF 35%, mild-mod TR, continue HD for volume mgmt (4) ESRD (end stage renal disease) on dialysis Code(s): N18.6 - END STAGE RENAL DISEASE; Z99.2 - DEPENDENCE ON RENAL DIALYSIS Status: Chronic Comment: Continue HD per Renal service, monitor daily weight (5) DM2 (diabetes mellitus, type 2) Status: Chronic Qualifiers: Diabetes mellitus correction insulin use: with correction use Diabetes mellitus complication status: with kidney complications Diabetes mellitus complication detail: with chronic kidney disease Chronic kidney disease stage : stage 5, not on chronic dialysis Qualified Code(s): E11.22 - Type 2 diabetes mellitus with diabetic chronic kidney disease; N18.5 - Chronic kidney disease, stage 5; 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
[2018-07-25] MEDS: Atorvastatin Calcium 40 MG TAB PO SCH (21:46)
[2018-07-26 04:40] LABS: Anion Gap 18 mmol/L (10-20); BUN (Urea Nitrogen) 63 mg/dL (8.4-25.7); Calc. Creatinine Clearance 17 mL/min (70-130); Calcium 8.5 mg/dL (7.8-10.44); Carbon Dioxide 16 mmol/L (23-31); Chloride 105 mmol/L (98-107); Estimated GFR-MDRD 13; Glucose 301 mg/dL (83-110); Potassium 6.2 mmol/L (3.5-5.1); Sodium 133 mmol/L (136-145)
[2018-07-26] MEDS: Carvedilol 25 MG TAB PO SCH ×2 (08:04→22:06)
[2018-07-26] MEDS: hydrALAZINE 25 MG TAB PO SCH ×4 (08:04→22:06)
[2018-07-26] MEDS: Aspirin 81 mg Enteric Coated Tablet PO SCH (08:04)
[2018-07-26] MEDS: Heparin 5,000 UNITS/ML VIAL SC SCH ×3 (08:05→22:06)
[2018-07-26] MEDS: Insulin Glargine 25 UNITS in Pre-Filled Syringe 1 EACH SC SCH (08:44)
--- NOTE | 2018-07-26 10:55 | PRG ---
DATE OF SERVICE: 07/26/2018 SUBJECTIVE: He is complaining of constipation. Otherwise, he is doing well. OBJECTIVE: VITAL SIGNS: Temperature 100.1, pulse 85, blood pressure 206/93, and O2 saturation 96%. HEENT: Unremarkable. NECK: No JVD. LUNGS: Clear anteriorly. CARDIAC: S1 and S2. Regular. ABDOMEN: Soft. EXTREMITIES: Edematous. LABORATORY DATA: Sodium 133, potassium 6.2, chloride 105, CO2 of 16, BUN 63, creatinine 4.5, and glucose 301. ASSESSMENT: 1. Chronic renal failure with hyperkalemia. 2. Constipation. 3. Chest pain. 4. Status post pulmonary edema. PLAN: 1. The patient will need hemodialysis again today because of his hyperkalemia. 2. Colace as needed for stool softener. 3. No further pulmonary recommendations at this time. Job ID: [id number]
--- NOTE | 2018-07-26 10:56 | PDOC.PN ---
- Subjective Encounter Start Date: 07/26/18 Encounter Start Time: 10:40 Subjective: f/u for ESRD on serial HD. States doing ok and tolerating HD. -: Had some abd pain last pm that resolved after am BM. - Objective Resuscitation Status - Order Detail: 07/22/18 10:18 Resuscitation Status Routine Resuscitation Status: FULL: Full Resuscitation Discussed with: patient MAR Reviewed: Yes Vital Signs & Weight: Vital Signs (12 hours) Temp Pulse Resp BP BP Pulse Ox 07/26/18 08:20 96 07/26/18 08:04 75 206/93 H 07/26/18 07:12 100.1 F H 75 20 206/93 H 96 07/26/18 06:35 96 07/26/18 04:00 98.0 F 74 19 167/75 H 96 07/26/18 00:00 99.0 F 73 19 120/56 L 95 Weight Weight 182 lb 15.739 oz Most Recent Monitor Data Heart Rate from ECG 69 NIBP 183/67 NIBP BP-Mean 105 Respiration from ECG 18 SpO2 97 I&O: 07/25/18 07/26/18 07/27/18 06:59 06:59 06:59 Intake Total 1995.3 240 300 Output Total 1100 200 Balance 895.3 40 300 Result Diagrams: 07/25/18 05:33 07/26/18 04:03 Additional Labs: Accuchecks 07/26/18 07/25/18 07/25/18 06:08 20:15 11:15 POC Glucose 412 H 334 H 327 H Laboratory Tests 07/24/18 07/25/18 03:49 05:33 Creatinine 4.84 H 4.37 H EKG Reviewed by me: Yes (Tele - SR) Phys Exam - Physical Examination Constitutional: NAD HEENT: PERRLA, sclera anicteric, oral pharynx no lesions Neck: no nodes, no JVD, supple, full ROM Respiratory: no wheezing, no rales, no rhonchi, clear to auscultation bilateral S1, S2 Cardiovascular: RRR, no significant murmur, no rub, gallop Gastrointestinal: soft, non-tender, no distention, positive bowel sounds Musculoskeletal: no edema, pulses present Neurological: normal sensation, moves all 4 limbs Psychiatric: A&O x 3 Skin: normal turgor, cap refill <2 seconds Dx/Plan (1) NSTEMI (non-ST elevated myocardial infarction) Code(s): I21.4 - NON-ST ELEVATION (NSTEMI) MYOCARDIAL INFARCTION Status: Acute Comment: Continue med mgmt, may consider heart cath at future date if renal function stabilizes. (2) CAD (coronary artery disease) Code(s): I25.10 - ATHSCL HEART DISEASE OF [place] CORONARY ARTERY W/O ANG PCTRS Status: Chronic Qualifiers: Coronary Disease-Associated Artery/Lesion type: bypass graft [place] vs. transplanted heart: [place] heart Associated angina: without angina Qualified Code(s): I25.810 - Atherosclerosis of coronary artery bypass graft(s) without angina pectoris Comment: Continue ASA, Lipitor and Coreg (3) Chronic systolic (congestive) heart failure Code(s): I50.22 - CHRONIC SYSTOLIC (CONGESTIVE) HEART FAILURE Status: Chronic Comment: EF 35%, mild-mod TR, continue HD for volume mgmt (4) ESRD (end stage renal disease) on dialysis Code(s): N18.6 - END STAGE RENAL DISEASE; Z99.2 - DEPENDENCE ON RENAL DIALYSIS Status: Chronic Comment: Continue HD per Renal service, monitor daily weight , CM assisting with outpt HD coordination (5) DM2 (diabetes mellitus, type 2) Status: Chronic Qualifiers: Diabetes mellitus terminal computer operator insulin use: with terminal computer operator use Diabetes mellitus complication status: with kidney complications Diabetes mellitus complication detail: with chronic kidney disease Chronic kidney disease stage : stage 5, not on chronic dialysis Qualified Code(s): E11.22 - Type 2 diabetes mellitus with diabetic chronic kidney disease; N18.5 - Chronic kidney disease, stage 5; Z79.4 - longterm (current) use of insulin Comment: Continue Lantus 25u qam, ISS - Plan 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
[2018-07-26] MEDS: Insulin Regular 300 UNITS/3 ML VIAL SC PRN (11:14)
[2018-07-26] MEDS: Mag-Al 1200 mg/1200 mg/30 ML UDCUP PO PRN (11:47)
[2018-07-26] MEDS ORDERED: Docusate 100 MG CAP PO SCH (13:30)
[2018-07-26] MEDS: HYDROcodone/Acetaminophen 5/325 mg Tablet PO PRN ×2 (14:21→22:07)
--- NOTE | 2018-07-26 17:09 | PRG ---
DATE OF SERVICE: 07/26/2018 SUBJECTIVE: Mr. Leos is a 72-year-old white male who was admitted for CHF and initially on dialysis due to volume overload and worsening renal function. He is currently undergoing dialysis. I am at the bedside, supervising dialysis, where maximum fluid removal as tolerated. He did have an episode of severe back pain with radiation to the right thigh. I am suspecting he may have a pinched nerve. For that reason, we will try to image him. He tells me this has been ongoing and intermittent in nature. He denies any chest pain or shortness of breath. OBJECTIVE: VITAL SIGNS: Blood pressure 178/85, heart rate 69, respiratory rate 16, temperature 98.2, and pulse ox 98%. GENERAL: Awake, alert, comfortable, not in distress. SKIN: Adequate turgor. HEENT: Pinkish conjunctivae. Anicteric sclerae. No neck mass. No carotid bruits. No JVD. CHEST: No deformities. LUNGS: Clear breath sounds. HEART: Normal sinus rhythm. No murmurs, gallops, or rubs. ABDOMEN: Globular, soft, and nontender. No masses. EXTREMITIES: No edema. No deformities. MEDICATIONS: Medications of July 26, 2018, reviewed. LABORATORY DATA: Laboratories as previously dictated, the potassium was noted at 6.2. ASSESSMENT AND PLAN: 1. End-stage renal disease/chronic renal failure - continuing hemodialysis. Today, he will receive 4 hours dialysis. We will now place him on a three times a week hemodialysis regimen. 2. Anemia. Continuing weekly Epogen with the patient. 3. Shortness of breath/congestive heart failure, clinically much improved. 4. Acute low back pain/chronic low back pain. CT scan with and without contrast of the lumbosacral spine. Job ID: [id number]
--- NOTE | 2018-07-26 21:52 | CT ---
CT OF THORACIC SPINE PERFORMED WITHOUT CONTRAST ENHANCEMENT: 07/26/18 HISTORY: Severe chronic thoracic spine pain. The bones appear demineralized. The vertebral bodies are normal in height. There are degenerative dian nges noted. There is no compression fractures. There is no central canal stenosis. There is suggestio n of perhaps some mild left sided foraminal narrowing at the C7-T1 level. The lung chang are clear. IMPRESSION: Arthritic changes of the spine. No acute process. POS: ALIYAH
[2018-07-26] MEDS: Atorvastatin Calcium 40 MG TAB PO SCH (22:06)
[2018-07-26] MEDS: Docusate 100 MG CAP PO SCH (22:13)
--- NOTE | 2018-07-26 22:22 | CT ---
CT LUMBAR SPINE NONCONTRAST: 07/26/18 at 9:03 p.m. HISTORY: 72-year-old male with severe chronic low back pain. There are five lumbar type vertebrae. Minimal chronic-appearing anterior wedging of L1. Otherwise, ve rtebral body heights are preserved. There is no major spondylolisthesis. No gross abnormality of osmany vertebral spaces. The left kidney is not visualized. T11-12: Essentially normal. T12-L1: Essentially normal. L1-2: Disc space preserved. Slight degenerative retrolisthesis of L1 on L2. Diffuse disc bulge. Moder ate central spinal canal stenosis. Moderate to severe thecal sac stenosis. Mild bilateral neural fora delvin stenosis. L2-3: Mild to moderate disc space narrowing. Diffuse disc bulge. Mild ligamentum flavum thickening. M oderate to severe central spinal canal stenosis. Severe thecal sac stenosis. No right sided neural fo raminal stenosis. There is a left lateral broad based disc herniation or asymmetrically larger left l ateral and far lateral component of disc bulge, causing moderate left neural foraminal stenosis. L3-4: Minimal degenerative retrolisthesis of L3 on L4. Mild disc space narrowing. Extensive vacuum di sc phenomenon. Diffuse disc bulge. Mild to moderate ligamentum flavum thickening. Moderate to severe central spinal canal and thecal sac stenosis. Moderate bilateral neural foraminal stenosis. L4-5: Right hemilaminotomy defect and right inferior L4 facetectomy. Severe disc space narrowing on t he right side with severe right sided end plate sclerosis and osteophytosis, and vacuum disc phenomen on. Slight degenerative retrolisthesis of L4 on L5. Mild to moderate central spinal canal stenosis. M oderate right neural foraminal stenosis. Mild left neural foraminal stenosis. L5-S1: Enlarged bilateral L5 transverse processes (partial sacralization). Moderate right neural fora delvin stenosis. Mild to moderate left neural foraminal stenosis. No acquired high grade central spina l canal stenosis. No acquired disc space narrowing. Bilateral assimilation joints between the enlarge d L5 transverse processes and the SI sacral alae, without severe DJD at those joints. IMPRESSION: 1. Transitional level at the lumbosacral junction, a partially sacralized L5 with bilateral assi milation joints. 2. Severe lumbar spondylosis consisting of multilevel degenerative disc disease, moderate and se chioma. 3. Status post right hemilaminectomy at L4-5. 4. Multilevel high grade central spinal canal stenosis and multiple levels of neural foraminal s tenosis of varying degrees. 5. No acute compression fracture. 6. Status post left nephrectomy. POS: ALIYAH
[2018-07-27 05:59] LABS: Anion Gap 17 mmol/L (10-20); BUN (Urea Nitrogen) 59 mg/dL (8.4-25.7); Calc. Creatinine Clearance 18 mL/min (70-130); Calcium 8.8 mg/dL (7.8-10.44); Carbon Dioxide 21 mmol/L (23-31); Chloride 102 mmol/L (98-107); Estimated GFR-MDRD 14; Glucose 376 mg/dL (83-110); Potassium 5.2 mmol/L (3.5-5.1); Sodium 135 mmol/L (136-145)
[2018-07-27] MEDS: Insulin Regular 300 UNITS/3 ML VIAL SC PRN ×4 (07:34→21:21)
[2018-07-27] MEDS: HYDROcodone/Acetaminophen 5/325 mg Tablet PO PRN ×2 (07:39→18:55)
[2018-07-27] MEDS: hydrALAZINE 25 MG TAB PO SCH ×4 (09:17→21:14)
[2018-07-27] MEDS: Aspirin 81 mg Enteric Coated Tablet PO SCH (09:18)
[2018-07-27] MEDS: Carvedilol 25 MG TAB PO SCH ×2 (09:18→21:15)
[2018-07-27] MEDS: Heparin 5,000 UNITS/ML VIAL SC SCH ×3 (09:18→21:15)
[2018-07-27] MEDS: Docusate 100 MG CAP PO SCH ×2 (09:19→21:15)
[2018-07-27] MEDS: Insulin Glargine 25 UNITS in Pre-Filled Syringe 1 EACH SC SCH (09:21)
--- NOTE | 2018-07-27 11:07 | PRG ---
DATE OF SERVICE: 07/27/2018 SUBJECTIVE: Mr. eLos is a 72-year-old white male with known history of chronic renal failure and was initiated on hemodialysis due to volume overload and progressive azotemia. He has been undergoing dialysis on a daily basis. He tolerated the dialysis yesterday with fluid removal. He also complained of severe back pain, intermittent in nature. On close questioning, he does have history of chronic low back pain, has had back surgery previously. CT scan of the lumbar spine showed multilevel high-grade central spinal canal stenosis and multiple levels of neural foraminal stenosis of varying degrees. There is no acute fracture. No complaints of chest pain or shortness of breath. OBJECTIVE: VITAL SIGNS: Blood pressure is 165/73, heart rate is 72, respiratory rate 16, temperature 97.9, pulse ox 96%. GENERAL: Noted to be awake, alert, comfortable, not in distress, and the patient is ambulatory. SKIN: Adequate turgor. HEENT: Pinkish conjunctivae. Anicteric sclerae. NECK: No neck mass. No carotid bruits. No JVD. CHEST: No deformities. LUNGS: Clear breath sounds. No wheezing. No crackles. HEART: Normal sinus rhythm. No murmurs. No gallops or rubs. ABDOMEN: Globular, soft, nontender. No masses. EXTREMITIES: No edema. No deformities. MEDICATIONS: Medications of July 27, 2018, were reviewed. LABORATORY DATA: Laboratories of July 25, 2018; white count 7.8, hemoglobin 9.8. July 27, 2018; sodium 135, potassium 5.2, chloride 102, carbon dioxide 21, BUN 59, creatinine 4.33, glucose 376, calcium 8.8. ASSESSMENT AND PLAN: 1. Chronic low back pain. Findings of multilevel high-grade central spinal stenosis with neural foraminal stenosis were found - the patient may need to be referred back to his neurosurgeon for further evaluation. 2. End-stage renal disease/chronic renal failure, stable, tolerating current hemodialysis regimen. I will be placing this patient on a Tuesday, Tuesday, Tuesday dialysis. In addition, the patient is awaiting outpatient dialysis placement. He wanted to go back to his previous dialysis unit. He used to be dialyzed at [facility] in [place]. 3. Anemia, continuing weekly Epogen. Job ID: [id number]
--- NOTE | 2018-07-27 13:46 | PDOC.PN ---
- Subjective Encounter Start Date: 07/27/18 Encounter Start Time: 13:45 Subjective: f/u for NSTEMI medically managed and ESRD with current HD. -: Feels ok overall with improved abd pain. Weight down 18lbs since admit - Objective Resuscitation Status - Order Detail: 07/22/18 10:18 Resuscitation Status Routine Resuscitation Status: FULL: Full Resuscitation Discussed with: patient MAR Reviewed: Yes Vital Signs & Weight: Vital Signs (12 hours) Temp Pulse Resp BP Pulse Ox 07/27/18 12:00 97.1 F L 72 18 142/70 H 96 07/27/18 09:17 69 07/27/18 08:00 97.4 F L 69 17 134/65 97 07/27/18 04:00 97.9 F 72 16 165/73 H 96 Weight Weight 181 lb Most Recent Monitor Data Heart Rate from ECG 69 NIBP 183/67 NIBP BP-Mean 105 Respiration from ECG 18 SpO2 97 I&O: 07/26/18 07/27/18 07/28/18 06:59 06:59 06:59 Intake Total 240 1200 Output Total 200 3450 Balance 40 -2250 Result Diagrams: 07/25/18 05:33 07/27/18 05:14 Additional Labs: Accuchecks 07/27/18 07/27/18 07/26/18 11:12 05:38 20:40 POC Glucose 223 H 367 H 214 H Laboratory Tests 07/24/18 07/25/18 03:49 05:33 Creatinine 4.84 H 4.37 H EKG Reviewed by me: Yes (Tele - V-pacing) Phys Exam - Physical Examination Constitutional: NAD HEENT: PERRLA, sclera anicteric, oral pharynx no lesions Neck: no nodes, no JVD, supple, full ROM Respiratory: no wheezing, no rales, no rhonchi, clear to auscultation bilateral S1, S2 Cardiovascular: RRR, no significant murmur, no rub, gallop Gastrointestinal: soft, non-tender, no distention, positive bowel sounds Musculoskeletal: no edema, pulses present Neurological: normal sensation, moves all 4 limbs Psychiatric: A&O x 3 Skin: normal turgor, cap refill <2 seconds Dx/Plan (1) NSTEMI (non-ST elevated myocardial infarction) Code(s): I21.4 - NON-ST ELEVATION (NSTEMI) MYOCARDIAL INFARCTION Status: Acute Comment: Continue med mgmt, may consider heart cath at future date if renal function stabilizes but pt declining any further intervention regarding cardiac status (2) CAD (coronary artery disease) Code(s): I25.10 - ATHSCL HEART DISEASE OF [place] CORONARY ARTERY W/O ANG PCTRS Status: Chronic Qualifiers: Coronary Disease-Associated Artery/Lesion type: bypass graft [place] vs. transplanted heart: [place] heart Associated angina: without angina Qualified Code(s): I25.810 - Atherosclerosis of coronary artery bypass graft(s) without angina pectoris Comment: Continue ASA, Lipitor and Coreg (3) Chronic systolic (congestive) heart failure Code(s): I50.22 - CHRONIC SYSTOLIC (CONGESTIVE) HEART FAILURE Status: Chronic Comment: EF 35%, mild-mod TR, continue HD for volume mgmt (4) ESRD (end stage renal disease) on dialysis Code(s): N18.6 - END STAGE RENAL DISEASE; Z99.2 - DEPENDENCE ON RENAL DIALYSIS Status: Chronic Comment: Continue HD per Renal service, monitor daily weight , CM assisting with outpt HD coordination (5) DM2 (diabetes mellitus, type 2) Status: Chronic Qualifiers: Diabetes mellitus halfway insulin use: with intermediate school teacher use Diabetes mellitus complication status: with kidney complications Diabetes mellitus complication detail: with chronic kidney disease Chronic kidney disease stage : stage 5, not on chronic dialysis Qualified Code(s): E11.22 - Type 2 diabetes mellitus with diabetic chronic kidney disease; N18.5 - Chronic kidney disease, stage 5; Z79.4 - senior care (current) use of insulin Comment: Continue Lantus 25u qam, ISS - Plan 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
[2018-07-27] MEDS: Atorvastatin Calcium 40 MG TAB PO SCH (21:14)
[2018-07-28] MEDS: Insulin Regular 300 UNITS/3 ML VIAL SC PRN ×2 (06:12→11:54)
[2018-07-28 06:25] LABS: Anion Gap 20 mmol/L (10-20); BUN (Urea Nitrogen) 79 mg/dL (8.4-25.7); Calc. Creatinine Clearance 16 mL/min (70-130); Carbon Dioxide 18 mmol/L (23-31); Chloride 105 mmol/L (98-107); Estimated GFR-MDRD 11; Glucose 201 mg/dL (83-110)
[2018-07-28 06:43] LABS: Sodium 137 mmol/L (136-145)
[2018-07-28] MEDS: hydrALAZINE 25 MG TAB PO SCH ×4 (09:24→21:09)
[2018-07-28] MEDS: Aspirin 81 mg Enteric Coated Tablet PO SCH (09:24)
[2018-07-28] MEDS: Heparin 5,000 UNITS/ML VIAL SC SCH ×3 (09:24→21:10)
[2018-07-28] MEDS: Carvedilol 25 MG TAB PO SCH ×2 (09:24→21:10)
[2018-07-28] MEDS: Insulin Glargine 25 UNITS in Pre-Filled Syringe 1 EACH SC SCH (09:25)
[2018-07-28] MEDS: Docusate 100 MG CAP PO SCH ×2 (09:26→21:10)
--- NOTE | 2018-07-28 15:10 | PDOC.PN ---
- Subjective Encounter Start Date: 07/28/18 Encounter Start Time: 14:45 Subjective: f/u for ESRD on current HD. Feels ok and no SOB. Some muscle cramps -: after HD. - Objective Resuscitation Status - Order Detail: 07/22/18 10:18 Resuscitation Status Routine Resuscitation Status: FULL: Full Resuscitation Discussed with: patient ANTHONY Reviewed: Yes Vital Signs & Weight: Vital Signs (12 hours) Temp Pulse Resp BP Pulse Ox 07/28/18 12:00 97.8 F 69 18 147/70 H 98 07/28/18 11:53 69 07/28/18 09:24 69 07/28/18 08:00 97.5 F L 69 17 187/84 H 100 07/28/18 03:39 98.0 F 66 14 136/63 96 Weight Weight 185 lb 8 oz Most Recent Monitor Data Heart Rate from ECG 69 NIBP 183/67 NIBP BP-Mean 105 Respiration from ECG 18 SpO2 97 I&O: 07/27/18 07/28/18 07/29/18 06:59 06:59 06:59 Intake Total 1200 720 Output Total 3450 Balance -2250 720 Result Diagrams: 07/25/18 05:33 07/28/18 05:46 Additional Labs: Accuchecks 07/28/18 07/28/18 07/28/18 11:00 05:41 00:18 POC Glucose 273 H 220 H 193 H 07/27/18 07/27/18 20:08 16:53 POC Glucose 223 H 263 H EKG Reviewed by me: Yes (Tele - V-paced) Phys Exam - Physical Examination Constitutional: NAD HEENT: PERRLA, sclera anicteric, oral pharynx no lesions Neck: no nodes, no JVD, supple, full ROM Respiratory: no wheezing, no rales, no rhonchi, clear to auscultation bilateral S1, S2 Cardiovascular: RRR, no significant murmur, no rub, gallop Gastrointestinal: soft, non-tender, no distention, positive bowel sounds Musculoskeletal: no edema, pulses present Neurological: normal sensation, moves all 4 limbs Psychiatric: normal affect, A&O x 3 Skin: normal turgor, cap refill <2 seconds Dx/Plan (1) ESRD (end stage renal disease) on dialysis Code(s): N18.6 - END STAGE RENAL DISEASE; Z99.2 - DEPENDENCE ON RENAL DIALYSIS Status: Chronic Comment: Continue HD per Renal service, monitor daily weight , CM assisting with outpt HD coordination, await final approval (2) NSTEMI (non-ST elevated myocardial infarction) Code(s): I21.4 - NON-ST ELEVATION (NSTEMI) MYOCARDIAL INFARCTION Status: Acute Comment: Continue med mgmt, may consider heart cath at future date if renal function stabilizes but pt declining any further intervention regarding cardiac status (3) CAD (coronary artery disease) Code(s): I25.10 - ATHSCL HEART DISEASE OF [place] CORONARY ARTERY W/O ANG PCTRS Status: Chronic Qualifiers: Coronary Disease-Associated Artery/Lesion type: bypass graft [place] vs. transplanted heart: [place] heart Associated angina: without angina Qualified Code(s): I25.810 - Atherosclerosis of coronary artery bypass graft(s) without angina pectoris Comment: Continue ASA, Lipitor and Coreg (4) Chronic systolic (congestive) heart failure Code(s): I50.22 - CHRONIC SYSTOLIC (CONGESTIVE) HEART FAILURE Status: Chronic Comment: EF 35%, mild-mod TR, continue HD for volume mgmt (5) DM2 (diabetes mellitus, type 2) Status: Chronic Qualifiers: Diabetes mellitus assisted insulin use: with assisted use Diabetes mellitus complication status: with kidney complications Diabetes mellitus complication detail: with chronic kidney disease Chronic kidney disease stage : stage 5, not on chronic dialysis Qualified Code(s): E11.22 - Type 2 diabetes mellitus with diabetic chronic kidney disease; N18.5 - Chronic kidney disease, stage 5; Z79.4 - [facility] (current) use of insulin Comment: Continue Lantus 25u qam, ISS - 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
--- NOTE | 2018-07-28 16:23 | PRG ---
DATE OF SERVICE: 07/28/2018 SUBJECTIVE: Mr. Leos is a 72-year-old white male, who was admitted for CHF. He also was in volume overload and had progressive azotemia. For that reason, he has been placed on maintenance hemodialysis. He is doing well. The plan is to do a 3-1/2-hour hemodialysis with him today. No other complaints. OBJECTIVE: VITAL SIGNS: Blood pressure is 187/84, heart rate 69, respiratory rate 17, temperature 97.5, and pulse ox 100%. GENERAL: Awake, alert, comfortable, not in distress. SKIN: Adequate turgor. HEENT: He has a pinkish conjunctivae. Anicteric sclerae. NECK: No neck mass. No carotid bruits. No JVD. CHEST: No deformities. LUNGS: Decreased breath sounds. HEART: Normal sinus rhythm. No murmurs. No gallops. No rubs. ABDOMEN: Globular, soft, and nontender. No masses. EXTREMITIES: No edema. No deformities. MEDICATIONS: Medications of July 28, 2018, were reviewed. LABORATORY DATA: Laboratories of July 28, 2018, sodium 137, potassium 6, chloride 105, carbon dioxide 18, BUN 79, creatinine 5.02, glucose 201, calcium 9. Hemoglobin 9.8. ASSESSMENT AND PLAN: 1. Anemia, on weekly Epogen. 2. Chronic renal failure/acute kidney injury/end-stage renal disease - the patient has reached end stage renal disease stage. Continue 3 times a week hemodialysis. Fluid removal as tolerated. Our plan is to do a 3-1/2-hour hemodialysis with this patient. 3. Congestive heart failure, clinically much improved with dialysis and fluid removal. He is off Lasix. We are currently awaiting outpatient dialysis placement with this patient. Job ID: [id number]
[2018-07-28] MEDS: Atorvastatin Calcium 40 MG TAB PO SCH (21:09)
[2018-07-29 06:40] LABS: Anion Gap 17 mmol/L (10-20); BUN (Urea Nitrogen) 62 mg/dL (8.4-25.7); Calc. Creatinine Clearance 18 mL/min (70-130); Carbon Dioxide 23 mmol/L (23-31); Chloride 96 mmol/L (98-107); Estimated GFR-MDRD 13; Glucose 342 mg/dL (83-110); Potassium 4.3 mmol/L (3.5-5.1); Sodium 132 mmol/L (136-145)
[2018-07-29] MEDS: Carvedilol 25 MG TAB PO SCH ×2 (09:07→20:32)
[2018-07-29] MEDS: Aspirin 81 mg Enteric Coated Tablet PO SCH (09:07)
[2018-07-29] MEDS: hydrALAZINE 25 MG TAB PO SCH ×4 (09:08→20:32)
[2018-07-29] MEDS: Insulin Glargine 25 UNITS in Pre-Filled Syringe 1 EACH SC SCH (09:08)
[2018-07-29] MEDS: Docusate 100 MG CAP PO SCH ×2 (09:09→20:33)
[2018-07-29] MEDS: Heparin 5,000 UNITS/ML VIAL SC SCH (10:19)
--- NOTE | 2018-07-29 11:25 | PDOC.PN ---
- Subjective Encounter Start Date: 07/29/18 Encounter Start Time: 11:25 Subjective: f/u for ESRD on HD. Having some muscle cramps after HD. Overall -: feels ok. - Objective Resuscitation Status - Order Detail: 07/22/18 10:18 Resuscitation Status Routine Resuscitation Status: FULL: Full Resuscitation Discussed with: patient ANTHONY Reviewed: Yes Vital Signs & Weight: Vital Signs (12 hours) Temp Pulse Resp BP Pulse Ox 07/29/18 09:08 74 07/29/18 08:59 98.2 F 74 18 138/61 98 07/29/18 04:00 97.8 F 71 18 154/66 H 97 Weight Weight 183 lb Most Recent Monitor Data Heart Rate from ECG 69 NIBP 183/67 NIBP BP-Mean 105 Respiration from ECG 18 SpO2 97 I&O: 07/28/18 07/29/18 07/30/18 06:59 06:59 06:59 Intake Total 720 840 Balance 720 840 Result Diagrams: 07/25/18 05:33 07/29/18 04:33 Additional Labs: Accuchecks 07/29/18 07/28/18 07/28/18 05:49 23:54 20:21 POC Glucose 291 H 304 H 299 H Laboratory Tests 07/24/18 07/25/18 07/28/18 03:49 05:33 05:46 Potassium 6.0 H Creatinine 4.84 H 4.37 H 5.02 H EKG Reviewed by me: Yes (Tele - SR) Phys Exam - Physical Examination Constitutional: NAD HEENT: PERRLA, sclera anicteric, oral pharynx no lesions Neck: no nodes, no JVD, supple, full ROM Respiratory: no wheezing, no rales, no rhonchi, clear to auscultation bilateral S1, S2 Cardiovascular: RRR, no significant murmur, no rub, gallop Gastrointestinal: soft, non-tender, no distention, positive bowel sounds Musculoskeletal: no edema, pulses present Neurological: normal sensation, moves all 4 limbs Psychiatric: A&O x 3 Skin: normal turgor, cap refill <2 seconds Dx/Plan (1) ESRD (end stage renal disease) on dialysis Code(s): N18.6 - END STAGE RENAL DISEASE; Z99.2 - DEPENDENCE ON RENAL DIALYSIS Status: Chronic Comment: Continue HD per Renal service, monitor daily weight , CM assisting with outpt HD coordination, await final approval (2) NSTEMI (non-ST elevated myocardial infarction) Code(s): I21.4 - NON-ST ELEVATION (NSTEMI) MYOCARDIAL INFARCTION Status: Acute Comment: Continue med mgmt, may consider heart cath at future date if renal function stabilizes but pt declining any further intervention regarding cardiac status (3) CAD (coronary artery disease) Code(s): I25.10 - ATHSCL HEART DISEASE OF [place] CORONARY ARTERY W/O ANG PCTRS Status: Chronic Qualifiers: Coronary Disease-Associated Artery/Lesion type: bypass graft [place] vs. 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 insulin use: with halfway use Diabetes mellitus complication status: with kidney complications Diabetes mellitus complication detail: with chronic kidney disease Chronic kidney disease stage : stage 5, not on chronic dialysis Qualified Code(s): E11.22 - Type 2 diabetes mellitus with diabetic chronic kidney disease; N18.5 - Chronic kidney disease, stage 5; Z79.4 - ferry terminal agent (current) use of insulin Comment: Labile, increase Lantus 30u qam, ISS - Plan 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
--- NOTE | 2018-07-29 12:31 | PDOC.CTH ---
<Beth Mercado - Last Filed: 07/29/18 12:31> Cardiology Progress Note - Subjective The pt seen and examined. No overnight events. No cardiac complaints. He complains of ABD pain 2/2 ABD bloating. - Objective Vital Signs Temp Pulse Resp BP Pulse Ox 07/29/18 09:08 74 07/29/18 08:59 98.2 F 74 18 138/61 98 07/29/18 04:00 97.8 F 71 18 154/66 H 97 Weight 183 lb 07/28/18 07/29/18 07/30/18 06:59 06:59 06:59 Intake Total 720 840 Balance 720 840 - Physical Examination General/Neuro: alert & oriented x3 Neck: no JVD present Lungs: CTA Heart: RRR Abdomen: soft Extremities: other: (No edema) - Telemetry Telemetry Rhythm: SR 60s - Labs Result Diagrams: 07/25/18 05:33 07/29/18 04:33 Troponin/CKMB CK-MB (CK-2) 11.9 ng/mL (0-6.6) H* 07/22/18 05:09 Troponin I 11.432 ng/mL (< 0.028) H* 07/22/18 12:01 - Assessment/Plan 1. NSTEMI - the pt declined cath procedure. Continue med management for now. On BBlokcer, ASA, and statin. Not on ARLEN/ARB 2/2 hx of CKD 2. CAD with s/p CABG 3. ESRD with HD - 4. Chronic systolic HF with EF 35-40% and mild-mod TR; stable with HD for volume mgmt 5. S/p AICD placement - 6. HTN - stable 7. Hyperlipidemia - statin 8. DM type 2 - managed by PCP 9. Ex-smoker MAR reviewed Review of Systems - Review of Systems Constitutional: reports: no symptoms reported EENTM: reports: no symptoms reported Respiratory: reports: no symptoms reported Cardiac (ROS): reports: no symptoms reported ABD/GI: reports: see HPI : reports: no symptoms reported <Mg Mendes - Last Filed: 07/29/18 18:07> Cardiology Progress Note - Objective Vital Signs Temp Pulse Resp BP Pulse Ox 07/29/18 17:29 88 07/29/18 15:30 98.2 F 88 16 149/69 H 95 07/29/18 12:33 97.8 F 75 18 151/67 H 100 07/29/18 09:08 74 07/29/18 08:59 98.2 F 74 18 138/61 98 07/29/18 08:55 98 Weight 183 lb 07/28/18 07/29/18 07/30/18 06:59 06:59 06:59 Intake Total 720 840 Balance 720 840 - Labs Result Diagrams: 07/25/18 05:33 07/29/18 04:33 Troponin/CKMB CK-MB (CK-2) 11.9 ng/mL (0-6.6) H* 07/22/18 05:09 Troponin I 11.432 ng/mL (< 0.028) H* 07/22/18 12:01 - Assessment/Plan Pt. seen and eval. by me. I agree with the A/P by the QUARRYING MANAGER. We have discussed the pt as well as the A/PO. Chest clear. RRR
[2018-07-29] MEDS: Insulin Regular 300 UNITS/3 ML VIAL SC PRN ×2 (12:34→17:30)
[2018-07-29] MEDS: Atorvastatin Calcium 40 MG TAB PO SCH (20:32)
[2018-07-29] MEDS ORDERED: Insulin Regular 300 UNITS/3 ML VIAL SC PRN (20:45)
--- NOTE | 2018-07-29 21:50 | PRG ---
DATE OF SERVICE: SUBJECTIVE: The patient was seen and examined and feeling much better. Not able to follow . OBJECTIVE: VITAL SIGNS: Afebrile, temperature 98.2, pulse 88, respiratory rate of 16, O2 saturation of 95%, blood pressure 149/69 to 192/98. HEENT: Examination is unremarkable. CARDIOVASCULAR SYSTEM: First and second heart sounds were heard. RESPIRATORY SYSTEM: Clear to auscultation. DIGESTIVE SYSTEM: Revealed a benign abdomen. EXTREMITIES: No peripheral edema. IMPRESSION: 1. End-stage renal disease, hemodialysis dependent. 2. Non-ST elevation myocardial infarction. 3. Hypertension. 4. Type 2 diabetes mellitus. PLAN: 1. Continue with current regimen of hemodialysis, Tuesday, Tuesday, and Tuesday. No indication for hemodialysis is needed today. 2. Further management to be dependent on the clinical course. Job ID: [id number]
[2018-07-30 06:20] LABS: Anion Gap 17 mmol/L (10-20); BUN (Urea Nitrogen) 86 mg/dL (8.4-25.7); Calc. Creatinine Clearance 15 mL/min (70-130); Calcium 8.9 mg/dL (7.8-10.44); Carbon Dioxide 23 mmol/L (23-31); Chloride 97 mmol/L (98-107); Estimated GFR-MDRD 11; Glucose 272 mg/dL (83-110); Potassium 4.6 mmol/L (3.5-5.1); Sodium 132 mmol/L (136-145)
[2018-07-30] MEDS: Calcitriol 0.25 MCG CAP PO SCH (08:41)
[2018-07-30] MEDS: Aspirin 81 mg Enteric Coated Tablet PO SCH (08:41)
[2018-07-30] MEDS: Docusate 100 MG CAP PO SCH ×3 (08:41→21:46)
[2018-07-30] MEDS: Carvedilol 25 MG TAB PO SCH ×2 (08:41→21:37)
[2018-07-30] MEDS: hydrALAZINE 25 MG TAB PO SCH ×4 (08:42→21:36)
[2018-07-30] MEDS: Insulin Regular 300 UNITS/3 ML VIAL SC PRN ×4 (08:43→18:56)
[2018-07-30] MEDS ORDERED: Insulin Glargine 30 UNITS in Pre-Filled Syringe 1 EACH SC SCH (09:00)
--- NOTE | 2018-07-30 12:22 | PDOC.CTH ---
<Beth Mercado - Last Filed: 07/30/18 12:28> Cardiology Progress Note - Subjective The pt seen and examined. No overnight events. No cardiac complaints. - Objective Vital Signs Temp Pulse Resp BP Pulse Ox 07/30/18 08:36 97.9 F 71 18 145/75 H 97 07/30/18 05:37 96 07/30/18 04:00 98.1 F 71 20 174/75 H 95 07/30/18 00:47 161/69 H Weight 186 lb 07/29/18 07/30/18 07/31/18 06:59 06:59 06:59 Intake Total 840 600 Output Total 450 Balance 840 150 - Physical Examination General/Neuro: alert & oriented x3 Neck: no JVD present Lungs: CTA Heart: RRR Abdomen: soft Extremities: other: (No edema) - Telemetry Telemetry Rhythm: AV paced - Labs Result Diagrams: 07/25/18 05:33 07/30/18 05:04 Troponin/CKMB CK-MB (CK-2) 11.9 ng/mL (0-6.6) H* 07/22/18 05:09 Troponin I 11.432 ng/mL (< 0.028) H* 07/22/18 12:01 - Assessment/Plan 1. NSTEMI - the pt declined cath procedure. Continue med management for now. On BBlokcer, ASA, and statin. Not on ARLEN/ARB 2/2 hx of CKD 2. CAD with hx of CABG 3. ESRD with HD - managed by clinical biochemist; waiting for outpt HD setting. 4. Chronic systolic HF with EF 35-40% and mild-mod TR; stable with HD for volume mgmt 5. S/p AICD placement - stable 6. HTN - Start Norvasc 5mg qd. 7. Hyperlipidemia - statin 8. DM type 2 - managed by PCP 9. Ex-smoker MAR reviewed * Waiting for outpt HD set up. Review of Systems - Review of Systems Constitutional: reports: no symptoms reported EENTM: reports: no symptoms reported Respiratory: reports: no symptoms reported Cardiac (ROS): reports: no symptoms reported ABD/GI: reports: abdominal pain : reports: no symptoms reported <Mg Mendes - Last Filed: 07/30/18 22:10> Cardiology Progress Note - Objective Vital Signs Temp Pulse Resp BP BP BP Pulse Ox 07/30/18 21:36 67 178/80 H 07/30/18 19:28 71 144/63 H 07/30/18 17:05 74 198/86 H 07/30/18 16:09 97.7 F 73 16 207/92 H 96 07/30/18 12:25 99.3 F 68 18 187/82 H 98 Weight 186 lb 07/29/18 07/30/18 07/31/18 06:59 06:59 06:59 Intake Total 840 600 600 Output Total 450 Balance 840 150 600 - Labs Result Diagrams: 07/25/18 05:33 07/30/18 05:04 Troponin/CKMB CK-MB (CK-2) 11.9 ng/mL (0-6.6) H* 07/22/18 05:09 Troponin I 11.432 ng/mL (< 0.028) H* 07/22/18 12:01 - Assessment/Plan I agree with the A/P by the NURSE WOUND CARE.
[2018-07-30] MEDS ORDERED: Amlodipine 5 MG TAB PO SCH (13:00)
[2018-07-30] MEDS: Epoetin (ESRD) 20,000 UNITS/ML SC SCH (13:09)
--- NOTE | 2018-07-30 15:40 | PDOC.PN ---
- Subjective Encounter Start Date: 07/30/18 Encounter Start Time: 15:30 Subjective: f/u for ESRD, NSTEMI. Feels ok overall. No dyspnea or edema. -: Some muscle cramps, ambulating without difficulty. - Objective Resuscitation Status - Order Detail: 07/22/18 10:18 Resuscitation Status Routine Resuscitation Status: FULL: Full Resuscitation Discussed with: patient ANTHONY Reviewed: Yes Vital Signs & Weight: Vital Signs (12 hours) Temp Pulse Resp BP BP Pulse Ox 07/30/18 12:25 99.3 F 68 18 187/82 H 98 07/30/18 08:36 97.9 F 71 18 145/75 H 97 07/30/18 05:37 96 07/30/18 04:00 98.1 F 71 20 174/75 H 95 Weight Weight 186 lb Most Recent Monitor Data Heart Rate from ECG 69 NIBP 183/67 NIBP BP-Mean 105 Respiration from ECG 18 SpO2 97 I&O: 07/29/18 07/30/18 07/31/18 06:59 06:59 06:59 Intake Total 840 600 Output Total 450 Balance 840 150 Result Diagrams: 07/25/18 05:33 07/30/18 05:04 Additional Labs: Accuchecks 07/30/18 07/30/18 07/29/18 10:58 05:23 20:20 POC Glucose 283 H 275 H 347 H 07/29/18 16:55 POC Glucose 340 H Laboratory Tests 07/24/18 07/25/18 07/28/18 03:49 05:33 05:46 Potassium 6.0 H Creatinine 4.84 H 4.37 H 5.02 H EKG Reviewed by me: Yes (Tele - SR) Phys Exam - Physical Examination Constitutional: NAD HEENT: PERRLA, sclera anicteric, oral pharynx no lesions Neck: no nodes, no JVD, supple, full ROM Respiratory: no wheezing, no rales, no rhonchi, clear to auscultation bilateral S1, S2 Cardiovascular: RRR, no significant murmur, no rub, gallop Gastrointestinal: soft, non-tender, no distention, positive bowel sounds RUE AV fistula in place Musculoskeletal: pulses present Neurological: normal sensation, moves all 4 limbs Psychiatric: A&O x 3 Skin: normal turgor, cap refill <2 seconds Dx/Plan (1) ESRD (end stage renal disease) on dialysis Code(s): N18.6 - END STAGE RENAL DISEASE; Z99.2 - DEPENDENCE ON RENAL DIALYSIS Status: Chronic Comment: Continue HD per Renal service, monitor daily weight , CM assisting with outpt HD coordination, await final approval (2) NSTEMI (non-ST elevated myocardial infarction) Code(s): I21.4 - NON-ST ELEVATION (NSTEMI) MYOCARDIAL INFARCTION Status: Acute Comment: Continue med mgmt, may consider heart cath at future date if renal function stabilizes but pt declining any further intervention regarding cardiac status (3) CAD (coronary artery disease) Code(s): I25.10 - ATHSCL HEART DISEASE OF [place] CORONARY ARTERY W/O ANG PCTRS Status: Chronic Qualifiers: Coronary Disease-Associated Artery/Lesion type: bypass graft [place] vs. transplanted heart: [place] heart Associated angina: without angina Qualified Code(s): I25.810 - Atherosclerosis of coronary artery bypass graft(s) without angina pectoris Comment: Continue ASA, Lipitor and Coreg (4) Chronic systolic (congestive) heart failure Code(s): I50.22 - CHRONIC SYSTOLIC (CONGESTIVE) HEART FAILURE Status: Chronic Comment: EF 35%, mild-mod TR, continue HD for volume mgmt (5) DM2 (diabetes mellitus, type 2) Status: Chronic Qualifiers: Diabetes mellitus intermediate school teacher insulin use: with intermediate school teacher use Diabetes mellitus complication status: with kidney complications Diabetes mellitus complication detail: with chronic kidney disease Chronic kidney disease stage : stage 5, not on chronic dialysis Qualified Code(s): E11.22 - Type 2 diabetes mellitus with diabetic chronic kidney disease; N18.5 - Chronic kidney disease, stage 5; Z79.4 - terminal worker (current) use of insulin Comment: Labile, increase Lantus 35u qam, ISS - Plan director social welfare, out of bed/ambulate, DVT proph w/SCDs Stable overall -: HD per Renal service -: Increase Lantus 35u qam -: OOB/ambulate -: AM lab: BMP, A1C * Likely home in 24h
[2018-07-30] MEDS ORDERED: hydrALAZINE 20 MG/ML VIAL SLOW IVP PRN (16:32)
[2018-07-30] MEDS: Atorvastatin Calcium 40 MG TAB PO SCH (21:36)
[2018-07-31 06:06] LABS: Hemoglobin A1c 8.3 % (4.0-6.0)
[2018-07-31 06:50] LABS: Anion Gap 16 mmol/L (10-20); BUN (Urea Nitrogen) 93 mg/dL (8.4-25.7); Calc. Creatinine Clearance 14 mL/min (70-130); Carbon Dioxide 23 mmol/L (23-31); Chloride 100 mmol/L (98-107); Estimated GFR-MDRD 10; Glucose 215 mg/dL (83-110); Potassium 4.7 mmol/L (3.5-5.1); Sodium 134 mmol/L (136-145)
--- NOTE | 2018-07-31 07:27 | PRG ---
DATE OF SERVICE: 07/30/2018 SUBJECTIVE: The patient with no new complaints. Noted with the following. OBJECTIVE: VITAL SIGNS: Afebrile, temperature 99.2, pulse 67, respiratory rate of 14, O2 saturation of 92% with blood pressure 170/80. HEENT: Unremarkable. CARDIOVASCULAR: First and second heart sounds were heard. RESPIRATORY: Clear to auscultation. DIGESTIVE: Revealed a benign abdomen. EXTREMITIES: No peripheral edema. SKIN: No new gross rash. LYMPHATICS: No peripheral lymphadenopathy. LABORATORY INVESTIGATION: Showed creatinine of 5.26 and BUN of 86. IMPRESSION: 1. End-stage renal disease, on hemodialysis. 2. Non-ST elevation myocardial infarction. 3. Systolic congestive heart failure. 4. Diabetes mellitus. PLAN: 1. We will continue with current dialysis schedule. 2. Further management will be dependent on the clinical course. Job ID: [id number]
[2018-07-31] MEDS: Carvedilol 25 MG TAB PO SCH (08:37)
[2018-07-31] MEDS: hydrALAZINE 25 MG TAB PO SCH ×2 (08:37→12:42)
[2018-07-31] MEDS: Calcitriol 0.25 MCG CAP PO SCH (08:37)
[2018-07-31] MEDS: Aspirin 81 mg Enteric Coated Tablet PO SCH (08:37)
[2018-07-31] MEDS: Docusate 100 MG CAP PO SCH (08:40)
[2018-07-31] MEDS ORDERED: Amlodipine 5 MG TAB PO SCH (09:00)
[2018-07-31] MEDS ORDERED: Insulin Glargine 35 UNITS in Pre-Filled Syringe SC SCH (09:00)
[2018-07-31 12:42] VITALS: BP 153/71; TEMP 97.8
[2018-07-31] MEDS: Insulin Regular 300 UNITS/3 ML VIAL SC PRN (12:44)
--- NOTE | 2018-07-31 16:20 | DIS ---
DATE OF ADMISSION: 07/22/2018 DATE OF DISCHARGE: 07/31/2018 DISCHARGE DIAGNOSES: 1. End-stage renal disease with hemodialysis. 2. [id number] myocardial infarction, medically managed. 3. Coronary artery disease. 4. Chronic systolic congestive heart failure with ejection fraction of 35%, compensated. 5. Diabetes mellitus type 2, insulin requiring, labile. 6. Chronic normocytic anemia secondary to chronic kidney disease. CONSULTATIONS: 1. Dr. Wong with Nephrology Service. 2. Dr. Mendes with Cardiology Service. 3. Dr. Felton with Pulmonology Service. LABORATORY AND DIAGNOSTIC DATA: Potassium ranged between 4.2 to 6.2, creatinine ranged between 4.30 to 5.47. Hemoglobin A1c 8.3. Troponin I ranged between 6.09 to 11.89. CBC showed a white blood cell count ranged between 7.8 to 13.8, hemoglobin ranged between 8.8 to 11.5. Hepatitis B and C antigen antibody negative on 07/22/2018. Portable chest x-ray, dated 07/22/2018, showed pulmonary vascular prominence and cardiomegaly. 2D transthoracic echocardiogram, dated 07/22/2018, showed ejection fraction of 35% to 40%. Tvif-ss-[id number] tricuspid valve regurgitation. CT of the lumbar and thoracic spine showed degenerative changes without acute fracture. Multilevel high-grade central spinal canal stenosis noted of the lumbar spine. HOSPITAL COURSE: The patient was initially admitted after presenting with increased shortness of breath in the context of known coronary artery disease and congestive heart failure with prior ejection fraction in the 30% range. The patient underwent a chest imaging showing evidence of volume overload and underwent serial cardiac biomarkers showing evidence of [id number] myocardial infarction with troponin I as stated previously. The patient was evaluated by the Cardiology Service and placed on initial heparin infusion. The patient was not interested in pursuing aggressive intervention or repeat cardiac catheterization, and opted for medical management, which the patient received for the remainder of the hospital course. 2D transthoracic echocardiogram was performed showing ejection fraction of 35% to 40% range with preserved wall motion. The patient continued on medical management including aspirin, beta-shabbir therapy, and statin agents. The patient was also evaluated for worsening kidney failure, initiating hemodialysis during this hospital course. The patient tolerated serial hemodialysis sessions with some complications of muscle cramping. The patient was evaluated by the Case Management Service for outpatient hemodialysis and has been approved with [facility] for Tuesday, Tuesday, and Tuesday maintenance hemodialysis. I have examined the patient at the time of discharge and discussed followup instructions, at which point, the patient verbalized understanding and in agreement. The patient overall clinically stable and ready for discharge on 07/31/2018. DISCHARGE MEDICATIONS: 1. Enteric-coated aspirin 81 mg p.o. daily. 2. Alprazolam 0.5 mg 1 to 2 tablets p.o. at bedtime p.r.n. 3. Calcitriol 0.25 mcg p.o. daily. 4. Tramadol 50 mg 2 tablets p.o. t.i.d. p.r.n. 5. Norvasc 5 mg p.o. daily. 6. Enteric-coated aspirin 81 mg p.o. daily. 7. Coreg 50 mg p.o. b.i.d. 8. Hydralazine 50 mg p.o. q.i.d. 9. Glargine insulin 30 units subcutaneously q.a.m. 10. Nitroglycerin 0.4 mg sublingually q.5 minutes p.r.n. chest pain. 11. Crestor 40 mg p.o. at bedtime. FOLLOWUP: The patient may follow up with his primary care provider, Adore Cabrera, within 7 days of discharge. The patient may follow up with Dr. Graeme Dupont with [facility] [place] [place] Cardiology Service. The patient will follow up with Dr. Peter Wong with Nephrology Service. CONDITION ON DISCHARGE: Fair. ACTIVITY: Ad chiquita. DIET: Heart-healthy and renal. SPECIAL INSTRUCTIONS: The patient is to receive hemodialysis at [facility] on Tuesday, Tuesday, and Tuesday. CODE STATUS: Full. DISPOSITION: Home on 07/31/2018. TIME SPENT: Total time preparing and coordinating discharge, 37 minutes. Job ID: [id number]
== END 2018-07-31 14:03 | disposition home or self-care (01) | DRG 280 ==
LOC: ERS 04:46 → CCU 07:45 → 2SE 07-25 14:28 → 2NO 07-26 18:02
PROVIDERS: ADMIT Internal Medicine; ATTEND Internal Medicine
PROC: 5A1D70Z Performance of Urinary Filtration, Intermittent, Less than 6 Hours Per Day (ICD-10-PCS; 2018-07-22)
PROC: 5A1D70Z Performance of Urinary Filtration, Intermittent, Less than 6 Hours Per Day (ICD-10-PCS; 2018-07-24)
PROC: 5A1D70Z Performance of Urinary Filtration, Intermittent, Less than 6 Hours Per Day (ICD-10-PCS; 2018-07-25)
PROC: 5A1D70Z Performance of Urinary Filtration, Intermittent, Less than 6 Hours Per Day (ICD-10-PCS; 2018-07-26)
PROC: 5A1D70Z Performance of Urinary Filtration, Intermittent, Less than 6 Hours Per Day (ICD-10-PCS; principal; 2018-07-28)
DX: I21.4 Non-ST elevation (NSTEMI) myocardial infarction (principal); N18.6 End stage renal disease; I50.23 Acute on chronic systolic (congestive) heart failure; J96.00 Acute respiratory failure, unspecified whether with hypoxia or hypercapnia; I13.2 Hypertensive heart and chronic kidney disease with heart failure and with stage 5 chronic kidney disease, or end stage renal disease; E87.2 Acidosis; N17.9 Acute kidney failure, unspecified; I25.10 Atherosclerotic heart disease of native coronary artery without angina pectoris; E78.5 Hyperlipidemia, unspecified; E11.22 Type 2 diabetes mellitus with diabetic chronic kidney disease; I16.0 Hypertensive urgency; I25.5 Ischemic cardiomyopathy; D63.1 Anemia in chronic kidney disease; K59.00 Constipation, unspecified; M54.5 Low back pain; G89.29 Other chronic pain; Z85.528 Personal history of other malignant neoplasm of kidney; Z87.891 Personal history of nicotine dependence; Z95.1 Presence of aortocoronary bypass graft; Z95.810 Presence of automatic (implantable) cardiac defibrillator
CPT/HCPCS: 36415; 36416; 71045; 72128; 72131; 80048; 80053; 81003; 81015; 82553; 82805; 83036; 83880; 84484; 85014; 85018; 85025; 85049; 85610; 85730; 86580; 86704; 86706; 86803; 87340; 90935; 93005; 93306; 93798; 94660; 94760; 96365; 96366; 96375; C9113; G0257; J1644; J1815; J1940; J2270; Q0162; Q4081

== ENCOUNTER 2018-08-16 08:38 | Observation (INO) | payer MEDICARE ==
[2018-08-16 09:18] LABS: #Eosinphils 0.2 thou/uL (0.0-0.7); #Lymphocytes 1.3 thou/uL (1.20-3.40); #Monocytes 0.7 thou/uL (0.11-0.59); #Neutrophils 5.9 thou/uL (1.40-6.50); %Basophils 0.4 % (0.0-1.0); %Lymphocytes 15.6 % (21.0-51.0); %Monocytes 8.5 % (0.0-10.0); %Neutrophils 73.6 % (42.0-75.0); Hemoglobin 9.3 g/dL (14.0-18.0); Mean Corpuscular HGB CONC 33.2 g/dL (32.0-36.0); Mean Corpuscular Hemoglobin 30.4 pg (27.0-31.0); Mean Corpuscular Volume 91.7 fL (78.0-98.0); Mean Platelet Volume 7.8 fL (7.4-10.4); Platelet Count 181 thou/uL (130-400); RBC Distribution Width 12.2 % (11.5-14.5); Red Blood Cell (RBC) Count 3.07 mill/uL (4.70-6.10)
--- NOTE | 2018-08-16 09:37 | RAD ---
FRONTAL VIEW CHEST: Comparison: 07-22-18 Clinical history: Chest pain, new onset. FINDINGS: There is evidence of mild vascular congestion with improved edema from prior exam. Cardiac silhouette remains prominent. Left sided AICD is again seen with evidence of prior sternotomy. IMPRESSION: Evidence of mild CHF, although improved from 07-22-18 exam. Continued follow up may be obtained as nec essary. POS: ALIYAH
[2018-08-16 09:38] LABS: ALT (SGPT) 9 U/L (8-55); AST (SGOT) 16 U/L (5-34); Albumin 3.5 g/dL (3.4-4.8); Alkaline Phosphatase 58 U/L (40-150); Anion Gap 15 mmol/L (10-20); BUN (Urea Nitrogen) 39 mg/dL (8.4-25.7); Bilirubin, Total 0.4 mg/dL (0.2-1.2); CK (CPK) 113 U/L (30-200); Calc. Creatinine Clearance 0 mL/min (70-130); Carbon Dioxide 18 mmol/L (23-31); Chloride 109 mmol/L (98-107); Estimated GFR-MDRD 14; Globulin 3.1 g/dL (2.4-3.5); Glucose 201 mg/dL (83-110); Lipase 127 U/L (8-78); Protein, Total 6.6 g/dL (5.8-8.1); Sodium 137 mmol/L (136-145)
[2018-08-16 10:00] LABS: CKMB 2.5 ng/mL (0-6.6)
[2018-08-16 12:14] VITALS: BMI 26.3
[2018-08-16] MEDS ORDERED: Nitroglycerin 0.4 MG TAB (25 Tab Bottle) SL PRN (12:32)
[2018-08-16 12:59] LABS: Troponin I 0.085 ng/mL (< 0.028)
[2018-08-16] MEDS ORDERED: Ondansetron ODT 4 MG TAB PO PRN (14:17)
[2018-08-16] MEDS ORDERED: Ondansetron PF 4 MG/2 ML Vial IVP PRN (14:17)
[2018-08-16] MEDS ORDERED: traMADol HCl 50 MG TAB PO PRN (14:40)
[2018-08-16] MEDS ORDERED: ALPRAZolam 0.5 MG TAB PO PRN (14:40)
[2018-08-16] MEDS ORDERED: Dextrose 50% Abboject 50 ML SYRINGE SLOW IVP PRN (14:45)
[2018-08-16] MEDS ORDERED: HumaLOG 300 UNITS/3 ML VIAL SC PRN (14:45)
[2018-08-16] MEDS ORDERED: Dextrose 5% in Water 1,000 ML IV PRN (14:45)
[2018-08-16] MEDS ORDERED: Epoetin (ESRD) 20,000 UNITS/ML SC SCH ×2 (16:00→21:30)
[2018-08-16 16:08] LABS: Troponin I 0.086 ng/mL (< 0.028)
--- NOTE | 2018-08-16 16:24 | PRG ---
DATE OF SERVICE: 08/16/2018 SERVICE: Renal Medicine. SUBJECTIVE: Mr. Leos is a 72-year-old white male with known history of ESRD, on maintenance hemodialysis, admitted for chest pain. He is being admitted for rule out DC. We are now being consulted for his maintenance hemodialysis. I am at the bedside, supervising his hemodialysis. He voices no new complaints today. He has no shortness of breath. OBJECTIVE: VITAL SIGNS: Blood pressure is noted at 184/81, heart rate 81, respiratory rate 18, temperature 97.4, pulse ox 95%. GENERAL: Noted to be awake, alert, comfortable, not in distress. SKIN: Adequate turgor. HEENT: He has a slightly pale conjunctivae. Anicteric sclerae. No neck mass. No carotid bruits. No JVD. CHEST: No deformities. LUNGS: Clear breath sounds. No wheezing. No crackles. HEART: Normal sinus rhythm. No murmurs, gallops, or rubs. ABDOMEN: Globular, soft, nontender. No masses. EXTREMITIES: No edema. No deformities. MEDICATIONS: Medications on 08/16/2018, were reviewed. LABORATORY DATA: On 08/16/2018, sodium 137, potassium 5, chloride 109, carbon dioxide 18, BUN 39, creatinine 4.15, calcium 8.0. AST was 16, ALT 9. Troponin I is 0.085. White count 8, hemoglobin 9.3. ASSESSMENT AND PLAN: 1. End-stage renal disease, stable. Continuing Tuesday, Tuesday, Tuesday dialysis. Fluid removal as tolerated. I am at the bedside, supervising his dialysis and he is tolerating said treatment. 2. Anemia. Resume Epogen 7500 units subcu every week. 3. Chest pain, rule out myocardial infarction. Cardiology consult has been obtained. 4. Hyperphosphatemia. We will suggest resuming back his Renvela if he is currently not taking it. Job ID: [id number]
[2018-08-16] MEDS: Sevelamer Carbonate 800 MG TAB PO SCH (18:21)
[2018-08-16] MEDS: hydrALAZINE 25 MG TAB PO SCH ×2 (18:21→20:54)
[2018-08-16] MEDS: Carvedilol 25 MG TAB PO SCH (20:53)
[2018-08-16] MEDS: Rosuvastatin 20 MG TAB PO SCH (20:54)
[2018-08-16] MEDS: Famotidine 20 MG TAB PO SCH (20:54)
--- NOTE | 2018-08-16 22:40 | HP ---
CHIEF COMPLAINT: Chest pain. HISTORY OF PRESENT ILLNESS: This is a pleasant 72-year-old man presenting with chest pain that began yesterday at approximately noon. He states the pain was in the lower sternum radiating down the left arm and into his back. It did recur this morning waking him from his sleep. He describes a cramping sensation in the left arm. He reports recent NSTEMI in early July 2018, at which time, he was recommended a catheterization. Due to fear of ending up on dialysis, the patient declined the catheterization. Since then, he has continued to be on dialysis, and it has been determined this will be permanent. He has a known history of renal insufficiency. The patient has a history of bypass in 2011 and is status post AICD placement. He had an echo done on July 22 showing an ejection fraction of 35 % to 40%. He is under Dr. Dupont of Cardiology. At present, the patient has no complaints of chest pain unless he pushes on his lower sternum. He underwent laboratory studies in the ED that showed a normal white blood count. He was noted to have stable TnI x3. CK-MB was 2.1. His BUN was 39 and creatinine was 4.15. His potassium was 5.0. He did undergo dialysis earlier today. Of note, he has a lipase that is raised at 127. A chest x-ray was done showing evidence of mild CHF, however, notable improvement from July 22, 2018. The patient to be admitted for further workup and management. REVIEW OF SYSTEMS: CONSTITUTIONAL: He denies any chills, fevers, or sweats. EYES: Negative eye review of systems. ENT: Negative ears, nose, and throat review of systems. CARDIOVASCULAR: Reports chest pain to the lower sternum. Denies any palpitations. Radiation to the left arm and back. RESPIRATORY: Reports shortness of breath. Denies any cough or hemoptysis. GI: No nausea, vomiting, or abdominal pain. No bowel changes. GENITOURINARY: No urinary symptoms. SKIN: Negative for skin review of systems. NEUROLOGIC: No headaches or vision disturbances. No speech changes. Negative neurological review of systems. PAST MEDICAL HISTORY: 1. Left nephrectomy. 2. AICD. 3. CABG. 4. Dialysis shunt in the right forearm, left removed for CA. 5. Coronary artery disease. 6. Myocardial infarction. 7. Renal insufficiency, on dialysis. 8. Hyperlipidemia. 9. Hypertension. 10. Diabetes type 2. 11. Coronary artery disease. 12. Kidney cancer. SOCIAL HISTORY: The patient is a former smoker. He quit smoking more than 10 years ago. He denies any alcohol use or illicit drug use. ALLERGIES: 1. BACTRIM DS CAUSES HIVES. 2. CEPHALEXIN CAUSES HIVES. 3. DARVOCET-N 50 CAUSES NAUSEA. 4. LEVOFLOXACIN, UNCONFIRMED. 5. PROPOXYPHENE NAPSYLATE, UNCONFIRMED. 6. SULFA, UNCONFIRMED. 7. SULFAMETHOXAZOLE, UNCONFIRMED. 8. TRIMETHOPRIM, UNCONFIRMED. CURRENT MEDICATIONS: 1. Humulin. 2. Rosuvastatin 40 mg p.o. at bedtime. 3. Insulin glargine 30 units subcutaneous q.a.m. 4. Tramadol hydrochloride 2 pills p.o. t.i.d. 5. Nitroglycerin 0.4 mg p.o. p.r.n. 6. Calcitriol 0.25 mcg p.o. daily. 7. Aspirin 81 mg p.o. daily. 8. Hydralazine 50 mg p.o. q.i.d. 9. Alprazolam 1 to 2 tablets p.o. at bedtime p.r.n. 10. Carvedilol 50 mg p.o. b.i.d. PHYSICAL EXAMINATION: VITAL SIGNS: Temperature 97.4, pulse 81, respirations 18, O2 saturation 95% on room air, blood pressure 184/81. HEENT: Normocephalic and atraumatic. Pupils are equal, round, reactive to light. Sclerae without icterus. Oropharynx is clear. NECK: Supple without lymphadenopathy. LUNGS: Clear to auscultation bilaterally. Midline sternotomy and AICD scar. CARDIOVASCULAR: Regular rate and rhythm. No audible murmurs. Producible chest pain with palpation of lower sternum. ABDOMEN: Soft, nontender, nondistended. Normoactive bowel sounds present. EXTREMITIES: Right forearm and hand notable for edema, chronic due to failed attempts at access and shunt for dialysis. The patient states this is chronic and intermittent. Lower extremities with +1 pitting edema. NEUROLOGICAL: Alert and oriented x3. SKIN: Without rash or jaundice. INVESTIGATIONS: As mentioned in the HPI. IMPRESSION AND PLAN: The patient is to be admitted for the following conditions : 1. Chest pain. Chest x-ray notable for congestive heart failure, although improved from previous x-ray on July 22, 2018. Seen by Dr. Webster of Cardiology, who will defer plans for catheterization pending discussion between the patient and his area mechanic, Dr. Dupont, tomorrow morning. 2. Renal insufficiency. Continue dialysis. Status post dialysis earlier today. Monitor labs. 3. Diabetes. Insulin sliding scale. 4. Gastrointestinal prophylaxis. 5. Venous thromboembolism prophylaxis. Mechanical SCDs only as the patient might undergo catheterization and/or bypass. 6. Diet. N.p.o. after midnight. The patient's case was discussed with Dr. Giles, who is in agreement with plan of care as described above. Job ID: [id number] MTDD
[2018-08-17 05:51] LABS: #Eosinphils 0.2 thou/uL (0.0-0.7); #Lymphocytes 1.4 thou/uL (1.20-3.40); #Monocytes 0.7 thou/uL (0.11-0.59); #Neutrophils 4.4 thou/uL (1.40-6.50); %Basophils 0.7 % (0.0-1.0); %Eosinophils 2.9 % (0.0-10.0); %Lymphocytes 20.1 % (21.0-51.0); %Neutrophils 65.3 % (42.0-75.0); Hemoglobin 9.3 g/dL (14.0-18.0); Mean Corpuscular HGB CONC 33.5 g/dL (32.0-36.0); Mean Corpuscular Hemoglobin 30.3 pg (27.0-31.0); Mean Corpuscular Volume 90.4 fL (78.0-98.0); Mean Platelet Volume 7.6 fL (7.4-10.4); Platelet Count 172 thou/uL (130-400); RBC Distribution Width 12.1 % (11.5-14.5); Red Blood Cell (RBC) Count 3.08 mill/uL (4.70-6.10); White Blood Cell (WBC) Count 6.7 thou/uL (4.8-10.8)
[2018-08-17 06:19] LABS: ALT (SGPT) 8 U/L (8-55); AST (SGOT) 11 U/L (5-34); Albumin 3.4 g/dL (3.4-4.8); Alkaline Phosphatase 53 U/L (40-150); Anion Gap 14 mmol/L (10-20); BUN (Urea Nitrogen) 29 mg/dL (8.4-25.7); Bilirubin, Total 0.3 mg/dL (0.2-1.2); Calc. Creatinine Clearance 26 mL/min (70-130); Calcium 8.3 mg/dL (7.8-10.44); Carbon Dioxide 24 mmol/L (23-31); Chloride 105 mmol/L (98-107); Estimated GFR-MDRD 19; Globulin 2.8 g/dL (2.4-3.5); Glucose 205 mg/dL (83-110); Potassium 4.2 mmol/L (3.5-5.1); Protein, Total 6.2 g/dL (5.8-8.1); Sodium 139 mmol/L (136-145)
[2018-08-17] MEDS ORDERED: Communication Order-Pharmacy FS SCH (08:00)
--- NOTE | 2018-08-17 09:32 | PRG ---
DATE OF SERVICE: 08/17/2018 SUBJECTIVE: Mr. Leos is a 72-year-old white male with ESRD on maintenance hemodialysis. He was admitted for chest pain. Cardiology has evaluated him. The plan is for him to undergo cardiac cath tomorrow. He underwent hemodialysis yesterday without any difficulty. This morning, he voices no new complaints. He denies any chest pain or shortness of breath. OBJECTIVE: VITAL SIGNS: Blood pressure is 191/105 - before BP medications, heart rate 70, respiratory rate 20, temperature 98, and pulse ox 98%. GENERAL: Awake, alert, comfortable, not in distress. SKIN: Adequate turgor. HEENT: He has a slightly pale conjunctivae. Anicteric sclerae. No neck mass. No carotid bruits. No JVD. CHEST: No deformities. LUNGS: Clear breath sounds. No wheezing. No crackles. HEART: Normal sinus rhythm. No murmurs, gallops, or rubs. ABDOMEN: Globular, soft, nontender. No masses. EXTREMITIES: No edema. No deformities. MEDICATIONS: Medications of August 17, 2018, reviewed. LABORATORY DATA: Laboratories of August 17, 2018, white count 6.7 and hemoglobin 9.3. Sodium 139, potassium 4.2, chloride 105, carbon dioxide 24, BUN 29, creatinine 3.3, glucose 205, AST 11, ALT 8, and albumin 3.4. ASSESSMENT AND PLAN: 1. Chest pain - the patient has scheduled for cardiac cath in tomorrow. Dr. Dupont is following. 2. End-stage renal disease, stable. We will continue current Tuesday, Tuesday, and Tuesday hemodialysis regimen. Fluid removal only as tolerated. 3. Chronic anemia - currently on Epogen. 4. Hypertension - continue his BP medications. Adjust as needed. Job ID: [id number]
--- NOTE | 2018-08-17 09:33 | PDOC.PN ---
- Subjective Encounter Start Date: 08/17/18 Encounter Start Time: 09:12 Subjective: Patient feeling well with no CP/SOB. Ambulating without problems. -: Tolerating oral intake, no n/v. No abdo pain. Normal stools. -: No urinary symptoms. Further improvement with right arm edema. Patient concerned about dialysis and catheterization being done on the same day. Wishes to have dialysis delayed to Tuesday. - Objective MAR Reviewed: Yes Vital Signs & Weight: Vital Signs (12 hours) Temp Pulse Resp BP Pulse Ox 08/17/18 07:54 98.0 F 70 20 191/105 H 98 08/17/18 04:10 98.3 F 69 14 143/64 H 97 08/16/18 23:42 98.4 F 75 18 148/65 H 96 Weight Weight 199 lb 7 oz I&O: 08/16/18 08/17/18 08/18/18 06:59 06:59 06:59 Intake Total 675 Balance 675 Result Diagrams: 08/17/18 05:35 08/17/18 05:35 Additional Labs: Accuchecks 08/16/18 21:11 POC Glucose 216 H Phys Exam - Physical Examination Constitutional: NAD HEENT: PERRLA, moist MMs, sclera anicteric, oral pharynx no lesions Neck: no nodes, supple, full ROM Respiratory: no wheezing, no rales, no rhonchi, clear to auscultation bilateral Cardiovascular: RRR, no significant murmur Well-healed scar from previous sternotomy and AICD placement. No skin changes, no erythema or swelling. Gastrointestinal: soft, non-tender, no distention, positive bowel sounds LUE edema, improved form yesterday, normal sensation Shunt in place, no signs of infection, well healed scar. Neurological: non-focal, normal sensation, moves all 4 limbs Lymphatic: no nodes Psychiatric: normal affect, A&O x 3 Skin: no rash, normal turgor, cap refill <2 seconds Dx/Plan (1) Swelling of right upper extremity Code(s): M79.89 - OTHER SPECIFIED SOFT TISSUE DISORDERS Status: Acute (2) Chest pain Code(s): R07.9 - CHEST PAIN, UNSPECIFIED Status: Resolved (3) Diabetes Code(s): E11.9 - TYPE 2 DIABETES MELLITUS WITHOUT COMPLICATIONS Status: Chronic Qualifiers: Diabetes mellitus type: type 2 Chronic kidney disease stage: stage 5, not on chronic dialysis (4) CAD (coronary artery disease) Code(s): I25.10 - ATHSCL HEART DISEASE OF [place] CORONARY ARTERY W/O ANG PCTRS Status: Chronic Qualifiers: Coronary Disease-Associated Artery/Lesion type: bypass graft [place] vs. transplanted heart: [place] heart Associated angina: without angina Qualified Code(s): I25.810 - Atherosclerosis of coronary artery bypass graft(s) without angina pectoris Comment: Continue ASA, Lipitor and Coreg (5) CKD (chronic kidney disease) stage 4, GFR 15-29 ml/min Code(s): N18.4 - CHRONIC KIDNEY DISEASE, STAGE 4 (SEVERE) Status: Chronic (6) ESRD (end stage renal disease) on dialysis Code(s): N18.6 - END STAGE RENAL DISEASE; Z99.2 - DEPENDENCE ON RENAL DIALYSIS Status: Chronic Comment: Continue HD per Renal service, monitor daily weight , CM assisting with outpt HD coordination, await final approval (7) Hypertension Code(s): I10 - ESSENTIAL (PRIMARY) HYPERTENSION Status: Chronic Qualifiers: Hypertension type: essential hypertension Qualified Code(s): I10 - Essential (primary) hypertension (8) S/P CABG x 3 Code(s): Z95.1 - PRESENCE OF AORTOCORONARY BYPASS GRAFT Status: Chronic Comment: aspirin and statin. - Plan cont current plan of care Seen by Dr. Dupont and scheduled for catheterization tomorrow, 08/18/18. -: NPO after midnight. -: Hypophosphatemia- continue Renvela as per Nephrology. -: Coordination of dialysis as per Nephrology, due tomorrow and cath scheduled -: Anemia- continue Epogen 7,500 unit SC weekly. * .
[2018-08-17] MEDS: Sevelamer Carbonate 800 MG TAB PO SCH ×4 (09:35→17:13)
[2018-08-17] MEDS: Calcitriol 0.25 MCG CAP PO SCH (09:37)
[2018-08-17] MEDS: Carvedilol 25 MG TAB PO SCH ×2 (09:37→21:30)
[2018-08-17] MEDS: Aspirin 81 mg Enteric Coated Tablet PO SCH (09:37)
[2018-08-17] MEDS: hydrALAZINE 25 MG TAB PO SCH ×4 (09:38→21:29)
[2018-08-17] MEDS: HumaLOG 300 UNITS/3 ML VIAL SC PRN ×2 (11:45→17:13)
[2018-08-17] MEDS: Famotidine 20 MG TAB PO SCH (21:29)
[2018-08-17] MEDS: Rosuvastatin 20 MG TAB PO SCH (21:29)
[2018-08-18 04:48] LABS: #Eosinphils 0.2 thou/uL (0.0-0.7); #Lymphocytes 1.5 thou/uL (1.20-3.40); #Monocytes 0.7 thou/uL (0.11-0.59); #Neutrophils 4.7 thou/uL (1.40-6.50); %Basophils 0.3 % (0.0-1.0); %Eosinophils 2.5 % (0.0-10.0); %Monocytes 9.5 % (0.0-10.0); %Neutrophils 66.6 % (42.0-75.0); Hemoglobin 8.9 g/dL (14.0-18.0); Mean Corpuscular HGB CONC 33.9 g/dL (32.0-36.0); Mean Corpuscular Hemoglobin 30.6 pg (27.0-31.0); Mean Corpuscular Volume 90.2 fL (78.0-98.0); Mean Platelet Volume 7.8 fL (7.4-10.4); Platelet Count 155 thou/uL (130-400); RBC Distribution Width 12.1 % (11.5-14.5); Red Blood Cell (RBC) Count 2.91 mill/uL (4.70-6.10); White Blood Cell (WBC) Count 7.1 thou/uL (4.8-10.8)
[2018-08-18 05:13] LABS: ALT (SGPT) 7 U/L (8-55); AST (SGOT) 9 U/L (5-34); Albumin 3.2 g/dL (3.4-4.8); Alkaline Phosphatase 59 U/L (40-150); Anion Gap 12 mmol/L (10-20); BUN (Urea Nitrogen) 39 mg/dL (8.4-25.7); Bilirubin, Total 0.3 mg/dL (0.2-1.2); Calc. Creatinine Clearance 21 mL/min (70-130); Calcium 8.1 mg/dL (7.8-10.44); Carbon Dioxide 24 mmol/L (23-31); Chloride 106 mmol/L (98-107); Estimated GFR-MDRD 15; Globulin 2.9 g/dL (2.4-3.5); Glucose 243 mg/dL (83-110); Potassium 4.5 mmol/L (3.5-5.1); Protein, Total 6.1 g/dL (5.8-8.1); Sodium 137 mmol/L (136-145)
[2018-08-18] MEDS: Carvedilol 25 MG TAB PO SCH ×2 (07:19→20:25)
[2018-08-18] MEDS: hydrALAZINE 25 MG TAB PO SCH ×4 (07:19→20:24)
[2018-08-18] MEDS: Aspirin 81 mg Enteric Coated Tablet PO SCH (08:30)
[2018-08-18] MEDS: Sevelamer Carbonate 800 MG TAB PO SCH ×3 (08:30→17:25)
[2018-08-18] MEDS: Calcitriol 0.25 MCG CAP PO SCH (08:30)
--- NOTE | 2018-08-18 08:57 | PRG ---
DATE OF SERVICE: 08/18/2018 SUBJECTIVE: Mr. Leos is a 72-year-old white male undergoing hemodialysis. We are following him up for his maintenance hemodialysis. I am at the bedside supervising his dialysis. He initially came in with chest pain. He has a planned cardiac catheterization this afternoon. No other complaints. No chest pain or shortness of breath. OBJECTIVE: VITAL SIGNS: Blood pressure is 186/86, heart rate 75, respiratory rate 16, temperature 99.2, and pulse ox 97%. GENERAL: Awake, alert, comfortable, not in distress. SKIN: Adequate turgor. HEENT: Pinkish conjunctivae. Anicteric sclerae. NECK: No neck mass. No carotid bruits. No JVD. CHEST: No deformities. LUNGS: Clear breath sounds. No wheezing. No crackles. HEART: Normal sinus rhythm. No murmur. No gallops or rubs. ABDOMEN: Globular, soft, nontender. No masses. EXTREMITIES: No edema. No deformities. MEDICATIONS: Medications of 08/18/2018 reviewed. LABORATORY DATA: Laboratories of 08/18/2018; white count 7.1, hemoglobin 8.9. Sodium 137, potassium 4.5, chloride 106, carbon dioxide 24, BUN 39, creatinine 3.86, glucose 243. AST 9, ALT 7. ASSESSMENT AND PLAN: 1. Chest pain-for a planned cardiac catheterization this afternoon. Cardiology following. 2. End-stage renal disease, stable, tolerating current hemodialysis regimen of Tuesday, Tuesday, Tuesday. Fluid removal only as tolerated. Minimal heparin use. 3. Anemia-continuing current Epogen regimen of 7500 units subcu q.week. 4. Agree with current management. Job ID: [id number]
[2018-08-18] MEDS ORDERED: Iopamidol 370 76% 100 ML VIAL ONE (12:47)
--- NOTE | 2018-08-18 13:51 | PDOC.PN ---
- Subjective Encounter Start Date: 08/18/18 Encounter Start Time: 11:50 Subjective: Patient s/p dialysis. Feeling well. Mobilising without difficulty. -: Awaiting transfer to photonic laboratory technician. Denies any CP or SOB. -: Increased swelling in Rt forearm/hand. Intermittent and usual post dialysis - Objective Vital Signs & Weight: Vital Signs (12 hours) Temp Pulse Resp BP BP BP Pulse Ox 08/18/18 11:57 97.7 F 68 20 159/70 H 97 08/18/18 07:19 75 186/86 H 08/18/18 07:15 99.2 F 75 16 186/86 H 97 08/18/18 04:24 98.4 F 59 L 16 176/81 H 97 Weight Weight 190 lb 12.8 oz I&O: 08/17/18 08/18/18 08/19/18 06:59 06:59 06:59 Intake Total 675 720 240 Balance 675 720 240 Result Diagrams: 08/18/18 04:24 08/18/18 04:24 Additional Labs: Accuchecks 08/18/18 08/17/18 08/17/18 12:02 20:52 16:48 POC Glucose 186 H 160 H 255 H Phys Exam - Physical Examination Constitutional: NAD HEENT: PERRLA, sclera anicteric, oral pharynx no lesions Neck: no nodes, supple, full ROM Respiratory: clear to auscultation bilateral Cardiovascular: RRR Gastrointestinal: soft, non-tender, positive bowel sounds edema in right forearm/hand. normal sensation. pulses present. nontender. Neurological: non-focal, normal sensation, moves all 4 limbs Psychiatric: normal affect, A&O x 3 Skin: no rash Dx/Plan (1) Swelling of right upper extremity Code(s): M79.89 - OTHER SPECIFIED SOFT TISSUE DISORDERS Status: Acute (2) Diabetes Code(s): E11.9 - TYPE 2 DIABETES MELLITUS WITHOUT COMPLICATIONS Status: Chronic Qualifiers: Diabetes mellitus type: type 2 Chronic kidney disease stage: stage 5, not on chronic dialysis (3) CAD (coronary artery disease) Code(s): I25.10 - ATHSCL HEART DISEASE OF [place] CORONARY ARTERY W/O ANG PCTRS Status: Chronic Qualifiers: Coronary Disease-Associated Artery/Lesion type: bypass graft [place] vs. transplanted heart: [place] heart Associated angina: without angina Qualified Code(s): I25.810 - Atherosclerosis of coronary artery bypass graft(s) without angina pectoris Comment: Continue ASA, Lipitor and Coreg (4) CKD (chronic kidney disease) stage 4, GFR 15-29 ml/min Code(s): N18.4 - CHRONIC KIDNEY DISEASE, STAGE 4 (SEVERE) Status: Chronic (5) ESRD (end stage renal disease) on dialysis Code(s): N18.6 - END STAGE RENAL DISEASE; Z99.2 - DEPENDENCE ON RENAL DIALYSIS Status: Chronic Comment: Continue HD per Renal service, monitor daily weight , CM assisting with outpt HD coordination, await final approval (6) Hypertension Code(s): I10 - ESSENTIAL (PRIMARY) HYPERTENSION Status: Chronic Qualifiers: Hypertension type: essential hypertension Qualified Code(s): I10 - Essential (primary) hypertension (7) S/P CABG x 3 Code(s): Z95.1 - PRESENCE OF AORTOCORONARY BYPASS GRAFT Status: Chronic Comment: aspirin and statin. - Plan cont current plan of care Elevate right upper extremity, monitor for signs of infection. -: Continue with plans for cath as per Cardiology team. * .
[2018-08-18] MEDS ORDERED: Heparin 10,000 UNITS/1 ML VIAL ONE (16:48)
[2018-08-18] MEDS ORDERED: Midazolam HCl 2 mg/2 ml Vial ONE (17:52)
[2018-08-18] MEDS ORDERED: Fentanyl 100 MCG/2 ML VIAL ONE (17:52)
[2018-08-18] MEDS ORDERED: Protamine Sulfate 50 MG/5 ML VIAL ONE (18:20)
[2018-08-18] MEDS ORDERED: hydrALAZINE 20 MG/ML VIAL ONE (18:23)
[2018-08-18] MEDS ORDERED: Nitroglycerin 0.4 MG TAB (25 Tab Bottle) SL PRN (18:57)
[2018-08-18] MEDS ORDERED: Sodium Chloride 0.9% 200 ML IV PRN (19:00)
[2018-08-18] MEDS: Rosuvastatin 20 MG TAB PO SCH (20:25)
[2018-08-18] MEDS: Famotidine 20 MG TAB PO SCH (20:25)
[2018-08-19 05:14] LABS: #Eosinphils 0.2 thou/uL (0.0-0.7); #Lymphocytes 1.1 thou/uL (1.20-3.40); #Monocytes 0.8 thou/uL (0.11-0.59); #Neutrophils 4.8 thou/uL (1.40-6.50); %Basophils 0.4 % (0.0-1.0); %Eosinophils 2.8 % (0.0-10.0); %Lymphocytes 16.1 % (21.0-51.0); %Monocytes 11.4 % (0.0-10.0); %Neutrophils 69.3 % (42.0-75.0); Hemoglobin 9.9 g/dL (14.0-18.0); Mean Corpuscular HGB CONC 34.1 g/dL (32.0-36.0); Mean Corpuscular Hemoglobin 30.6 pg (27.0-31.0); Mean Corpuscular Volume 89.9 fL (78.0-98.0); Mean Platelet Volume 8.1 fL (7.4-10.4); Platelet Count 187 thou/uL (130-400); RBC Distribution Width 12.3 % (11.5-14.5); Red Blood Cell (RBC) Count 3.24 mill/uL (4.70-6.10); White Blood Cell (WBC) Count 6.9 thou/uL (4.8-10.8)
[2018-08-19 05:47] LABS: Anion Gap 15 mmol/L (10-20); Carbon Dioxide 22 mmol/L (23-31); Chloride 103 mmol/L (98-107); Potassium 4.7 mmol/L (3.5-5.1); Sodium 135 mmol/L (136-145)
[2018-08-19 05:48] LABS: BUN (Urea Nitrogen) 37 mg/dL (8.4-25.7); Calc. Creatinine Clearance 20 mL/min (70-130); Calcium 8.6 mg/dL (7.8-10.44); Cardiac Risk 5.8 (Less than 4.5); Cholesterol 145 mg/dl (< 200 Desired); Estimated GFR-MDRD 15; Glucose 175 mg/dL (83-110); HDL Cholesterol 25 mg/dL (>60 Neg Risk); LDL Cholesterol, Calculated 65 mg/dL; Triglycerides 274 mg/dL (Less than 150)
[2018-08-19] MEDS: hydrALAZINE 25 MG TAB PO SCH ×2 (08:45→13:21)
[2018-08-19] MEDS: Carvedilol 25 MG TAB PO SCH (08:45)
[2018-08-19] MEDS: Sevelamer Carbonate 800 MG TAB PO SCH ×2 (08:45→13:21)
[2018-08-19] MEDS: Aspirin 81 mg Enteric Coated Tablet PO SCH (08:46)
[2018-08-19] MEDS: Calcitriol 0.25 MCG CAP PO SCH (08:46)
--- NOTE | 2018-08-19 09:53 | PRG ---
DATE OF SERVICE: 08/19/2018 RENAL MEDICINE SUBJECTIVE: Mr. Leos is a 72-year-old white male with ESRD and initially admitted for chest pain. He underwent cardiac catheterization. Result showed small vessel that was occluded. Management is essentially medical. No other complaints today. No chest pain or shortness of breath. OBJECTIVE: VITAL SIGNS: Blood pressure 146/70, heart rate 64, respiratory rate 16, temperature 97.6, and pulse ox 97%. GENERAL: Awake, sitting comfortable, not in distress. SKIN: Adequate turgor. HEENT: He has had pinkish conjunctivae and anicteric sclerae. NECK: No neck mass. No carotid bruits. No JVD. CHEST: No deformities. LUNGS: Clear breath sounds. No wheezing. No crackles. HEART: Normal sinus rhythm. No murmur. No gallops. No rubs. ABDOMEN: Globular, soft, and nontender. No masses. EXTREMITIES: No edema. No deformities. MEDICATIONS: Medications of August 19, 2018, were reviewed. LABORATORY DATA: Laboratories of August 19, 2018: Sodium 135, potassium 4.7, chloride 103, carbon dioxide 22, BUN 37, creatinine 4.06, glucose 175, calcium 8.6, triglyceride 274. ASSESSMENT AND PLAN: 1. End-stage renal disease, stable. The patient will undergo a short 2-hour hemodialysis today due to the recent contrast load given to him yesterday. Fluid removal only as tolerated. 2. Anemia. Continue maintenance Epogen at 7500 units subcu every week. 3. Coronary artery disease, clinically asymptomatic. Medical management. Job ID: [id number]
[2018-08-19 13:04] VITALS: BP 169/70; TEMP 97.8
--- NOTE | 2018-08-19 18:21 | DIS ---
DATE OF ADMISSION: 08/16/2018 DATE OF DISCHARGE: 08/19/2018 DISCHARGE DIAGNOSES: 1. Three-vessel coronary artery disease. 2. Status post cath with two of three grafts patent. LV function moderately impaired. Ejection fraction 35%. 100% stenosis of his LAD. 3. Anemia. 4. End-stage renal disease, on dialysis. 5. Type 2 diabetes. 6. Previous coronary artery bypass grafting. CONSULTING PHYSICIANS: 1. Dr. Wong of Renal Medicine. 2. Dr. Dupont of Cardiology. HOSPITAL COURSE: Mr. Leos is a very pleasant 72-year-old man, who presented with chest pain to the ED. The pain was radiating down the left arm and into his back. He was admitted with an NSTEMI in on July 22, 2018, at which time, he declined a catheterization due to fear for being on permanent dialysis. Since then, he has been placed on permanent dialysis, which he receives three times weekly. During his hospital stay, he was seen by Dr. Dupont, who went ahead and scheduled the catheterization. This was done on August 18, 2018. He was found to have three-vessel coronary artery disease with two of three grafts patent. There was moderately impaired ventricular function. Unsuccessful cannulation. The patient was started on Ranexa by Dr. Dupont at 500 mg b.i.d. for one week, which would then be increased to 1000 mg p.o. b.i.d. The patient has done well throughout his hospital stay and without any further chest pain. He has continued to receive dialysis with intermittent swelling over the right forearm, where his shunt is accessed. He states he typically experiences difficulty with access of the shunt, which then causes swelling in his hand. It has continued to improve and there are no signs of any infection. Throughout his hospital stay, his laboratories studies have indicated that he is anemic, however, remained stable. His creatinine function has been elevated, but he has continued on dialysis. Of note, the patient did undergo an AICD wire exchange in June 2018. The AICD interrogation was unremarkable. At this time, the patient has been cleared for discharge home with plans to follow up as an outpatient. REVIEW OF SYSTEMS: On the day of discharge, the patient is feeling very well and without complaints. He has been tolerating food and liquids without any nausea or vomiting. Denies any abdominal pain. Has not had any chest pain, palpitations , or shortness of breath. No headaches or dizziness. Denies any abdominal pain. No bowel changes. No urinary symptoms such as dysuria, hematuria, urgency, or frequency. All other review of systems are negative. PHYSICAL EXAMINATION: VITAL SIGNS: Temperature 97.8, pulse 68, respirations 18, O2 saturation 98% on room air, and blood pressure 169/70. HEENT: Normocephalic, atraumatic. Pupils are equal, round, and reactive to light. Sclerae are anicteric. Oropharynx is clear. NECK: Supple. LUNGS: Clear to auscultation bilaterally. CARDIAC: Regular rate and rhythm. No chest wall tenderness. ABDOMEN: Soft, nontender, nondistended. Normal bowel sounds present. EXTREMITIES: Notable for +1 edema in the forearm and +2 edema in the right hand. No signs of soft tissue infection. Sensation normal. NEUROLOGIC: Alert and oriented x3. LABORATORY DATA: White blood count 6.9, hemoglobin 9.9, hematocrit 29.1, and platelets 187. Sodium 135, potassium 4.7, BUN 37, creatinine 4.06, eGFR 15. Chronic end-stage renal disease. Calcium 8.6. Triglycerides 274. Cholesterol 145. LDL 65. HDL 25. Disease risk ratio 5.8. IMAGING DATA: Chest x-ray on 08/16/2018. Evidence of mild CHF. Improved from July 22. PROCEDURES: Catheterization on 08/18/2018. As mentioned above in HPI. DISCHARGE MEDICATIONS: 1. Ranexa 500 mg p.o. b.i.d. for 7 days, which would then be increased to 1000 mg p.o. b.i.d. Samples provided by Dr. Dupont. 2. New prescription given for famotidine 20 mg p.o. daily. 3. New prescription given for sevelamer carbonate 800 mg p.o. t.i.d. with meals. The patient is advised to resume all other home medications. CONDITION: Stable at discharge. ACTIVITY: As tolerated. DIET: Heart healthy/diabetic diet. FOLLOWUP: 1. The patient advised to see his primary care physician within 1 to 2 weeks. 2. Also advised to follow up with his sample shoe inspector and reworker, Dr. Webster, for further management. 3. Will continue to follow up with his hotel service supervisor and continue dialysis. DISPOSITION: Discharge home on August 19, 2018. Job ID: [id number] [facility]
== END 2018-08-19 14:32 ==
LOC: ERS 08:38 → 2SW 11:50
PROVIDERS: ADMIT Internal Medicine; ATTEND Internal Medicine
PROC: 4A023N7 Measurement of Cardiac Sampling and Pressure, Left Heart, Percutaneous Approach (ICD-10-PCS; principal; 2018-08-16)
PROC: B2121ZZ Fluoroscopy of Single Coronary Artery Bypass Graft using Low Osmolar Contrast (ICD-10-PCS; 2018-08-16)
DX: I25.10 Atherosclerotic heart disease of native coronary artery without angina pectoris (principal); I25.82 Chronic total occlusion of coronary artery; I12.0 Hypertensive chronic kidney disease with stage 5 chronic kidney disease or end stage renal disease; E11.22 Type 2 diabetes mellitus with diabetic chronic kidney disease; D63.1 Anemia in chronic kidney disease; N18.6 End stage renal disease; Z99.2 Dependence on renal dialysis; I25.2 Old myocardial infarction; E78.5 Hyperlipidemia, unspecified; E83.39 Other disorders of phosphorus metabolism; Z90.5 Acquired absence of kidney; Z95.1 Presence of aortocoronary bypass graft; Z95.810 Presence of automatic (implantable) cardiac defibrillator; Z85.528 Personal history of other malignant neoplasm of kidney; Z87.891 Personal history of nicotine dependence; Z88.2 Allergy status to sulfonamides; Z88.1 Allergy status to other antibiotic agents; Z88.5 Allergy status to narcotic agent; Z79.4 Long term (current) use of insulin; Z79.82 Long term (current) use of aspirin; Z79.899 Other long term (current) drug therapy
CPT/HCPCS: 71045; 80048; 80053 ×3; 80061; 82550; 82553; 82962 ×3; 83690; 84484 ×2; 85025 ×4; 85347; 93005; 93459; 94760; 96372; 99285; C1769; G0378 ×3; Q4081; 36415; 36416; 90935; 99152; 99153; G0257; J0360; J1644; J2250; J2720; J3010

== ENCOUNTER 2018-09-13 22:24 | Inpatient (IN) | payer MEDICARE ==
[2018-09-13 23:01] LABS: #Eosinphils 0.3 thou/uL (0.0-0.7); #Monocytes 0.8 thou/uL (0.11-0.59); #Neutrophils 7.6 thou/uL (1.40-6.50); %Basophils 0.4 % (0.0-1.0); %Eosinophils 3.5 % (0.0-10.0); %Lymphocytes 10.2 % (21.0-51.0); %Monocytes 7.9 % (0.0-10.0); Hemoglobin 9.9 g/dL (14.0-18.0); Mean Corpuscular HGB CONC 32.7 g/dL (32.0-36.0); Mean Corpuscular Hemoglobin 30.9 pg (27.0-31.0); Mean Corpuscular Volume 94.7 fL (78.0-98.0); Mean Platelet Volume 8.1 fL (7.4-10.4); Platelet Count 156 thou/uL (130-400); White Blood Cell (WBC) Count 9.7 thou/uL (4.8-10.8)
--- NOTE | 2018-09-13 23:16 | RAD ---
PORTABLE FRONTAL CHEST RADIOGRAPH 09/13/18 COMPARISON: 08/16/18. HISTORY: Shortness of breath. FINDINGS: There is a right sided dialysis catheter, distal tip overlying the expected location of the SVC. Mult ilead transvenous AICD and midline sternotomy wires noted. No pneumothorax. There is pulmonary vascular congestion with perihilar interstitial and alveolar opacity, right greate r than left, new when compared to the prior exam. Probable small bilateral pleural effusions. IMPRESSION: Findings suggesting interval developing of pulmonary edema. Followup imaging following treatment advi sed. POS: [facility]
[2018-09-13 23:25] LABS: ALT (SGPT) 10 U/L (8-55); AST (SGOT) 10 U/L (5-34); Albumin 4.3 g/dL (3.4-4.8); Alkaline Phosphatase 71 U/L (40-150); Anion Gap 16 mmol/L (10-20); BUN (Urea Nitrogen) 65 mg/dL (8.4-25.7); Bilirubin, Total 0.4 mg/dL (0.2-1.2); Calc. Creatinine Clearance 0 mL/min (70-130); Calcium 8.9 mg/dL (7.8-10.44); Carbon Dioxide 14 mmol/L (23-31); Chloride 114 mmol/L (98-107); Estimated GFR-MDRD 12; Globulin 2.7 g/dL (2.4-3.5); Glucose 202 mg/dL (83-110); Potassium 5.9 mmol/L (3.5-5.1); Sodium 138 mmol/L (136-145)
[2018-09-13 23:50] LABS: CKMB 4.4 ng/mL (0-6.6)
[2018-09-14] MEDS ORDERED: Aspirin Chewable 81 MG TAB ONE ×2 (00:08)
[2018-09-14 00:22] LABS: INR-International Normal Ratio 1.1; PTT 30.4 SEC (22.9-36.1); Prothrombin Time 14.3 SEC (12.0-14.7)
[2018-09-14] MEDS ORDERED: Heparin 25,000 units/D5W 500 ML ONE (01:19)
[2018-09-14] MEDS ORDERED: Heparin 10,000 UNITS/ 10 ML VIAL SLOW IVP SCH (01:30)
[2018-09-14 02:36] LABS: Critical Call Chem Troponin I RESULT DECREASING; Troponin I 1.021 ng/mL (< 0.028)
[2018-09-14 04:32] LABS: Critical Call Chem Troponin I RESULT DECREASING; Troponin I 0.944 ng/mL (< 0.028)
[2018-09-14 06:37] VITALS: BMI 26.8
[2018-09-14] MEDS ORDERED: Artificial Tears 18 DROP/0.9 ML EA EYE PRN (07:33)
[2018-09-14] MEDS ORDERED: HumaLOG 300 UNITS/3 ML VIAL SC PRN (07:33)
[2018-09-14] MEDS ORDERED: Sodium Chloride 0.65% Nasal 44 ML BOT EA NARE PRN (07:33)
[2018-09-14] MEDS ORDERED: Dextrose 5% in Water 1,000 ML IV PRN (07:33)
[2018-09-14] MEDS ORDERED: Loperamide HCl 2 MG CAP PO PRN (07:33)
[2018-09-14] MEDS ORDERED: Acetaminophen 325 MG TAB PO PRN (07:33)
[2018-09-14] MEDS ORDERED: Bisacodyl 10 MG SUPP PR PRN (07:33)
[2018-09-14] MEDS ORDERED: Eucerin (Mineral Oil/Petrolatum,White) 30 gm Jar TOP PRN (07:33)
[2018-09-14] MEDS ORDERED: HYDROcodone/Acetaminophen 5/325 mg Tablet PO PRN (07:33)
[2018-09-14] MEDS ORDERED: Senokot S 8.6-50 MG TAB PO PRN (07:33)
[2018-09-14] MEDS ORDERED: Dextrose 50% Abboject 50 ML SYRINGE SLOW IVP PRN (07:33)
[2018-09-14] MEDS ORDERED: Loratadine 10 MG TAB PO PRN (07:33)
[2018-09-14] MEDS ORDERED: Ondansetron PF 4 MG/2 ML Vial IVP PRN (07:33)
[2018-09-14] MEDS ORDERED: Zolpidem Tartrate 5 MG TAB PO PRN (07:33)
[2018-09-14] MEDS ORDERED: Nitroglycerin 0.4 MG TAB (25 Tab Bottle) SL PRN (07:33)
[2018-09-14] MEDS ORDERED: Ondansetron ODT 4 MG TAB PO PRN (07:33)
[2018-09-14] MEDS ORDERED: Bisacodyl 5 MG TAB PO PRN (07:33)
[2018-09-14] MEDS ORDERED: Cepastat Lozenges 1 LOZ PO PRN (07:33)
[2018-09-14] MEDS ORDERED: Diabetic Tussin 200 MG/10 ML UDCUP PO PRN (07:33)
[2018-09-14] MEDS: Heparin 5,000 UNITS/ML VIAL SC SCH ×2 (08:25→21:17)
[2018-09-14] MEDS: Aspirin 325 MG TAB PO SCH (08:25)
--- NOTE | 2018-09-14 09:43 | CON ---
DATE OF CONSULTATION: HISTORY OF PRESENT ILLNESS: Mr. Leos is a 73-year-old white male with ESRD, admitted for shortness of breath. He was found to be in CHF. We are now being consulted for his hemodialysis as well as for emergent and maintenance hemodialysis. Please note, this patient has missed dialysis for about a week. He had a nonfunctional AV fistula. Yesterday, a cuffed hemodialysis catheter was placed by surgeon. This morning, he is currently undergoing dialysis. I am at the bedside, supervising his dialysis. No other new complaints today. REVIEW OF SYSTEMS: Mild shortness of breath. No chest pain. No syncopal episode. No productive cough. No fever or chills. Appetite and energy level are decreased. No headache. No diplopia. No syncopal episode. No dysuria. No urinary frequency. MEDICATIONS: Currently on; 1. Aspirin 325 mg once a day. 2. P.r.n. glucagon. 3. Heparin 5000 units subcu b.i.d. 4. Lantus 20 units in the morning and 50 units at night. 5. Humalog sliding scale. 6. Nitrostat p.r.n. 7. Zofran 4 mg IV q.6 p.r.n. PAST MEDICAL HISTORY: Includes the following; 1. ESRD, currently on maintenance hemodialysis secondary to diabetic nephropathy. 2. Type 2 diabetes mellitus. 3. Coronary artery disease. 4. Status post CHF, EF of 20%. 5. History of noncompliance. 6. Hypertension. 7. Dyslipidemia. PAST SURGICAL HISTORY: Status post cardiac cath, status post AICD placement, status post left nephrectomy, status post AV fistula, status post tonsillectomy, status post cuffed dialysis catheter placement, status post CABG, and status post back surgery. ALLERGIES: KEFLEX, PROPOXYPHENE, AND BACTRIM. TRAUMA: None. IMMUNIZATIONS: Up-to-date. HOSPITALIZATIONS: Please see past medical history. SOCIAL HISTORY: The patient lives in [place]. , one child. 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 No alcohol. No drug abuse. Status post multiple blood transfusion. Originally from [place]. FAMILY HISTORY: No family history of ESRD. PHYSICAL EXAMINATION: VITAL SIGNS: Blood pressure is 170/80, heart rate 94, respiratory rate 20, temperature 97.5, and pulse ox 95%. GENERAL: Noted to be awake, alert, comfortable, not in distress. SKIN: Adequate turgor. HEENT: He has slightly pale conjunctivae. Anicteric sclerae. NECK: No neck mass. No carotid bruits. No JVD. CHEST: No deformities. LUNGS: Decreased breath sounds. HEART: Normal sinus rhythm. No murmurs. No gallops. No rubs. ABDOMEN: Globular, soft, and nontender. No masses. EXTREMITIES: No edema. No deformities. LABORATORY DATA: Laboratories of September 13, 2018; white count 9.7, hemoglobin 9.9. Sodium 138, potassium is 5.9, carbon dioxide 14, chloride 114, BUN 65, creatinine 4.95, glucose 202, and calcium 8.9. IMAGING DATA: Chest x-ray shows CHF. ASSESSMENT AND PLAN: 1. Congestive heart failure/hyperkalemia. The patient is undergoing emergent hemodialysis. Fluid removal as tolerated. 2. End-stage renal disease - we will currently place this patient on Tuesday, , and Tuesday hemodialysis regimen. Again, fluid removal only as tolerated. 3. Borderline anemia. We will observe. If needed, we will start the Epogen with this patient. Agree with current management. Job ID: [id number]
[2018-09-14] MEDS ORDERED: Heparin 10,000 UNITS/ 10 ML VIAL ONE (10:00)
[2018-09-14] MEDS ORDERED: traMADol HCl 50 MG TAB PO PRN (13:06)
[2018-09-14] MEDS ORDERED: ALPRAZolam 0.5 MG TAB PO PRN (13:06)
--- NOTE | 2018-09-14 13:38 | HP ---
PRIMARY CARE PHYSICIAN: Rick Avitia. REASON FOR ADMISSION: Non-ST elevation CO, volume overload. HISTORY OF PRESENT ILLNESS: A 73-year-old male, who was recently admitted in our hospital on August 16, 2018, at that time, the patient had cardiac catheterization done and the patient was found with three-vessel coronary artery disease and his two off three grafts were patent. The patient reports that for last 2 to 3 weeks, he has nonfunctioning AV fistula. He was not able to get dialysis. Day by day, he was feeling gradually increasing shortness of breath, cough, orthopnea, and PND. Couple of days ago, the patient had tunneled hemodialysis catheter placed at other place. Last night, the patient was having increasing shortness of breath, increasing discomfort in his chest and that is why he decided to come to emergency room for evaluation. When he arrived to the emergency room, he was hypertensive. His routine blood test showed elevated troponin. His chest x-ray showed pulmonary vascular congestion. The patient was admitted to telemetry floor for treatment of for pulmonary edema as well as non-ST elevation CO. I saw this patient earlier today at dialysis room. He was comfortable. He was tolerating his dialysis and he was getting dialysis through his renal catheter. Dr. Wong already evaluated this patient. He does not have any chest pain. He denies any fever or flu-like symptoms. He denies any constipation, diarrhea, melena, or hematochezia. He denies any focal neurological symptoms. REVIEW OF SYSTEMS: CONSTITUTIONAL: Negative for weight loss or gain, ability to conduct usual activities. SKIN: Negative for rash, itching. EYES: Negative for double vision, pain. ENT/MOUTH: Negative for nose bleeding, neck stiffness, pain, tenderness. CARDIOVASCULAR: Negative for palpitations, dyspnea on exertion, orthopnea. RESPIRATORY: Negative for shortness of breath, wheezing, cough, hemoptysis, fever or night sweats. GASTROINTESTINAL: Negative for poor appetite, abdominal pain, heartburn, nausea, vomiting, constipation, or diarrhea. GENITOURINARY: Negative for urgency, frequency, dysuria, nocturia. MUSCULOSKELETAL: Negative for pain, swelling. NEUROLOGIC/PSYCHIATRIC: Negative for anxiety, depression. ALLERGY/IMMUNOLOGIC: Negative for skin rash, bleeding tendency. Please see my HPI for pertinent positive and negative. All other review of systems reviewed and negative except as mentioned in HPI. CURRENT HOME MEDICATIONS: 1. Xanax 0.5 mg 1 or 2 tablets p.o. at bedtime p.r.n. 2. Calcitriol 0.25 mcg p.o. daily. 3. Hydralazine 50 mg q.i.d. 4. Tramadol 100 mg t.i.d. p.r.n. 5. Nitroglycerin 0.4 mg sublingual p.r.n. 6. Aspirin 81 mg daily. 7. Coreg 50 mg b.i.d. 8. Pepcid 20 mg daily. 9. Humalog insulin as per sliding scale. 10. Lantus 30 units subcu in the morning. 11. Ranexa 500 mg b.i.d. 12. Crestor 40 mg p.o. at bedtime. 13. Renvela 800 mg p.o. t.i.d. PAST MEDICAL HISTORY: ESRD, on hemodialysis; diabetic nephropathy progressed to ESRD; diabetes, type 2; coronary artery disease with history of CABG; chronic systolic heart failure with EF 20%; medication noncompliance; hypertension; dyslipidemia; ischemic cardiomyopathy; and bilateral carotid artery disease. PAST SURGICAL HISTORY: AICD placement, dialysis access through AV fistula, tunneled hemodialysis catheter placement, CABG, tonsillectomy, back surgery, and left nephrectomy. PAST PSYCHIATRIC HISTORY: Anxiety and depression. ALLERGIES: KEFLEX, LEVAQUIN, SULFA, AND BACTRIM. FAMILY HISTORY: Positive for heart disease among several family members including diabetes and hypertension. SOCIAL HISTORY: The patient is a former smoker. He currently denies any tobacco, alcohol, or illicit drug abuse. He lives by himself at home in [place]. EMERGENCY ROOM COURSE: The patient has received heparin initially and subsequently aspirin also received by him. PHYSICAL EXAMINATION: VITAL SIGNS: On arrival, blood pressure 190/90, pulse 80, respiratory rate 20, temperature 97.9, and saturation 95% with 2 L oxygen. Weight 92.4 kg. GENERAL: The patient is currently alert, awake, hypertensive. No obvious acute distress. HEENT: Head; normocephalic, atraumatic. Eyes; pupils are round and reactive to light. Extraocular muscle intact. ENT; oropharynx within normal limits. Moist mucous membranes. No oral lesion. No pharyngeal erythema. No exudate. NECK: Supple. Elevated JVD. No thyromegaly. No carotid bruit. No meningeal signs of irritation. LUNGS: Bibasilar rales. End-expiratory wheezing heard. CARDIAC: S1 and S2, regular. Systolic murmur noted parasternally and apex. No gallop. No rub. ABDOMEN: Soft. Bowel sounds present. Nontender. Nondistended. No organomegaly. No mass. No suprapubic tenderness. BACK: Unremarkable. No CVA tenderness. EXTREMITIES: Upper extremities; passive movement of all joints are normal. Lower extremity; bilateral lower extremity edema noted. Good distal pulsation. SKIN: No skin rash. The patient has hemodialysis port in right chest. PSYCHIATRIC: Normal affect. SIGNIFICANT LABORATORY DATA: EKG showing pacemaker rhythm. Chest x-ray showing pulmonary edema. CBC; WBC 9.7, hemoglobin 9.9, and platelet 156. INR 1.1. Sodium 138, potassium 5.9, chloride 114, carbon dioxide 14, anion gap 16, BUN 65, creatinine 4.95, glucose 202, and calcium 8.9. LFT; AST 10, ALT 10, alkaline phosphatase 71, and albumin 4.3. BNP 2211.2. CK-MB 4.4, troponin 1.205. ASSESSMENT AND PLAN: 1. Acute on chronic systolic congestive heart failure, stage C with ejection fraction 35% to 40% based on most recent echocardiography. He has automated implantable cardioverter-defibrillator in place. He has significant pulmonary vascular edema secondary to noncompliance with dialysis. The patient cannot have ARLEN inhibitor or ARB because of renal failure and hyperkalemia. The patient will need the dialysis for volume removal. We will continue hydralazine 50 mg q.i.d. along with Imdur 30 mg daily. We will also continue Coreg 50 mg b.i.d. We will monitor the patient's hemodynamics. 2. Acute pulmonary edema due to volume overload secondary to end-stage renal disease after inability to get hemodialysis for a week or two secondary to arteriovenous fistula malfunction. Dr. Wong is consulted for maintenance hemodialysis while in hospital. He will need dialysis and fluid removal as much as possible. 3. Volume overload secondary to end-stage renal disease. As mentioned in an above problem, the patient will need volume removal through the dialysis. 4. Ischemic cardiomyopathy with automatic implantable cardioverter-defibrillator in place secondary to coronary artery disease. The patient will need volume removal for currently fluid overload status. He is on aspirin 81 mg daily. 5. Coronary artery disease with a history of coronary artery bypass grafting. He had recent cardiac cath done last month. We will continue optimization of medical therapy with aspirin, Coreg, Crestor, and Ranexa. 6. Non-ST elevation myocardial infarction, currently troponin is significantly elevated, likely due to demand ischemia from volume overload. Cardiology will be consulted. 7. End-stage renal disease, on hemodialysis. Dr. Wong will do maintenance hemodialysis while in hospital. 8. Dyslipidemia. Continue Crestor 40 mg p.o. at bedtime. 9. Diabetes, type 2. Continue Levemir insulin 30 units subcu in the morning and Humalog daily as per sliding scale. 10. Anxiety and depression. Continue Xanax as per home dosage. 11. Secondary hyperparathyroidism of renal origin. Continue Renvela 800 mg t.i.d. and calcitriol 0.25 mcg p.o. daily. 12. Hyperkalemia. We will repeat BMP tomorrow. Most likely, it will improve with dialysis. 13. Deep vein thrombosis prophylaxis, heparin 5000 units subcu twice daily. Gastrointestinal prophylaxis. Protonix 40 mg p.o. daily. CODE STATUS: The patient is full code. The patient does not have any surrogate decision maker. DISPOSITION PLAN: Based on clinical course, we are expecting the patient's stay in hospital more than 2 midnights. Plan of care discussed with the patient in detail. Job ID: [id number]
[2018-09-14] MEDS: hydrALAZINE 25 MG TAB PO SCH ×3 (13:40→21:09)
[2018-09-14] MEDS: Sevelamer Carbonate 800 MG TAB PO SCH (16:41)
[2018-09-14] MEDS: HumaLOG 300 UNITS/3 ML VIAL SC PRN (16:50)
[2018-09-14] MEDS: Rosuvastatin 20 MG TAB PO SCH (21:09)
[2018-09-14] MEDS: Carvedilol 25 MG TAB PO SCH (21:09)
[2018-09-14] MEDS: Nitroglycerin 2% Ointment 1 INCH/1 GM Packet TOP SCH (21:09)
[2018-09-14] MEDS ORDERED: Nitroglycerin 2% Ointment 1 INCH/1 GM Packet TOP SCH (22:00)
--- NOTE | 2018-09-14 22:54 | CON ---
DATE OF CONSULTATION: HISTORY: Paco Leos is a 73-year-old white male with extensive cardiac history as outlined in great detail on dictation from July 22, 2018. He had a non STEMI at that time and was reinstituted on dialysis. He then was again admitted on September 14 with slight increase in his cardiac enzymes. He underwent catheterization, which revealed 2 of his 4 bypass grafts to be patent. Otherwise, he had very severe diffuse disease and in general, it was quite difficult to know exactly where his non STEMI would have occurred. His ejection fraction at that time was 30-35%. He was discharged, but apparently due to a nonfunctioning AV fistula, he has not received dialysis since discharge. He has had increased shortness of breath and some chest pressure and was admitted with increased cardiac enzymes. He underwent dialysis and feels much better. PHYSICAL EXAMINATION: VITAL SIGNS: Blood pressure 178/79, pulse 74. HEENT: PERRL. NECK: Supple. CHEST: Clear. CARDIAC: S1 and S2 normal without any S3, S4, or murmurs. ABDOMEN: Normal bowel sounds without tenderness or organomegaly. EXTREMITIES: Reveal 1+ pretibial edema. NEUROLOGIC: Grossly intact. SKIN: Warm and dry. IMPRESSION: 1. Probable non ST elevation myocardial infarction. 2. Status post coronary artery bypass grafting x3 with 2 of 4 grafts patent on August 18, 2018 with very diffuse coronary artery disease. 3. Non ST elevation myocardial infarction on July 22, 2018, the patient declined catheterization at that time. 4. End-stage renal disease, not receiving dialysis since he was discharged. 5. Status post biventricular implantable cardioverter defibrillator. 6. Ischemic cardiomyopathy with ejection fraction of 30% to 35% at catheterization. 7. Hypercholesterolemia. 8. Diabetes. 9. Hypertension. 10. Former smoker. 11. Renal cell carcinoma status post nephrectomy. 12. Noncompliant with followups. PLAN: The patient states that he developed a burning sensation for 3 or 4 minutes with taking Ranexa 1000 b.i.d. This will be resumed at 500 b.i.d. He will need to continue dialysis. No further cardiac evaluation is warranted at this time. Job ID: [id number] MTDD
[2018-09-15] MEDS: Nitroglycerin 2% Ointment 1 INCH/1 GM Packet TOP SCH ×3 (04:10→20:22)
[2018-09-15 04:45] LABS: #Eosinphils 0.2 thou/uL (0.0-0.7); #Monocytes 0.9 thou/uL (0.11-0.59); #Neutrophils 4.8 thou/uL (1.40-6.50); %Basophils 0.4 % (0.0-1.0); %Eosinophils 3.3 % (0.0-10.0); %Lymphocytes 14.2 % (21.0-51.0); %Monocytes 12.7 % (0.0-10.0); %Neutrophils 69.4 % (42.0-75.0); Hemoglobin 8.6 g/dL (14.0-18.0); Mean Corpuscular HGB CONC 33.7 g/dL (32.0-36.0); Mean Corpuscular Volume 91.9 fL (78.0-98.0); Mean Platelet Volume 8.2 fL (7.4-10.4); Platelet Count 126 thou/uL (130-400); RBC Distribution Width 13.5 % (11.5-14.5); Red Blood Cell (RBC) Count 2.77 mill/uL (4.70-6.10); White Blood Cell (WBC) Count 6.9 thou/uL (4.8-10.8)
[2018-09-15 05:12] LABS: ALT (SGPT) Less than 7 U/L (8-55); AST (SGOT) 9 U/L (5-34); Albumin 3.3 g/dL (3.4-4.8); Alkaline Phosphatase 60 U/L (40-150); Anion Gap 13 mmol/L (10-20); BUN (Urea Nitrogen) 35 mg/dL (8.4-25.7); Bilirubin, Total 0.3 mg/dL (0.2-1.2); Calc. Creatinine Clearance 26 mL/min (70-130); Calcium 8.2 mg/dL (7.8-10.44); Carbon Dioxide 21 mmol/L (23-31); Cardiac Risk 7.2 (Less than 4.5); Chloride 105 mmol/L (98-107); Cholesterol 158 mg/dl (< 200 Desired); Estimated GFR-MDRD 19; Globulin 2.5 g/dL (2.4-3.5); Glucose 261 mg/dL (83-110); HDL Cholesterol 22 mg/dL (>60 Neg Risk); LDL Cholesterol, Calculated 80 mg/dL; Potassium 4.4 mmol/L (3.5-5.1); Protein, Total 5.8 g/dL (5.8-8.1); Sodium 135 mmol/L (136-145); Triglycerides 278 mg/dL (Less than 150)
[2018-09-15] MEDS: HumaLOG 300 UNITS/3 ML VIAL SC PRN ×2 (05:55→16:48)
[2018-09-15] MEDS: Carvedilol 25 MG TAB PO SCH ×2 (08:52→20:21)
[2018-09-15] MEDS: Aspirin 325 MG TAB PO SCH (08:52)
[2018-09-15] MEDS: Sevelamer Carbonate 800 MG TAB PO SCH ×3 (08:52→16:48)
[2018-09-15] MEDS: hydrALAZINE 25 MG TAB PO SCH ×4 (08:53→20:21)
[2018-09-15] MEDS: Calcitriol 0.25 MCG CAP PO SCH (08:53)
[2018-09-15] MEDS: Heparin 5,000 UNITS/ML VIAL SC SCH ×2 (08:54→20:21)
[2018-09-15] MEDS: Insulin Glargine 30 UNITS in Pre-Filled Syringe 1 EACH SC SCH (08:54)
[2018-09-15] MEDS ORDERED: Non-Formulary Item 1 EACH (Insulin Glargine,Hum.Rec.Anlog [Lantus Solostar] 30 UNIT) SQ SCH (09:00)
--- NOTE | 2018-09-15 09:24 | PRG ---
DATE OF SERVICE: 09/15/2018 RENAL MEDICINE SUBJECTIVE: Mr. Leos is a 73-year-old white male, who was admitted due to CHF. He underwent hemodialysis yesterday without any difficulty. He is complaining of some neck pain. I think this is related to the placement of his right IJ catheter. He has also been evaluated by Cardiology by Dr. Dupont. Recommendation is conservative/medical management. His Ranexa has been restarted. Denies any chest pain or shortness of breath at the present time. OBJECTIVE: VITAL SIGNS: Blood pressure is 202/93 - before BP medications, heart rate 75, respiratory rate 22, temperature 97.7, and pulse ox 95%. GENERAL: Awake, alert, comfortable, not in overt distress. SKIN: Adequate turgor. HEENT: He has a slightly pale conjunctivae. Anicteric sclerae. NECK: No neck mass. No carotid bruits. No JVD. CHEST: No deformities. LUNGS: Clear breath sounds. HEART: Normal sinus rhythm. No murmurs. No gallops. No rubs. ABDOMEN: Globular, soft, nontender. No masses. EXTREMITIES: No edema. No deformities. MEDICATIONS: Medications of September 15, 2018, was reviewed. LABORATORY DATA: Laboratories of September 15, 2018; white count 6.9, hemoglobin 8.6, and hematocrit 25.4. Sodium 135, potassium 4.4, chloride 105, carbon dioxide 21, BUN 35, creatinine 3.24, glucose 261, calcium 8.2, and albumin 3.3. ASSESSMENT AND PLAN: 1. Anemia. Restart Epogen 10,000 units subcu every week. 2. End-stage renal disease. Continue 3 times a week hemodialysis. I have scheduled him for another dialysis in a.m. He will eventually have a surgical evaluation for revision of his right arteriovenous fistula. 3. Chest pain - resolved. Conservative management. Cardiology is following. Job ID: [id number]
--- NOTE | 2018-09-15 10:58 | PDOC.PN ---
- Subjective Encounter Start Date: 09/15/18 Encounter Start Time: 07:50 -: old records requested/rev Patient seen and examined. No new complaints. No overnight events pt does not want to take ranexa as he is not tolerating meds - Objective Resuscitation Status - Order Detail: 09/14/18 07:33 Resuscitation Status Routine Resuscitation Status: FULL: Full Resuscitation MAR Reviewed: Yes Vital Signs & Weight: Vital Signs (12 hours) Temp Pulse Resp BP Pulse Ox 09/15/18 08:06 97.7 F 75 22 H 202/93 H 95 09/15/18 03:48 98.7 F 75 20 177/77 H 94 L 09/15/18 00:16 98.3 F 74 20 144/63 H 92 L Weight Weight 203 lb 4.8 oz I&O: 09/14/18 09/15/18 09/16/18 06:59 06:59 06:59 Intake Total 800 Output Total 1225 Balance -425 Result Diagrams: 09/15/18 04:15 09/15/18 04:15 Additional Labs: Accuchecks 09/14/18 09/14/18 09/14/18 21:09 16:41 10:41 POC Glucose 131 H 206 H 158 H EKG Reviewed by me: Yes (pacing) Phys Exam - Physical Examination Constitutional: NAD HEENT: PERRLA, moist MMs, sclera anicteric Neck: no JVD, supple Respiratory: no wheezing, no rhonchi few basal rales Cardiovascular: RRR, no significant murmur, no rub Gastrointestinal: soft, non-tender, no distention, positive bowel sounds Musculoskeletal: no edema, pulses present Neurological: non-focal, normal sensation Lymphatic: no nodes Psychiatric: normal affect, A&O x 3 Skin: no rash, normal turgor Dx/Plan (1) Acute on chronic systolic ACC/AHA stage C congestive heart failure Code(s): I50.23 - ACUTE ON CHRONIC SYSTOLIC (CONGESTIVE) HEART FAILURE Status : Acute (2) Acute pulmonary edema Code(s): J81.0 - ACUTE PULMONARY EDEMA Status: Acute (3) Hyperkalemia Code(s): E87.5 - HYPERKALEMIA Status: Acute (4) NSTEMI (non-ST elevated myocardial infarction) Code(s): I21.4 - NON-ST ELEVATION (NSTEMI) MYOCARDIAL INFARCTION Status: Acute (5) Volume overload Code(s): E87.70 - FLUID OVERLOAD, UNSPECIFIED Status: Acute (6) Anemia of renal disease Code(s): N18.9 - CHRONIC KIDNEY DISEASE, UNSPECIFIED; D63.1 - ANEMIA IN CHRONIC KIDNEY DISEASE Status: Chronic (7) CAD (coronary artery disease) Code(s): I25.10 - ATHSCL HEART DISEASE OF [place] CORONARY ARTERY W/O ANG PCTRS Status: Chronic Qualifiers: Comment: (8) DM2 (diabetes mellitus, type 2) Status: Chronic Qualifiers: Comment: (9) Dyslipidemia Code(s): E78.5 - HYPERLIPIDEMIA, UNSPECIFIED Status: Chronic Comment: (10) ESRD (end stage renal disease) on dialysis Code(s): N18.6 - END STAGE RENAL DISEASE; Z99.2 - DEPENDENCE ON RENAL DIALYSIS Status: Chronic Comment: (11) Hypertension Code(s): I10 - ESSENTIAL (PRIMARY) HYPERTENSION Status: Chronic Qualifiers: (12) Secondary hyperparathyroidism of renal origin Code(s): N25.81 - SECONDARY HYPERPARATHYROIDISM OF RENAL ORIGIN Status: Chronic - Plan cont current plan of care * continue HD as per nephrology * Dc ranexa as pt is not tolerating * cardiology following * will monitor and adjust hi BP meds * continue nitro patch with hydralazine * he is not on ACEI or ARB due to hyperkalemia and ESRD. Review of Systems - Review of Systems ENT: negative: Ear Pain, Ear Discharge, Nose Pain, Nose Discharge, Nose Congestion, Mouth Pain, Mouth Swelling, Throat Pain, Throat Swelling, Other Respiratory: negative: Cough, Dry, Shortness of Breath, Hemoptysis, SOB with Excertion, Pleuritic Pain, Sputum, Wheezing Cardiovascular: negative: chest pain, palpitations, orthopnea, paroxysmal nocturnal dyspnea, edema, light headedness, other Gastrointestinal: negative: Nausea, Vomiting, Abdominal Pain, Diarrhea, Constipation, Melena, Hematochezia, Other Genitourinary: negative: Dysuria, Frequency, Incontinence, Hematuria, Retention , Other Musculoskeletal: negative: Neck Pain, Shoulder Pain, Arm Pain, Back Pain, Hand Pain, Leg Pain, Foot Pain, Other - Medications/Allergies Allergies/Adverse Reactions: Allergies Allergy/AdvReac Type Severity Reaction Status Date / Time cephalexin monohydrate Allergy Verified 09/14/18 06:09 [From Keflex] levofloxacin [From Levaquin] Allergy Verified 09/14/18 06:09 propoxyphene napsylate Allergy Verified 09/14/18 06:09 [From Darvocet-N 100] Sulfa (Sulfonamide Allergy Verified 09/14/18 06:09 Antibiotics) sulfamethoxazole Allergy Verified 09/14/18 06:09 [From Bactrim] trimethoprim [From Bactrim] Allergy Verified 09/14/18 06:09 Medications: Current Medications Acetaminophen (Tylenol) 650 mg PO Q4H PRN PRN Reason: Headache/Fever/Mild Pain (1-3) Hydrocodone Bitart/Acetaminophen ([place] 5/325) 1 tab PO Q4H PRN PRN Reason: Moderate Pain (4-6) Last Admin: 09/15/18 08:53 Dose: 1 tab Alprazolam (Xanax) 0.5 mg PO HS PRN PRN Reason: Insomnia Artificial Tears (Tears Naturale) 2 drop EA EYE PRN PRN PRN Reason: Dry Eyes Aspirin (Aspirin) 325 mg PO DAILY [facility] Last Admin: 09/15/18 08:52 Dose: 325 mg Bisacodyl (Dulcolax) 10 mg [place] DAILYPRN PRN PRN Reason: Constipation Bisacodyl (Dulcolax) 10 mg PO DAILYPRN PRN PRN Reason: Constipation Calcitriol (Rocaltrol) 0.25 mcg PO DAILY [facility] Last Admin: 09/15/18 08:53 Dose: 0.25 mcg Carvedilol (Coreg) 50 mg PO BID [facility] Last Admin: 09/15/18 08:52 Dose: 50 mg Dextrose/Water (Dextrose 50%) 25 gm SLOW IVP PRN PRN PRN Reason: Hypoglycemia Epoetin Guilherme (Procrit) 10,000 units SC Q7D [facility] Glucagon (Glucagon) 1 mg IM PRN PRN PRN Reason: Hypoglycemia Guaifenesin (Robitussin Sf) 200 mg PO Q4H PRN PRN Reason: Cough Heparin Sodium (Porcine) (Heparin) 5,000 units SC BID [facility] Last Admin: 09/15/18 08:54 Dose: 5,000 units Hydralazine HCl (Apresoline) 50 mg PO QID [facility] Last Admin: 09/15/18 08:53 Dose: 50 mg Dextrose/Water (D5w) 1,000 mls @ 0 mls/hr IV .Q0M PRN PRN Reason: Hypoglycemia Insulin Glargine 30 units/ (Miscellaneous Medication) 0.3 mls @ 0 mls/hr SC QAM [facility] Last Admin: 09/15/18 08:54 Dose: 0.3 mls Insulin Human Lispro (Humalog) 0 units SC .MODERATE SLIDING SC PRN PRN Reason: Moderate Correctional Scale Last Admin: 09/15/18 05:55 Dose: 6 unit Insulin Human Lispro (Humalog) 0 units SC .BEDTIME SLIDING SC PRN PRN Reason: Bedtime Correctional Scale Loperamide HCl (Imodium) 2 mg PO PRN PRN PRN Reason: Diarrhea/Loose Stools Loratadine (Claritin) 10 mg PO DAILYPRN PRN PRN Reason: Sinus Symptoms Mineral Oil/White Petrolatum (Eucerin Cream) 0 gm TOP BIDPRN PRN PRN Reason: Dry Skin Nitroglycerin (Nitrostat) 0.4 mg SL Q5MIN PRN PRN Reason: Chest Pain Nitroglycerin (Nitro-Bid 2% Ointment) 1 inch TOP 0400,1200,2000 [facility] Last Admin: 09/15/18 04:10 Dose: Not Given Ondansetron HCl (Zofran Odt) 4 mg PO Q6H PRN PRN Reason: Nausea/Vomiting Ondansetron HCl (Zofran) 4 mg IVP Q6H PRN PRN Reason: Nausea/Vomiting Rosuvastatin Calcium (Crestor) 40 mg PO [facility] Last Admin: 09/14/18 21:09 Dose: 40 mg Senna/Docusate Sodium (Senokot S) 2 tab PO BID PRN PRN Reason: Constipation Sevelamer Carbonate (Renvela) 800 mg PO TID[facility] Last Admin: 09/15/18 08:52 Dose: 800 mg Sodium Chloride (Blanco Nasal [place] 0.65%) 0 ml EA NARE QIDPRN PRN PRN Reason: Nasal Congestion Sodium Chloride (Flush - Normal Saline) 10 ml IVF Q12HR [facility] Last Admin: 09/15/18 08:54 Dose: 10 ml Sodium Chloride (Flush - Normal Saline) 10 ml IVF PRN PRN PRN Reason: Saline Flush Throat Lozenges (Cepastat Lozenges) 1 jose a PO Q2H PRN PRN Reason: Sore Throat Tramadol HCl (Ultram) 100 mg PO TID PRN PRN Reason: Severe Pain (7-10) Zolpidem Tartrate (Ambien) 5 mg PO HSPRN PRN PRN Reason: Insomnia
[2018-09-15] MEDS ORDERED: Epoetin (ESRD) 20,000 UNITS/ML SC SCH (11:00)
[2018-09-15] MEDS: Rosuvastatin 20 MG TAB PO SCH (20:21)
[2018-09-16] MEDS: Nitroglycerin 2% Ointment 1 INCH/1 GM Packet TOP SCH ×2 (05:15→13:48)
[2018-09-16] MEDS: Sevelamer Carbonate 800 MG TAB PO SCH ×4 (08:29→18:00)
[2018-09-16] MEDS: Insulin Glargine 30 UNITS in Pre-Filled Syringe 1 EACH SC SCH (08:29)
--- NOTE | 2018-09-16 08:53 | PRG ---
DATE OF SERVICE: 09/16/2018 RENAL MEDICINE SUBJECTIVE: Mr. Leos is a 73-year-old white male, who was admitted for shortness of breath and he was initiated on dialysis. I have scheduled him for today for dialysis. He is feeling better. Blood pressure was noted to be elevated. I did speak with the nursing staff to hold the BP prior to the dialysis. We will max out fluid removal to help with the dialysis. OBJECTIVE: VITAL SIGNS: Blood pressure is 196/91, heart rate 70, respiratory rate 16, temperature 97.3, and pulse ox 96%. GENERAL: Awake, alert, and comfortable, not in distress. SKIN: Adequate turgor. HEENT: Slightly pale conjunctivae. Anicteric sclerae. NECK: No neck mass. No carotid bruits. No JVD. CHEST: No deformities. LUNGS: Clear breath sounds. No wheezing. No crackles. HEART: Normal sinus rhythm. No murmurs. No gallops. No rubs. ABDOMEN: Globular, soft, and nontender. No masses. EXTREMITIES: No edema. No deformities. MEDICATIONS: Medications of September 16, 2018 were reviewed. LABORATORY DATA: Laboratories of September 15, 2018; hemoglobin 8.6. Potassium 4.4 and creatinine 3.24. ASSESSMENT AND PLAN: 1. End-stage renal disease - hemodialysis today. We will continue 3 times a week hemodialysis. My plan is to bring him back to his regular Tuesday, Tuesday, and Tuesday hemodialysis this coming week. Our plan is to max out fluid removal to help with the blood pressure. 2. Congestive heart failure, clinically much improved. 3. Hypertension. Continue current BP medications, maxing out fluid removal. Agree with current management. Job ID: [id number]
[2018-09-16] MEDS: Heparin 5,000 UNITS/ML VIAL SC SCH ×2 (09:02→21:10)
[2018-09-16] MEDS: hydrALAZINE 25 MG TAB PO SCH ×4 (09:02→21:10)
--- NOTE | 2018-09-16 10:39 | PDOC.PN ---
- Subjective Encounter Start Date: 09/16/18 Encounter Start Time: 07:20 pt seen in HD room, he is tolerating HD, he has no abdominal pain, last night with pain his BP was increased Patient seen and examined. No new complaints. No overnight events - Objective Resuscitation Status - Order Detail: 09/14/18 07:33 Resuscitation Status Routine Resuscitation Status: FULL: Full Resuscitation MAR Reviewed: Yes Vital Signs & Weight: Vital Signs (12 hours) Temp Pulse Resp BP BP Pulse Ox 09/16/18 09:02 70 09/16/18 08:00 70 16 196/91 H 96 09/16/18 04:25 97.3 F L 70 18 187/85 H 93 L 09/15/18 23:30 97.6 F 68 20 170/74 H 96 Weight Weight 191 lb I&O: 09/15/18 09/16/18 09/17/18 06:59 06:59 06:59 Intake Total 800 240 Output Total 1225 Balance -425 240 Result Diagrams: 09/15/18 04:15 09/15/18 04:15 Additional Labs: Accuchecks 09/16/18 09/15/18 09/15/18 05:25 20:21 16:49 POC Glucose 164 H 179 H 187 H 09/15/18 10:37 POC Glucose 233 H EKG Reviewed by me: Yes (pacing) Phys Exam - Physical Examination Constitutional: NAD HEENT: PERRLA, moist MMs, sclera anicteric Neck: no JVD, supple Respiratory: no wheezing, no rales, no rhonchi Cardiovascular: RRR, no significant murmur, no rub HD catheter right side of chest Gastrointestinal: soft, non-tender, no distention, positive bowel sounds Musculoskeletal: no edema, pulses present non functioning avf in right UE Neurological: non-focal, normal sensation Lymphatic: no nodes Psychiatric: normal affect, A&O x 3 Skin: no rash, normal turgor Dx/Plan (1) Acute on chronic systolic ACC/AHA stage C congestive heart failure Code(s): I50.23 - ACUTE ON CHRONIC SYSTOLIC (CONGESTIVE) HEART FAILURE Status : Acute (2) Acute pulmonary edema Code(s): J81.0 - ACUTE PULMONARY EDEMA Status: Resolved (3) Hyperkalemia Code(s): E87.5 - HYPERKALEMIA Status: Resolved (4) NSTEMI (non-ST elevated myocardial infarction) Code(s): I21.4 - NON-ST ELEVATION (NSTEMI) MYOCARDIAL INFARCTION Status: Acute (5) Volume overload Code(s): E87.70 - FLUID OVERLOAD, UNSPECIFIED Status: Resolved (6) Anemia of renal disease Code(s): N18.9 - CHRONIC KIDNEY DISEASE, UNSPECIFIED; D63.1 - ANEMIA IN CHRONIC KIDNEY DISEASE Status: Chronic (7) CAD (coronary artery disease) Code(s): I25.10 - ATHSCL HEART DISEASE OF [place] CORONARY ARTERY W/O ANG PCTRS Status: Chronic Qualifiers: Comment: (8) DM2 (diabetes mellitus, type 2) Status: Chronic Qualifiers: Comment: (9) Dyslipidemia Code(s): E78.5 - HYPERLIPIDEMIA, UNSPECIFIED Status: Chronic Comment: (10) ESRD (end stage renal disease) on dialysis Code(s): N18.6 - END STAGE RENAL DISEASE; Z99.2 - DEPENDENCE ON RENAL DIALYSIS Status: Chronic Comment: (11) Hypertension Code(s): I10 - ESSENTIAL (PRIMARY) HYPERTENSION Status: Chronic Qualifiers: (12) Secondary hyperparathyroidism of renal origin Code(s): N25.81 - SECONDARY HYPERPARATHYROIDISM OF RENAL ORIGIN Status: Chronic - Plan cont current plan of care * hyperkalemia, volume overload and pulmonary edema has improved * today will adjust his BP meds for better BP control * will monitor today and repeat labs tomorrow * expecting discharge tomorrow * outpt AVF repair * medication reviewed as below * symptomatic treatment. Review of Systems - Review of Systems ENT: negative: Ear Pain, Ear Discharge, Nose Pain, Nose Discharge, Nose Congestion, Mouth Pain, Mouth Swelling, Throat Pain, Throat Swelling, Other Respiratory: negative: Cough, Dry, Shortness of Breath, Hemoptysis, SOB with Excertion, Pleuritic Pain, Sputum, Wheezing Cardiovascular: negative: chest pain, palpitations, orthopnea, paroxysmal nocturnal dyspnea, edema, light headedness, other Gastrointestinal: negative: Nausea, Vomiting, Abdominal Pain, Diarrhea, Constipation, Melena, Hematochezia, Other Genitourinary: negative: Dysuria, Frequency, Incontinence, Hematuria, Retention , Other Musculoskeletal: negative: Neck Pain, Shoulder Pain, Arm Pain, Back Pain, Hand Pain, Leg Pain, Foot Pain, Other Skin: negative: Rash, Lesions, John, Bruising, Other - Medications/Allergies Allergies/Adverse Reactions: Allergies Allergy/AdvReac Type Severity Reaction Status Date / Time cephalexin monohydrate Allergy Verified 09/14/18 06:09 [From Keflex] levofloxacin [From Levaquin] Allergy Verified 09/14/18 06:09 propoxyphene napsylate Allergy Verified 09/14/18 06:09 [From Darvocet-N 100] Sulfa (Sulfonamide Allergy Verified 09/14/18 06:09 Antibiotics) sulfamethoxazole Allergy Verified 09/14/18 06:09 [From Bactrim] trimethoprim [From Bactrim] Allergy Verified 09/14/18 06:09 Medications: Current Medications Acetaminophen (Tylenol) 650 mg PO Q4H PRN PRN Reason: Headache/Fever/Mild Pain (1-3) Hydrocodone Bitart/Acetaminophen ([place] 5/325) 1 tab PO Q4H PRN PRN Reason: Moderate Pain (4-6) Last Admin: 09/15/18 08:53 Dose: 1 tab Alprazolam (Xanax) 0.5 mg PO HS PRN PRN Reason: Insomnia Artificial Tears (Tears Naturale) 2 drop EA EYE PRN PRN PRN Reason: Dry Eyes Aspirin (Aspirin) 325 mg PO DAILY [facility] Last Admin: 09/15/18 08:52 Dose: 325 mg Bisacodyl (Dulcolax) 10 mg [place] DAILYPRN PRN PRN Reason: Constipation Bisacodyl (Dulcolax) 10 mg PO DAILYPRN PRN PRN Reason: Constipation Calcitriol (Rocaltrol) 0.25 mcg PO DAILY [facility] Last Admin: 09/15/18 08:53 Dose: 0.25 mcg Carvedilol (Coreg) 50 mg PO BID [facility] Last Admin: 09/15/18 20:21 Dose: 50 mg Dextrose/Water (Dextrose 50%) 25 gm SLOW IVP PRN PRN PRN Reason: Hypoglycemia Epoetin Guilherme (Procrit) 10,000 units SC Q7D [facility] Last Admin: 09/15/18 12:45 Dose: 10,000 units Glucagon (Glucagon) 1 mg IM PRN PRN PRN Reason: Hypoglycemia Guaifenesin (Robitussin Sf) 200 mg PO Q4H PRN PRN Reason: Cough Heparin Sodium (Porcine) (Heparin) 5,000 units SC BID [facility] Last Admin: 09/16/18 09:02 Dose: Not Given Hydralazine HCl (Apresoline) 50 mg PO QID [facility] Last Admin: 09/16/18 09:02 Dose: Not Given Dextrose/Water (D5w) 1,000 mls @ 0 mls/hr IV .Q0M PRN PRN Reason: Hypoglycemia Insulin Glargine 30 units/ (Miscellaneous Medication) 0.3 mls @ 0 mls/hr SC QAM [facility] Last Admin: 09/16/18 08:29 Dose: 0.3 mls Insulin Human Lispro (Humalog) 0 units SC .MODERATE SLIDING SC PRN PRN Reason: Moderate Correctional Scale Last Admin: 09/15/18 16:48 Dose: 2 unit Insulin Human Lispro (Humalog) 0 units SC .BEDTIME SLIDING SC PRN PRN Reason: Bedtime Correctional Scale Loperamide HCl (Imodium) 2 mg PO PRN PRN PRN Reason: Diarrhea/Loose Stools Loratadine (Claritin) 10 mg PO DAILYPRN PRN PRN Reason: Sinus Symptoms Mineral Oil/White Petrolatum (Eucerin Cream) 0 gm TOP BIDPRN PRN PRN Reason: Dry Skin Nitroglycerin (Nitrostat) 0.4 mg SL Q5MIN PRN PRN Reason: Chest Pain Nitroglycerin (Nitro-Bid 2% Ointment) 1 inch TOP 0400,1200,2000 [facility] Last Admin: 09/16/18 05:15 Dose: 1 inch Ondansetron HCl (Zofran Odt) 4 mg PO Q6H PRN PRN Reason: Nausea/Vomiting Ondansetron HCl (Zofran) 4 mg IVP Q6H PRN PRN Reason: Nausea/Vomiting Rosuvastatin Calcium (Crestor) 40 mg PO [facility] Last Admin: 09/15/18 20:21 Dose: 40 mg Senna/Docusate Sodium (Senokot S) 2 tab PO BID PRN PRN Reason: Constipation Sevelamer Carbonate (Renvela) 800 mg PO TID-[facility] Last Admin: 09/16/18 09:03 Dose: Not Given Sodium Chloride ([place] Nasal [place] 0.65%) 0 ml EA NARE QIDPRN PRN PRN Reason: Nasal Congestion Sodium Chloride (Flush - Normal Saline) 10 ml IVF Q12HR [facility] Last Admin: 09/15/18 20:21 Dose: 10 ml Sodium Chloride (Flush - Normal Saline) 10 ml IVF PRN PRN PRN Reason: Saline Flush Throat Lozenges (Cepastat Lozenges) 1 jose a PO Q2H PRN PRN Reason: Sore Throat Tramadol HCl (Ultram) 100 mg PO TID PRN PRN Reason: Severe Pain (7-10) Zolpidem Tartrate (Ambien) 5 mg PO HSPRN PRN PRN Reason: Insomnia
[2018-09-16] MEDS ORDERED: Heparin 1,000 UNITS/ML VIAL ONE (11:11)
[2018-09-16] MEDS: Carvedilol 25 MG TAB PO SCH ×2 (13:38→21:10)
[2018-09-16] MEDS: Aspirin 325 MG TAB PO SCH (13:38)
[2018-09-16] MEDS: Calcitriol 0.25 MCG CAP PO SCH (13:46)
--- NOTE | 2018-09-16 15:57 | PDOC.CTH ---
Cardiology Progress Note - Subjective No new issues. - Objective Vital Signs Temp Pulse Resp BP BP Pulse Ox 09/16/18 15:27 98.0 F 80 16 105/57 L 97 09/16/18 13:47 70 179/80 H 09/16/18 13:35 97.8 F 98 18 150/112 H 96 09/16/18 09:02 70 09/16/18 08:15 96 09/16/18 08:00 70 16 196/91 H 96 09/16/18 04:25 97.3 F L 70 18 187/85 H 93 L Weight 191 lb 09/15/18 09/16/18 09/17/18 06:59 06:59 06:59 Intake Total 800 240 Output Total 1225 Balance -425 240 - Physical Examination General/Neuro: alert & oriented x3, NAD Neck: no JVD present Lungs: unlabored respirations Heart: RRR Abdomen: NT/ND Extremities: + edema B (1+) - Telemetry Telemetry Rhythm: NSR - Labs Result Diagrams: 09/15/18 04:15 09/15/18 04:15 Troponin/CKMB CK-MB (CK-2) 4.4 ng/mL (0-6.6) 09/13/18 22:56 Troponin I 0.944 ng/mL (< 0.028) H* 09/14/18 03:14 - Assessment/Plan 1. NSTEMI 2. Severe CAD 3. Hx of CABG 4. ESRD, non compliant with HD. 5. HTN PLAN: - Continue medical management. - HD as tolerated. - Diffuse [place] disease not amenable to nay catheter based intervention or re do CABG.
[2018-09-16] MEDS: HumaLOG 300 UNITS/3 ML VIAL SC PRN (18:00)
[2018-09-16] MEDS: Rosuvastatin 20 MG TAB PO SCH (21:10)
--- NOTE | 2018-09-16 23:46 | EKG ---
Test Reason : Blood Pressure : / mmHG Vent. Rate : 071 BPM Atrial Rate : 071 BPM P-R Int : 140 ms QRS Dur : 146 ms QT Int : 468 ms P-R-T Axes : 064 -61 113 degrees QTc Int : 508 ms Electronic ventricular pacemaker Confirmed by TALISHA MERIDA DO ([id number]), online content editor ISABELL SPENCE ([id number]) on 09/16/2018 11:45:42 PM Referred By: Confirmed By:TALISHA MERIDA DO
--- NOTE | 2018-09-16 23:46 | EKG ---
Test Reason : Blood Pressure : / mmHG Vent. Rate : 079 BPM Atrial Rate : 079 BPM P-R Int : 144 ms QRS Dur : 140 ms QT Int : 442 ms P-R-T Axes : 075 -66 113 degrees QTc Int : 506 ms Atrial-sensed ventricular-paced rhythm Abnormal ECG Confirmed by TALISHA MERIDA DO ([id number]), sports editor ISABELL SPENCE ([id number]) on 09/16/2018 11:45:38 PM Referred By: Confirmed By:TALISHA MERIDA DO
[2018-09-17] MEDS: Nitroglycerin 2% Ointment 1 INCH/1 GM Packet TOP SCH ×3 (02:27→12:41)
[2018-09-17 05:44] LABS: #Eosinphils 0.5 thou/uL (0.0-0.7); #Lymphocytes 1.4 thou/uL (1.20-3.40); #Monocytes 0.7 thou/uL (0.11-0.59); #Neutrophils 3.9 thou/uL (1.40-6.50); %Basophils 0.5 % (0.0-1.0); %Eosinophils 7.4 % (0.0-10.0); %Lymphocytes 21.4 % (21.0-51.0); %Monocytes 10.5 % (0.0-10.0); %Neutrophils 60.1 % (42.0-75.0); Hemoglobin 9.2 g/dL (14.0-18.0); Mean Corpuscular HGB CONC 32.6 g/dL (32.0-36.0); Mean Corpuscular Hemoglobin 29.8 pg (27.0-31.0); Mean Corpuscular Volume 91.2 fL (78.0-98.0); Mean Platelet Volume 8.6 fL (7.4-10.4); Platelet Count 145 thou/uL (130-400); RBC Distribution Width 13.3 % (11.5-14.5); Red Blood Cell (RBC) Count 3.07 mill/uL (4.70-6.10); White Blood Cell (WBC) Count 6.4 thou/uL (4.8-10.8)
[2018-09-17 05:58] LABS: Anion Gap 17 mmol/L (10-20); BUN (Urea Nitrogen) 30 mg/dL (8.4-25.7); Calc. Creatinine Clearance 24 mL/min (70-130); Calcium 8.5 mg/dL (7.8-10.44); Carbon Dioxide 23 mmol/L (23-31); Chloride 102 mmol/L (98-107); Estimated GFR-MDRD 18; Glucose 188 mg/dL (83-110); Potassium 3.9 mmol/L (3.5-5.1); Sodium 138 mmol/L (136-145)
[2018-09-17] MEDS: Insulin Glargine 30 UNITS in Pre-Filled Syringe 1 EACH SC SCH (08:47)
[2018-09-17] MEDS: hydrALAZINE 25 MG TAB PO SCH ×2 (08:47→13:21)
[2018-09-17] MEDS: Calcitriol 0.25 MCG CAP PO SCH (08:48)
[2018-09-17] MEDS: Sevelamer Carbonate 800 MG TAB PO SCH ×2 (08:48→12:41)
[2018-09-17] MEDS: Aspirin 325 MG TAB PO SCH (08:48)
[2018-09-17] MEDS: Carvedilol 25 MG TAB PO SCH (08:48)
[2018-09-17] MEDS: Heparin 5,000 UNITS/ML VIAL SC SCH (08:49)
--- NOTE | 2018-09-17 11:17 | PRG ---
DATE OF SERVICE: 09/17/2018 SUBJECTIVE: Mr. Leos is a 73-year-old white male with ESRD, admitted for congestive heart failure. He has undergone hemodialysis and has tolerated said treatment. He has a new cuffed dialysis catheter. His treatment time yesterday was shortened due to diarrhea. This morning, he feels better. He denies any chest pain or shortness of breath. OBJECTIVE: VITAL SIGNS: Blood pressure is 186/82, heart rate 66, respiratory rate 17, temperature 97.5, pulse ox 98%. GENERAL: Awake, alert, comfortable, not in distress. SKIN: Adequate turgor. HEENT: He has pinkish conjunctivae. Anicteric sclerae. No neck mass. No carotid bruits. No JVD. CHEST: No deformities. LUNGS: Clear breath sounds. HEART: Normal sinus rhythm. No murmurs. No gallops. No rubs. ABDOMEN: Globular, soft, nontender. No masses. EXTREMITIES: No edema. No deformities. MEDICATIONS: Medications of September 17, 2018 reviewed. LABORATORY DATA: Laboratories of September 17, 2018; white count 6.4, hemoglobin 9.2. Sodium 138, potassium 3.9, chloride 102, carbon dioxide 23, BUN 30, creatinine 3.32, glucose 188, and calcium 8.5. ASSESSMENT AND PLAN: 1. End-stage renal disease, stable, tolerating current hemodialysis regimen. Fluid removal as tolerated. He had a certain treatment yesterday due to diarrhea. This morning, he feels better and he feels fine. Denies any chest pain or shortness of breath. 2. Chronic anemia, on weekly Epogen. 3. Congestive heart failure, clinically resolved. From a renal point of view, this patient can be discharge any time. Job ID: [id number]
--- NOTE | 2018-09-17 11:35 | DIS ---
DATE OF ADMISSION: 09/14/2018 DATE OF DISCHARGE: 09/17/2018 PRIMARY CARE PHYSICIAN: Hannah Cabrera. DISCHARGE DISPOSITION: Home. PRIMARY DISCHARGE DIAGNOSES: 1. Acute on chronic systolic congestive heart failure ACC stage C. 2. Non-ST elevation myocardial infarction. 3. Volume overload due to missed hemodialysis. 4. Hyperkalemia due to missed hemodialysis. 5. Acute pulmonary edema, resolved. SECONDARY DISCHARGE DIAGNOSES: Severe coronary artery disease with history of coronary artery bypass graft; anemia of renal disease; diabetes type 2; dyslipidemia; end-stage renal disease, on hemodialysis; hypertension; secondary hyperparathyroidism of renal origin. PRIMARY PROCEDURE/OPERATION: Maintenance hemodialysis while in hospital. RADIOLOGICAL INVESTIGATION: Chest x-ray showed pulmonary edema. SIGNIFICANT LABORATORY DATA: WBC 6.4, hemoglobin 9.2, platelet 145. INR 1.1. Sodium 138, potassium 3.9, BUN 30, creatinine 3.32, calcium 8.5. LFT normal. Triglyceride 278, cholesterol 158, LDL 80, troponin 0.944. DISCHARGE MEDICATIONS: 1. Xanax 0.5 mg one or two tablets p.o. at bedtime, calcitriol 0.25 mcg p.o. daily. 2. Hydralazine 50 mg p.o. q.i.d. 3. Tramadol 50 mg two tablet t.i.d. p.r.n. 4. Nitroglycerin 0.4 mg sublingual p.r.n. 5. Aspirin 325 mg p.o. daily. 6. Coreg 50 mg p.o. b.i.d. 7. Pepcid 20 mg daily. 8. Humalog insulin as per sliding scale. 9. Lantus insulin 30 units subcu morning. 10. Imdur 60 mg p.o. daily. 11. Crestor 40 mg p.o. at bedtime. 12. Renvela 800 mg p.o. t.i.d. CONTRAINDICATION: The patient is not on ARLEN inhibitor and ARB with congestive heart failure because of renal failure and hyperkalemia, so contraindicated. CODE STATUS: Full code. INPATIENT [facility] PRODUCER: Dr. Wong was following for maintenance hemodialysis. Dr. Dupont was consulted for non-STEMI. DISCHARGE PLAN: Post-hospital, the patient will follow up with primary care physician in 1 week. The patient has appointment with primary care physician on October 10, 2018 at 10 a.m. The patient has appointment with Dr. Cresencio Bedolla on September 28, 2018. HOSPITAL COURSE: A 73-year-old male, who was having problem with AV fistula and he was not able to get dialysis for 2 weeks. Subsequently, he got hemodialysis access at [facility] in the right internal jugular tunneled hemodialysis catheter. The patient was having chest pain, shortness of breath at home and that is why he came to emergency room. On admission, he was having acute pulmonary edema, fluid overload status and he had a significantly elevated troponin, was consistent with NSTEMI. The patient was admitted to telemetry floor. Cardiology group was consulted. Cardiology recommended to continue medical therapy because this patient has severe 3-vessel coronary artery disease, and he is not operable, even he is not a candidate for redo CABG and that is why they only recommended medical therapy while in the hospital. He was not tolerating Ranexa therapy and that is why the patient did not want to continue Ranexa therapy. During this admission, we started Imdur 60 mg p.o. daily on top of all other medication. He required maintenance hemodialysis and his pulmonary edema resolved. His CHF is now euvolemic. The patient is not on ARLEN inhibitor or ARB because of hyperkalemia with ESRD. All consultants cleared him for discharge. The patient is also doing very well. We changed his aspirin from 81 to 325 mg p.o. daily. Rest of medication was continued as per previous. All new medication prescription sent to his pharmacy. The patient is given counseling to be compliant with dialysis, medication, and diet. The patient is seen and examined at bedside today. REVIEW OF SYSTEMS: All review of systems reviewed with him and negative. PHYSICAL EXAMINATION: VITAL SIGNS: Currently, temperature 97.5, pulse 66, respiratory rate 17, saturation 98% on room air, blood pressure 146/64. Weight 188 pounds. GENERAL: The patient is currently alert, awake, no obvious acute distress. HEENT: Head; normocephalic, atraumatic. Eyes; pupils round and reactive to light. Extraocular muscles intact. ENT; oropharynx within normal limit. Moist mucous membrane. No oral lesion. No pharyngeal erythema. No exudate. NECK: Supple. No thyromegaly. No carotid bruit. No jugular venous distention. LUNGS: Clear to auscultation without any rhonchi or rales. CARDIAC: S1 and S2 regular without any murmur. ABDOMEN: Soft and benign. EXTREMITIES: No edema. NEUROLOGIC: Nonfocal examination. The patient is stable for discharge today. This patient is continuously high risk for recurrent admission because of his noncompliance history. Job ID: [id number]
[2018-09-17 12:38] VITALS: BP 174/74; TEMP 98
== END 2018-09-17 13:44 | disposition home health service (06) | DRG 280 ==
LOC: ERS 22:24 → ERHOLD 09-14 00:43 → 2SW 09-14 05:49 → 2NO 09-15 21:34
PROVIDERS: ADMIT Internal Medicine; ATTEND Internal Medicine
PROC: 5A1D70Z Performance of Urinary Filtration, Intermittent, Less than 6 Hours Per Day (ICD-10-PCS; principal; 2018-09-16)
DX: I21.4 Non-ST elevation (NSTEMI) myocardial infarction (principal); N18.6 End stage renal disease; I50.23 Acute on chronic systolic (congestive) heart failure; I13.2 Hypertensive heart and chronic kidney disease with heart failure and with stage 5 chronic kidney disease, or end stage renal disease; N25.81 Secondary hyperparathyroidism of renal origin; E11.22 Type 2 diabetes mellitus with diabetic chronic kidney disease; I25.10 Atherosclerotic heart disease of native coronary artery without angina pectoris; E78.5 Hyperlipidemia, unspecified; I25.5 Ischemic cardiomyopathy; F41.9 Anxiety disorder, unspecified; F32.9 Major depressive disorder, single episode, unspecified; E87.5 Hyperkalemia; D63.1 Anemia in chronic kidney disease; Z95.1 Presence of aortocoronary bypass graft; Z99.2 Dependence on renal dialysis; Z90.89 Acquired absence of other organs; Z98.890 Other specified postprocedural states; Z90.5 Acquired absence of kidney; Z88.1 Allergy status to other antibiotic agents; Z88.2 Allergy status to sulfonamides; Z87.891 Personal history of nicotine dependence; Z91.15 Patient's noncompliance with renal dialysis; Z85.528 Personal history of other malignant neoplasm of kidney
CPT/HCPCS: 36415; 36416; 71045; 80048; 80053; 80061; 82553; 83880; 84484; 85025; 85610; 85730; 93005; 93798; 96365; 96366; J1644; J1825; Q0162; Q4081

== ENCOUNTER 2018-09-25 06:29 | Observation (INO) | payer MEDICARE ==
[2018-09-25 06:53] LABS: #Basophils 0.1 thou/uL (0.0-0.2); #Eosinphils 0.5 thou/uL (0.0-0.7); #Lymphocytes 1.2 thou/uL (1.20-3.40); #Monocytes 0.6 thou/uL (0.11-0.59); #Neutrophils 6.9 thou/uL (1.40-6.50); %Basophils 0.8 % (0.0-1.0); %Eosinophils 5.7 % (0.0-10.0); %Monocytes 6.7 % (0.0-10.0); %Neutrophils 73.9 % (42.0-75.0); Hemoglobin 9.6 g/dL (14.0-18.0); Mean Corpuscular HGB CONC 32.7 g/dL (32.0-36.0); Mean Corpuscular Hemoglobin 30.6 pg (27.0-31.0); Mean Corpuscular Volume 93.5 fL (78.0-98.0); Platelet Count 160 thou/uL (130-400); Red Blood Cell (RBC) Count 3.13 mill/uL (4.70-6.10); White Blood Cell (WBC) Count 9.3 thou/uL (4.8-10.8)
[2018-09-25 07:14] LABS: ALT (SGPT) 7 U/L (8-55); AST (SGOT) 11 U/L (5-34); Albumin 3.8 g/dL (3.4-4.8); Alkaline Phosphatase 64 U/L (40-150); Anion Gap 14 mmol/L (10-20); BUN (Urea Nitrogen) 36 mg/dL (8.4-25.7); Bilirubin, Total 0.4 mg/dL (0.2-1.2); CK (CPK) 86 U/L (30-200); Calc. Creatinine Clearance 0 mL/min (70-130); Calcium 8.8 mg/dL (7.8-10.44); Carbon Dioxide 21 mmol/L (23-31); Chloride 105 mmol/L (98-107); Estimated GFR-MDRD 13; Glucose 265 mg/dL (83-110); Potassium 5.3 mmol/L (3.5-5.1); Protein, Total 6.8 g/dL (5.8-8.1); Sodium 135 mmol/L (136-145)
[2018-09-25 07:37] LABS: CKMB 2.1 ng/mL (0-6.6)
--- NOTE | 2018-09-25 07:53 | RAD ---
CHEST 1 VIEW: COMPARISON: 09/13/2018. HISTORY: Pain. FINDINGS: Redemonstration of a left-sided transvenous defibrillator, sternotomy wires, and right-sided HemoSpli t dialysis catheter. Heart size is upper normal. Pulmonary vessels are slightly prominent. Patchy interstitial and alveolar opacities. No pleural effusion. No pneumothorax. IMPRESSION: Congestive heart failure. POS: [facility]
[2018-09-25 08:28] LABS: HBSAg Index 0.34 S/CO (0-0.99); Hep B Surf Ag Non-Reactive S/CO (NonReactive)
--- NOTE | 2018-09-25 10:09 | PRG ---
DATE OF SERVICE: 09/25/2018 SUBJECTIVE: Mr. Leos is a 73-year-old white male, who has ESRD and was admitted for congestive heart failure. He was complaining of shortness of breath. He has also had labile hypertension. We are now consulting for his maintenance hemodialysis. I am currently dialyzing the patient for emergency dialysis for fluid removal. He is currently tolerating said dialysis treatment. OBJECTIVE: VITAL SIGNS: Blood pressure is 155/74, heart rate 74, and pulse ox is 92% on 2 L nasal cannula. GENERAL: He is noted to be awake, comfortable, in mild respiratory distress. SKIN: Adequate turgor. HEENT: He has slightly pale conjunctivae. Anicteric sclerae. No neck mass. No carotid bruits. No JVD. CHEST: No deformities. LUNGS: Clear breath sounds. HEART: Normal sinus rhythm. No murmur. No gallops. No rubs. ABDOMEN: Globular, soft, nontender. No masses. EXTREMITIES: Positive for edema. No deformities. MEDICATIONS: Medications of 09/25/2018 reviewed. LABORATORY DATA: Laboratories of 09/25/2018; white count 9.3, hemoglobin was 9.6, hematocrit 29.3. Sodium 135, carbon dioxide 21, potassium 5.3, chloride is 105, BUN 36, creatinine 4.5, glucose 265, AST 11, ALT 7. Troponin I 0.075. Chest x-ray shows CHF. ASSESSMENT AND PLAN: 1. Congestive heart failure, emergent hemodialysis, attempting 4 L fluid removal as tolerated by the patient. 2. End-stage renal disease. We will continue current Tuesday, Tuesday, Tuesday dialysis. Max out fluid removal. 3. Anemia, currently receiving outpatient Mircera and IV iron. Overall agree with current management. Job ID: [id number]
[2018-09-25 13:23] VITALS: BP 182/81; TEMP 94.3; BMI 25.9
[2018-09-25 13:28] LABS: CKMB 2.4 ng/mL (0-6.6)
--- NOTE | 2018-09-25 14:28 | DIS ---
DATE OF ADMISSION: 09/25/2018 DATE OF DISCHARGE: 09/25/2018 TRANSFER OF CARE: PRIMARY CARE PHYSICIAN: Adore Cabrera. DISCHARGE DISPOSITION: Discharged home. DIET: Diabetic. PENDING AT TIME OF DISCHARGE: Nothing. CODE STATUS: Full. DISCHARGE MEDICATIONS: 1. Renvela 800 mg 3 times a day. 2. Crestor 40 mg a day. 3. Lantus 30 units subcu in the morning. 4. Aspirin 81 mg a day. 5. Alprazolam 0.5 mg at bedtime. 6. Calcitriol 0.25 mcg a day. 7. Tramadol 50 mg two p.o. q.6 hours p.r.n. 8. Pepcid 20 mg a day. 9. Imdur 60 mg a day. 10. Hydralazine 50 mg q.i.d. 11. Coreg 50 mg p.o. b.i.d. ALLERGIES: CEPHALEXIN, LEVOFLOXACIN, PROPOXYPHENE, SULFAMETHOXAZOLE, TRIMETHOPRIM. DIAGNOSIS: Hyperkalemia. [facility] for acute on chronic heart failure. The patient had presented with dyspnea on exertion. He stated he had inadequate dialysis 3 days ago. His chest x-ray showed pulmonary vascular congestion, cardiomegaly. His white count was 9.3, hemoglobin 9.6, platelet count 160. Chemistries; creatinine 4.5, BUN 36, potassium 5.3, and sodium 135, blood sugar was 265. Troponins 0.075, 0.070, and 0.071. Dr. Wong was consulted by the Emergency Room. He went to hemodialysis. They removed 4 L of fluids. I have talked with Dr. Wong. The man's blood pressure is stable. His chest is clear. He agrees that he is stable for discharge to follow up with Dr. Adore Cabrera as an outpatient and to keep his 3 times weekly hemodialysis appointments. Job ID: [id number]
--- NOTE | 2018-09-25 14:52 | HP ---
HISTORY OF PRESENT ILLNESS: The patient presented with shortness of breath, dyspnea on exertion, and orthopnea. He had his last hemodialysis 3 days ago, but he said they did not take enough fluid off. He denied chest pain. REVIEW OF SYSTEMS: HEAD: No headaches, dizziness, or fainting. EYES: No double vision, blurred vision, or flashing lights. EARS, NOSE, AND THROAT: No ear pain or drainage. No nasal bleeding. No trouble swallowing. CARDIAC: See present illness. RESPIRATION: No cough, wheezing, or asthma. GASTROINTESTINAL: Some diarrhea last night. No blood. No melena. No abdominal pain. No nausea or vomiting. GENITOURINARY: He makes urine. He has no blood or pain. MUSCULOSKELETAL: No pain or swelling in his legs. NEUROLOGIC: No strokes, seizures, or focal weakness. PSYCHIATRIC: No anxiety or depression. HEME/LYMPH: No tender or swollen lymph nodes in axilla, inguinal, or cervical area. SKIN: No bruising, bleeding, or rash. PAST MEDICAL HISTORY: End-stage renal disease, on hemodialysis; coronary artery disease, post coronary artery bypass graft; diabetes mellitus type 2, insulin dependent with end-stage renal failure; hypertension; dyslipidemia; cardiomyopathy with a history of recurrent acute on chronic systolic heart failure; and anemia of chronic kidney disease. CURRENT MEDICATIONS: 1. Renvela 800 mg three times a day. 2. Crestor 40 mg a day. 3. Lantus 30 units a day. 4. Aspirin 81 mg a day. 5. Alprazolam 0.5 mg at bedtime. 6. Calcitriol 0.25 mcg a day. 7. Tramadol 50 mg two every 6 hours as needed for pain. 8. Pepcid 20 mg a day. 9. Imdur 60 mg a day. 10. Hydralazine 50 mg p.o. q.i.d. 11. Coreg 50 mg p.o. b.i.d. ALLERGIES: CEPHALEXIN, LEVOFLOXACIN, PROPOXYPHENE, SULFAMETHOXAZOLE, AND TRIMETHOPRIM. PAST SURGICAL HISTORY: AV shunt for hemodialysis, AICD placement, coronary artery bypass graft, tonsillectomy, L-spine surgery, and left nephrectomy. PAST PSYCHIATRIC HISTORY: Some anxiety and depression. FAMILY HISTORY: Positive for heart disease in multiple members. Also has diabetes and hypertension in multiple members. SOCIAL HISTORY: Former smoker. Denies any tobacco. Lives by himself. Full code status. No next of kin identified. PHYSICAL EXAMINATION: GENERAL: Alert, cooperative, in no distress. VITAL SIGNS: Blood pressure 182/81, pulse 55, respirations 16, and O2 saturation 95% on room air. HEAD, EYES, EARS, NOSE, AND THROAT: Revealed pupils are equal, round, and reactive. Extraocular moves are intact. Sclerae are white. Tympanic membranes clear. Nose clear. Throat clear. NECK: Supple without jugular venous distention, adenopathy, or thyromegaly. CHEST: Clear to auscultation and percussion. HEART: Regular rate and rhythm. First and second heart sounds are clear. There are no murmurs or gallops. ABDOMEN: Soft. Bowel sounds are normal. There is no hepatosplenomegaly. No mass. No rebound. EXTREMITIES: Reveal no cyanosis, clubbing, or edema. PULSES: Carotid, radial, and femoral and dorsalis pedis pulses intact and symmetric. SKIN: Warm and dry without bruises or rash. HEME/LYMPH: No tender or swollen lymph nodes in the axilla, inguinal, and cervical area. NEUROLOGIC: Cranial nerves 2 through 12 are intact. Deep tendon reflexes diffusely diminished. Moves all extremities. IMAGING STUDIES: Chest x-ray, cardiomegaly with pulmonary vascular congestion reviewed by me. EKG, dual chamber pacemaker with atrial sensing and ventricular pacing reviewed by me. LABORATORY DATA: Sodium 135, potassium 5.3, chloride 105, CO2 of 21, BUN 36, creatinine 4.5, blood sugar 265. Troponins 0.075, 0.070, 0.071. Hemoglobin 9.6, white cell count 9.3, and platelet count 160. PLAN: The patient going to hemodialysis. Consult Dr. Wong. Resume home medicines. If the patient is stable, we will discharge later today. ADMITTING DIAGNOSES: 1. Acute on chronic systolic heart failure. 2. End-stage renal disease, needing hemodialysis. 3. Coronary artery disease. 4. Diabetes mellitus type 2, insulin dependent. 5. Hypertension. 6. Cardiomyopathy. Job ID: [id number]
[2018-09-25] MEDS ORDERED: Heparin 10,000 UNITS/ 10 ML VIAL ONE (15:00)
--- NOTE | 2018-09-25 15:47 | DIS ---
DATE OF ADMISSION: 09/25/2018 DATE OF DISCHARGE: 09/25/2018 PRIMARY CARE PROVIDER: Dr. Adore Cabrera. DISCHARGE DISPOSITION: Discharged home. FINAL DIAGNOSES: 1. Acute on chronic systolic heart failure. 2. End-stage renal disease. 3. Coronary artery disease. 4. Diabetes mellitus, type 2. 5. Hypertension. 6. Dyslipidemia. DISCHARGE MEDICATIONS: Discharge medicines were the same as his home medicines. 1. Renvela 800 mg 3 times a day. 2. Crestor 40 mg a day. 3. Insulin glargine 30 units in the morning. 4. Aspirin 81 mg a day. 5. Alprazolam 5 mg at bedtime. 6. Calcitriol 0.25 mg a day. 7. Tramadol 50 mg 2 tablets q.6 hours p.r.n. pain. 8. Pepcid 20 mg in the evening. 9. Imdur 60 mg a day. 10. Hydralazine 50 mg q.i.d. 11. Coreg 50 mg p.o. b.i.d. ALLERGIES: CEPHALEXIN, LEVOFLOXACIN, DARVON, SULFA, AND TRIMETHOPRIM. PENDING AT THE TIME OF DISCHARGE, NOTHING. CODE STATUS: Full. DIET: Diabetic. Job ID: [id number]
--- NOTE | 2018-09-30 18:44 | EKG ---
Test Reason : Blood Pressure : / mmHG Vent. Rate : 084 BPM Atrial Rate : 084 BPM P-R Int : 150 ms QRS Dur : 140 ms QT Int : 450 ms P-R-T Axes : 076 -59 092 degrees QTc Int : 531 ms Electronic ventricular pacemaker Confirmed by LESLIE STOCK ([id number]), newspaper editor ISABELL SPENCE ([id number]) on 09/30/2018 6:44:11 PM Referred By: Confirmed By:LESLIE STOCK
== END 2018-09-25 16:57 | disposition home or self-care (01) ==
LOC: ERS 06:29 → 2SW 08:32
PROVIDERS: ADMIT Internal Medicine; ATTEND Internal Medicine
DX: I13.2 Hypertensive heart and chronic kidney disease with heart failure and with stage 5 chronic kidney disease, or end stage renal disease (principal); E11.22 Type 2 diabetes mellitus with diabetic chronic kidney disease; N18.6 End stage renal disease; I50.23 Acute on chronic systolic (congestive) heart failure; D63.1 Anemia in chronic kidney disease; E87.5 Hyperkalemia; Z88.1 Allergy status to other antibiotic agents; Z88.2 Allergy status to sulfonamides; Z88.8 Allergy status to other drugs, medicaments and biological substances; I25.10 Atherosclerotic heart disease of native coronary artery without angina pectoris; E78.5 Hyperlipidemia, unspecified; I25.2 Old myocardial infarction; Z79.4 Long term (current) use of insulin; Z79.82 Long term (current) use of aspirin; Z79.899 Other long term (current) drug therapy; Z99.2 Dependence on renal dialysis; Z95.1 Presence of aortocoronary bypass graft; Z90.5 Acquired absence of kidney
CPT/HCPCS: 71045; 80053; 82550; 82553; 82962; 84484 ×2; 85025; 87340; 93005; 94760; 99285; G0378; 36415; 36416; 90935; G0257; J1644

== ENCOUNTER 2019-09-13 19:44 | Observation (INO) | payer MEDICARE ==
[2019-09-13] MEDS ORDERED: Ondansetron PF 4 MG/2 ML Vial ONE (23:23)
[2019-09-14 00:55] VITALS: BMI 25.3
[2019-09-14 01:18] LABS: Troponin I 0.113 ng/mL (< 0.028)
[2019-09-14 03:54] LABS: Troponin I 0.097 ng/mL (< 0.028)
[2019-09-14] MEDS ORDERED: PROVENTIL INHALER 6.7 G (200 INHALATIONS) INH PRN (08:03)
[2019-09-14] MEDS ORDERED: Nitroglycerin 0.4 MG TAB (25 Tab Bottle) SL PRN (08:03)
[2019-09-14] MEDS ORDERED: ALPRAZolam 0.5 MG TAB PO PRN (08:03)
[2019-09-14 08:18] VITALS: TEMP 97.6
[2019-09-14] MEDS ORDERED: Furosemide 40 MG TAB PO SCH (09:00)
[2019-09-14] MEDS ORDERED: Epoetin (ESRD) 20,000 UNITS/ML SC SCH (09:00)
[2019-09-14] MEDS ORDERED: INSULIN GLARGINE HUM REC ANLOG 38 UNIT SQ SCH (09:00)
[2019-09-14] MEDS ORDERED: Insulin Glargine 38 UNITS in Pre-Filled Syringe 1 EACH SC SCH (09:00)
[2019-09-14] MEDS ORDERED: Aspirin 81 mg Enteric Coated Tablet PO SCH (09:00)
[2019-09-14] MEDS ORDERED: EPOETIN ALFA-EPBX (ESRD) 4,000 UNIT/ML VIAL SC SCH (09:00)
[2019-09-14] MEDS ORDERED: Calcitriol 0.25 MCG CAP PO SCH (09:00)
[2019-09-14] MEDS ORDERED: HumaLOG 300 UNITS/3 ML VIAL SC SCH (09:00)
[2019-09-14] MEDS ORDERED: Carvedilol 25 MG TAB PO SCH (09:00)
--- NOTE | 2019-09-14 09:27 | CON ---
DATE OF CONSULTATION: HISTORY OF PRESENT ILLNESS: Mr. Leos is a 74-year-old white male with ESRD - on hemodialysis and admitted for chest pain. According to the patient, there was some family commotion yesterday and during the said incident, he developed some chest pain. He also underwent initially for CT scan, which showed parenchymal infiltrates with moderate bilateral pleural effusion, which is suggestive this could be from CHF. We are now being consulted for management of his ESRD. This morning, he voices no new complaints. REVIEW OF SYSTEMS: Positive for transient chest pain laterally on the chest. No nausea. No vomiting. No syncopal episode. No productive cough. No fever or chills. No diarrhea. Appetite and energy level are fair. No hematochezia. No melena. No dysuria. No abdominal pain. MEDICATIONS: 1. Albuterol 2 puffs q.4 p.r.n. 2. Xanax 0.5 mg at bedtime p.r.n. 3. Aspirin 81 mg tablet daily. 4. Calcitriol 0.25 mcg tablet daily. 5. Carvedilol 25 mg p.o. b.i.d. 6. Furosemide 40 mg daily. 7. Hydralazine 50 mg p.o. q.i.d. 8. Protonix 40 mg daily. 9. Rosuvastatin 40 mg at bedtime. 10. Tramadol 100 mg q.6 hours p.r.n. Home medications: This patient showed he was taking; 1. Olmesartan 20 mg tablet daily. 2. Protonix 40 mg once a day. 3. He was on Lantus 21 units subcu at bedtime. 4. Humalog sliding scale. 5. Calcitriol 0.25 mcg tablet daily. PAST MEDICAL HISTORY: The patient has; 1. History of ESRD, on maintenance hemodialysis secondary to diabetic nephropathy. 2. Type 2 diabetes mellitus. 3. Coronary artery disease. 4. Status post CHF - decreased EF. 5. History of noncompliance. 6. Hypertension. 7. Dyslipidemia. PAST SURGICAL HISTORY: Status post cardiac cath, status post CABG, status post AICD placement, status post left nephrectomy, status post AV fistula placement, status post back surgery, status post tonsillectomy, and status post cuffed dialysis catheter placement. ALLERGIES: BACTRIM, KEFLEX, AND PROPOXYPHENE. TRAUMA: None. IMMUNIZATIONS: Up-to-date. HOSPITALIZATIONS: Please see past medical history. SOCIAL HISTORY: The patient lives in [place], originally from [place]. , one child. 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 No alcohol. No IV drug abuse. Status post multiple blood transfusion. PHYSICAL EXAMINATION: VITAL SIGNS: Blood pressure is noted at 177/88, heart rate 69, respiratory rate 18, temperature 97.6, and O2 saturation 93% room air. GENERAL: Noted to be awake, alert, comfortable, not in distress. SKIN: Adequate turgor. HEENT: Pinkish conjunctivae. Anicteric sclerae. NECK: No neck mass. No carotid bruits. No JVD. CHEST: No deformities. LUNGS: Clear breath sounds. HEART: Normal sinus rhythm. No murmurs. No gallops. No rubs. ABDOMEN: Globular, soft, and nontender. No masses. EXTREMITIES: No edema. No deformities. NEUROLOGICAL: Awake and oriented to 3 spheres. Moving all extremities. No tremors. No asterixis. No ataxia. LABORATORY DATA: Laboratories of September 13, 2019; white count 8.4, hemoglobin 10.9. On September 13, 2019; sodium 135, chloride 99, carbon dioxide 23, potassium 3.9, BUN 30, creatinine 5.09, glucose 404, calcium 9.3, AST 9, ALT 8, and albumin 3.7. Troponin I 0.13. IMAGING DATA: On September 13, 2019; CT of the chest shows bilateral pleural effusion, increased lung markings. CT of the brain showed no acute intracranial finding. ASSESSMENT AND PLAN: 1. Chest pain, clinically resolved. The patient is scheduled for cardiac stress test. 2. End-stage renal disease, stable. We will continue current Tuesday, Tuesday, and Tuesday dialysis. I have scheduled him for his regular dialysis today due to the congestive heart failure and bilateral pleural effusion. Consider maxing out fluid removal as tolerated by the patient. 3. Borderline anemia. We will resume back his Epogen at 7500 units subcu every week. 4. Hypertension. Continue current BP medications. Agree with current management. Job ID: [id number]
[2019-09-14 09:46] LABS: Mean Corpuscular HGB CONC 33.3 g/dL (32.0-36.0); Mean Corpuscular Hemoglobin 31.4 pg (27.0-31.0); Mean Corpuscular Volume 94.2 fL (78.0-98.0); Mean Platelet Volume 8.4 fL (7.4-10.4); Platelet Count 148 thou/uL (130-400); RBC Distribution Width 12.9 % (11.5-14.5); Red Blood Cell (RBC) Count 3.49 mill/uL (4.70-6.10); White Blood Cell (WBC) Count 6.4 thou/uL (4.8-10.8)
[2019-09-14 10:08] LABS: Anion Gap 14 mmol/L (10-20); BUN (Urea Nitrogen) 35 mg/dL (8.4-25.7); Calc. Creatinine Clearance 14 mL/min (70-130); Calcium 9.2 mg/dL (7.8-10.44); Carbon Dioxide 27 mmol/L (23-31); Chloride 100 mmol/L (98-107); Estimated GFR-MDRD 10; Glucose 356 mg/dL (83-110); Sodium 137 mmol/L (136-145)
[2019-09-14 10:13] LABS: Band 1 % (5-11); Eosinophils 4 % (0-10); Lymphocytes 17 % (21-51); MDiff Complete? YES; Monocytes 9 % (0-10); Neutrophil 68 % (42-75); RBC Morphology Normal
[2019-09-14] MEDS ORDERED: Heparin 10,000 UNITS/ 10 ML VIAL ONE (10:25)
[2019-09-14] MEDS ORDERED: traMADol HCl 50 MG TAB PO SCH (12:00)
[2019-09-14 13:35] VITALS: BP 179/80
[2019-09-14] MEDS: hydrALAZINE 25 MG TAB PO SCH ×2 (13:36→13:37)
[2019-09-14] MEDS ORDERED: Insulin Glargine 21 UNITS in Pre-Filled Syringe 1 EACH SC SCH (21:00)
[2019-09-14] MEDS ORDERED: Rosuvastatin 20 MG TAB PO SCH (21:00)
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
== END 2019-09-14 15:45 | disposition home or self-care (01) ==
LOC: ERS 19:44 → 2SW 23:51
PROVIDERS: ADMIT Internal Medicine; ATTEND Internal Medicine
DX: R07.89 Other chest pain (principal); I25.10 Atherosclerotic heart disease of native coronary artery without angina pectoris; I13.2 Hypertensive heart and chronic kidney disease with heart failure and with stage 5 chronic kidney disease, or end stage renal disease; N18.6 End stage renal disease; E11.22 Type 2 diabetes mellitus with diabetic chronic kidney disease; E78.5 Hyperlipidemia, unspecified; D64.9 Anemia, unspecified; I50.9 Heart failure, unspecified; I25.2 Old myocardial infarction; Z79.4 Long term (current) use of insulin; Z79.82 Long term (current) use of aspirin; Z79.891 Long term (current) use of opiate analgesic; Z79.899 Other long term (current) drug therapy; Z87.891 Personal history of nicotine dependence; Z88.1 Allergy status to other antibiotic agents; Z88.2 Allergy status to sulfonamides; Z88.8 Allergy status to other drugs, medicaments and biological substances; Z90.5 Acquired absence of kidney; Z91.19 Patient's noncompliance with other medical treatment and regimen; Z95.1 Presence of aortocoronary bypass graft; Z95.810 Presence of automatic (implantable) cardiac defibrillator; Z99.2 Dependence on renal dialysis
CPT/HCPCS: 80048; 82553; 82962; 84484 ×3; 85007; 85027; 96374; 99285; Q5105; 36415; 36416; 90935; 96372; G0257; G0378; J1644; J1815; J2405

== ENCOUNTER 2019-12-21 18:45 | Inpatient (IN) | payer MEDICARE, OTHER ==
[2019-12-21] MEDS ORDERED: Acetaminophen 650 MG Suppository ONE (19:08)
[2019-12-21 19:20] LABS: #Eosinphils 0.1 thou/uL (0.0-0.7); #Lymphocytes 0.7 thou/uL (1.20-3.40); #Monocytes 0.9 thou/uL (0.11-0.59); %Basophils 0.1 % (0.0-1.0); %Eosinophils 1.1 % (0.0-10.0); %Lymphocytes 6.9 % (21.0-51.0); %Monocytes 7.9 % (0.0-10.0); Mean Corpuscular HGB CONC 34.5 g/dL (32.0-36.0); Mean Corpuscular Volume 92.8 fL (78.0-98.0); Mean Platelet Volume 8.5 fL (7.4-10.4); Platelet Count 129 thou/uL (130-400); RBC Distribution Width 13.6 % (11.5-14.5); Red Blood Cell (RBC) Count 4.06 mill/uL (4.70-6.10); White Blood Cell (WBC) Count 10.7 thou/uL (4.8-10.8)
[2019-12-21 19:41] LABS: ALT (SGPT) 8 U/L (8-55); AST (SGOT) 12 U/L (5-34); Albumin 3.7 g/dL (3.4-4.8); Alkaline Phosphatase 67 U/L (40-110); Anion Gap 16 mmol/L (10-20); BUN (Urea Nitrogen) 20 mg/dL (8.4-25.7); Bilirubin, Total 0.5 mg/dL (0.2-1.2); Calc. Creatinine Clearance 0 mL/min (70-130); Calcium 9.2 mg/dL (7.8-10.44); Carbon Dioxide 23 mmol/L (23-31); Chloride 96 mmol/L (98-107); Estimated GFR-MDRD 17; Glucose 292 mg/dL (83-110); Potassium 4.2 mmol/L (3.5-5.1); Protein, Total 7.7 g/dL (5.8-8.1); Sodium 131 mmol/L (136-145)
--- NOTE | 2019-12-21 21:30 | RAD ---
XR Chest 1 View Portable HISTORY: Fever, altered mental status, patient had dialysis today COMPARISON: 09/25/2018 FINDINGS: Changes of median sternotomy, cardiomegaly, left-sided AICD and right-sided dialysis cathet er are again seen. There is pulmonary vascular congestion with patchy infiltrates in the lung chang bilaterally. No pneumothoraces or pleural effusions are seen.
[2019-12-21] MEDS ORDERED: Vancomycin 1 GM/200 ML BAG ONE (21:50)
[2019-12-21] MEDS ORDERED: cloNIDine 0.1 MG TAB PO PRN (23:00)
[2019-12-21] MEDS ORDERED: hydrALAZINE 20 MG/ML VIAL SLOW IVP PRN (23:00)
[2019-12-21] MEDS ORDERED: Promethazine HCl 12.5 MG in Sodium Chloride 0.9% 50 ML IVPB PRN (23:00)
[2019-12-21] MEDS ORDERED: Bisacodyl 5 MG TAB PO PRN (23:03)
[2019-12-21] MEDS ORDERED: Senokot S 8.6-50 MG TAB PO PRN (23:03)
[2019-12-21] MEDS ORDERED: Guaifenesin DM 100-10/5 ML UDCUP PO PRN (23:03)
[2019-12-21] MEDS ORDERED: HYDROcodone/Acetaminophen 5/325 mg Tablet PO PRN (23:03)
--- NOTE | 2019-12-21 23:08 | PDOC.HHP ---
Hospitalist HPI - History of Present Illness Malaise, fever, ESRD History of Present Illness: Patient is a 74 year old male with PMH ESRD on TTS HD through R chest wall tunneled permcath who presens to ED for malaise after dialysis, reports " feeling funny" after being in car for some time in heat, was AOx1 and urinated on self per EMS and complained of neck and back pain, now in ED is AOx4 and pleasant, feels back to baseline and he thinks was due to heat exposure in car. Temperature was noted 101.2 by EMS on scene and 102.[address] Patient sees Dr Wong for HD and Adore Cabrera is PCP. Patient to be admitted for observation and covid ruleout after fever. He has history of CHF, CAD, CABG. No chest pain or palpitaitons or SOB/VILLALOBOS. No pedal edema or orthopnea ED Course: VITAL SIGNS TueDecember 21, 2019 22:31 SUSAN English, Rahel Sepulveda BP: 120/73 Pulse: 78 Resp: 14 Temp: 99.2 (Oral) Pain: 0 O2 sat: 99 on (Room Air) Time: 12/21/2019 22:31. Hospitalist ROS - Review of Systems Constitutional: reports: fever, chills, weakness, malaise Eyes: denies: pain, vision change ENT: denies: ear pain, ear discharge, mouth swelling, throat pain Respiratory: denies: cough, dry, shortness of breath, hemoptysis Cardiovascular: denies: chest pain, palpitations, orthopnea, paroxysmal noc. dyspnea Gastrointestinal: denies: nausea, vomiting, abdominal pain, diarrhea Genitourinary: reports: incontinence (on scene per EMS). denies: dysuria, frequency Musculoskeletal: reports: neck pain, back pain Skin: denies: rash, lesions Neurological: denies: weakness, numbness All other systems reviewed; all pertinent +/- noted in HPI/Subj Hospitalist History - Past Medical History Renal/: reports: Chronic renal failure Other Medical History: Notes: LT Nephrectomy, Pacemacker,CABG,dialysis shunt in RT forearm( no longer in use)LT rib removed for CA, LT robs Fxed, Past medical history includes cardiac history, coronary artery disease, myocardial infarction, Past medical history includes renal disease, insufficiency, Past medical history includes history of hyperlipidemia, high cholesterol, Past medical history includes history of hypertension, DIABETES 2, CAD, KIDNEY CA. - - Past Surgical History Past Surgical History: reports: CABG Other Surgical History: Surgical history of coronary artery bypass graft surgery, PACEMAKER/defib. DIALYSIS PERMCATH RIGHT ARM, - Family History Family History: reports: no pertinent history - Social History Alcohol: reports: None Drugs: reports: none - Exam General Appearance: NAD, awake alert Eye: PERRL, anicteric sclera ENT: normocephalic atraumatic, no oropharyngeal lesions, moist mucosa Neck: supple, symmetric, no JVD, no thyromegaly, no lymphadenopathy, no carotid bruit Heart: RRR, no murmur, no gallops, no rubs, normal peripheral pulses Heart - other findings: PERMCATH R CHEST WALL NO ERYTHEMA OR EDEMA AT SITE Respiratory: CTAB, no wheezes, no rales, no ronchi, normal chest expansion, no tachypnea, normal percussion Gastrointestinal: soft, non-tender, non-distended, normal bowel sounds, no palpable masses, no hepatomegaly, no splenomegaly, no bruit Extremities: no cyanosis, no clubbing, no edema Skin: normal turgor, no lesions, no rashes Neurological: cranial nerve grossly intact, normal sensation to touch, no weakness, no focal deficits, no new deficit Musculoskeletal: normal tone, normal strength, no muscle wasting Psychiatric: normal affect, normal behavior, A&O x 3 Hospitalist Results - Labs Result Diagrams: 12/21/19 18:57 12/21/19 18:57 Lab results: WBC 10.7 thou/uL (4.8-10.8) 12/21/19 18:57 Hgb 13.0 g/dL (14.0-18.0) L 12/21/19 18:57 Hct 37.6 % (42.0-52.0) L 12/21/19 18:57 MCV 92.8 fL (78.0-98.0) 12/21/19 18:57 Plt Count 129 thou/uL (130-400) L 12/21/19 18:57 Neutrophils % 84.0 % (42.0-75.0) H 12/21/19 18:57 Sodium 131 mmol/L (136-145) L 12/21/19 18:57 Potassium 4.2 mmol/L (3.5-5.1) 12/21/19 18:57 Chloride 96 mmol/L (98-107) L 12/21/19 18:57 Carbon Dioxide 23 mmol/L (23-31) 12/21/19 18:57 BUN 20 mg/dL (8.4-25.7) 12/21/19 18:57 Creatinine 3.62 mg/dL (0.7-1.3) H 12/21/19 18:57 Glucose 292 mg/dL (83-110) H 12/21/19 18:57 Lactic Acid 1.6 mmol/L (0.5-2.2) 12/21/19 18:57 Calcium 9.2 mg/dL (7.8-10.44) 12/21/19 18:57 Total Bilirubin 0.5 mg/dL (0.2-1.2) 12/21/19 18:57 AST 12 U/L (5-34) 12/21/19 18:57 ALT 8 U/L (8-55) 12/21/19 18:57 Alkaline Phosphatase 67 U/L (40-110) 12/21/19 18:57 Serum Total Protein 7.7 g/dL (5.8-8.1) 12/21/19 18:57 Albumin 3.7 g/dL (3.4-4.8) 12/21/19 18:57 Hospitalist H&P A/P - Plan Plan: Patient is a 74 year old male with PMH ESRD on TTS HD through R chest wall tunneled permcath who presens to ED for malaise after dialysis, found to have fever. # fever, sepsis of unknown etiology - admit to telemetry, blood cultures ordered, continue empiric vancomycin, follow up sepsis workup - consult nephrology - permcath has been in place for some time consider removal if bcx positive - covid rule out ordered # cad, history of cabg - continue home meds, no chest pain # DM 2 w/ hyperglycemia -will order SSI, patient not sure of dose at home # HTN - continue home meds + PRNs # thrombocytopenia # hyponatremia - monitor, hopefully will correct with observation and diet
[2019-12-22 01:05] VITALS: BMI 24.3
[2019-12-22] MEDS ORDERED: ALPRAZolam 0.25 MG TAB PO PRN (05:23)
[2019-12-22] MEDS ORDERED: Dextrose 5% in Water 1,000 ML IV PRN (05:24)
[2019-12-22] MEDS ORDERED: Dextrose 50% Abboject 50 ML SYRINGE SLOW IVP PRN (05:24)
[2019-12-22] MEDS: Ondansetron PF 4 MG/2 ML Vial IVP PRN (05:41)
[2019-12-22 06:06] LABS: #Eosinphils 0.1 thou/uL (0.0-0.7); #Monocytes 0.6 thou/uL (0.11-0.59); #Neutrophils 8.3 thou/uL (1.40-6.50); %Basophils 0.2 % (0.0-1.0); %Eosinophils 0.8 % (0.0-10.0); %Lymphocytes 9.7 % (21.0-51.0); %Monocytes 6.1 % (0.0-10.0); %Neutrophils 83.3 % (42.0-75.0); Hemoglobin 10.9 g/dL (14.0-18.0); Mean Corpuscular HGB CONC 34.7 g/dL (32.0-36.0); Mean Corpuscular Volume 92.3 fL (78.0-98.0); Mean Platelet Volume 8.5 fL (7.4-10.4); Platelet Count 128 thou/uL (130-400); RBC Distribution Width 13.4 % (11.5-14.5); Red Blood Cell (RBC) Count 3.39 mill/uL (4.70-6.10); White Blood Cell (WBC) Count 9.9 thou/uL (4.8-10.8)
[2019-12-22 06:23] LABS: Anion Gap 16 mmol/L (10-20); BUN (Urea Nitrogen) 27 mg/dL (8.4-25.7); Calc. Creatinine Clearance 17 mL/min (70-130); Calcium 8.9 mg/dL (7.8-10.44); Carbon Dioxide 22 mmol/L (23-31); Chloride 96 mmol/L (98-107); Estimated GFR-MDRD 13; Glucose 456 mg/dL (83-110); Potassium 4.6 mmol/L (3.5-5.1); Sodium 129 mmol/L (136-145)
[2019-12-22] MEDS: HumaLOG 300 UNITS/3 ML VIAL SC PRN ×3 (06:24→16:44)
[2019-12-22 06:25] LABS: Anion Gap 16 mmol/L (10-20); BUN (Urea Nitrogen) 28 mg/dL (8.4-25.7); Calc. Creatinine Clearance 18 mL/min (70-130); Calcium 8.9 mg/dL (7.8-10.44); Carbon Dioxide 21 mmol/L (23-31); Chloride 96 mmol/L (98-107); Estimated GFR-MDRD 13; Glucose 452 mg/dL (83-110); Magnesium 1.7 mg/dL (1.6-2.6); Phosphorus 2.9 mg/dL (2.3-4.7); Potassium 4.5 mmol/L (3.5-5.1); Sodium 128 mmol/L (136-145)
[2019-12-22] MEDS: Acetaminophen 325 MG TAB PO PRN (06:40)
[2019-12-22] MEDS ORDERED: HumaLOG 300 UNITS/3 ML VIAL SC SCH (06:48)
[2019-12-22] MEDS: Polyethylene Glycol 3350 17 GM Packet PO SCH (08:16)
[2019-12-22] MEDS: Famotidine 20 MG TAB PO SCH (08:17)
[2019-12-22] MEDS: Heparin 5,000 UNITS/ML VIAL SC SCH ×3 (08:17→21:08)
[2019-12-22] MEDS: Carvedilol 25 MG TAB PO SCH ×2 (08:17→21:07)
[2019-12-22] MEDS: hydrALAZINE 25 MG TAB PO SCH ×4 (08:17→21:07)
[2019-12-22 08:22] LABS: Vancomycin, Random 14.3 ug/mL (See Comment)
[2019-12-22] MEDS: Insulin Glargine 44 UNITS in Pre-Filled Syringe 1 EACH SC SCH ×2 (08:27→21:08)
[2019-12-22] MEDS ORDERED: Vancomycin 1 GM in Premix Bag 1 BAG IVPB SCH (09:00)
[2019-12-22] MEDS ORDERED: Vancomycin HCl 500 MG in Sodium Chloride 0.9% 100 ML IVPB SCH (09:00)
[2019-12-22] MEDS ORDERED: Vancomycin HCl 750 MG in Sodium Chloride 0.9% 250 ML 250 ML IVPB SCH ×2 (09:00→14:00)
[2019-12-22] MEDS ORDERED: Vancomycin HCl 1.25 GM in Sodium Chloride 0.9% 250 ML 250 ML IVPB SCH (09:00)
[2019-12-22] MEDS ORDERED: HOLD VANCOMYCIN FOR LEVEL >20 FS SCH (09:00)
[2019-12-22] MEDS ORDERED: Prevnar 13-Val Conj/PF 0.5 ML SYRINGE IM ONE (09:00)
--- NOTE | 2019-12-22 11:06 | PRG ---
DATE OF SERVICE: 12/22/2019 SUBJECTIVE: Mr. Leos is a 74-year-old white male with ESRD, was admitted for fever. Temperature was 101.2. He is being ruled out for COVID infection. We are seeing this patient for his management of his ESRD. He did have a shortened treatment yesterday. Chest x-ray still showed some degree of CHF. However, he is oxygenating adequately at the present time. Plan is to re-evaluate him tomorrow. If he still needs another dialytic intervention tomorrow, we will schedule him for dialysis. His breathing is stable at the present time. He denies any chest pain. OBJECTIVE: VITAL SIGNS: Blood pressure 185/88, heart rate 70, and pulse ox 96% on room air. GENERAL: Awake, alert, comfortable, not in overt distress. SKIN: Adequate turgor. HEENT: He has pinkish conjunctivae. Anicteric sclerae. NECK: No neck mass. No carotid bruits. No JVD. CHEST: No deformities. LUNGS: Decreased breath sounds. HEART: Normal sinus rhythm. No murmur. No gallops. No rubs. ABDOMEN: Globular, soft, and nontender. No masses. EXTREMITIES: Trace edema. MEDICATIONS: Medications of December 22, 2019, were reviewed. LABORATORY DATA: December 22, 2019; white count 9.9, hemoglobin 10.9, sodium 129, potassium 4.6, chloride 96, carbon dioxide 22, BUN 27, creatinine 4.38, glucose 456, and calcium 8.9. Blood culture, no growth to date. ASSESSMENT AND PLAN: 1. Fever - the patient is being ruled out for COVID infection. 2. Congestive heart failure - chest x-ray showed increased lung markings. However, he is oxygenating adequately. Our plan is to evaluate him tomorrow, see if he will need extra hemodialysis. 3. End-stage renal disease, stable. Most recent review of Kt/V suggests he is adequately dialyzed with the current dialysis regimen. He has regular dialysis on Tuesday, Tuesday, and Tuesday. He did undergo dialysis yesterday and we removed about 1.7 L of fluid. However, he did shorten his treatment. 4. Overall agree with current management. Continue supportive care. Job ID: [id number]
[2019-12-22 13:20] LABS: SARS-CoV-2 MS2 Positive; SARS-CoV-2 N Gene Negative; SARS-CoV-2 S Gene Negative; SARS-CoV-2 orf1ab Negative
[2019-12-22] MEDS: Rosuvastatin 20 MG TAB PO SCH (21:07)
--- NOTE | 2019-12-22 21:57 | PDOC.HOSPP ---
- Subjective Encounter Date: 12/22/19 Subjective: Feels better. - Objective Vital Signs & Weight: Vital Signs (12 hours) Temp Pulse Resp BP BP Pulse Ox 12/22/19 21:07 68 168/81 H 12/22/19 19:52 98.2 F 68 18 168/61 H 97 12/22/19 16:43 70 148/67 H 12/22/19 12:48 97.9 F 70 18 133/68 97 12/22/19 12:44 70 133/68 Weight Weight 184 lb 5 oz Result Diagrams: 12/22/19 05:56 12/22/19 05:56 Additional Labs: Accuchecks 12/22/19 12/22/19 12/22/19 20:36 16:25 12:39 POC Glucose 283 H 266 H 284 H 12/22/19 12/22/19 05:58 02:37 POC Glucose 445 H 297 H Hospitalist ROS - Medication Medications: Active Medications Generic Name Dose Route Start Last Admin Trade Name Freq PRN Reason Stop Dose Admin Acetaminophen 650 mg 12/21/19 23:03 12/22/19 06:40 Tylenol PO 650 mg Q4H PRN Administration Headache/Fever/Mild Pain (1-3) Carvedilol 50 mg 12/22/19 09:00 12/22/19 21:07 Coreg PO 50 mg BID DUSTY Administration Famotidine 20 mg 12/22/19 09:00 12/22/19 08:17 Pepcid PO 20 mg QAM DUSTY Administration Heparin Sodium (Porcine) 5,000 units 12/22/19 09:00 12/22/19 21:08 Heparin SC 5,000 units TID DUSTY Administration Hydralazine HCl 10 mg 12/21/19 23:00 12/22/19 02:05 Apresoline SLOW IVP 10 mg Q6H PRN Administration SBP GREATER THAN 160 Hydralazine HCl 50 mg 12/22/19 09:00 12/22/19 21:07 Apresoline PO 50 mg QID DUSTY Administration Insulin Glargine 44 units/ 0.44 mls @ 0 mls/hr 12/22/19 09:00 12/22/19 21:08 Miscellaneous Medication SC 0.44 mls BID DUSTY Administration Insulin Human Lispro 0 units 12/22/19 05:24 05/02/20 16:44 Humalog SC 6 unit .MODERATE SLIDING SC PRN Administration Moderate Correctional Scale Ondansetron HCl 4 mg 12/21/19 23:02 12/22/19 05:41 Zofran IVP 4 mg Q6H PRN Administration Nausea/Vomiting use 1st Pantoprazole Sodium 40 mg 12/22/19 09:00 12/22/19 08:17 Protonix PO 40 mg DAILY DUSTY Administration Polyethylene Glycol 17 gm 12/22/19 09:00 12/22/19 08:16 Miralax PO 17 gm DAILY DUSTY Administration Rosuvastatin Calcium 40 mg 12/22/19 21:00 12/22/19 21:07 Crestor PO 40 mg HS DUSTY Administration Sodium Chloride 10 ml 12/22/19 09:00 12/22/19 21:09 Flush - Normal Saline IVF 10 ml Q12HR DUSTY Administration - Exam General Appearance: awake alert ENT: normocephalic atraumatic Neck: supple Heart: RRR Respiratory: normal chest expansion, no tachypnea Gastrointestinal: soft Neurological: cranial nerve grossly intact, no focal deficits Hosp A/P (1) Bacteremia, coagulase-negative staphylococcal Code(s): R78.81 - BACTEREMIA; B95.7 - OTH STAPHYLOCOCCUS THE CAUSE OF DISEASES CLASSD [id number] Status: Acute (2) Acute on chronic systolic ACC/AHA stage C congestive heart failure Code(s): I50.23 - ACUTE ON CHRONIC SYSTOLIC (CONGESTIVE) HEART FAILURE Status : Acute (3) CAD (coronary artery disease) Code(s): I25.10 - ATHSCL HEART DISEASE OF [place] CORONARY ARTERY W/O ANG PCTRS Status: Chronic Qualifiers: (4) DM2 (diabetes mellitus, type 2) Status: Chronic Qualifiers: (5) ESRD (end stage renal disease) on dialysis Code(s): N18.6 - END STAGE RENAL DISEASE; Z99.2 - DEPENDENCE ON RENAL DIALYSIS Status: Chronic - Plan Continue IV Vancomycin and follow culture results. HD per nephrology. ECHO within the next 24hrs to r/o endocarditis.
[2019-12-23 05:55] LABS: #Eosinphils 0.2 thou/uL (0.0-0.7); #Lymphocytes 1.2 thou/uL (1.20-3.40); #Monocytes 0.7 thou/uL (0.11-0.59); #Neutrophils 3.9 thou/uL (1.40-6.50); %Basophils 0.4 % (0.0-1.0); %Eosinophils 3.3 % (0.0-10.0); %Lymphocytes 19.8 % (21.0-51.0); %Monocytes 11.4 % (0.0-10.0); %Neutrophils 65.1 % (42.0-75.0); Hemoglobin 10.1 g/dL (14.0-18.0); Mean Corpuscular HGB CONC 33.8 g/dL (32.0-36.0); Mean Corpuscular Hemoglobin 31.8 pg (27.0-31.0); Mean Corpuscular Volume 94.1 fL (78.0-98.0); Mean Platelet Volume 8.5 fL (7.4-10.4); Platelet Count 121 thou/uL (130-400); RBC Distribution Width 13.7 % (11.5-14.5); Red Blood Cell (RBC) Count 3.19 mill/uL (4.70-6.10); White Blood Cell (WBC) Count 6.1 thou/uL (4.8-10.8)
[2019-12-23] MEDS: HumaLOG 300 UNITS/3 ML VIAL SC PRN ×2 (06:07→12:53)
[2019-12-23 06:21] LABS: Anion Gap 13 mmol/L (10-20); BUN (Urea Nitrogen) 40 mg/dL (8.4-25.7); Calc. Creatinine Clearance 14 mL/min (70-130); Calcium 8.7 mg/dL (7.8-10.44); Carbon Dioxide 23 mmol/L (23-31); Chloride 99 mmol/L (98-107); Estimated GFR-MDRD 10; Glucose 235 mg/dL (83-110); Magnesium 1.9 mg/dL (1.6-2.6); Phosphorus 4.8 mg/dL (2.3-4.7); Sodium 131 mmol/L (136-145)
[2019-12-23] MEDS: Insulin Glargine 44 UNITS in Pre-Filled Syringe 1 EACH SC SCH ×2 (09:26→21:35)
[2019-12-23] MEDS: hydrALAZINE 25 MG TAB PO SCH ×4 (09:27→21:20)
[2019-12-23] MEDS: Famotidine 20 MG TAB PO SCH (09:27)
[2019-12-23] MEDS: Polyethylene Glycol 3350 17 GM Packet PO SCH (09:27)
[2019-12-23] MEDS: Heparin 5,000 UNITS/ML VIAL SC SCH ×3 (09:27→21:22)
[2019-12-23] MEDS: Carvedilol 25 MG TAB PO SCH ×2 (09:27→21:21)
[2019-12-23] MEDS ORDERED: EPOETIN ALFA-EPBX (ESRD) 4,000 UNIT/ML VIAL SC SCH (10:00)
--- NOTE | 2019-12-23 10:10 | PRG ---
DATE OF SERVICE: 12/23/2019 SUBJECTIVE: Mr. Leos is a 74-year-old white male with ESRD, was admitted for fever with mental status change. Blood culture grew Staph epidermidis-x2. He had also CHF by a chest x-ray. He is mentating better this morning. He denies any chest pain or shortness of breath. OBJECTIVE: VITAL SIGNS: Blood pressure is 143/65, heart rate 70, respiratory rate 20, temperature 98, and pulse ox 97%. GENERAL: Noted to be awake, alert, comfortable, not in distress. SKIN: Adequate turgor. HEENT: He has slightly pale conjunctivae. Anicteric sclerae. No neck mass. No carotid bruits. No JVD. CHEST: No deformities. LUNGS: Decreased breath sounds. HEART: Normal sinus rhythm. No murmur. No gallops. No rubs. ABDOMEN: Globular, soft, nontender. No masses. EXTREMITIES: Trace edema. MEDICATIONS: Of December 23, 2019, reviewed. LABORATORIES: Of December 23, 2019: White count 6.1, hemoglobin 10.1. Sodium 131, potassium 4, chloride 99, carbon dioxide 23, BUN 40, creatinine 5.66, glucose 235, phosphorus 4.8, calcium 8.7, magnesium 1.9. Blood culture on December 21, 2019, positive for coag-negative Staphylococcus. ASSESSMENT AND PLAN: 1. Staphylococcus aureus bacteremia, currently on IV vancomycin. Continue supportive care. We can consider changing the vancomycin to Ancef. However, we will re-do another blood culture using the dialysis catheter tomorrow during dialysis. 2. End-stage renal disease, stable. We will continue current hemodialysis regimen. No indication for any emergent hemodialysis today. We will attempt to max out fluid removal with this patient as tolerated. 3. Anemia. Resume back weekly Epogen with this patient. 4. Agree with current management. Recheck CBC and basic metabolics in a.m. Job ID: [id number]
--- NOTE | 2019-12-23 11:07 | PDOC.HOSPP ---
- Subjective Encounter Date: 12/23/19 Subjective: No new complaints. - Objective Vital Signs & Weight: Vital Signs (12 hours) Temp Pulse Resp BP BP Pulse Ox 12/23/19 09:27 70 12/23/19 07:51 98.0 F 70 20 143/65 H 97 12/23/19 05:24 98.1 F 74 20 141/68 H 96 12/23/19 00:00 97.6 F 74 18 162/70 H 93 L Weight Weight 184 lb 5 oz I&O: 12/22/19 12/23/19 12/24/19 06:59 06:59 06:59 Intake Total 800 Balance 800 Result Diagrams: 12/23/19 05:47 12/23/19 05:47 Additional Labs: Accuchecks 12/23/19 12/22/19 12/22/19 05:12 20:36 16:25 POC Glucose 259 H 283 H 266 H 12/22/19 12:39 POC Glucose 284 H Hospitalist ROS - Medication Medications: Active Medications Generic Name Dose Route Start Last Admin Trade Name Freq PRN Reason Stop Dose Admin Acetaminophen 650 mg 12/21/19 23:03 12/22/19 06:40 Tylenol PO 650 mg Q4H PRN Administration Headache/Fever/Mild Pain (1-3) Carvedilol 50 mg 12/22/19 09:00 12/23/19 09:27 Coreg PO 50 mg BID DUSTY Administration Famotidine 20 mg 12/22/19 09:00 12/23/19 09:27 Pepcid PO 20 mg QAM DUSTY Administration Heparin Sodium (Porcine) 5,000 units 12/22/19 09:00 12/23/19 09:27 Heparin SC Not Given TID DUSTY Hydralazine HCl 10 mg 12/21/19 23:00 12/22/19 02:05 Apresoline SLOW IVP 10 mg Q6H PRN Administration SBP GREATER THAN 160 Hydralazine HCl 50 mg 12/22/19 09:00 12/23/19 09:27 Apresoline PO 50 mg QID DUSTY Administration Insulin Glargine 44 units/ 0.44 mls @ 0 mls/hr 12/22/19 09:00 12/23/19 09:26 Miscellaneous Medication SC 0.44 mls BID DUSTY Administration Insulin Human Lispro 0 units 12/22/19 05:24 12/23/19 06:07 Humalog SC 6 unit .MODERATE SLIDING SC PRN Administration Moderate Correctional Scale Ondansetron HCl 4 mg 12/21/19 23:02 12/22/19 05:41 Zofran IVP 4 mg Q6H PRN Administration Nausea/Vomiting use 1st Pantoprazole Sodium 40 mg 12/22/19 09:00 12/23/19 09:27 Protonix PO 40 mg DAILY DUSTY Administration Polyethylene Glycol 17 gm 12/22/19 09:00 12/23/19 09:27 Miralax PO Not Given DAILY DUSTY Rosuvastatin Calcium 40 mg 12/22/19 21:00 12/22/19 21:07 Crestor PO 40 mg HS DUSTY Administration Sodium Chloride 10 ml 12/22/19 09:00 12/23/19 09:31 Flush - Normal Saline IVF 10 ml Q12HR DUSTY Administration - Exam General Appearance: awake alert ENT: normocephalic atraumatic Neck: supple Respiratory: normal chest expansion, no tachypnea Gastrointestinal: soft, non-distended Neurological: cranial nerve grossly intact, no focal deficits Hosp A/P (1) Bacteremia, coagulase-negative staphylococcal Code(s): R78.81 - BACTEREMIA; B95.7 - OTH STAPHYLOCOCCUS THE CAUSE OF DISEASES CLASSD ELSWHR Status: Acute (2) Acute on chronic systolic ACC/AHA stage C congestive heart failure Code(s): I50.23 - ACUTE ON CHRONIC SYSTOLIC (CONGESTIVE) HEART FAILURE Status : Acute (3) CAD (coronary artery disease) Code(s): I25.10 - ATHSCL HEART DISEASE OF [place] CORONARY ARTERY W/O ANG PCTRS Status: Chronic Qualifiers: (4) DM2 (diabetes mellitus, type 2) Status: Chronic Qualifiers: (5) ESRD (end stage renal disease) on dialysis Code(s): N18.6 - END STAGE RENAL DISEASE; Z99.2 - DEPENDENCE ON RENAL DIALYSIS Status: Chronic - Plan Continue IV Vancomycin and follow culture results. Repeat cultures tomorrow. HD catheter might need to be replaced. Consult ID tomorrow. HD per nephrology. ECHO to r/o endocarditis.
[2019-12-23] MEDS: Rosuvastatin 20 MG TAB PO SCH (21:20)
[2019-12-23] MEDS: Acetaminophen 325 MG TAB PO PRN (21:34)
[2019-12-24 05:54] LABS: #Eosinphils 0.2 thou/uL (0.0-0.7); #Lymphocytes 1.3 thou/uL (1.20-3.40); #Monocytes 0.6 thou/uL (0.11-0.59); #Neutrophils 3.6 thou/uL (1.40-6.50); %Basophils 0.3 % (0.0-1.0); %Eosinophils 4.2 % (0.0-10.0); %Monocytes 10.6 % (0.0-10.0); %Neutrophils 62.9 % (42.0-75.0); Hemoglobin 10.1 g/dL (14.0-18.0); Mean Corpuscular HGB CONC 33.4 g/dL (32.0-36.0); Mean Corpuscular Hemoglobin 31.3 pg (27.0-31.0); Mean Corpuscular Volume 93.8 fL (78.0-98.0); Mean Platelet Volume 8.3 fL (7.4-10.4); Platelet Count 132 thou/uL (130-400); Red Blood Cell (RBC) Count 3.23 mill/uL (4.70-6.10); White Blood Cell (WBC) Count 5.8 thou/uL (4.8-10.8)
[2019-12-24] MEDS: HumaLOG 300 UNITS/3 ML VIAL SC PRN ×2 (06:25→16:51)
[2019-12-24 06:30] LABS: Anion Gap 14 mmol/L (10-20); BUN (Urea Nitrogen) 45 mg/dL (8.4-25.7); Calc. Creatinine Clearance 12 mL/min (70-130); Calcium 8.9 mg/dL (7.8-10.44); Carbon Dioxide 21 mmol/L (23-31); Chloride 102 mmol/L (98-107); Estimated GFR-MDRD 8; Glucose 246 mg/dL (83-110); Magnesium 2.2 mg/dL (1.6-2.6); Phosphorus 5.4 mg/dL (2.3-4.7); Potassium 4.3 mmol/L (3.5-5.1); Sodium 133 mmol/L (136-145)
[2019-12-24 08:41] LABS: Vancomycin, Random 8.2 ug/mL (See Comment)
--- NOTE | 2019-12-24 08:51 | PRG ---
DATE OF SERVICE: 12/24/2019 SUBJECTIVE: Mr. Leos is a 74-year-old white male with ESRD, admitted for fever and chills. He was found to have Staph epidermidis bacteremia. Currently, on IV antibiotics. We will redo another blood culture through the dialysis catheter. No other complaints today. He is undergoing hemodialysis and tolerating said treatment. OBJECTIVE: VITAL SIGNS: Blood pressure 172/77, heart rate 65, respiratory rate 18, temperature 97.5, and pulse ox 95%. GENERAL: Awake, alert, comfortable, not in distress. SKIN: Adequate turgor. HEENT: Slightly pale conjunctivae. Anicteric sclerae. No neck mass. No carotid bruits. No JVD. CHEST: No deformities. LUNGS: Decreased breath sounds. HEART: Irregular. No murmur. No gallops. No rubs. ABDOMEN: Globular, soft, nontender. No masses. EXTREMITIES: No edema. MEDICATIONS: Medications of December 24, 2019, were reviewed. LABORATORY DATA: Laboratories of December 24, 2019; white count 5.8, hemoglobin 10.1. Sodium 133, potassium 4.3, chloride 102, carbon dioxide 21, BUN 45, creatinine 6.48, glucose 248, calcium 8.9, phosphorus is 5.4. ASSESSMENT AND PLAN: 1. End-stage renal disease, stable, continuing Tuesday, Tuesday, and Tuesday hemodialysis. Tolerating said treatment. Fluid removal as tolerated. 2. Congestive heart failure, maxing out fluid removal with dialysis. 3. Hyperphosphatemia. Resume Renvela 800 mg one tablet t.i.d. with meals. 4. Borderline anemia-on weekly Epogen. 5. Staph epidermidis bacteremia-on IV vancomycin. We will repeat another blood culture using the dialysis catheter. Agree with current management. Job ID: [id number]
[2019-12-24] MEDS: Heparin 5,000 UNITS/ML VIAL SC SCH ×3 (09:29→20:47)
[2019-12-24] MEDS: Carvedilol 25 MG TAB PO SCH ×2 (09:29→20:42)
[2019-12-24] MEDS: Famotidine 20 MG TAB PO SCH (09:29)
[2019-12-24] MEDS: Polyethylene Glycol 3350 17 GM Packet PO SCH (09:30)
[2019-12-24] MEDS: hydrALAZINE 25 MG TAB PO SCH ×4 (09:30→20:43)
[2019-12-24] MEDS: Insulin Glargine 44 UNITS in Pre-Filled Syringe 1 EACH SC SCH ×2 (09:30→20:45)
[2019-12-24] MEDS: Sevelamer Carbonate 800 MG TAB PO SCH ×2 (13:42→16:50)
[2019-12-24] MEDS: Acetaminophen 325 MG TAB PO PRN (13:47)
[2019-12-24] MEDS: Ondansetron PF 4 MG/2 ML Vial IVP PRN (13:47)
--- NOTE | 2019-12-24 14:47 | PDOC.HOSPP ---
- Subjective Encounter Date: 12/24/19 Subjective: NO NEW COMPLAINTS - Objective Vital Signs & Weight: Vital Signs (12 hours) Temp Pulse Resp BP BP Pulse Ox 12/24/19 13:42 65 12/24/19 09:30 65 12/24/19 07:33 97.5 F L 65 18 172/77 H 12/24/19 04:00 97.6 F 66 18 154/68 H 95 Weight Weight 184 lb 5 oz I&O: 12/23/19 12/24/19 12/25/19 06:59 06:59 06:59 Intake Total 800 1920 480 Output Total 1500 Balance 800 420 480 Result Diagrams: 12/24/19 05:39 12/24/19 05:39 Additional Labs: Accuchecks 12/24/19 12/23/19 12/23/19 06:14 20:12 15:58 POC Glucose 218 H 192 H 135 H Hospitalist ROS - Medication Medications: Active Medications Generic Name Dose Route Start Last Admin Trade Name Freq PRN Reason Stop Dose Admin Acetaminophen 650 mg 12/21/19 23:03 12/24/19 13:47 Tylenol PO 650 mg Q4H PRN Administration Headache/Fever/Mild Pain (1-3) Carvedilol 50 mg 12/22/19 09:00 12/24/19 09:29 Coreg PO Not Given BID [facility] Epoetin Guilherme-epbx 7,500 unit 12/23/19 10:00 12/23/19 15:18 Retacrit SC 7,500 unit Q7D DUSTY Administration Famotidine 20 mg 12/22/19 09:00 12/24/19 09:29 Pepcid PO Not Given QAM [facility] Heparin Sodium (Porcine) 5,000 units 12/22/19 09:00 12/24/19 09:29 Heparin SC Not Given TID DUSTY Hydralazine HCl 10 mg 12/21/19 23:00 12/22/19 02:05 Apresoline SLOW IVP 10 mg Q6H PRN Administration SBP GREATER THAN 160 Hydralazine HCl 50 mg 12/22/19 09:00 12/24/19 13:42 Apresoline PO 50 mg QID DUSTY Administration Vancomycin HCl 1 gm/ Device 200 mls @ 200 mls/hr 12/22/19 09:00 12/24/19 11: 11 IVPB 12/29/19 09:01 200 mls WILLCALL DUSTY Administration Insulin Glargine 44 units/ 0.44 mls @ 0 mls/hr 12/22/19 09:00 12/24/19 09:30 Miscellaneous Medication SC Not Given BID DUSTY Insulin Human Lispro 0 units 12/22/19 05:24 12/24/19 06:25 Humalog SC 4 unit .MODERATE SLIDING SC PRN Administration Moderate Correctional Scale Ondansetron HCl 4 mg 12/21/19 23:02 12/24/19 13:47 Zofran IVP 4 mg Q6H PRN Administration Nausea/Vomiting use 1st Pantoprazole Sodium 40 mg 12/22/19 09:00 12/24/19 09:30 Protonix PO Not Given DAILY DUSTY Polyethylene Glycol 17 gm 12/22/19 09:00 12/24/19 09:30 Miralax PO Not Given DAILY DUSTY Rosuvastatin Calcium 40 mg 12/22/19 21:00 12/23/19 21:20 Crestor PO Not Given HS DUSTY Sevelamer Carbonate 800 mg 12/24/19 12:00 12/24/19 13:42 Renvela PO Not Given TID-WM DUSTY Sodium Chloride 10 ml 12/22/19 09:00 12/24/19 09:30 Flush - Normal Saline IVF Not Given Q12HR DUSTY - Exam General Appearance: awake alert Neck: supple, no JVD Respiratory: normal chest expansion, no tachypnea Gastrointestinal: soft, non-distended, normal bowel sounds Hosp A/P (1) Bacteremia, coagulase-negative staphylococcal Code(s): R78.81 - BACTEREMIA; B95.7 - OTH STAPHYLOCOCCUS THE CAUSE OF DISEASES CLASSD ELSWHR Status: Acute (2) Acute on chronic systolic ACC/AHA stage C congestive heart failure Code(s): I50.23 - ACUTE ON CHRONIC SYSTOLIC (CONGESTIVE) HEART FAILURE Status : Acute (3) CAD (coronary artery disease) Code(s): I25.10 - ATHSCL HEART DISEASE OF [place] CORONARY ARTERY W/O ANG PCTRS Status: Chronic Qualifiers: (4) DM2 (diabetes mellitus, type 2) Status: Chronic Qualifiers: (5) ESRD (end stage renal disease) on dialysis Code(s): N18.6 - END STAGE RENAL DISEASE; Z99.2 - DEPENDENCE ON RENAL DIALYSIS Status: Chronic - Plan Continue IV Vancomycin and follow culture results. Repeat cultures were obtained. HD catheter might need to be replaced. HD per nephrology. ECHO showing no evidence of vegitations Consult Dr. Iyer.
[2019-12-24] MEDS: Rosuvastatin 20 MG TAB PO SCH (20:43)
--- NOTE | 2019-12-25 00:32 | CON ---
DATE OF CONSULTATION: 12/24/2019 REASON FOR CONSULTATION: Bacteremia. HISTORY OF PRESENT ILLNESS: A 74-year-old known to me from prior visit in 2016 when he presented with a history of coronary artery disease, bypass graft surgery, type 2 diabetes and end-stage renal disease. At that time, he was on hemodialysis through an AV fistula. 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 Unfortunately, now he has developed bacteremia, which is likely secondary to hemodialysis catheter colonization, this prompted his admission, so he has been here since the 1st initially COVID was ruled out. He did have some mental state changes as well and felt what he describes as a warmth sensation in the abdomen and then chills and he apparently was brought by EMS, because of altered mental status. His temperature on arrival was 101.2, did not have headaches, no back pain. No abdominal pain or diarrhea. No genitourinary symptoms. Still has pretty good urinary output. PAST SURGICAL HISTORY: Left nephrectomy, pacemaker, bypass graft surgery, AV fistula, right upper extremity, which is not functional anymore. PAST MEDICAL HISTORY: Hypertension, type 2 diabetes, renal cancer in remission. [place]IAL H[place]ORY[place] [facility]. Former smoker, quit more than 10 years ago. Does not drink. ALLERGIES: QUITE NUMEROUS ALLERGIES: 1. TRIAMTERENE. 2. SULFA. 3. LEVOFLOXACIN. 4. CEPHALEXIN WITH HIVES. 5. ARLEN INHIBITORS. FAMILY HISTORY: Noncontributory. CURRENT MEDICATIONS: 1. Vancomycin sliding scale. 2. Famotidine. 3. Clonidine. 4. Alprazolam. 5. Albuterol. PHYSICAL EXAMINATION: VITAL SIGNS: T-max 100.3 on arrival. He has been afebrile since. SKIN: Shows a right tunneled hemodialysis catheter with normal-appearing exit site. No dialysis catheter tunnel tenderness or inflammatory changes. HEENT: Ocular movements conjugate. Oral cavity with still quite a few teeth in place with quite a bit of gum resorption. Oral cavity otherwise normal. LYMPH: No lymphadenopathy. NECK: Supple. No jugular vein distention. LUNGS: Clear to auscultation percussion. No back tenderness. HEART: S1, S2. Regular rate. No murmurs. No S3 or S4. ABDOMEN: Soft, not distended or tender. No ascites. No bladder distention. No joint inflammatory activity. EXTREMITIES: No edema. Pulses 1+ in dorsalis pedis. Moves extremities equally. LABORATORY STUDIES: White cell count is 10.7, now 5.8, hemoglobin 10.1, platelets 132, which is improved from admission. Neutrophils are 84, now is 62 and creatinine 6.48. The liver profile is normal. Albumin 3.7, COVID was negative and cultures we have 2 sets of blood cultures with Staphylococcus epidermidis, which is methicillin-sensitive. ASSESSMENT: 1. Type 2 diabetes with end-stage renal disease on hemodialysis with tunneled catheter. 2. Coronary artery disease, bypass graft surgery. 3. Staphylococcus epidermidis bacteremia. 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 The patient had an echo and evidently transthoracic echoes are not perfect, but there is no obvious valvular abnormalities to suggest endocarditis. I do not think I would advise a JACKELIN, but I would just go ahead and replace the catheter after a couple of days on antibiotics and we will go ahead and continue vancomycin in view of his history of cephalosporin allergy. Vancomycin sliding scale for total of 2 weeks after catheter exchange. He really needs an AV fistula, but he does not want one, because he is afraid of the potential adverse reactions such as what he had before in terms of the steal syndrome. Job ID: [id number]
[2019-12-25] MEDS: Acetaminophen 325 MG TAB PO PRN (02:58)
[2019-12-25] MEDS: HumaLOG 300 UNITS/3 ML VIAL SC PRN ×3 (05:57→17:20)
[2019-12-25 06:29] LABS: #Eosinphils 0.2 thou/uL (0.0-0.7); #Lymphocytes 1.2 thou/uL (1.20-3.40); #Monocytes 0.7 thou/uL (0.11-0.59); #Neutrophils 4.7 thou/uL (1.40-6.50); %Basophils 0.1 % (0.0-1.0); %Eosinophils 3.5 % (0.0-10.0); %Lymphocytes 17.9 % (21.0-51.0); %Monocytes 10.4 % (0.0-10.0); %Neutrophils 68.2 % (42.0-75.0); Hemoglobin 10.8 g/dL (14.0-18.0); Mean Corpuscular HGB CONC 33.5 g/dL (32.0-36.0); Mean Corpuscular Hemoglobin 31.8 pg (27.0-31.0); Mean Corpuscular Volume 94.8 fL (78.0-98.0); Mean Platelet Volume 8.2 fL (7.4-10.4); Platelet Count 139 thou/uL (130-400); RBC Distribution Width 14.2 % (11.5-14.5); Red Blood Cell (RBC) Count 3.39 mill/uL (4.70-6.10); White Blood Cell (WBC) Count 6.9 thou/uL (4.8-10.8)
[2019-12-25 06:50] LABS: Anion Gap 15 mmol/L (10-20); BUN (Urea Nitrogen) 35 mg/dL (8.4-25.7); Calc. Creatinine Clearance 14 mL/min (70-130); Calcium 8.9 mg/dL (7.8-10.44); Carbon Dioxide 22 mmol/L (23-31); Chloride 102 mmol/L (98-107); Estimated GFR-MDRD 10; Glucose 254 mg/dL (83-110); Potassium 4.6 mmol/L (3.5-5.1); Sodium 134 mmol/L (136-145)
[2019-12-25] MEDS: hydrALAZINE 25 MG TAB PO SCH ×4 (09:31→20:38)
[2019-12-25] MEDS: Famotidine 20 MG TAB PO SCH (09:31)
[2019-12-25] MEDS: Carvedilol 25 MG TAB PO SCH ×2 (09:31→20:38)
[2019-12-25] MEDS: Heparin 5,000 UNITS/ML VIAL SC SCH ×3 (09:32→20:39)
[2019-12-25] MEDS: Insulin Glargine 44 UNITS in Pre-Filled Syringe 1 EACH SC SCH ×2 (09:32→20:39)
[2019-12-25] MEDS: Sevelamer Carbonate 800 MG TAB PO SCH ×4 (09:37→17:10)
[2019-12-25] MEDS: Polyethylene Glycol 3350 17 GM Packet PO SCH (09:37)
--- NOTE | 2019-12-25 10:02 | PRG ---
DATE OF SERVICE: 12/25/2019 SUBJECTIVE: Mr. Leos is a 74-year-old white male with ESRD, was admitted for fever and chills. He was found to have bacteremia, currently undergoing IV antibiotics. Recommendation by the ID service is eventual replacement of this dialysis catheter. We will continue IV antibiotics. We will consider leaving this patient dialysis catheter free for at least a day. I have scheduled him for dialysis tomorrow and after dialysis consult Surgery for removal of the dialysis catheter. No new complaints today. OBJECTIVE: VITAL SIGNS: Blood pressure 169/78, heart rate 67, respiratory rate 20, temperature 97.9, pulse ox 97%. GENERAL: Noted to be awake, alert, sitting comfortable, not in distress. SKIN: Adequate turgor. HEENT: He has pinkish conjunctivae. Anicteric sclerae. NECK: No neck mass. No carotid bruits. No JVD. CHEST: No deformities. LUNGS: Clear breath sounds. HEART: Normal sinus rhythm. No murmur. No gallops. No rubs. ABDOMEN: Globular, soft, nontender. No masses. EXTREMITIES: No edema. No deformities. MEDICATIONS: On December 25, 2019, were reviewed. LABORATORY DATA: On December 25, 2019, showed a white count 6.9, hemoglobin 10.8. Sodium 134, potassium 4.6, chloride 102, carbon dioxide 22, BUN 35, creatinine 5.62, glucose 254, calcium 8.9. ASSESSMENT AND PLAN: 1. Bacteremia. Currently, on IV vancomycin. As per ID suggestion changing the dialysis catheter due to the possibility that there is definitive colonization of the dialysis catheter. Consider consulting Surgery for line replacement. 2. End-stage renal disease, stable. We will continue current Tuesday, Tuesday, and Tuesday dialysis. There is no indication for any emergent dialysis today. Overall, agree with current management. Job ID: [id number]
[2019-12-25] MEDS ORDERED: Lidocaine 1% w/Epinephrine 1:100K 20 ML VIAL NERVE BLCK SCH (11:00)
--- NOTE | 2019-12-25 11:06 | PDOC.HOSPP ---
- Subjective Encounter Date: 12/25/19 Subjective: Feels better. - Objective Vital Signs & Weight: Vital Signs (12 hours) Temp Pulse Resp BP BP BP Pulse Ox 12/25/19 09:31 67 169/78 H 12/25/19 07:47 97.9 F 67 20 169/78 H 97 12/25/19 00:00 98.2 F 65 18 154/67 H 96 Weight Weight 184 lb 5 oz I&O: 12/24/19 12/25/19 12/26/19 06:59 06:59 06:59 Intake Total 1920 1280 Output Total 1500 Balance 420 1280 Result Diagrams: 12/25/19 06:19 12/25/19 06:19 Additional Labs: Accuchecks 12/25/19 12/24/19 12/24/19 06:00 20:42 16:24 POC Glucose 268 H 302 H 440 H Hospitalist ROS - Medication Medications: Active Medications Generic Name Dose Route Start Last Admin Trade Name Freq PRN Reason Stop Dose Admin Acetaminophen 650 mg 12/21/19 23:03 12/25/19 02:58 Tylenol PO 650 mg Q4H PRN Administration Headache/Fever/Mild Pain (1-3) Carvedilol 50 mg 12/22/19 09:00 12/25/19 09:31 Coreg PO 50 mg BID DUSTY Administration Epoetin Guilherme-epbx 7,500 unit 12/23/19 10:00 12/23/19 15:18 Retacrit SC 7,500 unit Q7D DUSTY Administration Famotidine 20 mg 12/22/19 09:00 12/25/19 09:31 Pepcid PO 20 mg QAM DUSTY Administration Heparin Sodium (Porcine) 5,000 units 12/22/19 09:00 12/25/19 09:32 Heparin SC Not Given TID DUSTY Hydralazine HCl 10 mg 12/21/19 23:00 12/22/19 02:05 Apresoline SLOW IVP 10 mg Q6H PRN Administration SBP GREATER THAN 160 Hydralazine HCl 50 mg 12/22/19 09:00 12/25/19 09:31 Apresoline PO 50 mg QID DUSTY Administration Vancomycin HCl 1 gm/ Device 200 mls @ 200 mls/hr 12/22/19 09:00 12/24/19 11: 11 IVPB 12/29/19 09:01 200 mls WILLCALL DUSTY Administration Insulin Glargine 44 units/ 0.44 mls @ 0 mls/hr 12/22/19 09:00 12/25/19 09:32 Miscellaneous Medication SC 0.44 mls BID DUSTY Administration Insulin Human Lispro 0 units 12/22/19 05:24 12/25/19 05:57 Humalog SC 6 unit .MODERATE SLIDING SC PRN Administration Moderate Correctional Scale Ondansetron HCl 4 mg 12/21/19 23:02 12/24/19 13:47 Zofran IVP 4 mg Q6H PRN Administration Nausea/Vomiting use 1st Pantoprazole Sodium 40 mg 12/22/19 09:00 12/25/19 09:31 Protonix PO 40 mg DAILY DUSTY Administration Polyethylene Glycol 17 gm 12/22/19 09:00 12/25/19 09:37 Miralax PO Not Given DAILY DUSTY Rosuvastatin Calcium 40 mg 12/22/19 21:00 12/24/19 20:43 Crestor PO Not Given HS DUSTY Sevelamer Carbonate 800 mg 12/24/19 12:00 12/25/19 09:37 Renvela PO Not Given TID-WM DUSTY Sodium Chloride 10 ml 12/22/19 09:00 12/25/19 09:33 Flush - Normal Saline IVF 10 ml Q12HR DUSTY Administration - Exam General Appearance: NAD, awake alert ENT: normocephalic atraumatic Neck: supple Respiratory: normal chest expansion, no tachypnea Extremities: no cyanosis, no clubbing, no edema Psychiatric: normal affect, A&O x 3 Hosp A/P (1) Bacteremia, coagulase-negative staphylococcal Code(s): R78.81 - BACTEREMIA; B95.7 - OTH STAPHYLOCOCCUS THE CAUSE OF DISEASES CLASSD ELSWHR Status: Acute (2) Acute on chronic systolic ACC/AHA stage C congestive heart failure Code(s): I50.23 - ACUTE ON CHRONIC SYSTOLIC (CONGESTIVE) HEART FAILURE Status : Acute (3) CAD (coronary artery disease) Code(s): I25.10 - ATHSCL HEART DISEASE OF [place] CORONARY ARTERY W/O ANG PCTRS Status: Chronic Qualifiers: (4) DM2 (diabetes mellitus, type 2) Status: Chronic Qualifiers: (5) ESRD (end stage renal disease) on dialysis Code(s): N18.6 - END STAGE RENAL DISEASE; Z99.2 - DEPENDENCE ON RENAL DIALYSIS Status: Chronic - Plan Continue IV Vancomycin. Repeat cultures are positive for G+ cocci. HD catheter to be removed today. HD will be held tomorrow. ECHO showing no evidence of vegitations
[2019-12-25] MEDS ORDERED: Lidocaine 1% w/Epinephrine 1:100K 20 ML VIAL ONE (13:28)
--- NOTE | 2019-12-25 15:17 | ULT ---
LEFT UPPER EXTREMITY VESSEL MAPPING FOR DIALYSIS ACCESS: COMPARISON: 09/27/2016. TECHNIQUE: Grayscale, color flow, Doppler imaging and spectral waveform analysis of the left upper extremity césar ous system. FINDINGS: BASILIC VEIN: Proximal humerus 3.6 mm Mid humerus 3.4 mm Distal humerus 3.2 mm Antecubital fossa 2.7 mm Proximal forearm 1.2 mm Mid forearm 1.1 mm Distal forearm 1.0 mm CEPHALIC VEIN: Proximal humerus 1.2 mm Mid humerus 1.1 mm Distal humerus 1.4 mm Antecubital fossa 2.6 mm Proximal forearm 1.9 mm Mid forearm 1.9 mm Distal forearm 1.8 mm Brachial artery 4.9 mm Radial artery 2.3 mm Ulnar artery 2.0 mm IMPRESSION: Left upper extremity vein mapping as above. Transcribed Date/Time: 12/25/2019 3:24 PM
[2019-12-25] MEDS: Rosuvastatin 20 MG TAB PO SCH (20:37)
--- NOTE | 2019-12-25 21:05 | OP ---
DATE OF PROCEDURE: 12/25/2019 PREOPERATIVE DIAGNOSES: End-stage renal disease, exhausted dialysis access right arm, pacemaker left subclavian vein, previous ultrasound vein mapping in 2013, cephalic vein occlusion of left arm. PROCEDURE: Removal of right IJ cuffed tunneling dialysis catheter. ANESTHESIA: 1% Xylocaine with epinephrine. DESCRIPTION OF PROCEDURE: With the patient at bedside after alcohol prep, catheter exit site was anesthetized with local anesthetic and catheter cuff removed intact and discarded. Pressure held to hemostatic. The patient tolerated the procedure well. Job ID: [id number]
--- NOTE | 2019-12-26 06:49 | CON ---
DATE OF CONSULTATION: HISTORY OF PRESENT ILLNESS: Mr. Leos is a 74-year-old male who lives alone in [place]. 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 I first met him in 2012 when he suffered acute renal failure. The patient at that time presented with acute renal failure and had to have a Trialysis catheter placed and subsequently underwent placement of a hemodialysis catheter cuffed tunneled and a right arm fistula, that was in February 2013, and in June 2013, he underwent basilic vein transposition fistula, right arm. A new right IJ catheter was placed due to dysfunction of the old one. The patient never used this access as he enjoyed renal recovery and his hemodialysis catheter was eventually removed. In August 2014, Dr. Castelan performed off pump coronary artery bypass grafting x3. I saw the patient in 2016 when he developed right arm edema and complaints. At that time, it was noted that his fistula was malfunctioning, although it had a thrill and a bruit. It was a very high-pitched signal and because his kidneys although compromised with chronic kidney disease, he was not on dialysis and I was hesitant to do a contrast study. Later, the patient presented to [facility] in [place] where they performed a procedure to ligate his fistula probably to alleviate him of his venous hypertension and he states since that time his swelling in his right hand has returned to normal. Dialysis access in his right arm is exhausted. The patient states that they are working with him in [place] on a transplant program. He has had a right IJ cuffed tunneled dialysis catheter for the past 10 months, dialyzing Tuesday, Tuesday, and Tuesday. He has developed a line bacteremia with positive blood culture, Staph aureus. Dr. Iyer is seeing him. Dr. 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 I have been asked to see him regarding removal of his hemodialysis catheter. I have sat down with the patient. I had a long discussion with him about his options. Plan at this time is to remove his hemodialysis catheter at the bedside and after catheter free interval of 1 to 2 days, plan placement of a new catheter. I then discussed with him future dialysis access. Although, he hopes to be on the transplant list, I have told him that he should not keep hemodialysis catheter for that long. The patient had ultrasound vein mapping last performed in 2012. At that time, he had when I initially saw him an IV in his left antecubital fossa, and ultrasound vein mapping revealed the cephalic vein on the left to be occluded. As I am seeing him today, he has another antecubital IV in his left AC. This was removed immediately. After discussion with the patient options, we will plan ultrasound vein mapping left arm. If his basilic vein is available, he may need a staged procedure such as a basilic vein transposition fistula like he had on his right arm or he may need a prosthetic graft. We will plan that exploration as an outpatient in the weeks to come on a nondialysis day. Of note is that the patient had a cardiac stress test in 2017 without ischemia. He has had an echocardiogram on 12/23/2019, noting an ejection fraction of 40% to 45% without significant valvular disease. The patient reports he had cardiac stress test in [place] in the last few months that was normal. He is waiting to have a repeat colonoscopy. ALLERGIES: ARLEN INHIBITORS, CEPHALEXIN, AND LEVOTHYROXINE. SOCIAL HISTORY: Tobacco cessation many decades ago. Alcohol, none. MEDICATIONS: 1. Tylenol. 2. Albuterol inhalers. 3. P.r.n. Dulcolax. 4. Coreg 50 mg b.i.d. 5. Clonidine 0.1 mg b.i.d. 6. Sliding scale vancomycin in the hospital. 7. He is on insulin at home. 8. Carvedilol. 9. Amoxicillin. 10. Furosemide. 11. Protonix. 12. Hydralazine. 13. Crestor. PAST SURGICAL HISTORY: Right arm dialysis access and revision of occluded fistula with ligation as noted above, since 2012, three procedures; coronary bypass grafting in 2017; multiple hemodialysis catheters placed and removed. PAST MEDICAL HISTORY: Diabetes mellitus, hypertension, coronary artery disease stable, and pacemaker, left subclavian vein. REVIEW OF SYSTEMS: Otherwise, noncontributory. No cardiac symptoms currently. PHYSICAL EXAMINATION: VITAL SIGNS: 6 feet 1 inch, 194 pounds, 24 BMI, 67, 20, and 132/73. HEAD, EARS, EYES, NOSE AND THROAT: Unremarkable. LUNGS: Clear to auscultation. CARDIAC: Regular rate and rhythm without murmur or gallop. ABDOMEN: Soft and nontender. EXTREMITIES: Unremarkable. Palpable radial and ulnar pulses, left arm. Palpable radial pulse, right arm. Scars from basilic vein transposition fistula right arm. Antecubital IV left. LABORATORY: Sodium 134, potassium 3.6, GFR 10, white count 6, and hemoglobin 10.8. COVID negative on admission. ASSESSMENT/PLAN: 1. Dysfunctional right IJ cuffed tunneled dialysis catheter. They have been having inflow problems during dialysis attempts and also he is bacteremic from this [id number] catheter. We will plan removal and placement of a new catheter. We will obtain ultrasound vein mapping left arm and obtain contrast venogram to look at his central circulation considering he has a pacemaker to assure it is patent. If this central circulation is patent, he could be considered for left arm fistula prosthetic graft. If his central circulation is occluded in the left arm should not be used for dialysis and he will be catheter dependent dialysis. 2. Stable coronary artery disease. 3. Diabetes mellitus. 4. Hypertension. 5. Failed access right arm. Job ID: [id number]
[2019-12-26] MEDS: Carvedilol 25 MG TAB PO SCH ×2 (08:10→21:00)
[2019-12-26] MEDS: Famotidine 20 MG TAB PO SCH (08:10)
[2019-12-26] MEDS: Insulin Glargine 44 UNITS in Pre-Filled Syringe 1 EACH SC SCH ×2 (08:10→21:09)
[2019-12-26] MEDS: hydrALAZINE 25 MG TAB PO SCH ×4 (08:10→21:00)
[2019-12-26] MEDS: Sevelamer Carbonate 800 MG TAB PO SCH ×3 (08:11→16:06)
[2019-12-26] MEDS: Heparin 5,000 UNITS/ML VIAL SC SCH ×3 (08:11→21:01)
[2019-12-26] MEDS: Polyethylene Glycol 3350 17 GM Packet PO SCH (08:11)
[2019-12-26] MEDS ORDERED: Iopamidol 300 61% 50 ML VIAL FS ONE (09:15)
--- NOTE | 2019-12-26 09:47 | PRG ---
DATE OF SERVICE: 12/26/2019 SUBJECTIVE: Mr. Leos is a 74-year-old white male with ESRD, admitted for fever. He was found to be bacteremic. In addition, an ID consult was done and feeling he may have colonization of his dialysis catheter. For this reason, it was pulled out. Dr. Arguello has been consulted. Placement of a new cuffed hemodialysis catheter will be done tomorrow. The patient declining for any new placement of the AV fistula or revision of his AV fistula. He would like to go and follow up with [facility]. No other complaints today. No chest pain or shortness of breath. OBJECTIVE: VITAL SIGNS: Blood pressure 177/70, heart rate 69, respiratory rate 20, temperature 98.7, and pulse oximetry 97%. GENERAL: Noted to be awake, alert, comfortable, not in overt distress. SKIN: Adequate turgor. HEENT: He has pinkish conjunctivae. Anicteric sclerae. NECK: No neck mass. No carotid bruits. No JVD. CHEST: No deformities. LUNGS: Clear breath sounds. HEART: Normal sinus rhythm. No murmur. No gallops. No rubs. ABDOMEN: Globular, soft, nontender. No masses. EXTREMITIES: No edema. No deformities. MEDICATIONS: Medications of December 26, 2019, were reviewed. LABORATORY DATA: Laboratories of December 25, 2019; white count 6.9 and hemoglobin 10.8. Sodium 134, potassium 4.6, chloride 102, carbon dioxide 22, BUN 35, creatinine 5.62, glucose 254, and calcium 8.9. On December 26, 2019, glucose 138. ASSESSMENT AND PLAN: 1. End-stage renal disease, stable. We will resume hemodialysis tomorrow after placement of a cuffed hemodialysis catheter. Again, fluid removal only as tolerated. 2. Borderline anemia, on weekly Epogen. 3. Hypertension. Restart Benicar 20 mg tablet once a day. 4. Congestive heart failure - the patient has a history of congestive heart failure. We will give one time dose of Lasix 80 mg p.o. today. We will recheck basic metabolic panel and CBC in a.m. Job ID: [id number]
--- NOTE | 2019-12-26 09:58 | PRG ---
DATE OF SERVICE: 12/26/2019 SERVICE: Renal Medicine. SUBJECTIVE: Mr. Leos is a 74-year-old white male, who was admitted for fever and chills. He was found to be bacteremic. The feeling is that the dialysis catheter has been colonized. ID is following this patient. Currently, on IV vancomycin. Please note, hemodialysis catheter has been pulled out. Dr. Arguello has been consulted. He plans to place a new dialysis catheter tomorrow. No other complaints today. OBJECTIVE: VITAL SIGNS: Blood pressure is 117/70, heart rate 69, respiratory rate 20, temperature 98.7, and pulse ox 97%. GENERAL: Noted to be awake, alert, comfortable, not in distress. SKIN: Adequate turgor. HEENT: He has pinkish conjunctivae. Anicteric sclerae. NECK: No neck mass. No carotid bruits. No JVD. CHEST: No deformities. LUNGS: Clear breath sounds. HEART: Normal sinus rhythm. No murmur. No gallops. No rubs. ABDOMEN: Globular, soft, nontender. No masses. EXTREMITIES: No edema. No deformities. MEDICATIONS: On December 26, 2019, were reviewed. LABORATORY DATA: On December 25, 2019; white count 6.9, hemoglobin 10.8. Sodium 134, potassium 4.6, chloride 102, carbon dioxide 22, BUN 35, creatinine 5.62, calcium 8.9. ASSESSMENT AND PLAN: 1. End-stage renal disease-holding hemodialysis. Dialysis catheter has been pulled out and a new catheter will be placed tomorrow. 2. Staphylococcus epidermidis bacteremia-on IV vancomycin. ID following. 3. Agree with current management. 4. Hypertension. Add Benicar 20 mg tablet once a day. The patient requested one time dose of Lasix, which was ordered. Job ID: [id number]
--- NOTE | 2019-12-26 10:11 | PQF ---
RACHEL NEFF MOEZ [id number] CLINICAL DOCUMENTATION IMPROVEMENT CLARIFICATION FORM: ICD-10 Updated PLEASE DO AN ADDENDUM TO THE PROGRESS NOTE WITH ANY DOCUMENTATION UPDATES OR ADDITIONS AND CARRY THROUGH TO DC SUMMARY. THANK YOU. DATE: 12/26/2019 ATTN: Dr. David Please exercise your independent, professional judgment in responding to the clarification form. Clinical indicators are provided on the bottom of this form for your review Please check appropriate box(es): [> ] Sepsis due to right IJ cuffed tunneled dialysis catheter [ ] Sepsis due to (please specify): [ ] Localized infection without sepsis [ ] Other diagnosis [ ] Unable to determine In addition, please specify: Present on Admission (POA): [ > ] Yes [ ] No [ ] Unable to determine For continuity of documentation, please document condition throughout progress notes and discharge summary. Thank You. CLINICAL INDICATORS - SIGNS / SYMPTOMS / LABS / RESULTS AND LOCATION IN MR *Lab ([facility]): 12/20-12/24 WBC 5.8-10.7 12/20 Lactic Acid 1.6 *ED 12/20: * Vital Signs: Pulse 76-97 RR 14 -25 Temp. Max 102.7 * Clinically more concerned about septicemia as his altered mental status resolved he was only confused when he was febrile blood cultures are pending limiting IV fluids due to end-stage renal disease and patient is not hypotensive. *H&P 12/20 (Alterno): Fever, Sepsis of unknown etiology permcath has been in place for some time consider removal if bcx positive. *PN 12/24 (Frankie): * Bacteremia, coagulase-negative staphylococcal * Repeat cultures are positive for G+ cocci. * HD catheter to be removed today. * ECHO showing no evidence of vegetations. *Consult 12/24 (Jos): Dysfunctional right IJ cuffed tunneled dialysis catheter. They have been having inflow problems during dialysis attempts and also he is bacteremic from this 10 month old catheter. RISK FACTORS / RESULTS AND LOCATION IN MR *Consult 12/24 (Jos): Dysfunctional right IJ cuffed tunneled dialysis catheter. They have been having inflow problems during dialysis attempts and also he is bacteremic from this 10 month old catheter. TREATMENTS / RESULTS AND LOCATION IN MR *ED 12/20: Vancomycin IV *H&P 12/20 (Aterno): Admit to telemetry, blood cultures ordered, continue empiric Vancomyin, follow up sepsis workup. *PN 12/22 (Wong): will re-do another blood culture using the dialysis catheter tomorrow *Consult ID 12/23 (Shireen) *Consult 12/24 (Jos): We will plan removal and placement of a new catheter. Thank you, Analia (This form is maintained as a part of the permanent medical record) 2015 [employer] All Rights Reserved Analia Mccauley RN, CDS [email or web address] cell phone: [facility]
--- NOTE | 2019-12-26 10:43 | PDOC.HOSPP ---
- Subjective Encounter Date: 12/26/19 Subjective: No new complains. - Objective Vital Signs & Weight: Vital Signs (12 hours) Temp Pulse Resp BP Pulse Ox 12/26/19 09:12 177/70 H 12/26/19 07:54 98.7 F 69 20 207/89 H 97 Weight Weight 184 lb 5 oz I&O: 12/25/19 12/26/19 12/27/19 06:59 06:59 06:59 Intake Total 1280 Balance 1280 Result Diagrams: 12/25/19 06:19 12/25/19 06:19 Additional Labs: Accuchecks 12/26/19 12/25/19 12/25/19 05:26 20:09 16:44 POC Glucose 138 H 170 H 187 H 12/25/19 11:16 POC Glucose 185 H Hospitalist ROS - Medication Medications: Active Medications Generic Name Dose Route Start Last Admin Trade Name Freq PRN Reason Stop Dose Admin Acetaminophen 650 mg 12/21/19 23:03 12/25/19 02:58 Tylenol PO 650 mg Q4H PRN Administration Headache/Fever/Mild Pain (1-3) Carvedilol 50 mg 12/22/19 09:00 12/26/19 08:10 Coreg PO 50 mg BID DUSTY Administration Epoetin Guilherme-epbx 7,500 unit 12/23/19 10:00 12/23/19 15:18 Retacrit SC 7,500 unit Q7D DUSTY Administration Famotidine 20 mg 12/22/19 09:00 12/26/19 08:10 Pepcid PO 20 mg QAM DUSTY Administration Heparin Sodium (Porcine) 5,000 units 12/22/19 09:00 12/26/19 08:11 Heparin SC Not Given TID DUSTY Hydralazine HCl 10 mg 12/21/19 23:00 12/22/19 02:05 Apresoline SLOW IVP 10 mg Q6H PRN Administration SBP GREATER THAN 160 Hydralazine HCl 50 mg 12/22/19 09:00 12/26/19 08:10 Apresoline PO 50 mg QID DUSTY Administration Vancomycin HCl 1 gm/ Device 200 mls @ 200 mls/hr 12/22/19 09:00 12/24/19 11: 11 IVPB 12/29/19 09:01 200 mls WILLCALL DUSTY Administration Insulin Glargine 44 units/ 0.44 mls @ 0 mls/hr 12/22/19 09:00 12/26/19 08:10 Miscellaneous Medication SC 0.44 mls BID DUSTY Administration Insulin Human Lispro 0 units 12/22/19 05:24 12/25/19 17:20 Humalog SC 2 unit .MODERATE SLIDING SC PRN Administration Moderate Correctional Scale Ondansetron HCl 4 mg 12/21/19 23:02 12/24/19 13:47 Zofran IVP 4 mg Q6H PRN Administration Nausea/Vomiting use 1st Pantoprazole Sodium 40 mg 12/22/19 09:00 12/26/19 08:10 Protonix PO 40 mg DAILY DUSTY Administration Polyethylene Glycol 17 gm 12/22/19 09:00 12/26/19 08:11 Miralax PO Not Given DAILY DUSTY Rosuvastatin Calcium 40 mg 12/22/19 21:00 12/25/19 20:37 Crestor PO 40 mg HS DUSTY Administration Sevelamer Carbonate 800 mg 12/24/19 12:00 12/26/19 08:11 Renvela PO Not Given TID-WM DUSTY Sodium Chloride 10 ml 12/22/19 09:00 12/26/19 08:11 Flush - Normal Saline IVF Not Given Q12HR [facility] A/P (1) Bacteremia, coagulase-negative staphylococcal Code(s): R78.81 - BACTEREMIA; B95.7 - OTH STAPHYLOCOCCUS THE CAUSE OF DISEASES CLASSD ELSWHR Status: Acute (2) Acute on chronic systolic ACC/AHA stage C congestive heart failure Code(s): I50.23 - ACUTE ON CHRONIC SYSTOLIC (CONGESTIVE) HEART FAILURE Status : Acute (3) CAD (coronary artery disease) Code(s): I25.10 - ATHSCL HEART DISEASE OF [place] CORONARY ARTERY W/O ANG PCTRS Status: Chronic Qualifiers: (4) DM2 (diabetes mellitus, type 2) Status: Chronic Qualifiers: (5) ESRD (end stage renal disease) on dialysis Code(s): N18.6 - END STAGE RENAL DISEASE; Z99.2 - DEPENDENCE ON RENAL DIALYSIS Status: Chronic - Plan Continue IV Vancomycin per ID recommendations. Repeat cultures are positive Staph epidermidis. HD catheter removed yesterday. Plan to replace tomorrow. ECHO showing no evidence of vegitations. Venogram scheduled today.
[2019-12-26] MEDS: Furosemide 80 MG TAB PO SCH ×2 (10:51→10:52)
[2019-12-26] MEDS: HumaLOG 300 UNITS/3 ML VIAL SC PRN (13:10)
--- NOTE | 2019-12-26 13:36 | PRG ---
DATE OF SERVICE: 12/26/2019 Paco Leos is a 74-year-old presents with a line bacteremia. He has had a hemodialysis catheter right IJ for the past 10 months. I initially placed a right arm fistula and then, he underwent a basilic vein transposition in 2012. He; however, enjoyed renal recovery and never had used this fistula. He unfortunately suffered problems in 2017 when he began having some right arm edema. He does have some cramps of his forearm. At that time, he was not on dialysis. I discussed with him regarding these problems and told him we could evaluate with a fistulogram, but I would like to avoid contrast if possible. He was to follow up with me if he had problems. The patient sought care afterwards in [facility], where they ligated his right arm fistula alleviating his right hand swelling. The patient now has been back on dialysis for the past 10 months. He had a dialysis catheter placed right IJ. He has suffered a bacteremic episode required removal of the catheter yesterday. He has positive Staphylococcus bacteremia. The patient had gone back to [facility] recently and seen the surgeons there and there was ultrasound evaluation of his right arm suggesting axillary vein might be available for a prosthetic graft. The right arm was exhausted as far as [place] vein access. There is concern that his left subclavian vein pacemaker may prevent some problems with outflow. I discussed this with the design coordinator, Anitha Khan in [facility] per telephone. She reviewed his records, discussed with me his care. Their plan was to avoid the left arm because of the uncertainty of the central circulation patency on the left and their plan was to place a right arm graft hoping he would have adequate vein on the right axilla for outflow, their ultrasound evaluation there suggested that. After thorough discussion with ROB Morgan, Transplant Service. I had a discussion with the patient and discussion with the patient's granddaughter before and after discussion with the patient, spending an hour of discussing these issues both with the patient, transplant physicians benefits assistant, and the patient's granddaughter. The patient now consents to contrast venogram. Anitha Khan, [facility], [facility] agrees. This venogram was obtained today and reveals that there is adequate axillary vein on the right for prosthetic graft outflow. He does have a stump of his fistula in his proximal forearm antecubital area for arterial inflow. The only negative thing about using his right arm is that he has scar tissue in his left axilla from his 2013 basilic vein transposition fistula and the use of prosthetic. The patient is left handed. The venogram reveals that he has a large basilic vein on the left. Despite 2013 venous ultrasounds suggest the cephalic vein in left to be occluded. Cephalic vein on this interrogation by ultrasound is patent although very small and probably not suitable for a primary fistula. If he were to have a primary fistula on the left, he would need a staged basilic vein transposition fistula or prosthetic graft. Venous outflow on the left is widely patent without any narrowing despite his pacemaker subclavian vein. Plan at this time, I discussed with the patient options in the future to have either a right arm graft or expiration of left arm to have a fistula, possible staged basilic vein fistula, possible graft. We will discuss these issues with the patient and his daughter and make decisions regarding that in the future. Currently this hospitalization, we will plan to place a hemodialysis catheter tomorrow. He can either seek dialysis access at this facility or in [facility] in the future per his comfort. We will await this further discussion with the patient, but tentatively plan placement of hemodialysis catheter tomorrow and he will need continued vancomycin administration for the next few weeks as an outpatient. Job ID: [id number]
--- NOTE | 2019-12-26 17:04 | PRG ---
DATE OF SERVICE: 12/26/2019 SUBJECTIVE: Feeling well. The patient is having a new catheter placed tomorrow after removal of the old one. No respiratory symptoms or abdominal pain. No diarrhea. OBJECTIVE: VITAL SIGNS: He has been afebrile. Other vital signs are normal except for some elevation of systolic blood pressure. LUNGS: Clear. HEART: S1 and S2, regular rate. ABDOMEN: Soft, not distended or tender. LABORATORY DATA: White cell count 6.9, hemoglobin 10.8, platelets 139, and microbiology now with four different sets positive for Staph epidermidis. ASSESSMENT AND DISCUSSION: Type 2 diabetes; end-stage renal disease, on hemodialysis with tunneled catheter; coronary artery disease, bypass graft surgery; Staphylococcus epidermidis bacteremia secondary to catheter colonization. Catheter has been removed. Now the patient is going to have a new one replaced tomorrow. After that, two weeks of vancomycin sliding scale. In the [facility], the patient will need either a kidney transplant or a better access, but he seems to be resistant to an AV fistula access due to his adverse reactions from the previous one, specifically steal syndrome. Job ID: [id number]
[2019-12-26] MEDS: Rosuvastatin 20 MG TAB PO SCH (21:01)
[2019-12-27] MEDS: Carvedilol 25 MG TAB PO SCH (05:35)
[2019-12-27 06:00] LABS: #Eosinphils 0.3 thou/uL (0.0-0.7); #Lymphocytes 1.6 thou/uL (1.20-3.40); #Monocytes 0.7 thou/uL (0.11-0.59); #Neutrophils 4.6 thou/uL (1.40-6.50); %Basophils 0.3 % (0.0-1.0); %Eosinophils 3.8 % (0.0-10.0); %Lymphocytes 21.7 % (21.0-51.0); %Monocytes 10.3 % (0.0-10.0); %Neutrophils 63.9 % (42.0-75.0); Hemoglobin 10.8 g/dL (14.0-18.0); Mean Corpuscular HGB CONC 32.7 g/dL (32.0-36.0); Mean Corpuscular Hemoglobin 31.2 pg (27.0-31.0); Mean Corpuscular Volume 95.6 fL (78.0-98.0); Mean Platelet Volume 8.5 fL (7.4-10.4); Platelet Count 159 thou/uL (130-400); Red Blood Cell (RBC) Count 3.46 mill/uL (4.70-6.10); White Blood Cell (WBC) Count 7.2 thou/uL (4.8-10.8)
[2019-12-27 06:19] LABS: Anion Gap 17 mmol/L (10-20); BUN (Urea Nitrogen) 49 mg/dL (8.4-25.7); Calc. Creatinine Clearance 11 mL/min (70-130); Calcium 9.3 mg/dL (7.8-10.44); Carbon Dioxide 20 mmol/L (23-31); Chloride 105 mmol/L (98-107); Estimated GFR-MDRD 8; Glucose 108 mg/dL (83-110); Potassium 4.9 mmol/L (3.5-5.1); Sodium 137 mmol/L (136-145)
[2019-12-27] MEDS ORDERED: Ondansetron ODT 4 MG TAB PO PRN (07:46)
[2019-12-27] MEDS ORDERED: Lidocaine 1% w/Epinephrine 1:100K 20 ML VIAL ONE (08:29)
[2019-12-27] MEDS: Famotidine 20 MG TAB PO SCH (08:30)
[2019-12-27] MEDS: Polyethylene Glycol 3350 17 GM Packet PO SCH (08:30)
[2019-12-27] MEDS: Heparin 5,000 UNITS/ML VIAL SC SCH ×2 (08:30→16:21)
[2019-12-27] MEDS: hydrALAZINE 25 MG TAB PO SCH ×3 (08:31→16:19)
[2019-12-27] MEDS: Sevelamer Carbonate 800 MG TAB PO SCH ×3 (08:31→16:19)
[2019-12-27] MEDS ORDERED: Losartan 25 MG TAB PO SCH (09:00)
[2019-12-27] MEDS: Insulin Glargine 44 UNITS in Pre-Filled Syringe 1 EACH SC SCH (09:24)
[2019-12-27 09:45] LABS: Vancomycin, Random 7.4 ug/mL (See Comment)
--- NOTE | 2019-12-27 10:11 | PRG ---
DATE OF SERVICE: 12/27/2019 SUBJECTIVE: Mr. Leos is a 74-year-old white male with ESRD and currently being followed by the Renal Service for management of his ESRD. He also initially came in with fever and chills secondary to bacteremia. The feeling is that the dialysis catheter is contaminated. For that reason, it has been removed and will have a new one placed this afternoon. Early this morning, he had a hypoglycemic episode. he was started on D5 normal saline. He is feeling a little better. OBJECTIVE: VITAL SIGNS: Blood pressure 182/95, heart rate 75, respiratory rate 16, temperature 97.9, O2 saturation 100%. GENERAL: Awake, somewhat lethargic, not in distress. SKIN: Adequate turgor. HEENT: He has pinkish conjunctivae. Anicteric sclerae. No neck mass. No carotid bruits. No JVD. CHEST: No deformities. LUNGS: Clear breath sounds. No wheezing. No crackles. HEART: Normal sinus rhythm. No murmur. No gallops. No rubs. ABDOMEN: Globular, soft, nontender. No masses. EXTREMITIES: No edema. No deformities. MEDICATIONS: Of December 27, 2019, were reviewed. LABORATORY DATA: Laboratories of December 27, 2019: White count 7.2, hemoglobin 10.8. Sodium 137, potassium 4.9, chloride 105, carbon dioxide 20, BUN 49, creatinine 6.79, glucose 108, calcium 9.3. On December 27, 2019, at 8:06, glucose was 44. On December 27, 2019, at 8:58 a.m., sugar was 266. ASSESSMENT AND PLAN: 1. Hypoglycemia, much improved with D5 normal saline. 2. End-stage renal disease. We will resume hemodialysis today after placement of his dialysis catheter. Fluid removal will be done only as tolerated. 3. Borderline anemia, currently on weekly Epogen. 4. Staphylococcus epidermidis bacteremia - on antibiotics. Dialysis catheter has been removed and will be changed with a new one today. Agree with current management. Job ID: [id number]
[2019-12-27] MEDS ORDERED: Dextrose 50% Abboject 50 ML SYRINGE SLOW IVP SCH (11:15)
[2019-12-27] MEDS ORDERED: Dextrose 5 % And 0.9 % NaCl 1,000 ML IV SCH (11:15)
[2019-12-27] MEDS ORDERED: Bupivacaine PF 0.5% 30 ML VIAL ONE (14:16)
[2019-12-27] MEDS ORDERED: Sodium Chloride 0.9% 10 ML ONE ×2 (14:16→15:02)
[2019-12-27] MEDS ORDERED: Heparin 10,000 UNITS/1 ML VIAL ONE (14:16)
[2019-12-27] MEDS ORDERED: Lidocaine 2% w/Epinephrine 1:200K 20 ML VIAL ONE (14:16)
[2019-12-27] MEDS ORDERED: Midazolam HCl 2 mg/2 ml Vial ONE (14:39)
[2019-12-27] MEDS ORDERED: Fentanyl 100 MCG/2 ML VIAL ONE (14:39)
[2019-12-27] MEDS ORDERED: Promethazine HCl 25 MG/ML VIAL IM PRN (15:13)
[2019-12-27] MEDS ORDERED: Ondansetron HCl/PF 4 MG/2 ML Vial IVP PRN (15:13)
[2019-12-27] MEDS ORDERED: Promethazine HCl 25 MG/ML VIAL SLOW IVP PRN (15:13)
--- NOTE | 2019-12-27 15:45 | RAD ---
PORTABLE CHEST: 12/27/19 INDICATIONS: CCU follow-up. COMPARISON: 12/21/19. Mild cardiomegaly with postop sternotomy change. Dural lumen central line overlies the SVC and is unc hanged. AICD leads unchanged. Hazy infiltrate seen previously appear improved on the current study. No confluent consolidation. IMPRESSION: Improvement when compared to 12/21/19 in the lung infiltrates. POS: AGW
[2019-12-27 16:13] VITALS: BP 143/76; TEMP 97.9
[2019-12-27] MEDS: Acetaminophen 325 MG TAB PO PRN (17:15)
--- NOTE | 2019-12-27 23:16 | OP ---
DATE OF PROCEDURE: 12/27/2019 PREOPERATIVE DIAGNOSES: End-stage renal disease on dialysis, status post bacteremic episode from [id number] right IJ central line, thrombosed basilic vein fistula right arm, status post venograms both upper extremities, patent central circulation, pacemaker status left, left-handed patient, desires right arm dialysis graft in the future. PROCEDURE PERFORMED: Right groin triple-lumen catheter urgent for hypoglycemic episode and lack of IV access, 1% Xylocaine. DESCRIPTION OF PROCEDURE: The patient was taken to the bedside, right groin was clipped of hair, prepared with ChloraPrep and draped in routine fashion. Seldinger technique used to place a triple-lumen catheter secured with 3-0 silk suture. Sterile dressing applied. Each port aspirated blood and then flushed with D50 amp and then D5 normal saline 70 per hour. Catheter secured with 2-0 nylon suture. J-wire had been removed. The patient tolerated the procedure well. Job ID: [id number]
--- NOTE | 2019-12-28 06:01 | DIS ---
DATE OF ADMISSION: 12/21/2019 DATE OF DISCHARGE: 12/27/2019 DISCHARGE DIAGNOSES: 1. Sepsis. 2. Staphylococcus epidermidis bacteremia. 3. Infected dialysis catheter. 4. Vhlhh-wz-hhzkcdj systolic congestive heart failure. 5. Coronary artery disease. 6. Diabetes mellitus, type 2. 7. End-stage renal disease, on hemodialysis. DISCHARGE MEDICATIONS: 1. IV vancomycin with dialysis. The patient will follow with Dr. Iyer for the duration of antibiotic treatment. 2. Alprazolam 0.25 mg daily 12 hours as needed for anxiety. 3. Carvedilol 50 mg orally twice daily. 4. Hydralazine 50 mg orally q.i.d. 5. Pantoprazole 40 mg orally daily. 6. Rosuvastatin 40 mg orally nightly. 7. Fluconazole 100 mg orally daily. 8. Furosemide 40 mg orally daily. 9. Insulin Humalog sliding scale. 10. Insulin glargine 44 units twice daily. HISTORY OF PRESENT ILLNESS AND HOSPITAL COURSE: The patient is a 74-year-old male with history of diabetes mellitus, hypertension, end-stage renal disease, on hemodialysis, CHF, who presented to the hospital from dialysis after complaining of feeling unwell. In the ED, he was found to be febrile and tachycardic. He was subsequently admitted to the hospital for further evaluation. Broad-spectrum IV antibiotics were obtained and initial blood culture showed growth of Staphylococcus epidermidis. The patient was managed with vancomycin and the culture were repeated after 3 days and showed persistent growth of Staph epidermidis. His hemodialysis catheter was subsequently removed and antibiotics were continued for another day. Subsequently, the new dialysis catheter was placed and IV vancomycin will be continued with dialysis under the supervision of Dr. Iyer and Dr. Wong. The patient's clinical condition improved during his hospital stay and on the day of discharge, he has been afebrile for 3 days. Job ID: [id number]
--- NOTE | 2019-12-28 07:07 | OP ---
DATE OF PROCEDURE: 12/27/2019 PREOPERATIVE DIAGNOSES: End-stage renal disease, thrombosed basilic vein fistula, right arm, pacemaker status, left subclavian vein, status post bacteremic episode requiring removal of [id number] hemodialysis catheter right internal jugular, status post contrast venograms noting patent central circulation and enough axillary vein on the right for a supported graft, left-handed patient, small cephalic vein, left. POSTOPERATIVE DIAGNOSES: End-stage renal disease, thrombosed basilic vein fistula, right arm, pacemaker status, left subclavian vein, status post bacteremic episode requiring removal of [id number] hemodialysis catheter right internal jugular, status post contrast venograms noting patent central circulation and enough axillary vein on the right for a supported graft, left-handed patient, small cephalic vein, left. PROCEDURES PERFORMED: Right internal jugular cuffed tunneled hemodialysis catheter, fluoroscopy and ultrasound use. ANESTHESIA: 1% Xylocaine with epinephrine 20 mL mixed with 0.5% Marcaine with epinephrine 20 mL. DESCRIPTION OF PROCEDURE: The patient was taken to the operating room, where under intravenous sedation, neck and chest prepared with ChloraPrep in routine fashion. Local anesthetic was infiltrated in the skin and subcutaneous tissue. Using ultrasound guidance, right internal jugular vein was cannulated with a trocar catheter. There was scar tissue and it was somewhat difficult, but accomplished. J-wire threaded, trocar catheter removed. Skin site was enlarged sharply. Stab incision was made over the right chest. Using the tunneling device, the pre-curved AngioDynamics cuffed tunneled hemodialysis catheter tunneled between 2 incisions, placed the fabric cuff beneath the skin exit site. Catheter secured with 2 interrupted sutures of 3-0 nylon. Small and medium size dilators placed over the J-wire into the internal jugular vein and removed. Dilator and Peel-Away sheath placed over the J-wire into the superior vena cava. Dilator and J-wire were removed. Catheter placed with the Peel-Away sheath and Peel-Away sheath removed. Platysma was approximated with 4-0 Monocryl, skin with subdermal 4-0 Monocryl and [place] glue applied. Each port aspirated blood and flushed with saline solution and heparinized saline solution 1000 units of heparin per mL, indicating volume of the port. The patient is discharged to home. As an outpatient, he is to call my office to schedule on a nondialysis day (Tuesday) for placement of a right upper arm dialysis graft as he is left handed and has a pacemaker on the left, even though subclavian vein on the left is patent and central circulation is patent by contrast venogram this hospitalization. Job ID: [id number]
--- NOTE | 2020-01-03 16:11 | EKG ---
Test Reason : Blood Pressure : / mmHG Vent. Rate : 095 BPM Atrial Rate : 095 BPM P-R Int : 148 ms QRS Dur : 142 ms QT Int : 422 ms P-R-T Axes : 087 -41 109 degrees QTc Int : 530 ms Electronic ventricular pacemaker Confirmed by RIA RODRIGUEZ ([id number]), manager editorial ISABELL SPENCE ([id number]) on 01/03/2020 4:10:39 PM Referred By: Confirmed By:RIA RODRIGUEZ
--- NOTE | 2020-01-07 15:01 | SPC ---
PROCEDURE: SPC INJECTION FOR VENORGRAPHY PROVIDED CLINICAL HISTORY: Patient with end-stage renal disease and history of left nephrectomy currently undergoing hemodialysi s. Evaluation of central venous structures was requested prior to placement of arterial venous dialysis fistula. COMPARISON: None TECHNIQUE: After informed consent was obtained, the patient was placed on the sonography table in supine positio n. Limited sonographic evaluation of each upper extremity was performed. An area overlying the proximal left upper extremity was marked, and the area was meticulously prepped and draped in usual s terile fashion. Skin and subcutaneous tissues were infiltrated with buffered 1% lidocaine for local anesthesia. Utilizing concurrent real time ultrasound guidance, the left upper extremity basilic vein was accessed utilizing micropuncture technique, and a 4 Lao introducer catheter was placed. Venography was performed. The central veins were not opacified. The right upper extremity was meticulously prepped and draped in usual sterile fashion. Ultrasound de monstrated occlusion of the right upper extremity cephalic vein outflow. The basilic vein is not seen. A small caliber right upper extremity brachial vein was identified. Skin and subcutaneous tissu es were infiltrated with buffered 1% lidocaine for local anesthesia. Utilizing concurrent real-time ultrasound guidance, the right brachial vein was accessed utilizing micropuncture technique, and a 4 Lao introducer catheter was placed. Venography was performed. The central veins were unable to be opacified. As a result, the introducer catheter was exchanged over a 0.035 inch Bentson guidewire for a 4 Lao angled glide catheter. The catheter was positioned within the the right axillary vein, and venography was performed. However, due to wash-in from unopacified venous structures, the S VC was not well seen. The catheter was advanced over the guidewire and positioned in the proximal SVC and venography was performed demonstrating patency of the SVC. The catheter was removed, and hemostasis was achieved with direct pressure, dry sterile dressing was placed. The introducer catheter in the left upper extremity was exchanged over a 0.035 inch Bentson guidewire, and a 4 Lao glide catheter was placed. The catheter was positioned at the level of the left axillary vein, and venography was performed. Central veins are patent with a multilead left subclavian AICD device noted in place. Venous structures beneath the power pack of the AICD are not w ell interrogated. The visualized left basilic vein is patent. The catheter was removed, and hemostasis was achieved with direct pressure. Dry sterile dressing was placed at puncture site. Patient tolerated the procedure well and without immediate consultation. IMPRESSION: 1. Patent central veins. 2. Left upper extremity basilic vein is patent. Vascular structures beneath the powerpack from the AI CD device on the left are not well interrogated on this exam. 3. Occlusion of the right upper extremity cephalic vein outflow. The right upper extremity basilic ve in is not seen on sonographic evaluation. 4. Small caliber right brachial vein. The brachial vein was not visualized in its entirety. Transcribed Date/Time: 01/07/2020 3:01 PM
== END 2019-12-27 18:28 | disposition home or self-care (01) | DRG 314 ==
LOC: ERS 18:45 → T4-A 22:33
PROVIDERS: ADMIT Internal Medicine; ATTEND Internal Medicine
PROC: 5A1D70Z Performance of Urinary Filtration, Intermittent, Less than 6 Hours Per Day (ICD-10-PCS; 2019-12-22)
PROC: 02PYX3Z Removal of Infusion Device from Great Vessel, External Approach (ICD-10-PCS; principal; 2019-12-25)
PROC: 02HV33Z Insertion of Infusion Device into Superior Vena Cava, Percutaneous Approach (ICD-10-PCS; 2019-12-25)
PROC: B548ZZA Ultrasonography of Superior Vena Cava, Guidance (ICD-10-PCS; 2019-12-25)
PROC: 02HV33Z Insertion of Infusion Device into Superior Vena Cava, Percutaneous Approach (ICD-10-PCS; 2019-12-27)
DX: T80.211A Bloodstream infection due to central venous catheter, initial encounter (principal); A41.1 Sepsis due to other specified staphylococcus; N18.6 End stage renal disease; I50.23 Acute on chronic systolic (congestive) heart failure; E87.1 Hypo-osmolality and hyponatremia; I13.2 Hypertensive heart and chronic kidney disease with heart failure and with stage 5 chronic kidney disease, or end stage renal disease; T82.49XA Other complication of vascular dialysis catheter, initial encounter; I82.621 Acute embolism and thrombosis of deep veins of right upper extremity; E78.5 Hyperlipidemia, unspecified; E78.00 Pure hypercholesterolemia, unspecified; Z20.828 Contact with and (suspected) exposure to other viral communicable diseases; I25.10 Atherosclerotic heart disease of native coronary artery without angina pectoris; D63.1 Anemia in chronic kidney disease; Y83.8 Other surgical procedures as the cause of abnormal reaction of the patient, or of later complication, without mention of misadventure at the time of the procedure; E11.22 Type 2 diabetes mellitus with diabetic chronic kidney disease; D69.6 Thrombocytopenia, unspecified; E83.39 Other disorders of phosphorus metabolism; E11.649 Type 2 diabetes mellitus with hypoglycemia without coma; Z95.0 Presence of cardiac pacemaker; Z95.1 Presence of aortocoronary bypass graft; I25.2 Old myocardial infarction; Z88.1 Allergy status to other antibiotic agents; Z88.2 Allergy status to sulfonamides; Z88.8 Allergy status to other drugs, medicaments and biological substances; Z79.899 Other long term (current) drug therapy; Z99.2 Dependence on renal dialysis
CPT/HCPCS: 36005; 36415; 36416; 71045; 75822; 76000; 80048; 80053; 80202; 83605; 83735; 84100; 85025; 87040; 87077; 87149; 87186; 87635; 90935; 93005; 93306; 93970; 96365; C1752; C1769; C1887; G0257; G0365; J0360; J1610; J1644; J1815; J2250; J2405; J3010; J3370; J7050; Q0162; Q5105; Q9967; S0020; U0003

== ENCOUNTER 2020-03-10 05:52 | Observation (INO) | payer MEDICARE ==
[2020-03-10] MEDS ORDERED: Acetaminophen 325 MG TAB PO PRN (07:41)
--- NOTE | 2020-03-10 07:53 | RAD ---
EXAM: Single view of the chest HISTORY: Dialysis catheter came out COMPARISON: 12/27/2019 FINDINGS: Single view of the chest shows an enlarged but stable cardiomediastinal silhouette. The pa tient is status post sternotomy. The pacemaker is unchanged in position. The patient has a dialysis catheter which has nearly been completely removed with its tip in the right subclavian region. Chroni c interstitial markings are present without consolidation. The bones are unremarkable IMPRESSION: 1. Dialysis catheter has nearly been completely removed as above. 2. Cardiomegaly
--- NOTE | 2020-03-10 07:59 | HP ---
HISTORY OF PRESENT ILLNESS: Mr. Leos is a 74-year-old male with a medical history of end-stage renal disease, on hemodialysis Tuesday, , and Tuesday through a right chest tunneled PermCath, who presented with a loose hemodialysis catheter. The patient noticed that his dialysis catheter sutures have been loose for the past few days. Yesterday, he went for his hemodialysis session and noticed that his PermCath was coming out, so hemodialysis was not carried out and the patient's PermCath was taped. Earlier this morning, he woke up and noticed that his PermCath further came out despite him taping it, so he came to the ED. On encounter, lying comfortably in bed and has no complaints. Denies nausea, vomiting, fatigue generalized weakness chest pain, palpitations, shortness of breath, abdominal pain,diarrhea, or constipation. EMERGENCY DEPARTMENT COURSE: In the ED, the patient's catheter was found to be misplaced. He was admitted to the medical floor for subsequent replacement of his PermCath. REVIEW OF SYSTEMS: Full review of systems was carried out and was negative with the exception of that mentioned in HPI. PAST MEDICAL HISTORY: End-stage renal disease; CHF; coronary artery disease, status post CABG; type 2 diabetes mellitus; hypertension; renal carcinoma. PAST SURGICAL HISTORY: CABG and pacemaker placement. SOCIAL HISTORY: Does not smoke, drink, or do recreational drugs. FAMILY HISTORY: Noncontributory. MEDICATIONS: Reconciled in EMR. ALLERGIES: ARLEN INHIBITORS, CEPHALEXIN, LEVOFLOXACIN, PROPOXYPHENE NAPSYLATE, SULFONAMIDE ANTIBIOTICS, SULFAMETHOXAZOLE TRIMETHOPRIM. PHYSICAL EXAMINATION: VITAL SIGNS: Blood pressure was 192/91, pulse 76, respiratory rate 18, temperature 97.6, oxygen saturation 97% on room air, temperature was 97.6 Fahrenheit. GENERAL: Lying comfortably in bed, alert, no apparent distress. HEENT: Normocephalic, atraumatic. EOMI. PERRL. CARDIOTHORACIC: Right PermCath misplaced with overlying tape. Normal rate and rhythm. No rubs or murmurs. LUNGS: Clear to auscultation bilaterally. No wheezing, rales, or rhonchi. ABDOMEN: Soft, nontender, nondistended. Normal bowel sounds. EXTREMITIES: Bilateral equal pitting edema up to mid tibial level. PSYCHIATRIC: Proper mood and affect. Alert and oriented x3. LABORATORY DATA AND IMAGING STUDIES: No labs were carried out. Chest x-ray showed sternal clips. Mild cardiomegaly and ICD in place. No acute cardiopulmonary process is appreciated. ASSESSMENT AND PLAN: Mr. Leos is a 74-year-old male who was admitted for replacement of his hemodialysis PermCath. 1. End-stage renal disease. a. PermCath misplacement. b. Nephrology was consulted. c. Pending replacement of PermCath. 2. Hypertensive urgency. a. Patient presented with systolic blood pressure in the 190s. b. Start the patient on home antihypertensive regimen. c. IV antihypertensives p.r.n. d. Goal blood pressure is to reduce map by 15% to 20% and then gradually reduce the blood pressure over the next 23 hours. 3. Type 2 diabetes mellitus. a. Start on home regimen. b. Monitor blood glucose and correct as necessary. 4. Congestive heart failure. a. Coronary artery disease, status post coronary artery bypass graft. b. Restart home regimen. 5. Disposition/prophylaxis. a. Full code as per patient's request. b. Deep venous thrombosis prophylaxis, enoxaparin. c. GI prophylaxis, no indication. 6. Estimated length of stay, will be discharged status post replacement of hemodialysis PermCath. Job ID: [id number] MTDD
[2020-03-10 08:30] LABS: Prothrombin Time 12.8 sec (12.0-14.7)
[2020-03-10 08:42] LABS: ALT (SGPT) 7 U/L (8-55); AST (SGOT) 8 U/L (5-34); Albumin 3.4 g/dL (3.4-4.8); Alkaline Phosphatase 64 U/L (40-110); Anion Gap 16 mmol/L (10-20); BUN (Urea Nitrogen) 51 mg/dL (8.4-25.7); Bilirubin, Total 0.4 mg/dL (0.2-1.2); Calc. Creatinine Clearance 0 mL/min (70-130); Calcium 9.2 mg/dL (7.8-10.44); Carbon Dioxide 20 mmol/L (23-31); Chloride 97 mmol/L (98-107); Estimated GFR-MDRD 9; Globulin 3.1 g/dL (2.4-3.5); Glucose 549 mg/dL (83-110); Protein, Total 6.5 g/dL (5.8-8.1); Sodium 128 mmol/L (136-145)
[2020-03-10] MEDS ORDERED: Enoxaparin Sodium 30 MG/0.3 ML SYRINGE SC SCH (09:00)
[2020-03-10 09:10] VITALS: BMI 26.2
[2020-03-10] MEDS: hydrALAZINE 20 MG/ML VIAL SLOW IVP PRN (10:10)
[2020-03-10] MEDS ORDERED: Vancomycin 1 GM in Premix Bag 1 BAG IVPB SCH (11:30)
[2020-03-10 12:06] LABS: #Eosinphils 0.3 thou/uL (0.0-0.7); #Lymphocytes 1.2 thou/uL (1.20-3.40); #Monocytes 0.6 thou/uL (0.11-0.59); %Basophils 0.6 % (0.0-1.0); %Eosinophils 4.9 % (0.0-10.0); %Lymphocytes 19.8 % (21.0-51.0); %Monocytes 9.5 % (0.0-10.0); %Neutrophils 65.1 % (42.0-75.0); Hemoglobin 10.1 g/dL (14.0-18.0); Mean Corpuscular HGB CONC 34.6 g/dL (32.0-36.0); Mean Corpuscular Hemoglobin 32.2 pg (27.0-31.0); Mean Corpuscular Volume 93.1 fL (78.0-98.0); Mean Platelet Volume 8.7 fL (7.4-10.4); Platelet Count 158 thou/uL (130-400); Red Blood Cell (RBC) Count 3.13 mill/uL (4.70-6.10); White Blood Cell (WBC) Count 6.1 thou/uL (4.8-10.8)
--- NOTE | 2020-03-10 12:24 | CON ---
DATE OF CONSULTATION: HISTORY OF PRESENT ILLNESS: Paco Leos is a 74-year-old male patient who has scheduled a right arm dialysis graft in the future at [facility], he tells me. I have talked to him about this previously and he prefers to go to [facility] in [place]. I last saw him in December 2019. He has exhausted his left upper extremity [place] vein access. He is left handed and has a left subclavian pacemaker. Previous imaging studies in December 2019 reveal central circulation is patent on the left. He has had fistulas in his right arm including a basilic vein transposition fistula which has thrombosed. His contrast venography reveals axillary vein is patent. The patient states that he has had a dialysis access arranged in [place]. Dr. Hernandez placed a right IJ cuffed tunneled dialysis catheter a week ago, but it fell out. He presented to the emergency room. He was admitted to the hospital. He is n.p.o. I have been asked to see him regarding establishing a dialysis access. OR schedule is very busy. The patient's potassium is 5. I told him it would be better if he could go home and have this done as an outpatient by Dr. Hernandez. However, Dr. Hernandez states he cannot do this until he has been out of the hospital for 3 days for financial reasons. The patient will remain n.p.o. today, have hemodialysis catheter placed. He will go to [place] for definitive dialysis access, prosthetic graft in the future. ALLERGIES: ARLEN INHIBITORS, CEPHALEXIN, LEVOTHYROXINE. SOCIAL HISTORY: Tobacco cessation decades ago, alcohol none. The patient lives alone in [place]. He is retired [employer]. MEDICATIONS: See list. PAST SURGICAL HISTORY: Right arm dialysis access, revisions of occluded fistula with ligation in the past, since 2012 three procedures; coronary bypass grafting in 2017; multiple hemodialysis catheter placed and removed. In 2012, placed a Trialysis catheter and underwent placement of a hemodialysis catheter cuffed tunneled and a right arm fistula that was since February 2013. In June 2013, he underwent a basilic vein transposition fistula right arm. A new right IJ catheter was placed due to dysfunction of the old one. The patient had renal recovery and came off dialysis for a period of time and his dialysis catheter was removed. In August 2014, Dr. Castelan performed off pump coronary bypass graft in three vessels. Also the patient in 2017, when he developed right arm edema and complaints, at that time it was noted his fistula was malfunctioning, although had a thrill and bruit. It had very high-pitched signal and because his kidneys although compromised with chronic kidney disease, he was not on dialysis and I was hesitant to do a contrast study. Later, patient presented to [facility] in [place] where they performed a procedure to ligate his fistula, probably to alleviate him of his venous hypertension. He states since that time his swelling in his right arm has resolved. Dialysis access in his right arm is exhausted. As far as the [place] vein fistula, he will need dialysis grafts. Contrast study suggests the right axillary vein available for runoff for a prosthetic graft. I had a thorough discussion with the patient in the past. He has occluded cephalic vein on the left due to iatrogenic IV access done during hospitalization at [facility]. He wants to avoid dialysis access in his dominant left arm. Cardiac stress test in 2017 without ischemia. Echocardiogram 01/09/20, ejection fraction of 40% to 45% without significant valvular disease. PHYSICAL EXAMINATION: VITAL SIGNS: 6 feet 1 inch, 199 pounds, 26 BMI. HEAD, EARS, EYES, NOSE AND THROAT: Unremarkable. LUNGS: Clear to auscultation. CARDIAC: Regular rate and rhythm, no murmur or gallop. ABDOMEN: Soft, nontender. Hemodialysis catheter exiting the right chest. X-ray reveals that it is barely under the skin. It was removed. LABORATORY DATA: Sodium 128, potassium 5.0, BUN 51. Last hemoglobin in this facility 12/27/2019 was 10.8. ASSESSMENT: End-stage renal disease, dislodged hemodialysis catheter. PLAN: Placement of hemodialysis catheter as described above. We will keep him n.p.o. Job ID: [id number]
[2020-03-10] MEDS ORDERED: HumaLOG 300 UNITS/3 ML VIAL SC PRN (14:43)
[2020-03-10] MEDS ORDERED: ALPRAZolam 0.5 MG TAB PO PRN (14:43)
[2020-03-10] MEDS ORDERED: Dextrose 5% in Water 1,000 ML IV PRN (14:53)
[2020-03-10] MEDS ORDERED: Dextrose 50% Abboject 50 ML SYRINGE IVP PRN (14:53)
[2020-03-10] MEDS: hydrALAZINE 25 MG TAB PO SCH ×2 (16:05→22:12)
[2020-03-10] MEDS ORDERED: Vancomycin 1 GM/200 ML BAG ONE (17:00)
[2020-03-10] MEDS ORDERED: Acetaminophen 500 MG TAB PO PRN (19:49)
[2020-03-10] MEDS ORDERED: traMADol HCl 50 MG TAB PO PRN (19:49)
[2020-03-10] MEDS ORDERED: Bupivacaine PF 0.5% 30 ML VIAL ONE (19:56)
[2020-03-10] MEDS ORDERED: Sodium Chloride 0.9% 30 ML ONE (19:56)
[2020-03-10] MEDS ORDERED: Heparin 10,000 UNITS/1 ML VIAL ONE (19:56)
[2020-03-10] MEDS ORDERED: Lidocaine 1% w/Epinephrine 1:100K 20 ML VIAL ONE (19:56)
[2020-03-10] MEDS ORDERED: PROPOFOL 20 ML ONE (20:06)
[2020-03-10] MEDS ORDERED: Rosuvastatin 20 MG TAB PO SCH (21:00)
[2020-03-10] MEDS ORDERED: Ondansetron HCl/PF 4 MG/2 ML Vial IVP PRN (21:01)
[2020-03-10] MEDS ORDERED: Promethazine HCl 25 MG/ML VIAL IM PRN (21:01)
[2020-03-10] MEDS ORDERED: Promethazine HCl 25 MG/ML VIAL SLOW IVP PRN (21:01)
[2020-03-10] MEDS ORDERED: Labetalol HCl 100 MG/20 ML VIAL SLOW IVP PRN (21:01)
[2020-03-10] MEDS ORDERED: Labetalol HCl 100 MG/20 ML VIAL ONE (21:06)
[2020-03-10] MEDS ORDERED: Fentanyl 100 MCG/2 ML VIAL ONE (21:16)
[2020-03-10] MEDS ORDERED: hydrALAZINE 20 MG/ML VIAL ONE (21:32)
[2020-03-10] MEDS: Insulin Glargine 44 UNITS in Pre-Filled Syringe 1 EACH SC SCH (22:12)
[2020-03-10] MEDS: Carvedilol 25 MG TAB PO SCH (22:12)
[2020-03-10] MEDS: HumaLOG 300 UNITS/3 ML VIAL SC PRN (22:12)
--- NOTE | 2020-03-10 23:04 | RAD ---
EXAM: CHEST ONE VIEW HISTORY: Central line placement. COMPARISON: 03/10/2020 at 0621 hours. FINDINGS: Triple lead left subclavian acid device remains in place. There has been interval placement of a tunn eled left internal jugular vein hemodialysis catheter with the tip overlying the expected location of the cavoatrial junction. The dialysis catheter overlying the upper right chest on prior study is n ot seen on this exam. Cardiac silhouette is mildly enlarged. Interstitial densities within the lungs bilaterally are again seen likely due to chronic interstitial lung changes. No consolidation or pleural fluid is seen. Surgical clips are again seen overlying the medial right arm. IMPRESSION: Interval placement of a left-sided tunneled hemodialysis catheter without obvious pneumothorax or ple ural effusion on this exam.
--- NOTE | 2020-03-11 01:50 | OP ---
DATE OF PROCEDURE: 03/10/2020 PREOPERATIVE DIAGNOSES: End-stage renal disease; left subclavian vein pacemaker; exhausted point lay [place] vein fistula access; thrombosed basilic vein fistula, right arm; thrombosed fistula, left arm; left-handed previous contrast studies revealed patent circulation on both sides, plan prosthetic graft placement in [place] per patient's desire; dislodged hemodialysis catheter placed by Dr. Mary Dunne a week ago, right internal jugular. PROCEDURE PERFORMED: Left internal jugular cuffed tunneled hemodialysis catheter for ultrasound fluoroscopy use. ANESTHESIA: IV sedation and local 0.5% Marcaine 30 mL, mixed with 1% Xylocaine with epinephrine 20 mL. DESCRIPTION OF PROCEDURE: The patient was taken to the operating room, where under intravenous sedation, neck and chest were prepared with ChloraPrep and draped in routine fashion. I could not see a good internal jugular vein on the right. Left internal jugular vein was identified, cannulated with a trocar catheter. J-wire was threaded. Trocar catheter was removed. Skin site was enlarged sharply. Stab incision was made over the left chest. Cuffed tunneled hemodialysis catheter and AngioDynamics pre-curved tunneled between 2 incisions, placed the fabric cuff beneath the skin exit site, secured with 2 interrupted sutures of 3-0 nylon. Sterile dressing was applied. Small and medium-sized dilators placed over the J-wire into the internal jugular vein, removed. Dilator and Peel-Away sheath were placed over the J-wire into the superior vena cava under fluoroscopic visualization, removing the dilator and J-wire. Catheter was placed with Peel-Away sheath. Peel-Away sheath was removed. Catheter noted to be in good position fluoroscopically. Platysma was approximated with 4-0 Monocryl, skin with subdermal 4-0 Monocryl, and [place] glue applied. Each port aspirated blood, flushed with heparinized saline solution with 1000 units of heparin per mL, indicating volume of the port. Job ID: [id number]
[2020-03-11] MEDS ORDERED: Morphine 2 MG/ML VIAL SLOW IVP PRN (02:44)
[2020-03-11] MEDS ORDERED: Morphine 2 MG/ML VIAL SLOW IVP SCH (03:00)
[2020-03-11 04:24] LABS: Anion Gap 14 mmol/L (10-20); BUN (Urea Nitrogen) 52 mg/dL (8.4-25.7); Calc. Creatinine Clearance 13 mL/min (70-130); Calcium 9.2 mg/dL (7.8-10.44); Carbon Dioxide 20 mmol/L (23-31); Chloride 100 mmol/L (98-107); Estimated GFR-MDRD 9; Glucose 427 mg/dL (83-110); Potassium 4.4 mmol/L (3.5-5.1); Sodium 130 mmol/L (136-145)
--- NOTE | 2020-03-11 07:32 | CON ---
DATE OF CONSULTATION: SERVICE: Renal Medicine. HISTORY OF PRESENT ILLNESS: Mr. Leos is a 74-year-old white male with ESRD, was admitted due to a displaced/pulled out dialysis catheter. This was subsequently replaced by Dr. Arguello. This morning, he voices no new complaints. We are now being consulted for management of his ESRD. He did miss his dialysis yesterday. REVIEW OF SYSTEMS: No chest pain or shortness of breath. No nausea. No vomiting. No diarrhea. No constipation. No productive cough. No fever or chills. No gross hematuria. No dysuria. No hematochezia. No melena. No hematemesis. No abdominal pain. Appetite and energy level are fair. No nausea. No vomiting. MEDICATIONS: 1. Xanax 0.25 mg q.12 p.r.n. 2. Carvedilol 50 mg p.o. b.i.d. 3. Lovenox 30 mg subcu daily. 4. Furosemide 40 mg daily. 5. Hydralazine 50 mg tab q.i.d. 6. Morphine 2 mg IV q.4 p.r.n. 7. Protonix 40 mg tablet daily p.r.n. 8. Rosuvastatin 40 mg at bedtime, status post vancomycin. PAST MEDICAL HISTORY: ESRD from diabetic nephropathy, type 2 diabetes mellitus, coronary artery disease status post CHF-decreased EF, history of noncompliance, hypertension, and dyslipidemia. PAST SURGICAL HISTORY: Status post cardiac cath, status post CABG, status post AICD placement, status post left nephrectomy, status post AV fistula placement, status post cuffed hemodialysis catheter placement, status post back surgery, and status post tonsillectomy. ALLERGIES: BACTRIM, KEFLEX, AND PROPOXYPHENE. TRAUMA: None. IMMUNIZATION: Up-to-date. HOSPITALIZATIONS: Please see past medical history. SOCIAL HISTORY: The patient is . Lives in [place]. He has one child. 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 No IV drug use. Status post multiple blood transfusion. Currently, no smoking. PHYSICAL EXAMINATION: VITAL SIGNS: Blood pressure is noted at 126/59, heart rate 64, respiratory rate 20, temperature 98.3, and O2 saturation 94%. GENERAL: The patient is awake, alert, comfortable, not in distress. SKIN: Adequate turgor. HEENT: He has pinkish conjunctivae. Anicteric sclerae. NECK: No neck mass. No carotid bruits. No JVD. CHEST: No deformities. LUNGS: Clear breath sounds. No wheezing. No crackles. HEART: Normal sinus rhythm. No murmur. No gallops or rubs. ABDOMEN: Globular, soft, nontender. No masses. EXTREMITIES: No edema. No deformities. LABORATORY DATA: Laboratories of March 10, 2020; white count 6.1, hemoglobin 10.1. March 11, 2020; sodium 130, potassium 4.4, chloride 100, carbon dioxide 20, BUN 52, creatinine 6.44, glucose 427, calcium 9.2. ASSESSMENT AND PLAN: 1. End-stage renal disease-his hemodialysis catheter has now been replaced. We will schedule him for his regular hemodialysis today. We will do a 4-hour hemodialysis with fluid removal. 2. Type 2 diabetes mellitus, managed by PCP. Consider resuming back his regular insulin regimen. 3. Borderline anemia. We will simply observe this. 4. Review of his last Kt/V suggests he is adequately dialyzed with the current dialysis regimen. Job ID: [id number]
[2020-03-11] MEDS: HumaLOG 300 UNITS/3 ML VIAL SC PRN ×2 (08:01→12:03)
[2020-03-11] MEDS: Carvedilol 25 MG TAB PO SCH (08:03)
[2020-03-11] MEDS: hydrALAZINE 25 MG TAB PO SCH ×3 (08:04→17:17)
[2020-03-11] MEDS: Insulin Glargine 44 UNITS in Pre-Filled Syringe 1 EACH SC SCH (08:05)
[2020-03-11] MEDS ORDERED: Losartan 25 MG TAB PO SCH ×2 (09:00→12:45)
[2020-03-11] MEDS ORDERED: Furosemide 40 MG TAB PO SCH (09:00)
[2020-03-11] MEDS ORDERED: Heparin 10,000 UNITS/ 10 ML VIAL ONE (13:03)
[2020-03-11] MEDS: hydrALAZINE 20 MG/ML VIAL SLOW IVP PRN (14:47)
[2020-03-11 18:55] LABS: HBSAg Index 0.18 S/CO (0-0.99); Hep B Surf Ag Non-Reactive S/CO (NonReactive)
[2020-03-12 02:08] VITALS: BP 169/76; TEMP 98
--- NOTE | 2020-03-12 07:03 | DIS ---
DATE OF ADMISSION: 03/10/2020 DATE OF DISCHARGE: 03/11/2020 HOSPITAL COURSE: Mr. Leos is a 74-year-old male with medical history of end-stage renal disease, on hemodialysis, who presented with displaced hemodialysis catheter. The patient underwent hemodialysis catheter replacement from the right thorax to the left thorax, from the right IJ to the left IJ. He tolerated the procedure well. Prior to discharge, he underwent a hemodialysis session, which he tolerated well. In addition to that, the patient presented with hypertensive urgency. The patient's home antihypertensive regimen was restarted and with the exception of increased dosage of losartan from 50 daily to 100 daily. On the day of discharge, the patient was hemodynamically stable with no complaints. PHYSICAL EXAMINATION: GENERAL: Lying comfortably in bed. Alert. HEENT: Normocephalic, atraumatic. EOMI. PERRL. CARDIAC: Regular rate and rhythm. No murmurs, gallops, or rubs. Left IJ catheter incision site appears C/D/I. LUNGS: Clear to auscultation bilaterally. No wheezing, rales, or rhonchi. ABDOMEN: Soft, nontender, and nondistended. Normal bowel sounds. EXTREMITIES: Bilateral pitting edema up to mid tibial level. PSYCHIATRIC: Proper mood and affect. Alert and oriented x3. MEDICATION LIST: New medications: No new medications. Continued medications: 1. Alprazolam. 2. Coreg. 3. Lasix. 4. Pantoprazole. 5. Simvastatin. 6. Humalog. 7. Glargine. Job ID: [id number]
[2020-03-12] MEDS ORDERED: Losartan 25 MG TAB PO SCH (09:00)
== END 2020-03-11 21:20 | disposition home or self-care (01) ==
LOC: ERS 05:52 → ONC 07:06
PROVIDERS: ADMIT Family Medicine; ATTEND Family Medicine
PROC: 05HN33Z Insertion of Infusion Device into Left Internal Jugular Vein, Percutaneous Approach (ICD-10-PCS; principal; 2020-03-10)
PROC: B514ZZA Fluoroscopy of Left Jugular Veins, Guidance (ICD-10-PCS; 2020-03-10)
DX: T82.42XA Displacement of vascular dialysis catheter, initial encounter (principal); I16.0 Hypertensive urgency; I13.2 Hypertensive heart and chronic kidney disease with heart failure and with stage 5 chronic kidney disease, or end stage renal disease; E11.21 Type 2 diabetes mellitus with diabetic nephropathy; E11.22 Type 2 diabetes mellitus with diabetic chronic kidney disease; N18.6 End stage renal disease; I50.20 Unspecified systolic (congestive) heart failure; E78.5 Hyperlipidemia, unspecified; I25.10 Atherosclerotic heart disease of native coronary artery without angina pectoris; Z87.891 Personal history of nicotine dependence; Z79.4 Long term (current) use of insulin; Z79.899 Other long term (current) drug therapy; Z88.1 Allergy status to other antibiotic agents; Z88.2 Allergy status to sulfonamides; Z88.5 Allergy status to narcotic agent; Z88.8 Allergy status to other drugs, medicaments and biological substances; Z95.1 Presence of aortocoronary bypass graft; Z90.5 Acquired absence of kidney; Z99.2 Dependence on renal dialysis
CPT/HCPCS: 36558; 71045; 80048; 80053; 82962 ×2; 85025; 85610; 87340; 93005; 96372; 96374; 96375; 96376; 99284; C1752; G0378 ×3; J2270; 36415; 36416; 90935; 93010; G0257; J0360; J1644; J1650; J1815; J2704; J3010; J3370; S0020

== ENCOUNTER 2020-04-14 08:45 | Inpatient (IN) | payer MEDICARE, OTHER ==
[2020-04-17] MEDS ORDERED: Midazolam HCl 2 mg/2 ml Vial ONE (06:32)
[2020-04-17] MEDS ORDERED: Fentanyl 100 MCG/2 ML VIAL ONE ×2 (06:32→10:24)
[2020-04-17] MEDS ORDERED: Protamine Sulfate 50 MG/5 ML VIAL ONE (06:43)
[2020-04-17] MEDS ORDERED: Heparin 5,000 UNITS/ML VIAL ONE (06:43)
[2020-04-17] MEDS ORDERED: Clindamycin/D5W 900 mg/50 ml Premix Bag ONE (06:51)
[2020-04-17] MEDS ORDERED: Ondansetron HCl/PF 4 MG/2 ML Vial IVP PRN (07:04)
[2020-04-17] MEDS ORDERED: Insulin Regular 300 UNITS/3 ML VIAL ONE (07:10)
[2020-04-17] MEDS ORDERED: SUGAMMADEX SODIUM 500 MG/5 ML VIAL ONE (08:56)
[2020-04-17] MEDS: Sodium Chloride 0.9% 1,000 ML IV SCH ×2 (11:00→20:10)
[2020-04-17] MEDS ORDERED: niCARdipine 25 MG in Sodium Chloride 0.9% 250 ML 250 ML IVPB PRN (11:09)
[2020-04-17] MEDS ORDERED: HYDROcodone/Acetaminophen 5/325 mg Tablet PO PRN (11:09)
[2020-04-17] MEDS ORDERED: Insulin Regular 300 UNITS/3 ML VIAL SC PRN (11:09)
[2020-04-17] MEDS ORDERED: DOPamine 400 MG/D5W 250 ML 250 ML IVPB PRN (11:09)
[2020-04-17] MEDS ORDERED: Fentanyl 100 MCG/2 ML VIAL SLOW IVP PRN (11:09)
[2020-04-17] MEDS ORDERED: Acetaminophen 325 MG TAB PO PRN (11:09)
[2020-04-17] MEDS ORDERED: ALPRAZolam 0.25 MG TAB PO PRN (11:09)
[2020-04-17] MEDS ORDERED: Ondansetron PF 4 MG/2 ML Vial IVP PRN (11:09)
[2020-04-17] MEDS ORDERED: Dextrose 5% in Water 1,000 ML IV PRN (11:19)
[2020-04-17] MEDS ORDERED: Dextrose 50% Abboject 50 ML SYRINGE IVP PRN (11:19)
[2020-04-17] MEDS: hydrALAZINE 25 MG TAB PO SCH ×3 (11:40→20:18)
[2020-04-17] MEDS ORDERED: Ondansetron PF 4 MG/2 ML Vial ONE (11:43)
[2020-04-17] MEDS ORDERED: Labetalol HCl 100 MG/20 ML VIAL ONE (11:43)
[2020-04-17] MEDS ORDERED: PHENYLEPHRINE-NS 100 MCG/ML 10 ML SYRINGE ONE (11:43)
[2020-04-17] MEDS ORDERED: Lidocaine 1% PF 5 ML VIAL ONE (11:43)
[2020-04-17] MEDS ORDERED: Vecuronium 10 MG VIAL ONE (11:43)
[2020-04-17] MEDS ORDERED: Ketorolac Tromethamine 30 MG/ML VIAL ONE (11:43)
[2020-04-17] MEDS ORDERED: PROPOFOL 200 MG/20 ML VIAL ONE (11:43)
[2020-04-17] MEDS ORDERED: EPHEDRINE 25 MG/5 ML SYRINGE ONE (11:43)
[2020-04-17 12:05] VITALS: BMI 26.6
--- NOTE | 2020-04-17 13:07 | OP ---
DATE OF PROCEDURE: 04/17/2020 PREOPERATIVE DIAGNOSIS: Bilateral severe carotid artery stenosis. PROCEDURE PERFORMED: Right carotid endarterectomy with bovine patch angioplasty. ANESTHESIA: General. ESTIMATED BLOOD LOSS: Minimal. DESCRIPTION OF PROCEDURE: After adequate anesthesia had been obtained, the patient was prepped and draped. Incision was made in the right neck ultimately extending caudally due to palpable disease in the common carotid artery. After mobilizing internal, external, and common carotid artery without visualizing the hypoglossal or the vagus nerve, heparin was given, ACT was checked. Clamps were applied. Our long arteriotomy was performed and a 12-Ukrainian shunt was placed. Endarterectomy was performed with satisfactory tapering distally. After this had been done, the area was thoroughly irrigated and a bovine patch was secured with a running 6-0 Prolene suture, removing the shunt, back flushing and forward flushing prior to restoring flow of the internal carotid artery. Heparin was partially reversed with protamine and after obtaining good hemostasis, the wound was irrigated and closed in layers. The patient was to be taken to the ICU in guarded condition. Job ID: [id number]
[2020-04-17] MEDS: Clindamycin/D5W 900 MG in Premix Bag 1 BAG IVPB SCH ×2 (13:38→20:09)
[2020-04-17] MEDS: HYDROcodone/Acetaminophen 5/325 mg Tablet PO PRN (16:19)
[2020-04-17] MEDS: Insulin Glargine 35 UNITS in Pre-Filled Syringe 1 EACH SC SCH (20:17)
[2020-04-17] MEDS: Carvedilol 25 MG TAB PO SCH (20:19)
[2020-04-17] MEDS ORDERED: Rosuvastatin 20 MG TAB PO SCH (21:00)
[2020-04-18] MEDS: Clindamycin/D5W 900 MG in Premix Bag 1 BAG IVPB SCH ×2 (01:36→08:49)
[2020-04-18] MEDS ORDERED: Aspirin Chewable 81 MG TAB PO SCH (09:00)
[2020-04-18] MEDS ORDERED: Losartan 25 MG TAB PO SCH (09:00)
--- NOTE | 2020-04-18 09:38 | PRG ---
DATE OF SERVICE: 04/18/2020 SUBJECTIVE: Mr. Leos is a 74-year-old white male with ESRD, who was admitted due to his peripheral vascular disease/carotid artery stenosis. He underwent a right carotid endarterectomy. He tolerated said treatment. This morning, he voices no new complaints. We are following up this patient for management of his ESRD. I have scheduled him for heparin free hemodialysis today. OBJECTIVE: VITAL SIGNS: Blood pressure is 138/69, heart rate 66, respiratory rate is 11, O2 saturation 97%. GENERAL: The patient is awake, alert, comfortable, not in distress. SKIN: Adequate turgor. HEENT: Pinkish conjunctivae. Anicteric sclerae. NECK: No neck mass. No carotid bruits. No JVD. CHEST: No deformities. LUNGS: Clear breath sounds. HEART: Normal sinus rhythm. No murmur. No gallops. No rubs. ABDOMEN: Globular, soft, nontender. No masses. EXTREMITIES: No edema. No deformities. MEDICATIONS: On April 18, 2020, were reviewed. LABORATORY DATA: On April 18, 2020, none. ASSESSMENT AND PLAN: 1. End-stage renal disease. We will schedule him for heparin free hemodialysis for 3.5 hours. We will use a potassium bath of 2.0. Attempt between 2 and 3 L fluid removal. 2. Status post right carotid endarterectomy, doing well. As per plans by Surgery, will be discharged today. Job ID: [id number]
[2020-04-18] MEDS: Insulin Glargine 35 UNITS in Pre-Filled Syringe 1 EACH SC SCH (09:47)
[2020-04-18] MEDS ORDERED: Activase 2 MG VIAL CATH SCH (10:00)
[2020-04-18] MEDS ORDERED: Heparin 10,000 UNITS/ 10 ML VIAL ONE (10:16)
[2020-04-18] MEDS: hydrALAZINE 25 MG TAB PO SCH ×3 (10:38→17:59)
[2020-04-18] MEDS: Carvedilol 25 MG TAB PO SCH (10:38)
[2020-04-18] MEDS: HYDROcodone/Acetaminophen 5/325 mg Tablet PO PRN (12:31)
[2020-04-18 14:20] VITALS: BP 139/78
[2020-04-18 17:33] VITALS: TEMP 98.1
--- NOTE | 2020-04-19 05:46 | DIS ---
DATE OF ADMISSION: 04/17/2020 DATE OF DISCHARGE: 04/18/2020 HOSPITAL COURSE: Paco Leos is a gentleman with bilateral carotid disease, asymptomatic, who had been seen by Dr. Fowler several years ago at which time left carotid endarterectomy was recommended. The patient underwent right carotid endarterectomy on this admission and disease was quite extensive extending proximally down the common carotid artery and distally up the internal although we were able to get above the plaque on the internal carotid artery. His postoperative course was uneventful. At this time, undecided as to the best approach to the left side or whether it should be done because it does extend considerably more distally in the neck and may not be surgically approachable. It is also severely calcified, although the CT scan was suboptimal due to venous contamination and it may be that intervention is not feasible on the left and this will be discussed and re-examined in the future when he returns for followup. He will be discharged home on his home medicines. The patient also has some history of medical noncompliance and this is evidenced by his rather severe hypertension on admission and admitted that he does not take his statins. Job ID: [id number]
== END 2020-04-18 18:13 | disposition home or self-care (01) | DRG 37 ==
LOC: SURG A 04-17 05:59 → CCU 04-17 10:41
PROVIDERS: ADMIT Thoracic Surgery (Cardiothoracic Vascular Surgery); ATTEND Thoracic Surgery (Cardiothoracic Vascular Surgery)
PROC: 03CK0ZZ Extirpation of Matter from Right Internal Carotid Artery, Open Approach (ICD-10-PCS; principal; 2020-04-17)
PROC: 03UK0KZ Supplement Right Internal Carotid Artery with Nonautologous Tissue Substitute, Open Approach (ICD-10-PCS; 2020-04-17)
PROC: 5A1D70Z Performance of Urinary Filtration, Intermittent, Less than 6 Hours Per Day (ICD-10-PCS; 2020-04-18)
DX: I65.21 Occlusion and stenosis of right carotid artery (principal); N18.6 End stage renal disease; I13.2 Hypertensive heart and chronic kidney disease with heart failure and with stage 5 chronic kidney disease, or end stage renal disease; I25.10 Atherosclerotic heart disease of native coronary artery without angina pectoris; E11.22 Type 2 diabetes mellitus with diabetic chronic kidney disease; K21.9 Gastro-esophageal reflux disease without esophagitis; J44.9 Chronic obstructive pulmonary disease, unspecified; E78.5 Hyperlipidemia, unspecified; I50.9 Heart failure, unspecified; M19.90 Unspecified osteoarthritis, unspecified site; F41.9 Anxiety disorder, unspecified; E11.51 Type 2 diabetes mellitus with diabetic peripheral angiopathy without gangrene; Z88.1 Allergy status to other antibiotic agents; Z88.2 Allergy status to sulfonamides; Z88.8 Allergy status to other drugs, medicaments and biological substances; Z95.1 Presence of aortocoronary bypass graft; Z95.810 Presence of automatic (implantable) cardiac defibrillator; Z85.528 Personal history of other malignant neoplasm of kidney; Z86.73 Personal history of transient ischemic attack (TIA), and cerebral infarction without residual deficits; Z87.891 Personal history of nicotine dependence; Z91.14 Patient's other noncompliance with medication regimen; Z99.2 Dependence on renal dialysis
CPT/HCPCS: 36416; 80048; 85027; 87635; 88184; 88305; 88307; 90935; G0257; J0690; J1642; J1644; J1815; J1885; J2250; J2405; J2704; J2720; J2997; J3010; J3490; U0003

== ENCOUNTER 2020-06-11 12:09 | Emergency (ER) | payer MEDICARE ==
[2020-06-11 13:26] LABS: #Basophils 0.1 thou/uL (0.0-0.2); #Eosinphils 0.3 thou/uL (0.0-0.7); #Lymphocytes 1.3 thou/uL (1.20-3.40); #Monocytes 0.5 thou/uL (0.11-0.59); #Neutrophils 4.1 thou/uL (1.40-6.50); %Basophils 0.8 % (0.0-1.0); %Lymphocytes 20.5 % (21.0-51.0); %Monocytes 8.6 % (0.0-10.0); %Neutrophils 65.1 % (42.0-75.0); Hemoglobin 10.6 g/dL (14.0-18.0); Mean Corpuscular Hemoglobin 32.7 pg (27.0-31.0); Mean Platelet Volume 8.8 fL (7.4-10.4); Platelet Count 106 thou/uL (130-400); RBC Distribution Width 13.6 % (11.5-14.5); Red Blood Cell (RBC) Count 3.25 mill/uL (4.70-6.10); White Blood Cell (WBC) Count 6.3 thou/uL (4.8-10.8)
--- NOTE | 2020-06-11 13:35 | RAD ---
Exam: Chest one view HISTORY:Near syncope. Comparison: 04/05/2020 FINDINGS: Cardiac silhouette:Cardiomegaly. Sternotomy wires. Stable left-sided defibrillator. Stable left-sided HemoSplit dialysis catheter. Aorta: Sclerotic Pulmonary vessels: Normal Costophrenic angles: Chronic lung parenchymal changes, without masses or consolidation. Superimposed edema or infiltrate is suspected. LUNGS: No masses or consolidation. Pneumothorax: None Osseous abnormalities: None IMPRESSION: 1. Cardiomegaly. Congestive heart failure.
[2020-06-11 13:38] LABS: MDiff Complete? YES; Platelet Morphology Comment Appears Decreased; Polychromasia SLIGHT = 2-3 cells (100X) (0-2/hpf)
[2020-06-11 13:48] LABS: ALT (SGPT) 7 U/L (8-55); AST (SGOT) 12 U/L (5-34); Albumin 3.7 g/dL (3.4-4.8); Alkaline Phosphatase 68 U/L (40-110); Anion Gap 16 mmol/L (10-20); BUN (Urea Nitrogen) 33 mg/dL (8.4-25.7); Bilirubin, Total 0.5 mg/dL (0.2-1.2); Calc. Creatinine Clearance 0 mL/min (70-130); Calcium 8.8 mg/dL (7.8-10.44); Carbon Dioxide 23 mmol/L (23-31); Chloride 99 mmol/L (98-107); Estimated GFR-MDRD 10; Globulin 2.9 g/dL (2.4-3.5); Glucose 464 mg/dL (83-110); Potassium 4.4 mmol/L (3.5-5.1); Protein, Total 6.6 g/dL (5.8-8.1); Sodium 134 mmol/L (136-145)
[2020-06-11 14:05] LABS: CKMB 2.1 ng/mL (0-6.6)
[2020-06-11] MEDS ORDERED: Acetaminophen 500 MG TAB ONE (15:06)
== END 2020-06-11 15:12 | disposition home or self-care (01) ==
LOC: ERS 12:09
DX: R06.00 Dyspnea, unspecified (principal); I25.10 Atherosclerotic heart disease of native coronary artery without angina pectoris; E78.5 Hyperlipidemia, unspecified; E11.9 Type 2 diabetes mellitus without complications; Z87.891 Personal history of nicotine dependence; Z85.528 Personal history of other malignant neoplasm of kidney; Z79.899 Other long term (current) drug therapy
CPT/HCPCS: 36415; 71045; 80053; 82553; 83605; 84484; 85025; 93005

== ENCOUNTER 2020-11-04 21:43 | Emergency (ER) | payer MEDICARE ==
[2020-11-04 23:34] LABS: #Basophils 0.1 thou/uL (0.0-0.2); #Eosinphils 0.2 thou/uL (0.0-0.7); #Lymphocytes 1.7 thou/uL (1.20-3.40); #Monocytes 0.9 thou/uL (0.11-0.59); #Neutrophils 5.4 thou/uL (1.40-6.50); %Basophils 0.7 % (0.0-1.0); %Eosinophils 2.4 % (0.0-10.0); %Lymphocytes 20.8 % (21.0-51.0); %Monocytes 11.1 % (0.0-10.0); %Neutrophils 65.1 % (42.0-75.0); Hemoglobin 11.4 g/dL (14.0-18.0); Mean Corpuscular HGB CONC 32.9 g/dL (32.0-36.0); Mean Corpuscular Hemoglobin 33.3 pg (27.0-31.0); Mean Platelet Volume 9.1 fL (7.4-10.4); Platelet Count 141 thou/uL (130-400); RBC Distribution Width 15.3 % (11.5-14.5); Red Blood Cell (RBC) Count 3.41 mill/uL (4.70-6.10); White Blood Cell (WBC) Count 8.3 thou/uL (4.8-10.8)
[2020-11-04] MEDS ORDERED: Ondansetron PF 4 MG/2 ML Vial ONE (23:51)
[2020-11-04] MEDS ORDERED: Morphine 4 MG/ML VIAL ONE (23:51)
[2020-11-04 23:54] LABS: ALT (SGPT) 10 U/L (8-55); AST (SGOT) 29 U/L (5-34); Albumin 3.4 g/dL (3.4-4.8); Alkaline Phosphatase 104 U/L (40-110); Anion Gap 21 mmol/L (10-20); BUN (Urea Nitrogen) 26 mg/dL (8.4-25.7); Bilirubin, Total 0.7 mg/dL (0.2-1.2); Calc. Creatinine Clearance 0 mL/min (70-130); Calcium 8.7 mg/dL (7.8-10.44); Carbon Dioxide 27 mmol/L (23-31); Chloride 93 mmol/L (98-107); Globulin 3.9 g/dL (2.4-3.5); Glucose 165 mg/dL (83-110); Protein, Total 7.3 g/dL (5.8-8.1); Sodium 136 mmol/L (136-145)
[2020-11-05 00:17] LABS: CKMB 1.7 ng/mL (0-6.6)
[2020-11-05] MEDS ORDERED: Clindamycin/D5W 900 mg/50 ml Premix Bag ONE (01:41)
[2020-11-05] MEDS ORDERED: Vancomycin 1 GM/200 ML BAG ONE (02:45)
[2020-11-05 02:53] LABS: Troponin I 0.522 ng/mL (< 0.028)
== END 2020-11-05 03:54 | disposition short-term general hospital (02) ==
LOC: ERS 21:43
DX: I21.4 Non-ST elevation (NSTEMI) myocardial infarction (principal); J96.01 Acute respiratory failure with hypoxia; E11.22 Type 2 diabetes mellitus with diabetic chronic kidney disease; E11.52 Type 2 diabetes mellitus with diabetic peripheral angiopathy with gangrene; I96 Gangrene, not elsewhere classified; N18.6 End stage renal disease; I50.9 Heart failure, unspecified; E78.5 Hyperlipidemia, unspecified; I25.10 Atherosclerotic heart disease of native coronary artery without angina pectoris; Z87.891 Personal history of nicotine dependence; Z99.2 Dependence on renal dialysis; Z79.899 Other long term (current) drug therapy
CPT/HCPCS: 36415; 71045; 80053; 82553; 83605; 83880; 84484; 85025; 85652; 86140; 93005; J2270; J2405; J3370; J3490

== ENCOUNTER 2020-11-05 17:48 | Inpatient (IN) | payer MEDICARE ==
[2020-11-05] MEDS ORDERED: Furosemide 40 MG TAB PO PRN (23:49)
[2020-11-05] MEDS ORDERED: Albuterol Sulfate 1.25 MG/3 ML NEB EZPAP PRN (23:54)
[2020-11-06] MEDS ORDERED: Dextrose 50% Abboject 50 ML SYRINGE SLOW IVP PRN (00:09)
[2020-11-06] MEDS ORDERED: Dextrose 5% in Water 1,000 ML IV PRN (00:09)
[2020-11-06] MEDS ORDERED: Vancomycin HCl 500 MG in Sodium Chloride 0.9% 100 ML IVPB SCH (00:15)
[2020-11-06] MEDS ORDERED: VANCOMYCIN 1.25 GM/250 ML BAG 1.25 GM in Premix Bag 1 BAG IVPB SCH (00:15)
[2020-11-06] MEDS ORDERED: Vancomycin 1 GM in Premix Bag 1 BAG IVPB SCH (00:15)
[2020-11-06] MEDS ORDERED: Vancomycin HCl 750 MG in Sodium Chloride 0.9% 250 ML 250 ML IVPB SCH (00:15)
[2020-11-06] MEDS ORDERED: HOLD VANCOMYCIN FOR LEVEL >20 FS SCH (00:15)
[2020-11-06] MEDS ORDERED: Senokot S 8.6-50 MG TAB PO PRN (00:20)
[2020-11-06] MEDS ORDERED: Ondansetron ODT 4 MG TAB PO PRN (00:20)
[2020-11-06] MEDS ORDERED: Acetaminophen 325 MG TAB PO PRN (00:20)
[2020-11-06] MEDS ORDERED: Calcium Carbonate 500 MG ChewTAB PO PRN (00:20)
[2020-11-06] MEDS ORDERED: Enoxaparin Sodium 100 MG/ML SYRINGE SC SCH (00:30)
[2020-11-06 00:40] LABS: Prothrombin Time 13.5 sec (12.0-14.7)
[2020-11-06] MEDS: HumaLOG 300 UNITS/3 ML VIAL SC PRN ×3 (00:52→13:53)
[2020-11-06] MEDS: Clindamycin/D5W 900 MG in Premix Bag 1 BAG IVPB SCH ×3 (00:55→17:40)
[2020-11-06 00:59] LABS: Critical Call Chem Troponin I RESULT DECREASING; Troponin I 0.314 ng/mL (< 0.028)
[2020-11-06] MEDS: HYDROcodone/Acetaminophen 5/325 mg Tablet PO PRN (02:59)
[2020-11-06 04:39] LABS: Hemoglobin 10.2 g/dL (14.0-18.0); Mean Corpuscular Hemoglobin 32.5 pg (27.0-31.0); Red Blood Cell (RBC) Count 3.12 mill/uL (4.70-6.10); White Blood Cell (WBC) Count 5.9 thou/uL (4.8-10.8)
[2020-11-06 04:55] LABS: Anion Gap 13 mmol/L (10-20); BUN (Urea Nitrogen) 22 mg/dL (8.4-25.7); Calc. Creatinine Clearance 18 mL/min (70-130); Calcium 8.5 mg/dL (7.8-10.44); Carbon Dioxide 31 mmol/L (23-31); Cardiac Risk 3.3 (Less than 4.5); Chloride 96 mmol/L (98-107); Cholesterol 73 mg/dl (< 200 Desired); Glucose 198 mg/dL (83-110); HDL Cholesterol 22 mg/dL (>60 Neg Risk); LDL Cholesterol, Calculated 38 mg/dL; Potassium 4.4 mmol/L (3.5-5.1); Sodium 136 mmol/L (136-145); Triglycerides 63 mg/dL (Less than 150)
[2020-11-06 05:17] LABS: #Eosinphils 0.3 thou/uL (0.0-0.7); #Lymphocytes 1.3 thou/uL (1.20-3.40); #Monocytes 0.7 thou/uL (0.11-0.59); #Neutrophils 3.6 thou/uL (1.40-6.50); %Basophils 0.7 % (0.0-1.0); %Eosinophils 5.1 % (0.0-10.0); %Lymphocytes 21.2 % (21.0-51.0); %Monocytes 12.1 % (0.0-10.0); %Neutrophils 60.9 % (42.0-75.0); Mean Platelet Volume 9.3 fL (7.4-10.4); Platelet Count 119 thou/uL (130-400); Platelet Morphology Comment Appears Decreased
[2020-11-06] MEDS ORDERED: Aspirin Chewable 81 MG TAB PO SCH (09:00)
[2020-11-06] MEDS: Saccharomyces boulardii 250 MG CAP PO SCH (09:41)
[2020-11-06] MEDS: Aspirin 81 mg Enteric Coated Tablet PO SCH (12:46)
[2020-11-06] MEDS: Ondansetron PF 4 MG/2 ML Vial IVP PRN (13:36)
[2020-11-07] MEDS: Clindamycin/D5W 900 MG in Premix Bag 1 BAG IVPB SCH ×3 (00:21→17:15)
[2020-11-07] MEDS: Ondansetron PF 4 MG/2 ML Vial IVP PRN (00:21)
[2020-11-07] MEDS: HYDROcodone/Acetaminophen 5/325 mg Tablet PO PRN (04:35)
[2020-11-07 08:45] LABS: Vancomycin, Random 6.4 ug/mL (See Comment)
[2020-11-07] MEDS: Aspirin 81 mg Enteric Coated Tablet PO SCH (09:13)
[2020-11-07] MEDS: Saccharomyces boulardii 250 MG CAP PO SCH (09:13)
[2020-11-07] MEDS ORDERED: Heparin 10,000 UNITS/ 10 ML VIAL ONE (11:44)
[2020-11-07] MEDS: EPOETIN ALFA-EPBX (ESRD) 4,000 UNIT/ML VIAL SC SCH (13:12)
[2020-11-07] MEDS ORDERED: Fleet Enema 133 ML BOT PR PRN (18:37)
[2020-11-07] MEDS ORDERED: Bisacodyl 10 MG SUPP PR PRN (18:37)
[2020-11-07] MEDS: Senokot S 8.6-50 MG TAB PO SCH (20:45)
[2020-11-07 22:35] LABS: #Eosinphils 0.3 thou/uL (0.0-0.7); #Monocytes 0.6 thou/uL (0.11-0.59); #Neutrophils 2.7 thou/uL (1.40-6.50); %Basophils 1.1 % (0.0-1.0); %Eosinophils 5.9 % (0.0-10.0); %Lymphocytes 21.5 % (21.0-51.0); %Monocytes 13.3 % (0.0-10.0); %Neutrophils 58.3 % (42.0-75.0); Hemoglobin 10.5 g/dL (14.0-18.0); Mean Corpuscular HGB CONC 31.7 g/dL (32.0-36.0); Mean Corpuscular Hemoglobin 32.2 pg (27.0-31.0); Mean Platelet Volume 9.1 fL (7.4-10.4); Platelet Count 115 thou/uL (130-400); Red Blood Cell (RBC) Count 3.27 mill/uL (4.70-6.10); White Blood Cell (WBC) Count 4.7 thou/uL (4.8-10.8)
[2020-11-07 22:54] LABS: Anion Gap 15 mmol/L (10-20); BUN (Urea Nitrogen) 19 mg/dL (8.4-25.7); Calc. Creatinine Clearance 19 mL/min (70-130); Calcium 8.5 mg/dL (7.8-10.44); Carbon Dioxide 29 mmol/L (23-31); Chloride 97 mmol/L (98-107); Glucose 172 mg/dL (83-110); Magnesium 1.8 mg/dL (1.6-2.6); Potassium 4.3 mmol/L (3.5-5.1); Sodium 137 mmol/L (136-145)
[2020-11-08] MEDS: Clindamycin/D5W 900 MG in Premix Bag 1 BAG IVPB SCH ×3 (00:35→18:05)
[2020-11-08] MEDS ORDERED: Magnesium 2 GM/50 ML 2 GM in Premix Bag 1 BAG IVPB SCH (02:45)
[2020-11-08] MEDS: Aspirin 81 mg Enteric Coated Tablet PO SCH (10:09)
[2020-11-08] MEDS: Saccharomyces boulardii 250 MG CAP PO SCH (10:09)
[2020-11-08] MEDS: Senokot S 8.6-50 MG TAB PO SCH ×2 (10:09→20:00)
[2020-11-08] MEDS: Polyethylene Glycol 3350 17 GM Packet PO SCH (10:09)
[2020-11-08] MEDS: Ondansetron PF 4 MG/2 ML Vial IVP PRN (10:36)
[2020-11-08] MEDS: HYDROcodone/Acetaminophen 5/325 mg Tablet PO PRN ×2 (10:36→18:14)
[2020-11-08] MEDS: Carvedilol 3.125 MG TAB PO SCH (18:05)
[2020-11-09] MEDS: Clindamycin/D5W 900 MG in Premix Bag 1 BAG IVPB SCH ×2 (03:01→09:34)
[2020-11-09 08:25] LABS: #Eosinphils 0.4 thou/uL (0.0-0.7); #Monocytes 0.8 thou/uL (0.11-0.59); #Neutrophils 3.7 thou/uL (1.40-6.50); %Basophils 0.4 % (0.0-1.0); %Eosinophils 6.3 % (0.0-10.0); %Lymphocytes 17.7 % (21.0-51.0); %Neutrophils 62.5 % (42.0-75.0); Hemoglobin 12.4 g/dL (14.0-18.0); Mean Corpuscular HGB CONC 31.5 g/dL (32.0-36.0); Mean Corpuscular Hemoglobin 32.1 pg (27.0-31.0); Mean Platelet Volume 8.7 fL (7.4-10.4); Platelet Count 145 thou/uL (130-400); RBC Distribution Width 15.4 % (11.5-14.5); Red Blood Cell (RBC) Count 3.87 mill/uL (4.70-6.10); White Blood Cell (WBC) Count 5.9 thou/uL (4.8-10.8)
[2020-11-09 08:49] LABS: Anion Gap 20 mmol/L (10-20); BUN (Urea Nitrogen) 25 mg/dL (8.4-25.7); Calc. Creatinine Clearance 14 mL/min (70-130); Carbon Dioxide 23 mmol/L (23-31); Chloride 95 mmol/L (98-107); Glucose 143 mg/dL (83-110); Potassium 4.2 mmol/L (3.5-5.1); Sodium 134 mmol/L (136-145)
[2020-11-09] MEDS: Saccharomyces boulardii 250 MG CAP PO SCH (09:34)
[2020-11-09] MEDS: Aspirin 81 mg Enteric Coated Tablet PO SCH (09:34)
[2020-11-09] MEDS: Ondansetron PF 4 MG/2 ML Vial IVP PRN (09:34)
[2020-11-09] MEDS: Carvedilol 3.125 MG TAB PO SCH (09:34)
[2020-11-09] MEDS: Senokot S 8.6-50 MG TAB PO SCH ×2 (09:35→21:40)
[2020-11-09] MEDS: Polyethylene Glycol 3350 17 GM Packet PO SCH (09:35)
[2020-11-09] MEDS ORDERED: Mag-Al 1200 mg/1200 mg/30 ML UDCUP PO PRN (12:44)
[2020-11-09] MEDS ORDERED: Clindamycin/D5W 300 MG/50 ML BAG IVPB SCH (12:45)
[2020-11-09] MEDS: Carvedilol 6.25 MG TAB PO SCH (16:36)
[2020-11-09] MEDS: Clindamycin/D5W 300 MG in Premix Bag 1 BAG IVPB SCH (16:36)
[2020-11-09] MEDS: HYDROcodone/Acetaminophen 5/325 mg Tablet PO PRN (16:54)
[2020-11-10] MEDS: Clindamycin/D5W 300 MG in Premix Bag 1 BAG IVPB SCH ×2 (00:55→12:36)
[2020-11-10 04:29] LABS: #Eosinphils 0.4 thou/uL (0.0-0.7); #Lymphocytes 0.8 thou/uL (1.20-3.40); #Monocytes 0.6 thou/uL (0.11-0.59); #Neutrophils 2.4 thou/uL (1.40-6.50); %Basophils 1.2 % (0.0-1.0); %Eosinophils 9.2 % (0.0-10.0); %Monocytes 13.7 % (0.0-10.0); Hemoglobin 10.9 g/dL (14.0-18.0); Mean Corpuscular HGB CONC 32.7 g/dL (32.0-36.0); Platelet Count 121 thou/uL (130-400); RBC Distribution Width 15.2 % (11.5-14.5); Red Blood Cell (RBC) Count 3.29 mill/uL (4.70-6.10); White Blood Cell (WBC) Count 4.2 thou/uL (4.8-10.8)
[2020-11-10 04:53] LABS: Anion Gap 19 mmol/L (10-20); BUN (Urea Nitrogen) 33 mg/dL (8.4-25.7); Calc. Creatinine Clearance 13 mL/min (70-130); Calcium 8.7 mg/dL (7.8-10.44); Carbon Dioxide 25 mmol/L (23-31); Chloride 97 mmol/L (98-107); Glucose 196 mg/dL (83-110); Potassium 4.8 mmol/L (3.5-5.1); Sodium 136 mmol/L (136-145)
[2020-11-10] MEDS ORDERED: Iopamidol 370 76% 50 ML VIAL FS ONE (09:05)
[2020-11-10] MEDS: Carvedilol 6.25 MG TAB PO SCH ×2 (12:34→17:13)
[2020-11-10] MEDS: Aspirin 81 mg Enteric Coated Tablet PO SCH (12:35)
[2020-11-10] MEDS: Polyethylene Glycol 3350 17 GM Packet PO SCH (12:37)
[2020-11-10] MEDS: Senokot S 8.6-50 MG TAB PO SCH ×2 (12:37→21:28)
[2020-11-10] MEDS: Saccharomyces boulardii 250 MG CAP PO SCH (12:37)
[2020-11-10] MEDS ORDERED: Lidocaine 1% (PF) 30 ML VIAL ONE (14:17)
[2020-11-10] MEDS: HYDROcodone/Acetaminophen 5/325 mg Tablet PO PRN (23:17)
[2020-11-11 04:33] LABS: #Eosinphils 0.4 thou/uL (0.0-0.7); #Lymphocytes 1.2 thou/uL (1.20-3.40); #Monocytes 0.6 thou/uL (0.11-0.59); #Neutrophils 2.9 thou/uL (1.40-6.50); %Basophils 0.3 % (0.0-1.0); %Eosinophils 8.1 % (0.0-10.0); %Monocytes 11.6 % (0.0-10.0); Hemoglobin 10.9 g/dL (14.0-18.0); Mean Corpuscular HGB CONC 33.5 g/dL (32.0-36.0); Platelet Count 129 thou/uL (130-400); RBC Distribution Width 15.2 % (11.5-14.5); Red Blood Cell (RBC) Count 3.21 mill/uL (4.70-6.10); White Blood Cell (WBC) Count 5.1 thou/uL (4.8-10.8)
[2020-11-11 04:48] LABS: Anion Gap 19 mmol/L (10-20); BUN (Urea Nitrogen) 27 mg/dL (8.4-25.7); Calc. Creatinine Clearance 15 mL/min (70-130); Calcium 8.4 mg/dL (7.8-10.44); Carbon Dioxide 22 mmol/L (23-31); Chloride 97 mmol/L (98-107); Glucose 212 mg/dL (83-110); Potassium 4.7 mmol/L (3.5-5.1); Sodium 133 mmol/L (136-145)
[2020-11-11] MEDS: Aspirin 81 mg Enteric Coated Tablet PO SCH (09:14)
[2020-11-11] MEDS: Carvedilol 6.25 MG TAB PO SCH ×2 (09:14→17:40)
[2020-11-11] MEDS: Polyethylene Glycol 3350 17 GM Packet PO SCH (09:15)
[2020-11-11] MEDS: Saccharomyces boulardii 250 MG CAP PO SCH (09:15)
[2020-11-11] MEDS: Senokot S 8.6-50 MG TAB PO SCH ×2 (09:15→21:13)
[2020-11-11] MEDS: HYDROcodone/Acetaminophen 5/325 mg Tablet PO PRN (09:16)
[2020-11-11] MEDS: HumaLOG 300 UNITS/3 ML VIAL SC PRN (12:09)
[2020-11-11] MEDS ORDERED: Lantus 1000 UNITS/10 ML VIAL SC SCH (14:50)
[2020-11-11] MEDS: Ondansetron PF 4 MG/2 ML Vial IVP PRN (17:56)
[2020-11-12 04:22] LABS: #Eosinphils 0.4 thou/uL (0.0-0.7); #Lymphocytes 1.2 thou/uL (1.20-3.40); #Monocytes 0.7 thou/uL (0.11-0.59); #Neutrophils 3.4 thou/uL (1.40-6.50); %Basophils 0.9 % (0.0-1.0); %Eosinophils 7.7 % (0.0-10.0); %Lymphocytes 20.2 % (21.0-51.0); %Monocytes 12.7 % (0.0-10.0); %Neutrophils 58.6 % (42.0-75.0); Hemoglobin 10.8 g/dL (14.0-18.0); Mean Corpuscular HGB CONC 33.2 g/dL (32.0-36.0); Mean Corpuscular Hemoglobin 33.8 pg (27.0-31.0); Platelet Count 134 thou/uL (130-400); RBC Distribution Width 15.2 % (11.5-14.5); Red Blood Cell (RBC) Count 3.18 mill/uL (4.70-6.10); White Blood Cell (WBC) Count 5.8 thou/uL (4.8-10.8)
[2020-11-12 04:46] LABS: Anion Gap 19 mmol/L (10-20); BUN (Urea Nitrogen) 38 mg/dL (8.4-25.7); Calc. Creatinine Clearance 12 mL/min (70-130); Calcium 8.7 mg/dL (7.8-10.44); Carbon Dioxide 24 mmol/L (23-31); Chloride 95 mmol/L (98-107); Glucose 214 mg/dL (83-110); Potassium 4.8 mmol/L (3.5-5.1); Sodium 133 mmol/L (136-145)
[2020-11-12] MEDS: Ondansetron PF 4 MG/2 ML Vial IVP PRN (07:39)
[2020-11-12] MEDS: Lantus 1000 UNITS/10 ML VIAL SC SCH (08:28)
[2020-11-12] MEDS: Senokot S 8.6-50 MG TAB PO SCH ×2 (08:29→21:38)
[2020-11-12] MEDS: Polyethylene Glycol 3350 17 GM Packet PO SCH (08:29)
[2020-11-12] MEDS: Saccharomyces boulardii 250 MG CAP PO SCH (08:29)
[2020-11-12] MEDS ORDERED: Insulin Glargine 15 UNITS in Pre-Filled Syringe 1 EACH SC SCH (09:00)
[2020-11-12] MEDS: Carvedilol 6.25 MG TAB PO SCH ×2 (10:44→17:05)
[2020-11-12] MEDS: Aspirin 81 mg Enteric Coated Tablet PO SCH (10:44)
[2020-11-12 12:07] LABS: Vancomycin, Random 10.3 ug/mL (See Comment)
[2020-11-12] MEDS: HYDROcodone/Acetaminophen 5/325 mg Tablet PO PRN (21:37)
[2020-11-12] MEDS: HumaLOG 300 UNITS/3 ML VIAL SC PRN (21:37)
[2020-11-13] MEDS: Aspirin 81 mg Enteric Coated Tablet PO SCH (09:15)
[2020-11-13] MEDS: Carvedilol 6.25 MG TAB PO SCH ×2 (09:17→18:48)
[2020-11-13] MEDS: Lantus 1000 UNITS/10 ML VIAL SC SCH (09:21)
[2020-11-13] MEDS: Saccharomyces boulardii 250 MG CAP PO SCH (09:24)
[2020-11-13] MEDS: Polyethylene Glycol 3350 17 GM Packet PO SCH (09:24)
[2020-11-13] MEDS: Senokot S 8.6-50 MG TAB PO SCH ×2 (09:24→21:47)
[2020-11-13] MEDS: Ondansetron PF 4 MG/2 ML Vial IVP PRN (09:25)
[2020-11-13] MEDS ORDERED: HumaLOG 300 UNITS/3 ML VIAL SC SCH (18:30)
[2020-11-13] MEDS: HYDROcodone/Acetaminophen 5/325 mg Tablet PO PRN (21:46)
[2020-11-14 05:16] LABS: #Basophils 0.1 thou/uL (0.0-0.2); #Eosinphils 0.4 thou/uL (0.0-0.7); #Lymphocytes 1.2 thou/uL (1.20-3.40); #Monocytes 0.6 thou/uL (0.11-0.59); #Neutrophils 3.6 thou/uL (1.40-6.50); %Basophils 0.9 % (0.0-1.0); %Eosinophils 7.6 % (0.0-10.0); %Lymphocytes 20.2 % (21.0-51.0); %Monocytes 10.6 % (0.0-10.0); %Neutrophils 60.7 % (42.0-75.0); Hemoglobin 11.3 g/dL (14.0-18.0); Mean Corpuscular HGB CONC 32.5 g/dL (32.0-36.0); Mean Corpuscular Hemoglobin 33.2 pg (27.0-31.0); Mean Platelet Volume 8.7 fL (7.4-10.4); Platelet Count 140 thou/uL (130-400); RBC Distribution Width 15.3 % (11.5-14.5); Red Blood Cell (RBC) Count 3.39 mill/uL (4.70-6.10); White Blood Cell (WBC) Count 5.9 thou/uL (4.8-10.8)
[2020-11-14 05:36] LABS: ALT (SGPT) 7 U/L (8-55); AST (SGOT) 11 U/L (5-34); Alkaline Phosphatase 80 U/L (40-110); Anion Gap 16 mmol/L (10-20); BUN (Urea Nitrogen) 33 mg/dL (8.4-25.7); Bilirubin, Total 0.6 mg/dL (0.2-1.2); Calc. Creatinine Clearance 13 mL/min (70-130); Carbon Dioxide 26 mmol/L (23-31); Chloride 97 mmol/L (98-107); Globulin 3.6 g/dL (2.4-3.5); Glucose 200 mg/dL (83-110); Potassium 4.3 mmol/L (3.5-5.1); Protein, Total 6.6 g/dL (5.8-8.1); Sodium 135 mmol/L (136-145)
[2020-11-14] MEDS: HumaLOG 300 UNITS/3 ML VIAL SC PRN ×2 (07:17→20:49)
[2020-11-14] MEDS: Aspirin 81 mg Enteric Coated Tablet PO SCH (08:59)
[2020-11-14] MEDS: Carvedilol 6.25 MG TAB PO SCH ×2 (09:00→20:37)
[2020-11-14] MEDS: Lantus 1000 UNITS/10 ML VIAL SC SCH (09:28)
[2020-11-14] MEDS: Polyethylene Glycol 3350 17 GM Packet PO SCH (09:28)
[2020-11-14] MEDS: Saccharomyces boulardii 250 MG CAP PO SCH (09:29)
[2020-11-14] MEDS: Senokot S 8.6-50 MG TAB PO SCH ×2 (09:29→20:38)
[2020-11-14] MEDS: EPOETIN ALFA-EPBX (ESRD) 4,000 UNIT/ML VIAL SC SCH (10:24)
[2020-11-14] MEDS: HYDROcodone/Acetaminophen 5/325 mg Tablet PO PRN (20:44)
[2020-11-15] MEDS ORDERED: Evolocumab [Repatha Syringe] 140 MG/ML Syringe SC SCH (06:00)
[2020-11-15] MEDS: Saccharomyces boulardii 250 MG CAP PO SCH (09:09)
[2020-11-15] MEDS: Carvedilol 6.25 MG TAB PO SCH ×2 (09:09→16:42)
[2020-11-15] MEDS: Lantus 1000 UNITS/10 ML VIAL SC SCH (09:09)
[2020-11-15] MEDS: Senokot S 8.6-50 MG TAB PO SCH ×2 (09:10→21:24)
[2020-11-15] MEDS: Polyethylene Glycol 3350 17 GM Packet PO SCH (09:10)
[2020-11-15] MEDS: Aspirin 81 mg Enteric Coated Tablet PO SCH (09:10)
[2020-11-15] MEDS: HYDROcodone/Acetaminophen 5/325 mg Tablet PO PRN ×2 (10:42→23:17)
[2020-11-15] MEDS: HumaLOG 300 UNITS/3 ML VIAL SC PRN (12:25)
[2020-11-15] MEDS ORDERED: Lantus 1000 UNITS/10 ML VIAL SC SCH (21:00)
[2020-11-15] MEDS: Heparin 5,000 UNITS/ML VIAL SC SCH (21:22)
[2020-11-16 05:21] LABS: #Eosinphils 0.4 thou/uL (0.0-0.7); #Lymphocytes 1.1 thou/uL (1.20-3.40); #Monocytes 0.7 thou/uL (0.11-0.59); #Neutrophils 3.8 thou/uL (1.40-6.50); %Basophils 0.7 % (0.0-1.0); %Eosinophils 6.4 % (0.0-10.0); %Lymphocytes 18.3 % (21.0-51.0); %Monocytes 11.5 % (0.0-10.0); %Neutrophils 63.2 % (42.0-75.0); Hemoglobin 10.9 g/dL (14.0-18.0); Mean Corpuscular Hemoglobin 33.8 pg (27.0-31.0); Mean Platelet Volume 8.8 fL (7.4-10.4); Platelet Count 131 thou/uL (130-400); RBC Distribution Width 14.9 % (11.5-14.5); Red Blood Cell (RBC) Count 3.23 mill/uL (4.70-6.10); White Blood Cell (WBC) Count 6.1 thou/uL (4.8-10.8)
[2020-11-16] MEDS ORDERED: HYDROcodone/Acetaminophen 5/325 mg Tablet PO PRN ×2 (08:07→08:08)
[2020-11-16] MEDS: Carvedilol 6.25 MG TAB PO SCH ×2 (09:37→16:33)
[2020-11-16] MEDS: Aspirin 81 mg Enteric Coated Tablet PO SCH (09:37)
[2020-11-16] MEDS: Polyethylene Glycol 3350 17 GM Packet PO SCH (09:39)
[2020-11-16] MEDS: Heparin 5,000 UNITS/ML VIAL SC SCH ×2 (09:40→21:01)
[2020-11-16] MEDS: Senokot S 8.6-50 MG TAB PO SCH (09:40)
[2020-11-16] MEDS: Saccharomyces boulardii 250 MG CAP PO SCH (09:40)
[2020-11-16] MEDS: Lantus 1000 UNITS/10 ML VIAL SC SCH ×2 (10:31→21:03)
[2020-11-16] MEDS ORDERED: Senokot S 8.6-50 MG TAB PO PRN (11:37)
[2020-11-16] MEDS: HumaLOG 300 UNITS/3 ML VIAL SC PRN ×2 (12:23→17:42)
[2020-11-17 04:40] LABS: #Eosinphils 0.4 thou/uL (0.0-0.7); #Lymphocytes 1.3 thou/uL (1.20-3.40); #Monocytes 0.6 thou/uL (0.11-0.59); #Neutrophils 3.4 thou/uL (1.40-6.50); %Basophils 0.6 % (0.0-1.0); %Eosinophils 6.6 % (0.0-10.0); %Lymphocytes 22.3 % (21.0-51.0); %Monocytes 11.1 % (0.0-10.0); %Neutrophils 59.4 % (42.0-75.0); Hemoglobin 11.4 g/dL (14.0-18.0); Mean Corpuscular HGB CONC 32.1 g/dL (32.0-36.0); Mean Corpuscular Hemoglobin 32.7 pg (27.0-31.0); Mean Platelet Volume 8.8 fL (7.4-10.4); Platelet Count 128 thou/uL (130-400); RBC Distribution Width 15.1 % (11.5-14.5); Red Blood Cell (RBC) Count 3.47 mill/uL (4.70-6.10); White Blood Cell (WBC) Count 5.8 thou/uL (4.8-10.8)
[2020-11-17 05:02] LABS: Anion Gap 16 mmol/L (10-20); BUN (Urea Nitrogen) 37 mg/dL (8.4-25.7); Calc. Creatinine Clearance 13 mL/min (70-130); Calcium 9.1 mg/dL (7.8-10.44); Carbon Dioxide 23 mmol/L (23-31); Chloride 99 mmol/L (98-107); Glucose 297 mg/dL (83-110); Potassium 4.9 mmol/L (3.5-5.1); Sodium 133 mmol/L (136-145)
[2020-11-17] MEDS ORDERED: Heparin 10,000 UNITS/ 10 ML VIAL ONE (09:00)
[2020-11-17] MEDS: Carvedilol 6.25 MG TAB PO SCH ×2 (13:13→16:55)
[2020-11-17] MEDS: Heparin 5,000 UNITS/ML VIAL SC SCH ×2 (13:13→20:03)
[2020-11-17] MEDS: Aspirin 81 mg Enteric Coated Tablet PO SCH (14:18)
[2020-11-17] MEDS: Saccharomyces boulardii 250 MG CAP PO SCH (14:49)
[2020-11-17] MEDS: Lantus 1000 UNITS/10 ML VIAL SC SCH ×2 (14:49→21:34)
[2020-11-17] MEDS: HumaLOG 300 UNITS/3 ML VIAL SC PRN (16:55)
[2020-11-18 04:39] LABS: #Basophils 0.1 thou/uL (0.0-0.2); #Eosinphils 0.3 thou/uL (0.0-0.7); #Lymphocytes 1.3 thou/uL (1.20-3.40); #Monocytes 0.6 thou/uL (0.11-0.59); #Neutrophils 4.1 thou/uL (1.40-6.50); %Basophils 0.9 % (0.0-1.0); %Eosinophils 5.1 % (0.0-10.0); %Lymphocytes 19.8 % (21.0-51.0); %Monocytes 9.2 % (0.0-10.0); Hemoglobin 11.7 g/dL (14.0-18.0); Mean Corpuscular HGB CONC 32.2 g/dL (32.0-36.0); Mean Corpuscular Hemoglobin 32.5 pg (27.0-31.0); Mean Platelet Volume 8.8 fL (7.4-10.4); Platelet Count 129 thou/uL (130-400); RBC Distribution Width 14.9 % (11.5-14.5); White Blood Cell (WBC) Count 6.4 thou/uL (4.8-10.8)
[2020-11-18 04:55] LABS: Anion Gap 18 mmol/L (10-20); BUN (Urea Nitrogen) 25 mg/dL (8.4-25.7); Calc. Creatinine Clearance 17 mL/min (70-130); Calcium 9.2 mg/dL (7.8-10.44); Carbon Dioxide 25 mmol/L (23-31); Chloride 98 mmol/L (98-107); Glucose 235 mg/dL (83-110); Potassium 4.7 mmol/L (3.5-5.1); Sodium 136 mmol/L (136-145)
[2020-11-18] MEDS: Aspirin 81 mg Enteric Coated Tablet PO SCH (09:35)
[2020-11-18] MEDS: Carvedilol 6.25 MG TAB PO SCH (09:35)
[2020-11-18] MEDS: Saccharomyces boulardii 250 MG CAP PO SCH (09:35)
[2020-11-18] MEDS: Heparin 5,000 UNITS/ML VIAL SC SCH (09:36)
[2020-11-18] MEDS: Lantus 1000 UNITS/10 ML VIAL SC SCH ×2 (09:38→11:58)
[2020-11-18 09:59] VITALS: BMI 24.6
[2020-11-18] MEDS: Ondansetron PF 4 MG/2 ML Vial IVP PRN (12:03)
[2020-11-18 12:27] VITALS: TEMP 97.4
[2020-11-18 17:57] VITALS: BP 123/63
[2020-11-21] MEDS ORDERED: Evolocumab [Repatha Syringe] 140 MG/ML Syringe SC SCH (16:00)
== END 2020-11-18 15:20 | DRG 280 ==
LOC: 2NO 20:31 → OBSVTOIN 11-06 10:04
PROVIDERS: ADMIT Internal Medicine; ATTEND Internal Medicine
PROC: 5A1D70Z Performance of Urinary Filtration, Intermittent, Less than 6 Hours Per Day (ICD-10-PCS; principal; 2020-11-06)
PROC: 4A023N7 Measurement of Cardiac Sampling and Pressure, Left Heart, Percutaneous Approach (ICD-10-PCS; 2020-11-06)
PROC: B2111ZZ Fluoroscopy of Multiple Coronary Arteries using Low Osmolar Contrast (ICD-10-PCS; 2020-11-06)
PROC: B41D1ZZ Fluoroscopy of Aorta and Bilateral Lower Extremity Arteries using Low Osmolar Contrast (ICD-10-PCS; 2020-11-11)
DX: I13.2 Hypertensive heart and chronic kidney disease with heart failure and with stage 5 chronic kidney disease, or end stage renal disease (principal); N18.6 End stage renal disease; I21.4 Non-ST elevation (NSTEMI) myocardial infarction; I50.43 Acute on chronic combined systolic (congestive) and diastolic (congestive) heart failure; E11.52 Type 2 diabetes mellitus with diabetic peripheral angiopathy with gangrene; I96 Gangrene, not elsewhere classified; C64.2 Malignant neoplasm of left kidney, except renal pelvis; I25.810 Atherosclerosis of coronary artery bypass graft(s) without angina pectoris; E11.22 Type 2 diabetes mellitus with diabetic chronic kidney disease; S91.102A Unspecified open wound of left great toe without damage to nail, initial encounter; I44.7 Left bundle-branch block, unspecified; I25.5 Ischemic cardiomyopathy; I99.8 Other disorder of circulatory system; E87.5 Hyperkalemia; D63.1 Anemia in chronic kidney disease; E78.2 Mixed hyperlipidemia; E11.649 Type 2 diabetes mellitus with hypoglycemia without coma; R11.0 Nausea; Z99.3 Dependence on wheelchair; Z99.2 Dependence on renal dialysis; Z88.2 Allergy status to sulfonamides; Z79.4 Long term (current) use of insulin; Z79.82 Long term (current) use of aspirin; Z88.1 Allergy status to other antibiotic agents; Z95.1 Presence of aortocoronary bypass graft; Z95.810 Presence of automatic (implantable) cardiac defibrillator
CPT/HCPCS: 36246; 36415; 36416; 71045; 75630; 75710; 76942; 80048; 80053; 80061; 80202; 82553; 83605; 83735; 83880; 84443; 84484; 85025; 85610; 85652; 85730; 86140; 90935; 93005; 93010; 93306; 93970; 96365; 96367; 96372; 96375; 96376; G0257; G0378; J1644; J1650; J1815; J2001; J2270; J2405; J3370; J3475; J3490; Q0162; Q5105; Q9967

== ENCOUNTER 2020-11-21 14:00 | Inpatient (IN) | payer MEDICARE ==
[2020-11-25 15:45] VITALS: BMI 25.6
[2020-11-26] MEDS ORDERED: Heparin 5,000 UNITS/ML VIAL ONE (06:29)
[2020-11-26] MEDS ORDERED: Midazolam HCl 2 mg/2 ml Vial ONE (06:30)
[2020-11-26] MEDS ORDERED: Fentanyl 100 MCG/2 ML VIAL ONE ×4 (06:30→10:53)
[2020-11-26] MEDS ORDERED: Protamine Sulfate 50 MG/5 ML VIAL ONE (06:47)
[2020-11-26 06:55] LABS: #Eosinphils 0.6 thou/uL (0.0-0.7); #Lymphocytes 1.6 thou/uL (1.20-3.40); #Monocytes 0.9 thou/uL (0.11-0.59); #Neutrophils 4.6 thou/uL (1.40-6.50); %Basophils 0.4 % (0.0-1.0); %Eosinophils 7.6 % (0.0-10.0); %Lymphocytes 20.9 % (21.0-51.0); %Monocytes 11.8 % (0.0-10.0); %Neutrophils 59.3 % (42.0-75.0); Hemoglobin 11.4 g/dL (14.0-18.0); Mean Corpuscular HGB CONC 31.7 g/dL (32.0-36.0); Mean Corpuscular Hemoglobin 32.5 pg (27.0-31.0); Mean Platelet Volume 8.5 fL (7.4-10.4); Platelet Count 144 thou/uL (130-400); Red Blood Cell (RBC) Count 3.51 mill/uL (4.70-6.10); White Blood Cell (WBC) Count 7.7 thou/uL (4.8-10.8)
[2020-11-26 07:00] LABS: INR-International Normal Ratio 1.1; PTT 33.2 sec (22.9-36.1); Prothrombin Time 14.7 sec (12.0-14.7)
[2020-11-26 07:17] LABS: Anion Gap 14 mmol/L (10-20); BUN (Urea Nitrogen) 25 mg/dL (8.4-25.7); Calc. Creatinine Clearance 16 mL/min (70-130); Calcium 9.3 mg/dL (7.8-10.44); Carbon Dioxide 34 mmol/L (23-31); Chloride 95 mmol/L (98-107); Glucose 62 mg/dL (83-110); Potassium 4.1 mmol/L (3.5-5.1); Sodium 139 mmol/L (136-145)
[2020-11-26] MEDS ORDERED: Ondansetron PF 4 MG/2 ML Vial ONE ×2 (07:35→09:08)
[2020-11-26] MEDS ORDERED: Rocuronium Bromide 10 MG/ML (10ML VIAL) ONE (07:35)
[2020-11-26] MEDS ORDERED: PROPOFOL 200 MG/20 ML VIAL ONE (07:35)
[2020-11-26] MEDS ORDERED: Glycopyrrolate 0.2 MG/ML 5 ML SYRINGE ONE (07:35)
[2020-11-26] MEDS ORDERED: Ketorolac Tromethamine 30 MG/ML VIAL ONE (07:35)
[2020-11-26] MEDS ORDERED: Lidocaine 1% PF 5 ML VIAL ONE (07:35)
[2020-11-26] MEDS ORDERED: Dexamethasone 20 MG/5 ML VIAL ONE (07:35)
[2020-11-26] MEDS ORDERED: Ondansetron HCl/PF 4 MG/2 ML Vial IVP PRN (09:12)
[2020-11-26] MEDS ORDERED: Promethazine HCl 25 MG/ML VIAL SLOW IVP PRN (09:12)
[2020-11-26] MEDS ORDERED: Promethazine HCl 25 MG/ML VIAL IM PRN (09:12)
[2020-11-26] MEDS ORDERED: Senokot S 8.6-50 MG TAB PO PRN (09:22)
[2020-11-26] MEDS ORDERED: Dextrose 50% Abboject 50 ML SYRINGE SLOW IVP PRN (09:22)
[2020-11-26] MEDS ORDERED: Insulin Regular 300 UNITS/3 ML VIAL SC PRN (09:22)
[2020-11-26] MEDS ORDERED: Bisacodyl 10 MG SUPP PR PRN (09:22)
[2020-11-26] MEDS ORDERED: Acetaminophen 325 MG TAB PO PRN (09:22)
[2020-11-26] MEDS ORDERED: Calcium Carbonate 500 MG ChewTAB PO PRN (09:22)
[2020-11-26] MEDS ORDERED: Ondansetron ODT 4 MG TAB PO PRN (09:22)
[2020-11-26] MEDS ORDERED: Dextrose 5% in Water 1,000 ML IV PRN (09:22)
[2020-11-26] MEDS ORDERED: Bisacodyl 5 MG TAB PO PRN (09:22)
[2020-11-26] MEDS ORDERED: HYDROcodone/Acetaminophen 5/325 mg Tablet ONE (11:10)
[2020-11-26] MEDS: Carvedilol 6.25 MG TAB PO SCH (19:09)
[2020-11-26] MEDS: HYDROcodone/Acetaminophen 5/325 mg Tablet PO PRN ×2 (19:14→23:51)
[2020-11-26] MEDS ORDERED: Lantus 1000 UNITS/10 ML VIAL SC SCH (21:00)
[2020-11-26] MEDS: Heparin 5,000 UNITS/ML VIAL SC SCH (21:12)
[2020-11-27] MEDS: HYDROcodone/Acetaminophen 5/325 mg Tablet PO PRN ×3 (06:26→15:10)
[2020-11-27] MEDS: Carvedilol 6.25 MG TAB PO SCH (08:37)
[2020-11-27] MEDS: Heparin 5,000 UNITS/ML VIAL SC SCH (08:37)
[2020-11-27] MEDS ORDERED: Lantus 1000 UNITS/10 ML VIAL SC SCH (09:00)
[2020-11-27 11:16] VITALS: BP 136/71; TEMP 97.1
== END 2020-11-27 15:20 | DRG 252 ==
LOC: SURG A 11-26 06:07 → EDSTATUS 11-26 14:00 → T4-A 11-26 18:32
PROVIDERS: ADMIT Thoracic Surgery (Cardiothoracic Vascular Surgery); ATTEND Thoracic Surgery (Cardiothoracic Vascular Surgery)
PROC: 04JY0ZZ Inspection of Lower Artery, Open Approach (ICD-10-PCS; principal; 2020-11-26)
PROC: 5A1D70Z Performance of Urinary Filtration, Intermittent, Less than 6 Hours Per Day (ICD-10-PCS; 2020-11-26)
DX: E11.52 Type 2 diabetes mellitus with diabetic peripheral angiopathy with gangrene (principal); N18.6 End stage renal disease; I13.2 Hypertensive heart and chronic kidney disease with heart failure and with stage 5 chronic kidney disease, or end stage renal disease; I25.10 Atherosclerotic heart disease of native coronary artery without angina pectoris; Z20.822 Contact with and (suspected) exposure to COVID-19; J44.9 Chronic obstructive pulmonary disease, unspecified; I50.9 Heart failure, unspecified; K21.9 Gastro-esophageal reflux disease without esophagitis; D63.1 Anemia in chronic kidney disease; Z99.2 Dependence on renal dialysis; Z87.891 Personal history of nicotine dependence; Z88.1 Allergy status to other antibiotic agents; Z88.2 Allergy status to sulfonamides; Z88.8 Allergy status to other drugs, medicaments and biological substances; Z95.810 Presence of automatic (implantable) cardiac defibrillator; Z79.82 Long term (current) use of aspirin; Z79.4 Long term (current) use of insulin; Z79.899 Other long term (current) drug therapy; Z85.528 Personal history of other malignant neoplasm of kidney; Z90.5 Acquired absence of kidney
CPT/HCPCS: 36415; 36416; 80048; 85025; 85610; 85730; 86850; 86900; 86901; 90935; 93005; 93010; G0257; J1100; J1644; J1815; J1885; J2250; J2405; J2704; J2720; J3010; J3370

== ENCOUNTER 2021-03-04 12:31 | Inpatient (IN) | payer MEDICARE ==
[2021-03-04 13:09] LABS: Hemoglobin 11.6 g/dL (14.0-18.0); Mean Corpuscular HGB CONC 33.3 g/dL (32.0-36.0); Mean Corpuscular Hemoglobin 33.8 pg (27.0-31.0); RBC Distribution Width 14.6 % (11.5-14.5); Red Blood Cell (RBC) Count 3.44 mill/uL (4.70-6.10); White Blood Cell (WBC) Count 19.5 thou/uL (4.8-10.8)
[2021-03-04 13:23] LABS: #Lymphocytes 1.1 thou/uL (1.20-3.40); #Monocytes 1.1 thou/uL (0.11-0.59); #Neutrophils 17.2 thou/uL (1.40-6.50); %Basophils 0.2 % (0.0-1.0); %Eosinophils 0.1 % (0.0-10.0); %Lymphocytes 5.6 % (21.0-51.0); %Monocytes 5.8 % (0.0-10.0); %Neutrophils 88.3 % (42.0-75.0); Large Platelets SLIGHT; MDiff Complete? YES; Mean Platelet Volume 9.6 fL (7.4-10.4); Platelet Count 95 thou/uL (130-400); Platelet Morphology Comment Appears Decreased; RBC Morphology Normal
[2021-03-04 13:33] LABS: ALT (SGPT) 9 U/L (8-55); AST (SGOT) 15 U/L (5-34); Albumin 3.5 g/dL (3.4-4.8); Alkaline Phosphatase 147 U/L (40-110); Anion Gap 22 mmol/L (10-20); BUN (Urea Nitrogen) 42 mg/dL (8.4-25.7); Calc. Creatinine Clearance 0 mL/min (70-130); Calcium 9.3 mg/dL (7.8-10.44); Carbon Dioxide 22 mmol/L (23-31); Chloride 93 mmol/L (98-107); Glucose 331 mg/dL (83-110); Potassium 5.4 mmol/L (3.5-5.1); Protein, Total 7.5 g/dL (5.8-8.1); Sodium 132 mmol/L (136-145)
[2021-03-04 13:53] LABS: CKMB 1.4 ng/mL (0-6.6)
[2021-03-04 13:56] LABS: Actual Bicarbonate (HCO3v) 21 mEq/L (22-28); Analyzer IN Cardio ER; Base Excess 0.1 mEq/L (-2.0 to +3.0); Calcium, Ionized (venous) 0.95 mmol/L (1.16-1.32); Chloride (VBG) 97 mmol/L (98-106); Hemoglobin (Hb) 12.9 g/dL (12.6-17.4); Potassium (VBG) 5.48 mmol/L (3.70-5.30); Sodium 132.7 mmol/L (133-146); pH (venous) 7.55 (7.32-7.43)
[2021-03-04] MEDS ORDERED: Piperacillin/Tazobactam 3.375 GM VIAL ONE (14:15)
[2021-03-04 14:16] LABS: CRP (Inflammatory) 6.53 mg/dL (= or < 0.5)
[2021-03-04] MEDS ORDERED: Aspirin Chewable 81 MG TAB ONE (15:19)
[2021-03-04] MEDS ORDERED: Vancomycin 1 GM/200 ML BAG ONE (15:19)
[2021-03-04 15:39] LABS: Actual Bicarbonate (HCO3a) 22.2 mEq/L (22-28); Analyzer IN Cardio ER; Base Excess (BEa) -0.1 mEq/L (-2.0 to +3.0); CO2 Tension 29.3 mmHg (35.0-45.0); Calcium, Ionized (arterial) 1.11 mmol/L (1.12-1.30); Carboxyhemoglobin (COHb) 0.7 gm% (0.0-3.0); Hemoglobin (Hb) 12.1 g/dL (14.0-18.0); O2 Tension (PaO2), arterial 104.3 mmHg (> 70.0)
[2021-03-04 15:42] LABS: ALV-art Gradient 58.715 mmHg (0-20); Puncture Site LRA
[2021-03-04] MEDS ORDERED: Acetaminophen 325 MG TAB PO PRN (16:21)
[2021-03-04] MEDS ORDERED: HYDROcodone/Acetaminophen 5/325 mg Tablet ONE (16:25)
[2021-03-04] MEDS ORDERED: Dextrose 50% Abboject 50 ML SYRINGE SLOW IVP PRN (16:25)
[2021-03-04] MEDS ORDERED: Dextrose 5% in Water 1,000 ML IV PRN (16:25)
[2021-03-04] MEDS ORDERED: Vancomycin 1 GM in Premix Bag 1 BAG IVPB SCH ×3 (16:46→22:45)
[2021-03-04] MEDS ORDERED: Aztreonam 2 GM in Sodium Chloride 0.9% 100 ML IVPB SCH (17:00)
[2021-03-04 17:52] LABS: SARS-CoV-2 NAA Rapid Test Not Detected (NotDetected)
[2021-03-04 18:51] LABS: Lactic Acid 1.5 mmol/L (0.5-2.2)
[2021-03-04 19:02] LABS: Glucose 195 mg/dL (83-110)
[2021-03-04 19:29] LABS: Troponin I 2.449 ng/mL (< 0.028)
[2021-03-04] MEDS ORDERED: Lantus 1000 UNITS/10 ML VIAL SC SCH (21:00)
[2021-03-04 21:25] LABS: Glucose 144 mg/dL (83-110)
[2021-03-04 21:38] LABS: Troponin I 2.556 ng/mL (< 0.028)
[2021-03-04] MEDS: HYDROcodone/Acetaminophen 10/325 mg Tablet PO PRN (22:27)
[2021-03-04] MEDS: Heparin 5,000 UNITS/ML VIAL SC SCH (22:27)
[2021-03-04] MEDS ORDERED: HOLD VANCOMYCIN FOR LEVEL >20 FS SCH (22:45)
[2021-03-04] MEDS ORDERED: Vancomycin HCl 500 MG in Sodium Chloride 0.9% 100 ML IVPB SCH ×2 (22:45→23:00)
[2021-03-04] MEDS ORDERED: Vancomycin HCl 1.25 GM in Sodium Chloride 0.9% 250 ML 250 ML IVPB SCH (22:45)
[2021-03-04] MEDS ORDERED: Vancomycin HCl 750 MG in Sodium Chloride 0.9% 250 ML 250 ML IVPB SCH (22:45)
[2021-03-05 00:32] LABS: Troponin I 2.061 ng/mL (< 0.028)
[2021-03-05] MEDS: Lantus 1000 UNITS/10 ML VIAL SC SCH ×2 (01:55→22:06)
[2021-03-05 04:42] LABS: #Lymphocytes 1.6 thou/uL (1.20-3.40); #Monocytes 0.6 thou/uL (0.11-0.59); %Basophils 0.4 % (0.0-1.0); %Eosinophils 0.2 % (0.0-10.0); %Lymphocytes 14.1 % (21.0-51.0); %Monocytes 5.5 % (0.0-10.0); %Neutrophils 79.8 % (42.0-75.0); Hemoglobin 11.9 g/dL (14.0-18.0); Mean Corpuscular HGB CONC 33.4 g/dL (32.0-36.0); Mean Corpuscular Hemoglobin 34.1 pg (27.0-31.0); Mean Platelet Volume 9.3 fL (7.4-10.4); Platelet Count 86 thou/uL (130-400); RBC Distribution Width 14.6 % (11.5-14.5); White Blood Cell (WBC) Count 11.2 thou/uL (4.8-10.8)
[2021-03-05 05:00] LABS: Chloride 95 mmol/L (98-107); Potassium 4.3 mmol/L (3.5-5.1); Sodium 133 mmol/L (136-145)
[2021-03-05 05:01] LABS: Calcium 9.9 mg/dL (7.8-10.44); Glucose 213 mg/dL (83-110)
[2021-03-05 05:03] LABS: Carbon Dioxide 27 mmol/L (23-31)
[2021-03-05 05:04] LABS: Calc. Creatinine Clearance 18 mL/min (70-130)
[2021-03-05 05:05] LABS: BUN (Urea Nitrogen) 23 mg/dL (8.4-25.7)
[2021-03-05] MEDS: HYDROcodone/Acetaminophen 10/325 mg Tablet PO PRN (05:05)
[2021-03-05] MEDS: Aztreonam 1 GM in Sodium Chloride 0.9% 100 ML IVPB SCH ×2 (05:07→17:17)
[2021-03-05 05:29] LABS: Anion Gap 17 mmol/L (10-20)
[2021-03-05 07:44] LABS: Glucose 236 mg/dL (83-110)
[2021-03-05] MEDS ORDERED: Sodium Chloride 0.9% 10 ML ONE (08:44)
[2021-03-05] MEDS: Aspirin 81 mg Enteric Coated Tablet PO SCH (09:20)
[2021-03-05] MEDS: Saccharomyces boulardii 250 MG CAP PO SCH ×2 (09:20→09:33)
[2021-03-05] MEDS: Heparin 5,000 UNITS/ML VIAL SC SCH ×3 (09:27→22:10)
[2021-03-05] MEDS ORDERED: Albuterol Sulfate 1.25 MG/3 ML NEB NEB PRN (10:01)
[2021-03-05] MEDS ORDERED: Evolocumab [Repatha Syringe] 140 MG/ML Syringe SC SCH (12:00)
[2021-03-05] MEDS: HYDROcodone/Acetaminophen 5/325 mg Tablet PO SCH ×2 (12:21→17:44)
[2021-03-05] MEDS: Carvedilol 6.25 MG TAB PO SCH (17:17)
[2021-03-05] MEDS: Insulin Regular 300 UNITS/3 ML VIAL SC PRN (17:32)
[2021-03-05 22:26] LABS: Vancomycin, Random 10.8 ug/mL (See Comment)
[2021-03-05] MEDS ORDERED: Vancomycin HCl 750 MG in Sodium Chloride 0.9% 250 ML 250 ML IVPB SCH (23:15)
[2021-03-06] MEDS: HYDROcodone/Acetaminophen 5/325 mg Tablet PO SCH ×4 (00:22→18:36)
[2021-03-06 05:04] LABS: #Eosinphils 0.3 thou/uL (0.0-0.7); #Lymphocytes 1.1 thou/uL (1.20-3.40); #Monocytes 0.5 thou/uL (0.11-0.59); #Neutrophils 2.8 thou/uL (1.40-6.50); %Basophils 0.3 % (0.0-1.0); %Eosinophils 5.3 % (0.0-10.0); %Lymphocytes 23.7 % (21.0-51.0); %Monocytes 11.3 % (0.0-10.0); %Neutrophils 59.4 % (42.0-75.0); Hemoglobin 9.5 g/dL (14.0-18.0); Mean Platelet Volume 9.4 fL (7.4-10.4); Platelet Count 88 thou/uL (130-400); RBC Distribution Width 14.2 % (11.5-14.5); Red Blood Cell (RBC) Count 2.88 mill/uL (4.70-6.10); White Blood Cell (WBC) Count 4.7 thou/uL (4.8-10.8)
[2021-03-06 05:16] LABS: Anion Gap 15 mmol/L (10-20); BUN (Urea Nitrogen) 34 mg/dL (8.4-25.7); Calc. Creatinine Clearance 14 mL/min (70-130); Calcium 9.1 mg/dL (7.8-10.44); Carbon Dioxide 26 mmol/L (23-31); Chloride 97 mmol/L (98-107); Glucose 124 mg/dL (83-110); Phosphorus 5.7 mg/dL (2.3-4.7); Sodium 134 mmol/L (136-145)
[2021-03-06] MEDS: Aztreonam 1 GM in Sodium Chloride 0.9% 100 ML IVPB SCH ×2 (05:17→17:51)
[2021-03-06] MEDS: Carvedilol 6.25 MG TAB PO SCH ×2 (08:33→18:36)
[2021-03-06] MEDS: Aspirin 81 mg Enteric Coated Tablet PO SCH (08:33)
[2021-03-06] MEDS: Saccharomyces boulardii 250 MG CAP PO SCH (08:34)
[2021-03-06] MEDS: Heparin 5,000 UNITS/ML VIAL SC SCH ×3 (08:34→21:22)
[2021-03-06] MEDS: Ondansetron PF 4 MG/2 ML Vial IVP PRN ×2 (09:56→21:58)
[2021-03-06] MEDS: Sevelamer Carbonate 800 MG TAB PO SCH ×2 (11:04→17:52)
[2021-03-06 11:10] LABS: Glucose 177 mg/dL (83-110)
[2021-03-06 12:24] LABS: Glucose 175 mg/dL (83-110)
[2021-03-06] MEDS: Lantus 1000 UNITS/10 ML VIAL SC SCH (21:24)
[2021-03-06] MEDS: ALPRAZolam 0.25 MG TAB PO PRN (21:57)
[2021-03-06 23:41] LABS: Vancomycin, Random 13.4 ug/mL (See Comment)
[2021-03-06] MEDS ORDERED: Vancomycin HCl 750 MG in Sodium Chloride 0.9% 250 ML 250 ML IVPB SCH (23:59)
[2021-03-07] MEDS: HYDROcodone/Acetaminophen 5/325 mg Tablet PO SCH ×4 (00:15→17:23)
[2021-03-07] MEDS: Aztreonam 1 GM in Sodium Chloride 0.9% 100 ML IVPB SCH ×2 (04:40→17:23)
[2021-03-07 05:06] LABS: #Eosinphils 0.2 thou/uL (0.0-0.7); #Lymphocytes 1.2 thou/uL (1.20-3.40); #Monocytes 0.5 thou/uL (0.11-0.59); #Neutrophils 2.4 thou/uL (1.40-6.50); %Basophils 0.3 % (0.0-1.0); %Eosinophils 4.5 % (0.0-10.0); %Lymphocytes 28.7 % (21.0-51.0); %Monocytes 10.8 % (0.0-10.0); %Neutrophils 55.7 % (42.0-75.0); Hemoglobin 9.8 g/dL (14.0-18.0); Mean Corpuscular HGB CONC 31.6 g/dL (32.0-36.0); Mean Corpuscular Hemoglobin 32.6 pg (27.0-31.0); Mean Platelet Volume 9.5 fL (7.4-10.4); Platelet Count 98 thou/uL (130-400); RBC Distribution Width 14.1 % (11.5-14.5); Red Blood Cell (RBC) Count 3.01 mill/uL (4.70-6.10); White Blood Cell (WBC) Count 4.3 thou/uL (4.8-10.8)
[2021-03-07 05:25] LABS: Anion Gap 12 mmol/L (10-20); BUN (Urea Nitrogen) 16 mg/dL (8.4-25.7); Calc. Creatinine Clearance 23 mL/min (70-130); Carbon Dioxide 29 mmol/L (23-31); Chloride 101 mmol/L (98-107); Glucose 107 mg/dL (83-110); Potassium 4.1 mmol/L (3.5-5.1); Sodium 138 mmol/L (136-145)
[2021-03-07] MEDS: Saccharomyces boulardii 250 MG CAP PO SCH (09:24)
[2021-03-07] MEDS: Calcitriol 0.25 MCG CAP PO SCH (09:24)
[2021-03-07] MEDS: Carvedilol 6.25 MG TAB PO SCH ×2 (09:24→17:24)
[2021-03-07] MEDS: HYDROcodone/Acetaminophen 10/325 mg Tablet PO PRN (09:25)
[2021-03-07] MEDS: Aspirin 81 mg Enteric Coated Tablet PO SCH (09:26)
[2021-03-07] MEDS: Sevelamer Carbonate 800 MG TAB PO SCH ×3 (09:26→17:24)
[2021-03-07] MEDS: ALPRAZolam 0.25 MG TAB PO PRN (11:43)
[2021-03-07] MEDS: Heparin 5,000 UNITS/ML VIAL SC SCH ×3 (11:43→21:02)
[2021-03-07] MEDS: EPOETIN ALFA-EPBX (ESRD) 4,000 UNIT/ML VIAL SC SCH (12:16)
[2021-03-07] MEDS: Ondansetron PF 4 MG/2 ML Vial IVP PRN (12:36)
[2021-03-07] MEDS: Insulin Regular 300 UNITS/3 ML VIAL SC PRN (17:27)
[2021-03-07] MEDS: Lantus 1000 UNITS/10 ML VIAL SC SCH (21:02)
[2021-03-08 00:15] LABS: Vancomycin, Trough 18.4 ug/mL
[2021-03-08] MEDS: HYDROcodone/Acetaminophen 5/325 mg Tablet PO SCH ×5 (00:36→23:50)
[2021-03-08] MEDS ORDERED: Vancomycin HCl 500 MG in Sodium Chloride 0.9% 100 ML IVPB SCH (03:00)
[2021-03-08] MEDS: Aztreonam 1 GM in Sodium Chloride 0.9% 100 ML IVPB SCH ×2 (04:02→16:16)
[2021-03-08 05:59] LABS: #Eosinphils 0.2 thou/uL (0.0-0.7); #Lymphocytes 1.2 thou/uL (1.20-3.40); #Monocytes 0.5 thou/uL (0.11-0.59); #Neutrophils 2.1 thou/uL (1.40-6.50); %Basophils 0.3 % (0.0-1.0); %Eosinophils 5.1 % (0.0-10.0); %Lymphocytes 29.2 % (21.0-51.0); %Monocytes 12.3 % (0.0-10.0); %Neutrophils 53.1 % (42.0-75.0); Hemoglobin 10.2 g/dL (14.0-18.0); Mean Corpuscular HGB CONC 31.8 g/dL (32.0-36.0); Mean Corpuscular Hemoglobin 33.1 pg (27.0-31.0); Mean Platelet Volume 9.6 fL (7.4-10.4); Platelet Count 98 thou/uL (130-400); RBC Distribution Width 14.2 % (11.5-14.5); Red Blood Cell (RBC) Count 3.09 mill/uL (4.70-6.10); White Blood Cell (WBC) Count 3.9 thou/uL (4.8-10.8)
[2021-03-08 06:08] LABS: Anion Gap 17 mmol/L (10-20); BUN (Urea Nitrogen) 22 mg/dL (8.4-25.7); Calc. Creatinine Clearance 16 mL/min (70-130); Calcium 9.3 mg/dL (7.8-10.44); Carbon Dioxide 26 mmol/L (23-31); Chloride 100 mmol/L (98-107); Glucose 141 mg/dL (83-110); Potassium 4.3 mmol/L (3.5-5.1); Sodium 139 mmol/L (136-145)
[2021-03-08] MEDS: Sevelamer Carbonate 800 MG TAB PO SCH ×3 (10:42→17:35)
[2021-03-08] MEDS: Saccharomyces boulardii 250 MG CAP PO SCH (10:42)
[2021-03-08] MEDS: Aspirin 81 mg Enteric Coated Tablet PO SCH (10:42)
[2021-03-08] MEDS: Calcitriol 0.25 MCG CAP PO SCH (10:43)
[2021-03-08] MEDS: Carvedilol 6.25 MG TAB PO SCH ×2 (10:43→17:35)
[2021-03-08] MEDS: Insulin Regular 300 UNITS/3 ML VIAL SC PRN ×2 (10:45→17:36)
[2021-03-08] MEDS: Heparin 5,000 UNITS/ML VIAL SC SCH ×3 (10:46→22:40)
[2021-03-08] MEDS: EPOETIN ALFA-EPBX (ESRD) 4,000 UNIT/ML VIAL SC SCH (13:05)
[2021-03-08] MEDS: Lantus 1000 UNITS/10 ML VIAL SC SCH (22:40)
[2021-03-09 04:50] LABS: #Eosinphils 0.3 thou/uL (0.0-0.7); #Lymphocytes 1.4 thou/uL (1.20-3.40); #Monocytes 0.6 thou/uL (0.11-0.59); #Neutrophils 3.2 thou/uL (1.40-6.50); %Basophils 0.4 % (0.0-1.0); %Lymphocytes 24.8 % (21.0-51.0); %Neutrophils 57.8 % (42.0-75.0); Hemoglobin 10.5 g/dL (14.0-18.0); Mean Corpuscular HGB CONC 32.4 g/dL (32.0-36.0); Mean Corpuscular Hemoglobin 33.6 pg (27.0-31.0); Mean Platelet Volume 9.3 fL (7.4-10.4); Platelet Count 111 thou/uL (130-400); RBC Distribution Width 14.3 % (11.5-14.5); Red Blood Cell (RBC) Count 3.14 mill/uL (4.70-6.10); White Blood Cell (WBC) Count 5.5 thou/uL (4.8-10.8)
[2021-03-09 04:59] LABS: Vancomycin, Random 20.9 ug/mL (See Comment)
[2021-03-09 05:03] LABS: Anion Gap 17 mmol/L (10-20); BUN (Urea Nitrogen) 30 mg/dL (8.4-25.7); Calc. Creatinine Clearance 14 mL/min (70-130); Calcium 9.7 mg/dL (7.8-10.44); Carbon Dioxide 25 mmol/L (23-31); Chloride 100 mmol/L (98-107); Glucose 171 mg/dL (83-110); Potassium 4.8 mmol/L (3.5-5.1); Sodium 137 mmol/L (136-145)
[2021-03-09] MEDS: HYDROcodone/Acetaminophen 5/325 mg Tablet PO SCH ×4 (05:38→16:40)
[2021-03-09] MEDS: Aztreonam 1 GM in Sodium Chloride 0.9% 100 ML IVPB SCH ×2 (05:42→16:40)
[2021-03-09] MEDS: Carvedilol 6.25 MG TAB PO SCH ×2 (06:59→16:40)
[2021-03-09] MEDS: HYDROcodone/Acetaminophen 10/325 mg Tablet PO PRN (06:59)
[2021-03-09] MEDS: Sevelamer Carbonate 800 MG TAB PO SCH ×3 (10:05→16:38)
[2021-03-09] MEDS: Heparin 5,000 UNITS/ML VIAL SC SCH ×3 (10:05→21:19)
[2021-03-09] MEDS ORDERED: Fentanyl 250 MCG/5 ML VIAL ONE (10:25)
[2021-03-09] MEDS ORDERED: PHENYLEPHRINE-NS 100 MCG/ML 10 ML SYRINGE ONE (10:44)
[2021-03-09] MEDS ORDERED: Phenylephrine 10 MG/ML VIAL ONE (10:45)
[2021-03-09] MEDS ORDERED: Lidocaine 1% PF 5 ML VIAL ONE (11:13)
[2021-03-09] MEDS ORDERED: Ondansetron PF 4 MG/2 ML Vial ONE (11:13)
[2021-03-09] MEDS ORDERED: Succinylcholine 200 MG/10 ml SYRINGE FS ONE (11:13)
[2021-03-09] MEDS ORDERED: Fentanyl 100 MCG/2 ML VIAL ONE ×2 (12:52→13:24)
[2021-03-09] MEDS ORDERED: Fentanyl 100 MCG/2 ML VIAL SLOW IVP PRN (13:18)
[2021-03-09] MEDS: EPOETIN ALFA-EPBX (ESRD) 4,000 UNIT/ML VIAL SC SCH (14:44)
[2021-03-09] MEDS: Calcitriol 0.25 MCG CAP PO SCH (14:45)
[2021-03-09] MEDS: Saccharomyces boulardii 250 MG CAP PO SCH (14:45)
[2021-03-09] MEDS: Aspirin 81 mg Enteric Coated Tablet PO SCH (14:45)
[2021-03-09] MEDS: ALPRAZolam 0.25 MG TAB PO PRN (15:31)
[2021-03-09] MEDS: Gabapentin 300 MG CAP PO SCH ×2 (15:31→21:18)
[2021-03-09] MEDS ORDERED: Morphine Sulfate 100 MG in Dextrose 5% in Water 98 ML IV SCH (18:15)
[2021-03-09] MEDS ORDERED: Naloxone HCl 0.4 mg/ml Vial IV PRN (18:15)
[2021-03-09] MEDS ORDERED: Magnesium 5 GM/10 ML Abboject SYRINGE ONE (20:05)
[2021-03-09 20:08] LABS: #Eosinphils 0.3 thou/uL (0.0-0.7); #Lymphocytes 2.2 thou/uL (1.20-3.40); #Monocytes 1.3 thou/uL (0.11-0.59); #Neutrophils 7.6 thou/uL (1.40-6.50); %Basophils 0.3 % (0.0-1.0); %Eosinophils 2.9 % (0.0-10.0); %Lymphocytes 19.2 % (21.0-51.0); %Monocytes 10.9 % (0.0-10.0); %Neutrophils 66.8 % (42.0-75.0); Hemoglobin 10.8 g/dL (14.0-18.0); Mean Corpuscular HGB CONC 32.4 g/dL (32.0-36.0); Mean Corpuscular Hemoglobin 33.3 pg (27.0-31.0); Mean Platelet Volume 9.3 fL (7.4-10.4); Platelet Count 120 thou/uL (130-400); RBC Distribution Width 14.6 % (11.5-14.5); Red Blood Cell (RBC) Count 3.23 mill/uL (4.70-6.10); White Blood Cell (WBC) Count 11.4 thou/uL (4.8-10.8)
[2021-03-09 20:30] LABS: Anion Gap 16 mmol/L (10-20); BUN (Urea Nitrogen) 20 mg/dL (8.4-25.7); Calc. Creatinine Clearance 18 mL/min (70-130); Calcium 9.3 mg/dL (7.8-10.44); Carbon Dioxide 25 mmol/L (23-31); Chloride 102 mmol/L (98-107); Glucose 151 mg/dL (83-110); Magnesium 2.6 mg/dL (1.6-2.6); Phosphorus 4.4 mg/dL (2.3-4.7); Potassium 4.6 mmol/L (3.5-5.1); Sodium 138 mmol/L (136-145)
[2021-03-09] MEDS: Lantus 1000 UNITS/10 ML VIAL SC SCH (21:21)
[2021-03-10 04:10] LABS: #Eosinphils 0.2 thou/uL (0.0-0.7); #Lymphocytes 1.6 thou/uL (1.20-3.40); #Monocytes 1.4 thou/uL (0.11-0.59); #Neutrophils 8.3 thou/uL (1.40-6.50); %Basophils 0.4 % (0.0-1.0); %Eosinophils 1.7 % (0.0-10.0); %Lymphocytes 13.6 % (21.0-51.0); %Neutrophils 72.3 % (42.0-75.0); Hemoglobin 9.5 g/dL (14.0-18.0); Mean Corpuscular HGB CONC 32.6 g/dL (32.0-36.0); Mean Corpuscular Hemoglobin 33.8 pg (27.0-31.0); Mean Platelet Volume 9.3 fL (7.4-10.4); Platelet Count 135 thou/uL (130-400); RBC Distribution Width 14.6 % (11.5-14.5); Red Blood Cell (RBC) Count 2.82 mill/uL (4.70-6.10); White Blood Cell (WBC) Count 11.5 thou/uL (4.8-10.8)
[2021-03-10 04:28] LABS: Anion Gap 13 mmol/L (10-20); BUN (Urea Nitrogen) 26 mg/dL (8.4-25.7); Calc. Creatinine Clearance 17 mL/min (70-130); Calcium 9.2 mg/dL (7.8-10.44); Carbon Dioxide 27 mmol/L (23-31); Chloride 101 mmol/L (98-107); Glucose 158 mg/dL (83-110); Potassium 5.4 mmol/L (3.5-5.1); Sodium 136 mmol/L (136-145)
[2021-03-10] MEDS: Aztreonam 1 GM in Sodium Chloride 0.9% 100 ML IVPB SCH ×2 (05:29→16:47)
[2021-03-10] MEDS ORDERED: traMADol HCl 50 MG TAB PO PRN ×2 (08:57→08:58)
[2021-03-10] MEDS ORDERED: Vancomycin HCl 500 MG in Sodium Chloride 0.9% 100 ML IVPB SCH (09:00)
[2021-03-10] MEDS: Saccharomyces boulardii 250 MG CAP PO SCH (09:00)
[2021-03-10] MEDS: Gabapentin 300 MG CAP PO SCH ×3 (09:00→21:59)
[2021-03-10] MEDS: Calcitriol 0.25 MCG CAP PO SCH (09:00)
[2021-03-10] MEDS: Heparin 5,000 UNITS/ML VIAL SC SCH ×3 (10:53→21:59)
[2021-03-10] MEDS: Sevelamer Carbonate 800 MG TAB PO SCH ×3 (10:54→21:56)
[2021-03-10] MEDS: EPOETIN ALFA-EPBX (ESRD) 4,000 UNIT/ML VIAL SC SCH (10:55)
[2021-03-10] MEDS: Carvedilol 6.25 MG TAB PO SCH ×2 (11:08→16:56)
[2021-03-10] MEDS: Aspirin 81 mg Enteric Coated Tablet PO SCH (16:54)
[2021-03-10] MEDS: Lantus 1000 UNITS/10 ML VIAL SC SCH (22:02)
[2021-03-11] MEDS: Aztreonam 1 GM in Sodium Chloride 0.9% 100 ML IVPB SCH ×2 (04:47→16:15)
[2021-03-11] MEDS: Morphine 2 MG/ML VIAL SLOW IVP PRN (05:12)
[2021-03-11 06:33] LABS: Anion Gap 15 mmol/L (10-20); BUN (Urea Nitrogen) 37 mg/dL (8.4-25.7); Calc. Creatinine Clearance 13 mL/min (70-130); Calcium 9.4 mg/dL (7.8-10.44); Carbon Dioxide 28 mmol/L (23-31); Chloride 99 mmol/L (98-107); Glucose 187 mg/dL (83-110); Potassium 5.8 mmol/L (3.5-5.1); Sodium 136 mmol/L (136-145)
[2021-03-11 06:51] LABS: #Basophils 0.1 thou/uL (0.0-0.2); #Eosinphils 0.1 thou/uL (0.0-0.7); #Lymphocytes 1.2 thou/uL (1.20-3.40); #Monocytes 1.1 thou/uL (0.11-0.59); #Neutrophils 6.2 thou/uL (1.40-6.50); %Basophils 0.6 % (0.0-1.0); %Eosinophils 1.2 % (0.0-10.0); %Lymphocytes 13.5 % (21.0-51.0); %Monocytes 12.7 % (0.0-10.0); Hemoglobin 8.7 g/dL (14.0-18.0); Mean Corpuscular HGB CONC 31.6 g/dL (32.0-36.0); Mean Platelet Volume 9.2 fL (7.4-10.4); Platelet Count 157 thou/uL (130-400); RBC Distribution Width 14.5 % (11.5-14.5); Red Blood Cell (RBC) Count 2.63 mill/uL (4.70-6.10); White Blood Cell (WBC) Count 8.7 thou/uL (4.8-10.8)
[2021-03-11] MEDS ORDERED: traMADol HCl 50 MG TAB PO PRN (10:23)
[2021-03-11 10:36] LABS: Vancomycin, Random 15.1 ug/mL (See Comment)
[2021-03-11] MEDS: HYDROcodone/Acetaminophen 5/325 mg Tablet PO PRN (13:27)
[2021-03-11] MEDS: Heparin 5,000 UNITS/ML VIAL SC SCH ×3 (13:28→21:33)
[2021-03-11] MEDS: Sevelamer Carbonate 800 MG TAB PO SCH ×3 (13:30→16:23)
[2021-03-11] MEDS: Aspirin 81 mg Enteric Coated Tablet PO SCH (13:30)
[2021-03-11] MEDS: Carvedilol 6.25 MG TAB PO SCH ×2 (13:31→16:21)
[2021-03-11] MEDS: Calcitriol 0.25 MCG CAP PO SCH (13:31)
[2021-03-11] MEDS: Gabapentin 300 MG CAP PO SCH ×3 (13:31→21:32)
[2021-03-11] MEDS: Saccharomyces boulardii 250 MG CAP PO SCH (13:32)
[2021-03-11] MEDS: EPOETIN ALFA-EPBX (ESRD) 4,000 UNIT/ML VIAL SC SCH (13:39)
[2021-03-11] MEDS: Lantus 1000 UNITS/10 ML VIAL SC SCH (21:33)
[2021-03-12 05:10] LABS: #Eosinphils 0.3 thou/uL (0.0-0.7); #Lymphocytes 1.6 thou/uL (1.20-3.40); #Neutrophils 4.8 thou/uL (1.40-6.50); %Basophils 0.4 % (0.0-1.0); %Eosinophils 4.3 % (0.0-10.0); %Lymphocytes 19.9 % (21.0-51.0); %Neutrophils 62.4 % (42.0-75.0); Mean Corpuscular HGB CONC 32.5 g/dL (32.0-36.0); Mean Corpuscular Hemoglobin 33.8 pg (27.0-31.0); Mean Platelet Volume 8.7 fL (7.4-10.4); Platelet Count 163 thou/uL (130-400); Red Blood Cell (RBC) Count 2.65 mill/uL (4.70-6.10); White Blood Cell (WBC) Count 7.8 thou/uL (4.8-10.8)
[2021-03-12 05:29] LABS: Anion Gap 14 mmol/L (10-20); BUN (Urea Nitrogen) 20 mg/dL (8.4-25.7); Calc. Creatinine Clearance 19 mL/min (70-130); Calcium 9.4 mg/dL (7.8-10.44); Carbon Dioxide 28 mmol/L (23-31); Chloride 100 mmol/L (98-107); Glucose 123 mg/dL (83-110); Potassium 4.3 mmol/L (3.5-5.1); Sodium 138 mmol/L (136-145)
[2021-03-12] MEDS: Aztreonam 1 GM in Sodium Chloride 0.9% 100 ML IVPB SCH ×2 (05:33→17:46)
[2021-03-12] MEDS: Morphine 2 MG/ML VIAL SLOW IVP PRN ×2 (05:41→12:07)
[2021-03-12] MEDS: Aspirin 81 mg Enteric Coated Tablet PO SCH (08:46)
[2021-03-12] MEDS: Carvedilol 6.25 MG TAB PO SCH ×2 (08:46→17:46)
[2021-03-12] MEDS: Calcitriol 0.25 MCG CAP PO SCH (08:46)
[2021-03-12] MEDS: Sevelamer Carbonate 800 MG TAB PO SCH ×3 (08:46→17:46)
[2021-03-12] MEDS: Saccharomyces boulardii 250 MG CAP PO SCH (08:47)
[2021-03-12] MEDS: Heparin 5,000 UNITS/ML VIAL SC SCH ×3 (08:47→21:58)
[2021-03-12] MEDS ORDERED: Non-Formulary Item 1 EACH (Evolocumab [Repatha Syringe] 140 MG/ML Syringe) SQ SCH (09:00)
[2021-03-12] MEDS ORDERED: Gabapentin 300 MG CAP PO SCH (09:30)
[2021-03-12] MEDS: HYDROcodone/Acetaminophen 5/325 mg Tablet PO PRN ×2 (09:41→21:52)
[2021-03-12] MEDS: EPOETIN ALFA-EPBX (ESRD) 4,000 UNIT/ML VIAL SC SCH (14:48)
[2021-03-12] MEDS: Insulin Regular 300 UNITS/3 ML VIAL SC PRN (18:29)
[2021-03-12] MEDS: Lantus 1000 UNITS/10 ML VIAL SC SCH (21:55)
[2021-03-13 04:55] LABS: #Basophils 0.1 thou/uL (0.0-0.2); #Eosinphils 0.5 thou/uL (0.0-0.7); #Lymphocytes 1.1 thou/uL (1.20-3.40); #Monocytes 0.9 thou/uL (0.11-0.59); #Neutrophils 4.8 thou/uL (1.40-6.50); %Basophils 0.8 % (0.0-1.0); %Eosinophils 6.9 % (0.0-10.0); %Lymphocytes 15.3 % (21.0-51.0); Hemoglobin 9.3 g/dL (14.0-18.0); Mean Corpuscular HGB CONC 32.1 g/dL (32.0-36.0); Mean Platelet Volume 8.5 fL (7.4-10.4); Platelet Count 168 thou/uL (130-400); RBC Distribution Width 15.2 % (11.5-14.5); Red Blood Cell (RBC) Count 2.74 mill/uL (4.70-6.10); White Blood Cell (WBC) Count 7.5 thou/uL (4.8-10.8)
[2021-03-13 05:23] LABS: Anion Gap 14 mmol/L (10-20); BUN (Urea Nitrogen) 26 mg/dL (8.4-25.7); Calc. Creatinine Clearance 15 mL/min (70-130); Calcium 9.4 mg/dL (7.8-10.44); Carbon Dioxide 27 mmol/L (23-31); Chloride 98 mmol/L (98-107); Glucose 180 mg/dL (83-110); Potassium 4.2 mmol/L (3.5-5.1); Sodium 135 mmol/L (136-145)
[2021-03-13] MEDS: Heparin 5,000 UNITS/ML VIAL SC SCH ×3 (08:37→20:39)
[2021-03-13] MEDS: Sevelamer Carbonate 800 MG TAB PO SCH ×3 (08:37→17:43)
[2021-03-13] MEDS: Carvedilol 6.25 MG TAB PO SCH ×2 (08:38→17:43)
[2021-03-13] MEDS ORDERED: Gabapentin 300 MG CAP PO SCH (09:00)
[2021-03-13 11:51] LABS: Vancomycin, Random 8.7 ug/mL (See Comment)
[2021-03-13] MEDS: Saccharomyces boulardii 250 MG CAP PO SCH (13:53)
[2021-03-13] MEDS: Aspirin 81 mg Enteric Coated Tablet PO SCH (13:53)
[2021-03-13] MEDS: Calcitriol 0.25 MCG CAP PO SCH (13:53)
[2021-03-13] MEDS: EPOETIN ALFA-EPBX (ESRD) 4,000 UNIT/ML VIAL SC SCH (13:55)
[2021-03-13] MEDS: Lantus 1000 UNITS/10 ML VIAL SC SCH (20:39)
[2021-03-13] MEDS: HYDROcodone/Acetaminophen 5/325 mg Tablet PO PRN (23:40)
[2021-03-14 04:35] LABS: Hemoglobin 9.1 g/dL (14.0-18.0); Mean Corpuscular HGB CONC 31.9 g/dL (32.0-36.0); Mean Corpuscular Hemoglobin 33.8 pg (27.0-31.0); Mean Platelet Volume 8.1 fL (7.4-10.4); Platelet Count 173 thou/uL (130-400); RBC Distribution Width 15.2 % (11.5-14.5); Red Blood Cell (RBC) Count 2.69 mill/uL (4.70-6.10); White Blood Cell (WBC) Count 7.1 thou/uL (4.8-10.8)
[2021-03-14 04:53] LABS: Anion Gap 10 mmol/L (10-20); BUN (Urea Nitrogen) 15 mg/dL (8.4-25.7); Calc. Creatinine Clearance 22 mL/min (70-130); Calcium 9.1 mg/dL (7.8-10.44); Carbon Dioxide 31 mmol/L (23-31); Chloride 98 mmol/L (98-107); Glucose 103 mg/dL (83-110); Potassium 3.6 mmol/L (3.5-5.1); Sodium 135 mmol/L (136-145)
[2021-03-14] MEDS: Calcitriol 0.25 MCG CAP PO SCH (08:58)
[2021-03-14] MEDS: Saccharomyces boulardii 250 MG CAP PO SCH (08:58)
[2021-03-14] MEDS: Aspirin 81 mg Enteric Coated Tablet PO SCH (08:58)
[2021-03-14] MEDS: Gabapentin 300 MG CAP PO SCH (08:58)
[2021-03-14] MEDS: Sevelamer Carbonate 800 MG TAB PO SCH ×3 (08:58→16:46)
[2021-03-14] MEDS: Carvedilol 6.25 MG TAB PO SCH ×2 (08:58→16:46)
[2021-03-14] MEDS: Heparin 5,000 UNITS/ML VIAL SC SCH ×3 (08:59→21:25)
[2021-03-14] MEDS: HYDROcodone/Acetaminophen 5/325 mg Tablet PO PRN ×2 (10:19→15:13)
[2021-03-14] MEDS: EPOETIN ALFA-EPBX (ESRD) 4,000 UNIT/ML VIAL SC SCH (13:31)
[2021-03-14] MEDS: Lantus 1000 UNITS/10 ML VIAL SC SCH (21:31)
[2021-03-15] MEDS: Heparin 5,000 UNITS/ML VIAL SC SCH ×3 (09:46→21:33)
[2021-03-15] MEDS: Sevelamer Carbonate 800 MG TAB PO SCH ×3 (09:47→17:07)
[2021-03-15] MEDS: Calcitriol 0.25 MCG CAP PO SCH (09:47)
[2021-03-15] MEDS: Saccharomyces boulardii 250 MG CAP PO SCH (09:47)
[2021-03-15] MEDS: Carvedilol 6.25 MG TAB PO SCH ×2 (09:47→17:07)
[2021-03-15] MEDS: Acetaminophen 325 MG TAB PO PRN (09:47)
[2021-03-15] MEDS: Aspirin 81 mg Enteric Coated Tablet PO SCH (09:47)
[2021-03-15] MEDS: Gabapentin 300 MG CAP PO SCH (09:48)
[2021-03-15 10:06] LABS: #Basophils 0.1 thou/uL (0.0-0.2); #Eosinphils 0.3 thou/uL (0.0-0.7); #Lymphocytes 1.1 thou/uL (1.20-3.40); #Monocytes 0.8 thou/uL (0.11-0.59); #Neutrophils 6.2 thou/uL (1.40-6.50); %Basophils 0.9 % (0.0-1.0); %Eosinophils 3.9 % (0.0-10.0); %Lymphocytes 12.7 % (21.0-51.0); %Monocytes 8.9 % (0.0-10.0); %Neutrophils 73.6 % (42.0-75.0); Hemoglobin 9.4 g/dL (14.0-18.0); Mean Corpuscular HGB CONC 31.2 g/dL (32.0-36.0); Mean Corpuscular Hemoglobin 33.5 pg (27.0-31.0); Platelet Count 171 thou/uL (130-400); White Blood Cell (WBC) Count 8.5 thou/uL (4.8-10.8)
[2021-03-15 10:29] LABS: Anion Gap 11 mmol/L (10-20); BUN (Urea Nitrogen) 23 mg/dL (8.4-25.7); Calc. Creatinine Clearance 15 mL/min (70-130); Calcium 9.6 mg/dL (7.8-10.44); Carbon Dioxide 33 mmol/L (23-31); Chloride 97 mmol/L (98-107); Glucose 70 mg/dL (83-110); Magnesium 2.4 mg/dL (1.6-2.6); Sodium 137 mmol/L (136-145)
[2021-03-15] MEDS: HYDROcodone/Acetaminophen 5/325 mg Tablet PO PRN (11:55)
[2021-03-15] MEDS: EPOETIN ALFA-EPBX (ESRD) 4,000 UNIT/ML VIAL SC SCH (11:56)
[2021-03-15] MEDS ORDERED: Furosemide 40 MG/4 ML VIAL SLOW IVP SCH (13:00)
[2021-03-15] MEDS: traMADol HCl 50 MG TAB PO PRN (21:46)
[2021-03-16] MEDS: Acetaminophen 325 MG TAB PO PRN (00:27)
[2021-03-16] MEDS ORDERED: traMADol HCl 50 MG TAB PO SCH (03:45)
[2021-03-16] MEDS ORDERED: Gabapentin 100 MG CAP PO SCH (10:00)
[2021-03-16] MEDS: Carvedilol 6.25 MG TAB PO SCH ×2 (12:22→17:19)
[2021-03-16] MEDS: Gabapentin 300 MG CAP PO SCH (12:23)
[2021-03-16] MEDS: Heparin 5,000 UNITS/ML VIAL SC SCH ×3 (12:23→20:33)
[2021-03-16] MEDS: Sevelamer Carbonate 800 MG TAB PO SCH ×3 (12:23→17:19)
[2021-03-16] MEDS: Calcitriol 0.25 MCG CAP PO SCH (14:22)
[2021-03-16] MEDS: Saccharomyces boulardii 250 MG CAP PO SCH (14:22)
[2021-03-16] MEDS: Aspirin 81 mg Enteric Coated Tablet PO SCH (14:22)
[2021-03-16] MEDS: Furosemide 40 MG TAB PO SCH (14:22)
[2021-03-16] MEDS: EPOETIN ALFA-EPBX (ESRD) 4,000 UNIT/ML VIAL SC SCH (15:14)
[2021-03-16] MEDS: Acetaminophen 325 MG Suppository PR PRN (19:55)
[2021-03-16] MEDS ORDERED: Morphine 2 MG/ML VIAL SLOW IVP SCH (21:00)
[2021-03-17] MEDS: Acetaminophen 325 MG Suppository PR PRN (02:15)
[2021-03-17] MEDS: traMADol HCl 50 MG TAB PO PRN (02:57)
[2021-03-17 04:23] LABS: #Basophils 0.1 thou/uL (0.0-0.2); #Eosinphils 0.2 thou/uL (0.0-0.7); #Lymphocytes 1.3 thou/uL (1.20-3.40); #Monocytes 0.9 thou/uL (0.11-0.59); #Neutrophils 7.1 thou/uL (1.40-6.50); %Basophils 0.7 % (0.0-1.0); %Eosinophils 1.7 % (0.0-10.0); %Lymphocytes 13.9 % (21.0-51.0); %Monocytes 9.4 % (0.0-10.0); %Neutrophils 74.3 % (42.0-75.0); Mean Corpuscular HGB CONC 31.9 g/dL (32.0-36.0); Mean Corpuscular Hemoglobin 33.8 pg (27.0-31.0); Mean Platelet Volume 8.6 fL (7.4-10.4); Platelet Count 186 thou/uL (130-400); RBC Distribution Width 15.9 % (11.5-14.5); Red Blood Cell (RBC) Count 2.97 mill/uL (4.70-6.10); White Blood Cell (WBC) Count 9.5 thou/uL (4.8-10.8)
[2021-03-17 04:44] LABS: Anion Gap 17 mmol/L (10-20); BUN (Urea Nitrogen) 18 mg/dL (8.4-25.7); Calc. Creatinine Clearance 24 mL/min (70-130); Calcium 9.6 mg/dL (7.8-10.44); Carbon Dioxide 27 mmol/L (23-31); Chloride 98 mmol/L (98-107); Glucose 128 mg/dL (83-110); Potassium 4.3 mmol/L (3.5-5.1); Sodium 138 mmol/L (136-145)
[2021-03-17] MEDS: Carvedilol 6.25 MG TAB PO SCH ×2 (08:46→17:41)
[2021-03-17] MEDS: Saccharomyces boulardii 250 MG CAP PO SCH (08:47)
[2021-03-17] MEDS: Aspirin 81 mg Enteric Coated Tablet PO SCH (08:47)
[2021-03-17] MEDS: Heparin 5,000 UNITS/ML VIAL SC SCH ×3 (08:47→20:09)
[2021-03-17] MEDS: Sevelamer Carbonate 800 MG TAB PO SCH ×3 (08:47→17:41)
[2021-03-17] MEDS: Calcitriol 0.25 MCG CAP PO SCH (08:47)
[2021-03-17] MEDS: Furosemide 40 MG TAB PO SCH (08:47)
[2021-03-17] MEDS ORDERED: Gabapentin 100 MG CAP PO SCH (09:00)
[2021-03-17] MEDS: HYDROcodone/Acetaminophen 5/325 mg Tablet PO SCH ×3 (11:18→23:32)
[2021-03-17] MEDS: EPOETIN ALFA-EPBX (ESRD) 4,000 UNIT/ML VIAL SC SCH (11:59)
[2021-03-17] MEDS: Insulin Regular 300 UNITS/3 ML VIAL SC PRN (11:59)
[2021-03-17] MEDS: Ondansetron PF 4 MG/2 ML Vial IVP PRN (20:20)
[2021-03-18] MEDS: HYDROcodone/Acetaminophen 5/325 mg Tablet PO SCH ×4 (05:44→23:51)
[2021-03-18] MEDS: Sevelamer Carbonate 800 MG TAB PO SCH ×3 (12:02→16:24)
[2021-03-18] MEDS: Heparin 5,000 UNITS/ML VIAL SC SCH ×3 (12:02→20:27)
[2021-03-18] MEDS: Carvedilol 6.25 MG TAB PO SCH ×2 (12:31→17:42)
[2021-03-18] MEDS: Aspirin 81 mg Enteric Coated Tablet PO SCH (12:32)
[2021-03-18] MEDS: Calcitriol 0.25 MCG CAP PO SCH (12:32)
[2021-03-18] MEDS: Furosemide 40 MG TAB PO SCH (12:32)
[2021-03-18] MEDS: Saccharomyces boulardii 250 MG CAP PO SCH (12:33)
[2021-03-18] MEDS: EPOETIN ALFA-EPBX (ESRD) 4,000 UNIT/ML VIAL SC SCH (12:36)
[2021-03-19] MEDS: HYDROcodone/Acetaminophen 5/325 mg Tablet PO SCH ×2 (05:45→12:53)
[2021-03-19] MEDS: Aspirin 81 mg Enteric Coated Tablet PO SCH (09:01)
[2021-03-19] MEDS: Saccharomyces boulardii 250 MG CAP PO SCH (09:01)
[2021-03-19] MEDS: Calcitriol 0.25 MCG CAP PO SCH (09:02)
[2021-03-19] MEDS: Sevelamer Carbonate 800 MG TAB PO SCH ×3 (09:02→17:50)
[2021-03-19] MEDS: Heparin 5,000 UNITS/ML VIAL SC SCH ×3 (09:03→21:14)
[2021-03-19] MEDS: Furosemide 40 MG TAB PO SCH (09:11)
[2021-03-19] MEDS: Carvedilol 6.25 MG TAB PO SCH ×2 (09:11→17:50)
[2021-03-19] MEDS: EPOETIN ALFA-EPBX (ESRD) 4,000 UNIT/ML VIAL SC SCH (12:32)
[2021-03-19 13:42] LABS: #Basophils 0.1 thou/uL (0.0-0.2); #Eosinphils 0.3 thou/uL (0.0-0.7); #Lymphocytes 1.2 thou/uL (1.20-3.40); #Monocytes 0.9 thou/uL (0.11-0.59); #Neutrophils 4.6 thou/uL (1.40-6.50); %Basophils 0.8 % (0.0-1.0); %Eosinophils 3.9 % (0.0-10.0); %Lymphocytes 16.5 % (21.0-51.0); %Monocytes 12.6 % (0.0-10.0); %Neutrophils 66.1 % (42.0-75.0); Hemoglobin 10.4 g/dL (14.0-18.0); Mean Corpuscular HGB CONC 31.2 g/dL (32.0-36.0); Mean Corpuscular Hemoglobin 33.1 pg (27.0-31.0); Mean Platelet Volume 8.2 fL (7.4-10.4); Platelet Count 217 thou/uL (130-400); RBC Distribution Width 15.4 % (11.5-14.5); Red Blood Cell (RBC) Count 3.14 mill/uL (4.70-6.10)
[2021-03-19 14:02] LABS: Anion Gap 12 mmol/L (10-20); BUN (Urea Nitrogen) 20 mg/dL (8.4-25.7); Calc. Creatinine Clearance 20 mL/min (70-130); Carbon Dioxide 32 mmol/L (23-31); Chloride 97 mmol/L (98-107); Glucose 182 mg/dL (83-110); Potassium 3.8 mmol/L (3.5-5.1); Sodium 137 mmol/L (136-145)
[2021-03-20] MEDS: HYDROcodone/Acetaminophen 5/325 mg Tablet PO SCH ×6 (00:46→23:43)
[2021-03-20] MEDS: Insulin Regular 300 UNITS/3 ML VIAL SC PRN ×2 (06:15→17:47)
[2021-03-20] MEDS: Carvedilol 6.25 MG TAB PO SCH ×2 (10:37→16:09)
[2021-03-20] MEDS: Heparin 5,000 UNITS/ML VIAL SC SCH ×3 (10:37→20:55)
[2021-03-20] MEDS: Sevelamer Carbonate 800 MG TAB PO SCH ×3 (10:37→16:09)
[2021-03-20] MEDS: Aspirin 81 mg Enteric Coated Tablet PO SCH (13:42)
[2021-03-20] MEDS: Calcitriol 0.25 MCG CAP PO SCH (13:43)
[2021-03-20] MEDS: Furosemide 40 MG TAB PO SCH (13:43)
[2021-03-20] MEDS: Saccharomyces boulardii 250 MG CAP PO SCH (13:46)
[2021-03-20] MEDS: Simethicone Chewable 80 MG TAB PO SCH ×3 (13:47→20:54)
[2021-03-20] MEDS: EPOETIN ALFA-EPBX (ESRD) 4,000 UNIT/ML VIAL SC SCH (13:48)
[2021-03-21 04:43] LABS: #Eosinphils 0.3 thou/uL (0.0-0.7); #Lymphocytes 1.3 thou/uL (1.20-3.40); #Monocytes 0.9 thou/uL (0.11-0.59); %Basophils 0.3 % (0.0-1.0); %Eosinophils 4.3 % (0.0-10.0); %Lymphocytes 20.2 % (21.0-51.0); %Monocytes 13.8 % (0.0-10.0); %Neutrophils 61.5 % (42.0-75.0); Hemoglobin 10.5 g/dL (14.0-18.0); Mean Corpuscular HGB CONC 31.4 g/dL (32.0-36.0); Mean Corpuscular Hemoglobin 33.8 pg (27.0-31.0); Mean Platelet Volume 8.1 fL (7.4-10.4); Platelet Count 203 thou/uL (130-400); RBC Distribution Width 16.1 % (11.5-14.5); White Blood Cell (WBC) Count 6.5 thou/uL (4.8-10.8)
[2021-03-21 04:58] LABS: Anion Gap 10 mmol/L (10-20); BUN (Urea Nitrogen) 12 mg/dL (8.4-25.7); Calc. Creatinine Clearance 23 mL/min (70-130); Calcium 9.4 mg/dL (7.8-10.44); Carbon Dioxide 31 mmol/L (23-31); Chloride 99 mmol/L (98-107); Glucose 214 mg/dL (83-110); Potassium 3.6 mmol/L (3.5-5.1); Sodium 136 mmol/L (136-145)
[2021-03-21] MEDS: Insulin Regular 300 UNITS/3 ML VIAL SC PRN ×3 (06:30→17:02)
[2021-03-21] MEDS: HYDROcodone/Acetaminophen 5/325 mg Tablet PO SCH ×4 (06:39→23:51)
[2021-03-21] MEDS: Saccharomyces boulardii 250 MG CAP PO SCH (08:26)
[2021-03-21] MEDS: Simethicone Chewable 80 MG TAB PO SCH ×4 (08:26→20:51)
[2021-03-21] MEDS: Heparin 5,000 UNITS/ML VIAL SC SCH ×3 (08:27→20:52)
[2021-03-21] MEDS: Aspirin 81 mg Enteric Coated Tablet PO SCH (08:27)
[2021-03-21] MEDS: Furosemide 40 MG TAB PO SCH (08:27)
[2021-03-21] MEDS: Carvedilol 6.25 MG TAB PO SCH ×2 (08:27→17:01)
[2021-03-21] MEDS: Sevelamer Carbonate 800 MG TAB PO SCH ×3 (08:27→17:02)
[2021-03-21] MEDS: Calcitriol 0.25 MCG CAP PO SCH (08:27)
[2021-03-21] MEDS: Acetaminophen 325 MG TAB PO PRN ×2 (09:22→20:52)
[2021-03-21] MEDS: EPOETIN ALFA-EPBX (ESRD) 4,000 UNIT/ML VIAL SC SCH (11:20)
[2021-03-22] MEDS: HYDROcodone/Acetaminophen 5/325 mg Tablet PO SCH ×4 (05:54→23:36)
[2021-03-22] MEDS: Furosemide 40 MG TAB PO SCH (09:09)
[2021-03-22] MEDS: Saccharomyces boulardii 250 MG CAP PO SCH (09:09)
[2021-03-22] MEDS: Carvedilol 6.25 MG TAB PO SCH ×2 (09:09→17:21)
[2021-03-22] MEDS: Aspirin 81 mg Enteric Coated Tablet PO SCH (09:10)
[2021-03-22] MEDS: Simethicone Chewable 80 MG TAB PO SCH ×4 (09:10→20:33)
[2021-03-22] MEDS: Acetaminophen 325 MG TAB PO PRN (09:10)
[2021-03-22] MEDS: Sevelamer Carbonate 800 MG TAB PO SCH ×3 (09:10→18:06)
[2021-03-22] MEDS: Calcitriol 0.25 MCG CAP PO SCH (09:10)
[2021-03-22] MEDS: Heparin 5,000 UNITS/ML VIAL SC SCH ×3 (09:12→20:27)
[2021-03-22] MEDS: Insulin Regular 300 UNITS/3 ML VIAL SC PRN ×2 (11:31→17:23)
[2021-03-22] MEDS: EPOETIN ALFA-EPBX (ESRD) 4,000 UNIT/ML VIAL SC SCH (12:34)
[2021-03-23] MEDS: HYDROcodone/Acetaminophen 5/325 mg Tablet PO SCH ×4 (05:04→23:21)
[2021-03-23 05:08] LABS: #Basophils 0.1 thou/uL (0.0-0.2); #Eosinphils 0.4 thou/uL (0.0-0.7); #Lymphocytes 1.5 thou/uL (1.20-3.40); #Monocytes 0.7 thou/uL (0.11-0.59); %Basophils 0.9 % (0.0-1.0); %Eosinophils 6.3 % (0.0-10.0); %Monocytes 10.6 % (0.0-10.0); %Neutrophils 60.2 % (42.0-75.0); Hemoglobin 10.6 g/dL (14.0-18.0); Mean Corpuscular HGB CONC 30.4 g/dL (32.0-36.0); Mean Corpuscular Hemoglobin 32.6 pg (27.0-31.0); Mean Platelet Volume 7.9 fL (7.4-10.4); Platelet Count 225 thou/uL (130-400); RBC Distribution Width 16.2 % (11.5-14.5); Red Blood Cell (RBC) Count 3.26 mill/uL (4.70-6.10); White Blood Cell (WBC) Count 6.6 thou/uL (4.8-10.8)
[2021-03-23 05:29] LABS: Anion Gap 15 mmol/L (10-20); BUN (Urea Nitrogen) 21 mg/dL (8.4-25.7); Calc. Creatinine Clearance 13 mL/min (70-130); Carbon Dioxide 26 mmol/L (23-31); Chloride 101 mmol/L (98-107); Glucose 167 mg/dL (83-110); Potassium 4.1 mmol/L (3.5-5.1); Sodium 138 mmol/L (136-145)
[2021-03-23] MEDS: Acetaminophen 325 MG TAB PO PRN (06:07)
[2021-03-23] MEDS: Carvedilol 6.25 MG TAB PO SCH ×2 (14:54→17:19)
[2021-03-23] MEDS: Aspirin 81 mg Enteric Coated Tablet PO SCH (14:54)
[2021-03-23] MEDS: Sevelamer Carbonate 800 MG TAB PO SCH ×2 (14:54→17:19)
[2021-03-23] MEDS: Simethicone Chewable 80 MG TAB PO SCH ×4 (14:55→20:01)
[2021-03-23] MEDS: Heparin 5,000 UNITS/ML VIAL SC SCH ×3 (14:55→20:00)
[2021-03-23] MEDS: Furosemide 40 MG TAB PO SCH (14:55)
[2021-03-23] MEDS: Calcitriol 0.25 MCG CAP PO SCH (14:55)
[2021-03-23] MEDS: Saccharomyces boulardii 250 MG CAP PO SCH (14:55)
[2021-03-23] MEDS: EPOETIN ALFA-EPBX (ESRD) 4,000 UNIT/ML VIAL SC SCH (14:56)
[2021-03-23] MEDS ORDERED: Clindamycin/D5W 600 MG in Premix Bag 1 BAG IVPB SCH (18:45)
[2021-03-23] MEDS ORDERED: Gabapentin 100 MG CAP PO SCH (19:45)
[2021-03-24 05:32] LABS: Anion Gap 13 mmol/L (10-20); BUN (Urea Nitrogen) 13 mg/dL (8.4-25.7); Calc. Creatinine Clearance 18 mL/min (70-130); Calcium 9.8 mg/dL (7.8-10.44); Carbon Dioxide 27 mmol/L (23-31); Chloride 98 mmol/L (98-107); Glucose 187 mg/dL (83-110); Potassium 4.6 mmol/L (3.5-5.1); Sodium 133 mmol/L (136-145)
[2021-03-24 05:33] LABS: #Eosinphils 0.3 thou/uL (0.0-0.7); #Lymphocytes 1.4 thou/uL (1.20-3.40); #Monocytes 0.6 thou/uL (0.11-0.59); #Neutrophils 3.9 thou/uL (1.40-6.50); %Basophils 0.6 % (0.0-1.0); %Eosinophils 5.5 % (0.0-10.0); %Lymphocytes 22.3 % (21.0-51.0); %Neutrophils 61.5 % (42.0-75.0); Hemoglobin 11.4 g/dL (14.0-18.0); Mean Corpuscular HGB CONC 31.2 g/dL (32.0-36.0); Mean Corpuscular Hemoglobin 33.6 pg (27.0-31.0); Platelet Count 235 thou/uL (130-400); RBC Distribution Width 16.3 % (11.5-14.5); Red Blood Cell (RBC) Count 3.38 mill/uL (4.70-6.10); White Blood Cell (WBC) Count 6.3 thou/uL (4.8-10.8)
[2021-03-24] MEDS: Ondansetron PF 4 MG/2 ML Vial IVP PRN (06:02)
[2021-03-24] MEDS: HYDROcodone/Acetaminophen 5/325 mg Tablet PO SCH ×4 (06:02→23:33)
[2021-03-24] MEDS: Calcitriol 0.25 MCG CAP PO SCH (08:03)
[2021-03-24] MEDS: Furosemide 40 MG TAB PO SCH (08:03)
[2021-03-24] MEDS: Gabapentin 100 MG CAP PO SCH ×2 (08:03→20:32)
[2021-03-24] MEDS: Carvedilol 6.25 MG TAB PO SCH ×2 (08:03→16:13)
[2021-03-24] MEDS: Saccharomyces boulardii 250 MG CAP PO SCH (08:03)
[2021-03-24] MEDS: Simethicone Chewable 80 MG TAB PO SCH ×4 (08:05→20:33)
[2021-03-24] MEDS: Aspirin 81 mg Enteric Coated Tablet PO SCH (08:10)
[2021-03-24] MEDS: Heparin 5,000 UNITS/ML VIAL SC SCH ×3 (08:10→20:32)
[2021-03-24] MEDS: Sevelamer Carbonate 800 MG TAB PO SCH ×4 (08:10→17:42)
[2021-03-24] MEDS ORDERED: Clindamycin/D5W 600 mg/50 ml Premix Bag ONE (11:30)
[2021-03-24] MEDS ORDERED: Fentanyl 100 MCG/2 ML VIAL ONE ×2 (11:45→13:47)
[2021-03-24] MEDS ORDERED: Lidocaine 1% PF 5 ML VIAL ONE (12:30)
[2021-03-24] MEDS ORDERED: Rocuronium Bromide 10 MG/ML (10ML VIAL) ONE (12:30)
[2021-03-24] MEDS ORDERED: Dexamethasone 20 MG/5 ML VIAL ONE (12:30)
[2021-03-24] MEDS ORDERED: PHENYLEPHRINE-NS 100 MCG/ML 10 ML SYRINGE ONE (12:30)
[2021-03-24] MEDS ORDERED: Ondansetron PF 4 MG/2 ML Vial ONE (12:30)
[2021-03-24] MEDS ORDERED: Bupivacaine HCl 0.5%/Epinephrine 1:200,000/PF 30 ml Vial ONE (12:30)
[2021-03-24 12:53] LABS: SARS-CoV-2 PCR by NAA Not Detected (NotDetected)
[2021-03-24] MEDS ORDERED: SUGAMMADEX SODIUM 200 MG/2 ML VIAL ONE (13:02)
[2021-03-24] MEDS ORDERED: Morphine 4 MG/ML VIAL SLOW IVP PRN (14:52)
[2021-03-24] MEDS ORDERED: Morphine 2 MG/ML VIAL SLOW IVP PRN (14:52)
[2021-03-24] MEDS: EPOETIN ALFA-EPBX (ESRD) 4,000 UNIT/ML VIAL SC SCH ×2 (15:36→15:39)
[2021-03-24] MEDS: Insulin Regular 300 UNITS/3 ML VIAL SC PRN (17:44)
[2021-03-24] MEDS: Lidocaine 5% Patch TD SCH (20:35)
[2021-03-24] MEDS ORDERED: Insulin Regular 300 UNITS/3 ML VIAL SC PRN (21:00)
[2021-03-24] MEDS: Morphine 2 MG/ML VIAL SLOW IVP PRN (21:56)
[2021-03-25] MEDS: Morphine 2 MG/ML VIAL SLOW IVP PRN ×3 (04:06→20:28)
[2021-03-25 04:54] LABS: #Lymphocytes 0.9 thou/uL (1.20-3.40); #Monocytes 1.2 thou/uL (0.11-0.59); #Neutrophils 9.5 thou/uL (1.40-6.50); %Basophils 0.1 % (0.0-1.0); %Eosinophils 0.1 % (0.0-10.0); %Lymphocytes 8.1 % (21.0-51.0); %Monocytes 9.9 % (0.0-10.0); %Neutrophils 81.9 % (42.0-75.0); Mean Corpuscular HGB CONC 31.6 g/dL (32.0-36.0); Mean Corpuscular Hemoglobin 33.6 pg (27.0-31.0); Mean Platelet Volume 8.4 fL (7.4-10.4); Platelet Count 230 thou/uL (130-400); RBC Distribution Width 16.2 % (11.5-14.5); Red Blood Cell (RBC) Count 2.97 mill/uL (4.70-6.10); White Blood Cell (WBC) Count 11.6 thou/uL (4.8-10.8)
[2021-03-25 05:12] LABS: Anion Gap 14 mmol/L (10-20); BUN (Urea Nitrogen) 29 mg/dL (8.4-25.7); Calc. Creatinine Clearance 14 mL/min (70-130); Carbon Dioxide 27 mmol/L (23-31); Chloride 97 mmol/L (98-107); Glucose 337 mg/dL (83-110); Potassium 4.8 mmol/L (3.5-5.1); Sodium 133 mmol/L (136-145)
[2021-03-25] MEDS: HYDROcodone/Acetaminophen 5/325 mg Tablet PO SCH ×2 (05:29→11:37)
[2021-03-25] MEDS: Insulin Regular 300 UNITS/3 ML VIAL SC PRN ×3 (06:36→17:46)
[2021-03-25] MEDS: Sevelamer Carbonate 800 MG TAB PO SCH ×4 (08:00→17:47)
[2021-03-25] MEDS: Simethicone Chewable 80 MG TAB PO SCH ×5 (08:00→20:28)
[2021-03-25] MEDS: Furosemide 40 MG TAB PO SCH ×2 (08:00→15:10)
[2021-03-25] MEDS: Carvedilol 6.25 MG TAB PO SCH ×2 (08:06→17:46)
[2021-03-25] MEDS: Transdermal Patch Removal TOP SCH (08:22)
[2021-03-25] MEDS: Gabapentin 100 MG CAP PO SCH ×2 (11:39→20:26)
[2021-03-25] MEDS: Heparin 5,000 UNITS/ML VIAL SC SCH ×3 (13:52→20:27)
[2021-03-25] MEDS: Calcitriol 0.25 MCG CAP PO SCH (13:53)
[2021-03-25] MEDS: Saccharomyces boulardii 250 MG CAP PO SCH ×2 (13:54→14:12)
[2021-03-25] MEDS: Aspirin 81 mg Enteric Coated Tablet PO SCH (13:54)
[2021-03-25] MEDS: EPOETIN ALFA-EPBX (ESRD) 4,000 UNIT/ML VIAL SC SCH (14:09)
[2021-03-25] MEDS: HYDROcodone/Acetaminophen 10/325 mg Tablet PO PRN ×2 (18:39→23:00)
[2021-03-25] MEDS ORDERED: Lidocaine 5% Patch TD SCH (20:00)
[2021-03-25] MEDS: Lidocaine 5% Patch TD SCH (20:27)
[2021-03-25] MEDS: Lantus 1000 UNITS/10 ML VIAL SC SCH (20:27)
[2021-03-26] MEDS: HYDROcodone/Acetaminophen 10/325 mg Tablet PO PRN ×4 (03:14→22:57)
[2021-03-26] MEDS ORDERED: VANCOMYCIN 1.25 GM/250 ML BAG 1.25 GM in Premix Bag 1 BAG IVPB SCH ×3 (04:27→04:45)
[2021-03-26] MEDS ORDERED: Piperacillin/Tazobactam 3.375 GM in Sodium Chloride 0.9% 100 ML IVPB SCH ×3 (04:30→09:00)
[2021-03-26] MEDS ORDERED: Vancomycin 1 GM in Premix Bag 1 BAG IVPB SCH (04:45)
[2021-03-26] MEDS ORDERED: Vancomycin HCl 500 MG in Sodium Chloride 0.9% 100 ML IVPB SCH (04:45)
[2021-03-26] MEDS ORDERED: Vancomycin HCl 750 MG in Sodium Chloride 0.9% 250 ML 250 ML IVPB SCH (04:45)
[2021-03-26] MEDS ORDERED: HOLD VANCOMYCIN FOR LEVEL >20 FS SCH (04:45)
[2021-03-26 05:17] LABS: #Eosinphils 0.3 thou/uL (0.0-0.7); #Lymphocytes 1.6 thou/uL (1.20-3.40); #Monocytes 1.1 thou/uL (0.11-0.59); #Neutrophils 5.5 thou/uL (1.40-6.50); %Basophils 0.2 % (0.0-1.0); %Eosinophils 3.3 % (0.0-10.0); %Lymphocytes 18.5 % (21.0-51.0); %Monocytes 12.5 % (0.0-10.0); %Neutrophils 65.5 % (42.0-75.0); Hemoglobin 9.5 g/dL (14.0-18.0); Mean Corpuscular HGB CONC 30.9 g/dL (32.0-36.0); Mean Corpuscular Hemoglobin 33.6 pg (27.0-31.0); Platelet Count 228 thou/uL (130-400); RBC Distribution Width 15.9 % (11.5-14.5); Red Blood Cell (RBC) Count 2.83 mill/uL (4.70-6.10); White Blood Cell (WBC) Count 8.4 thou/uL (4.8-10.8)
[2021-03-26 05:28] LABS: Anion Gap 11 mmol/L (10-20); BUN (Urea Nitrogen) 15 mg/dL (8.4-25.7); Calc. Creatinine Clearance 19 mL/min (70-130); Calcium 9.8 mg/dL (7.8-10.44); Carbon Dioxide 32 mmol/L (23-31); Chloride 100 mmol/L (98-107); Glucose 220 mg/dL (83-110); Potassium 3.7 mmol/L (3.5-5.1); Sodium 139 mmol/L (136-145)
[2021-03-26] MEDS ORDERED: Vancomycin 1.5 GRAM/300 ML BAG 1.5 GM in Premix Bag 1 BAG IVPB SCH (06:00)
[2021-03-26] MEDS: Insulin Regular 300 UNITS/3 ML VIAL SC PRN ×3 (06:06→18:03)
[2021-03-26] MEDS: Aspirin 81 mg Enteric Coated Tablet PO SCH (09:37)
[2021-03-26] MEDS: Saccharomyces boulardii 250 MG CAP PO SCH (09:37)
[2021-03-26] MEDS: Gabapentin 100 MG CAP PO SCH ×3 (09:38→21:27)
[2021-03-26] MEDS: Calcitriol 0.25 MCG CAP PO SCH (09:38)
[2021-03-26] MEDS: Furosemide 40 MG TAB PO SCH (09:38)
[2021-03-26] MEDS: Carvedilol 6.25 MG TAB PO SCH ×2 (09:38→17:48)
[2021-03-26] MEDS: Heparin 5,000 UNITS/ML VIAL SC SCH ×3 (09:39→21:28)
[2021-03-26] MEDS: Sevelamer Carbonate 800 MG TAB PO SCH ×3 (09:59→17:48)
[2021-03-26] MEDS: Simethicone Chewable 80 MG TAB PO SCH ×4 (09:59→21:26)
[2021-03-26] MEDS: Transdermal Patch Removal TOP SCH (10:00)
[2021-03-26] MEDS: EPOETIN ALFA-EPBX (ESRD) 4,000 UNIT/ML VIAL SC SCH (12:55)
[2021-03-26] MEDS: Lidocaine 5% Patch TD SCH (21:24)
[2021-03-26] MEDS: Lantus 1000 UNITS/10 ML VIAL SC SCH (21:29)
[2021-03-27 05:00] LABS: #Eosinphils 0.3 thou/uL (0.0-0.7); #Lymphocytes 1.3 thou/uL (1.20-3.40); #Monocytes 1.1 thou/uL (0.11-0.59); #Neutrophils 8.8 thou/uL (1.40-6.50); %Basophils 0.1 % (0.0-1.0); %Monocytes 9.4 % (0.0-10.0); %Neutrophils 76.5 % (42.0-75.0); Hemoglobin 9.5 g/dL (14.0-18.0); Mean Corpuscular HGB CONC 31.3 g/dL (32.0-36.0); Mean Corpuscular Hemoglobin 34.1 pg (27.0-31.0); Mean Platelet Volume 7.9 fL (7.4-10.4); Platelet Count 207 thou/uL (130-400); Red Blood Cell (RBC) Count 2.79 mill/uL (4.70-6.10); White Blood Cell (WBC) Count 11.4 thou/uL (4.8-10.8)
[2021-03-27 05:25] LABS: Anion Gap 16 mmol/L (10-20); BUN (Urea Nitrogen) 25 mg/dL (8.4-25.7); Calc. Creatinine Clearance 13 mL/min (70-130); Calcium 9.8 mg/dL (7.8-10.44); Carbon Dioxide 25 mmol/L (23-31); Chloride 99 mmol/L (98-107); Glucose 219 mg/dL (83-110); Potassium 5.1 mmol/L (3.5-5.1); Sodium 135 mmol/L (136-145)
[2021-03-27] MEDS: Acetaminophen 325 MG TAB PO PRN (06:47)
[2021-03-27] MEDS: Insulin Regular 300 UNITS/3 ML VIAL SC PRN ×2 (06:50→16:26)
[2021-03-27] MEDS: Furosemide 40 MG TAB PO SCH (13:47)
[2021-03-27] MEDS: Sevelamer Carbonate 800 MG TAB PO SCH ×3 (13:52→16:22)
[2021-03-27] MEDS: Calcitriol 0.25 MCG CAP PO SCH (13:52)
[2021-03-27] MEDS: Simethicone Chewable 80 MG TAB PO SCH ×4 (13:52→21:42)
[2021-03-27] MEDS: Transdermal Patch Removal TOP SCH (13:53)
[2021-03-27] MEDS: Gabapentin 100 MG CAP PO SCH ×2 (13:54→14:31)
[2021-03-27] MEDS: Aspirin 81 mg Enteric Coated Tablet PO SCH (13:54)
[2021-03-27] MEDS: Carvedilol 6.25 MG TAB PO SCH ×2 (13:54→16:21)
[2021-03-27] MEDS: Heparin 5,000 UNITS/ML VIAL SC SCH ×3 (13:55→21:42)
[2021-03-27] MEDS: EPOETIN ALFA-EPBX (ESRD) 4,000 UNIT/ML VIAL SC SCH (14:01)
[2021-03-27] MEDS: HYDROcodone/Acetaminophen 10/325 mg Tablet PO PRN ×2 (14:28→19:54)
[2021-03-27] MEDS: Morphine 2 MG/ML VIAL SLOW IVP PRN (16:16)
[2021-03-27] MEDS: Lidocaine 5% Patch TD SCH (21:41)
[2021-03-27] MEDS: Lantus 1000 UNITS/10 ML VIAL SC SCH (21:58)
[2021-03-28] MEDS: HYDROcodone/Acetaminophen 10/325 mg Tablet PO PRN ×2 (02:08→09:11)
[2021-03-28 04:47] LABS: #Eosinphils 0.4 thou/uL (0.0-0.7); #Monocytes 0.9 thou/uL (0.11-0.59); %Basophils 0.1 % (0.0-1.0); %Eosinophils 4.1 % (0.0-10.0); %Lymphocytes 10.8 % (21.0-51.0); %Monocytes 9.2 % (0.0-10.0); %Neutrophils 75.9 % (42.0-75.0); Mean Corpuscular HGB CONC 30.5 g/dL (32.0-36.0); Mean Corpuscular Hemoglobin 32.8 pg (27.0-31.0); Mean Platelet Volume 8.2 fL (7.4-10.4); Platelet Count 179 thou/uL (130-400); RBC Distribution Width 15.6 % (11.5-14.5); Red Blood Cell (RBC) Count 2.74 mill/uL (4.70-6.10); White Blood Cell (WBC) Count 9.3 thou/uL (4.8-10.8)
[2021-03-28 05:07] LABS: Anion Gap 11 mmol/L (10-20); BUN (Urea Nitrogen) 23 mg/dL (8.4-25.7); Calc. Creatinine Clearance 17 mL/min (70-130); Calcium 9.4 mg/dL (7.8-10.44); Carbon Dioxide 30 mmol/L (23-31); Chloride 99 mmol/L (98-107); Glucose 202 mg/dL (83-110); Potassium 4.7 mmol/L (3.5-5.1); Sodium 135 mmol/L (136-145)
[2021-03-28] MEDS: Insulin Regular 300 UNITS/3 ML VIAL SC PRN ×2 (06:51→18:06)
[2021-03-28] MEDS: Furosemide 40 MG TAB PO SCH (08:55)
[2021-03-28] MEDS: Heparin 5,000 UNITS/ML VIAL SC SCH ×3 (08:55→22:27)
[2021-03-28] MEDS: Sevelamer Carbonate 800 MG TAB PO SCH ×3 (08:55→16:23)
[2021-03-28] MEDS: Calcitriol 0.25 MCG CAP PO SCH (08:55)
[2021-03-28] MEDS: Simethicone Chewable 80 MG TAB PO SCH ×4 (08:55→22:08)
[2021-03-28] MEDS: Aspirin 81 mg Enteric Coated Tablet PO SCH (08:55)
[2021-03-28] MEDS: Saccharomyces boulardii 250 MG CAP PO SCH (08:55)
[2021-03-28] MEDS: Carvedilol 6.25 MG TAB PO SCH ×2 (08:55→16:23)
[2021-03-28] MEDS: Transdermal Patch Removal TOP SCH (08:56)
[2021-03-28] MEDS: EPOETIN ALFA-EPBX (ESRD) 4,000 UNIT/ML VIAL SC SCH (13:29)
[2021-03-28] MEDS: Morphine 2 MG/ML VIAL SLOW IVP PRN ×2 (13:33→22:09)
[2021-03-28] MEDS ORDERED: Polyethylene Glycol 3350 17 GM Packet PO SCH (19:30)
[2021-03-28] MEDS: Senokot S 8.6-50 MG TAB PO SCH (22:08)
[2021-03-28] MEDS: Gabapentin 100 MG CAP PO SCH (22:08)
[2021-03-28] MEDS: Lantus 1000 UNITS/10 ML VIAL SC SCH (22:27)
[2021-03-28] MEDS: Lidocaine 5% Patch TD SCH (22:44)
[2021-03-29] MEDS: HYDROcodone/Acetaminophen 10/325 mg Tablet PO PRN ×4 (01:58→21:38)
[2021-03-29] MEDS: Polyethylene Glycol 3350 17 GM Packet PO SCH (10:13)
[2021-03-29] MEDS: Senokot S 8.6-50 MG TAB PO SCH ×2 (10:14→20:55)
[2021-03-29] MEDS: Sevelamer Carbonate 800 MG TAB PO SCH ×3 (10:15→16:19)
[2021-03-29] MEDS: Gabapentin 100 MG CAP PO SCH (10:15)
[2021-03-29] MEDS: Aspirin 81 mg Enteric Coated Tablet PO SCH (10:15)
[2021-03-29] MEDS: Transdermal Patch Removal TOP SCH (10:16)
[2021-03-29] MEDS: Calcitriol 0.25 MCG CAP PO SCH (10:16)
[2021-03-29] MEDS: Furosemide 40 MG TAB PO SCH (10:17)
[2021-03-29] MEDS: Simethicone Chewable 80 MG TAB PO SCH ×4 (10:17→20:55)
[2021-03-29] MEDS: Saccharomyces boulardii 250 MG CAP PO SCH (10:17)
[2021-03-29] MEDS: Carvedilol 6.25 MG TAB PO SCH ×2 (10:17→16:23)
[2021-03-29] MEDS: Heparin 5,000 UNITS/ML VIAL SC SCH ×3 (10:32→20:55)
[2021-03-29] MEDS: Morphine 2 MG/ML VIAL SLOW IVP PRN (10:45)
[2021-03-29] MEDS: EPOETIN ALFA-EPBX (ESRD) 4,000 UNIT/ML VIAL SC SCH (11:51)
[2021-03-29] MEDS: Insulin Regular 300 UNITS/3 ML VIAL SC PRN (17:12)
[2021-03-29] MEDS: Lantus 1000 UNITS/10 ML VIAL SC SCH (20:55)
[2021-03-29] MEDS: Lidocaine 5% Patch TD SCH (20:57)
[2021-03-30] MEDS: HYDROcodone/Acetaminophen 10/325 mg Tablet PO PRN (03:47)
[2021-03-30] MEDS: Carvedilol 6.25 MG TAB PO SCH (08:38)
[2021-03-30] MEDS: Furosemide 40 MG TAB PO SCH (08:38)
[2021-03-30] MEDS: Sevelamer Carbonate 800 MG TAB PO SCH ×2 (08:40→11:54)
[2021-03-30] MEDS: Senokot S 8.6-50 MG TAB PO SCH (08:40)
[2021-03-30] MEDS: Aspirin 81 mg Enteric Coated Tablet PO SCH (08:40)
[2021-03-30] MEDS: Polyethylene Glycol 3350 17 GM Packet PO SCH (08:40)
[2021-03-30] MEDS: Heparin 5,000 UNITS/ML VIAL SC SCH (08:41)
[2021-03-30] MEDS: Transdermal Patch Removal TOP SCH (08:41)
[2021-03-30] MEDS: Calcitriol 0.25 MCG CAP PO SCH (08:41)
[2021-03-30] MEDS: Saccharomyces boulardii 250 MG CAP PO SCH (08:41)
[2021-03-30] MEDS: Simethicone Chewable 80 MG TAB PO SCH ×2 (08:41→11:55)
[2021-03-30] MEDS ORDERED: Gabapentin 100 MG CAP PO SCH (09:00)
[2021-03-30 11:53] VITALS: TEMP 98.5
[2021-03-30] MEDS: EPOETIN ALFA-EPBX (ESRD) 4,000 UNIT/ML VIAL SC SCH (11:54)
[2021-03-30] MEDS ORDERED: HYDROcodone/Acetaminophen 10/325 mg Tablet PO PRN (12:28)
[2021-03-30 14:36] VITALS: BMI 23.5
[2021-03-30 15:33] VITALS: BP 139/65
== END 2021-03-30 15:50 | DRG 853 ==
LOC: ERS 12:31 → 2NO 16:21
PROVIDERS: ADMIT Internal Medicine; ATTEND Internal Medicine
PROC: 5A1D70Z Performance of Urinary Filtration, Intermittent, Less than 6 Hours Per Day (ICD-10-PCS; 2021-03-04)
PROC: 0Y6D0Z2 Detachment at Left Upper Leg, Mid, Open Approach (ICD-10-PCS; principal; 2021-03-09)
PROC: 0Y6C0Z1 Detachment at Right Upper Leg, High, Open Approach (ICD-10-PCS; 2021-03-24)
DX: A41.9 Sepsis, unspecified organism (principal); N18.6 End stage renal disease; Z20.822 Contact with and (suspected) exposure to COVID-19; G92 Toxic encephalopathy; I50.23 Acute on chronic systolic (congestive) heart failure; E11.52 Type 2 diabetes mellitus with diabetic peripheral angiopathy with gangrene; I70.262 Atherosclerosis of native arteries of extremities with gangrene, left leg; I24.8 Other forms of acute ischemic heart disease; N25.81 Secondary hyperparathyroidism of renal origin; I47.2 Ventricular tachycardia; E78.5 Hyperlipidemia, unspecified; I25.10 Atherosclerotic heart disease of native coronary artery without angina pectoris; I25.5 Ischemic cardiomyopathy; I11.0 Hypertensive heart disease with heart failure; K21.9 Gastro-esophageal reflux disease without esophagitis; E11.22 Type 2 diabetes mellitus with diabetic chronic kidney disease; E83.39 Other disorders of phosphorus metabolism; I87.2 Venous insufficiency (chronic) (peripheral); D63.1 Anemia in chronic kidney disease; E11.621 Type 2 diabetes mellitus with foot ulcer; G89.29 Other chronic pain; L97.529 Non-pressure chronic ulcer of other part of left foot with unspecified severity; I70.221 Atherosclerosis of native arteries of extremities with rest pain, right leg; G54.6 Phantom limb syndrome with pain; R33.9 Retention of urine, unspecified; T42.6X5A Adverse effect of other antiepileptic and sedative-hypnotic drugs, initial encounter; E87.5 Hyperkalemia; T40.2X5A Adverse effect of other opioids, initial encounter; Z99.2 Dependence on renal dialysis; Z87.891 Personal history of nicotine dependence; Z88.1 Allergy status to other antibiotic agents; Z88.2 Allergy status to sulfonamides; Z88.8 Allergy status to other drugs, medicaments and biological substances; Z95.1 Presence of aortocoronary bypass graft; Z79.899 Other long term (current) drug therapy; Z79.82 Long term (current) use of aspirin; Z79.4 Long term (current) use of insulin; Z95.810 Presence of automatic (implantable) cardiac defibrillator; Z90.89 Acquired absence of other organs
CPT/HCPCS: 0240U; 36415; 36416; 36600; 70450; 71045; 80048; 80053; 80202; 82553; 82805; 82947; 83605; 83735; 83880; 83970; 84100; 84484; 85025; 85027; 85652; 86140; 86850; 86900; 86901; 87040; 88307; 88311; 90935; 93005; 93010; 94640; 96365; 96366; 96367; G0257; J1100; J1644; J1815; J2270; J2370; J2405; J2543; J3010; J3370; J3475; J3490; J7050; Q5105; U0003; U0005